=== PATIENT | female | born 1965 | race Caucasian/White ===

== ENCOUNTER 2020-01-04 23:45 | Emergency (ER) | payer MEDICARE, MEDICAID, SELFPAY ==
--- NOTE | ~2020-01-04 | CT_ITS ---
EXAMINATION: CT facial & cervical spine wo DATE: 01/05/2020 01:10 INDICATION: Face and neck pain. Fall. TECHNIQUE: Computed tomography (CT) of the maxillofacial region and cervical spine was performed with out intravenous contrast. Automated exposure control and iterative reconstruction technique were empl oyed. The dose-length product was 605.09 mGy-cm. COMPARISON: None FINDINGS: MAXILLOFACIAL CT: There are likely changes of left ocular lens replacement surgery. There is mucosal thickening in the paranasal sinuses. There is thickening and sclerosis of the chung of the maxillary and sphenoid sinus es, consistent with chronic sinusitis. The patient is edentulous. No fracture. There is soft tissue s welling of the chin. CERVICAL SPINE CT: There is 8 degrees dextrocurvature of cervical spine. There is kyphosis of cervical spine. Vertebral body heights are normal. There is mildly decreased disc height at C4-C5 and C6-C7 and moderately decr eased disc height at C5-C6. The following disc levels are specifically discussed: C2-C3: There is no uncovertebral joint osteoarthritis. There is mild bilateral facet joint osteoarthr itis. There is no neural foraminal stenosis. There is no central canal stenosis. C3-C4: There is mild left uncovertebral joint osteoarthritis. There is mild bilateral facet joint ost eoarthritis. There is no neural foraminal stenosis. There is no central canal stenosis. C4-C5: There is moderate right and mild left uncovertebral joint osteoarthritis. There is mild bilate ral facet joint osteoarthritis. There is mild left neural foraminal stenosis. There is mild central c anal stenosis. C5-C6: There is moderate bilateral uncovertebral joint osteoarthritis. There is moderate bilateral fa cet joint osteoarthritis. There is mild left neural foraminal stenosis. There is mild central canal s tenosis. C6-C7: There is mild right and moderate left uncovertebral joint osteoarthritis. There is moderate ri ght and mild left facet joint osteoarthritis. There is mild left neural foraminal stenosis. There is mild central canal stenosis. C7-T1: There is no uncovertebral joint osteoarthritis. There is moderate right and severe left facet joint osteoarthritis. There is mild left neural foraminal stenosis. There is no central canal stenosi s. IMPRESSION: 1. No fracture. 2. Moderate cervical spondylosis. 3. Chronic sinusitis. Reviewed, dictated and finalized at location A. EL POST DELIVERY
--- NOTE | ~2020-01-04 | CT_ITS ---
EXAMINATION: CT brain wo con DATE: 01/05/2020 01:11 INDICATION: Head injury. Loss of consciousness. TECHNIQUE: Computed tomography (CT) of the head was performed without intravenous contrast. The mA wa s adjusted according to patient size. Iterative reconstruction technique was employed. The dose-lengt h product was 605.33 mGy-cm. COMPARISON: None FINDINGS: There is no intracranial hemorrhage, acute infarction, or abnormal intracranial mass lesion . The ventricles are normal in size. There are likely changes of left ocular lens replacement surgery . There is a left mastoid effusion. There is mucosal thickening in the paranasal sinuses with thicken ing and sclerosis of the chung of the sinuses, consistent with chronic sinusitis. IMPRESSION: 1. Normal brain. 2. Chronic sinusitis. Reviewed, dictated and finalized at location A. AL TAXONOMIST
--- NOTE | ~2020-01-04 | XR_ITS ---
EXAMINATION: XR ankle RT min 3V DATE: 01/05/2020 01:11 INDICATION: Right ankle pain. Injury. TECHNIQUE: 4 views of right ankle were obtained. COMPARISON: Right ankle radiographs 12/03/2019 FINDINGS: Bone alignment is normal. No fracture. Joint spaces are well maintained. There are enthesop hytes at the posterior and plantar aspects of calcaneal tuberosity. IMPRESSION: 1. No fracture. Reviewed, dictated and finalized at location A. FFEUR IMPRESSION: 1. No fracture.
--- NOTE | ~2020-01-04 | XR_ITS ---
EXAMINATION: XR hand LT min 3V DATE: 01/05/2020 01:10 INDICATION: Left hand pain. Injury. TECHNIQUE: 3 views of left hand were obtained. COMPARISON: None. FINDINGS: Bone alignment is normal. No fracture. There is mild osteoarthritis of first carpometacarpa l joint and second distal interphalangeal joint. IMPRESSION: 1. Mild polyarticular osteoarthritis. Reviewed, dictated and finalized at location A. NING ROOM WORKER
--- NOTE | ~2020-01-04 | XR_ITS ---
EXAMINATION: XR knee LT 3V DATE: 01/05/2020 01:11 INDICATION: Left knee pain. Fall. TECHNIQUE: 4 views of left knee were obtained. COMPARISON: Left knee radiographs 03/23/2017 FINDINGS: Bone alignment is normal. No fracture. There is mild tricompartmental osteoarthritis. There are loose bodies in the joint posteriorly. No knee joint effusion. IMPRESSION: 1. Mild left knee osteoarthritis with loose bodies. Reviewed, dictated and finalized at location A. NESS AGENT
--- NOTE | ~2020-01-04 | XR_ITS ---
EXAMINATION: XR knee RT 3V DATE: 01/05/2020 01:10 INDICATION: Right knee pain. Fall. TECHNIQUE: 4 views of right knee were obtained. COMPARISON: None. FINDINGS: Bone alignment is normal. No fracture. There is mild tricompartmental osteoarthritis. No kn ee joint effusion. IMPRESSION: 1. Mild right knee osteoarthritis. Reviewed, dictated and finalized at location A. H MACHINE SETTER
[2020-01-04 23:45] VITALS: BP 105/69; BP 140/80; PULSE 74; PULSE 75; RESP 18; TEMP 36.6; O2SAT 96
--- NOTE | 2020-01-05 00:09 | ECG_ITS ---
Measurements Intervals [place] Rate: 67 P: 34 FL: 165 QRS: -42 QRSD: 93 T: 28 QT: 392 QTc: 417 Interpretive Statements SINUS RHYTHM LEFT AXIS DEVIATION LOW QRS VOLTAGE IN PRECORDIAL LEADS POOR R WAVE PROGRESSION, ANTERIOR LEADS BASELINE ARTIFACT- I, II, III, AVR, AVL BORDERLINE ECG Electronically Signed On 01-05-2020 16:20:30 MAINTENANCE PLANNING CLERK by Adriel Kiser D.O.
--- NOTE | 2020-01-05 00:20 | ED.SYNCOPE ---
HPI - Syncope General Chief Complaint: Syncope Stated Complaint: fall History of Present Illness HPI narrative: Britney Is a 54-year-old woman with a complex past medical history including COPD, CHF, fibromyalgia, anxiety, depression and tobacco abuse that presented to the emergency department with pain after a fall that occurred after passing out. She was feeling stressed so she walked out to the end of her drive for a smoke break. She started to become very upset and had intense vertigo. She put her cigarette out and started to walk up to the house. The vertigo became worse and she completely passed out and fell face forward. She was unconscious for a short while but it took her some time around 15 minutes to get up and go back inside. She had intense pain all day and her head, neck and her left hand bilateral knees and right ankle. She has a history of vertigo and passing out when she has intense anxiety. She took her home OxyContin and tried to lay down but the pain continued to get worse. She denies chest pain, shortness of breath, palpitations, diaphoresis, nausea vomiting and diarrhea. She does report poor p.o. intake. she reports pain in her head, neck, [place], bilateral knees, left hand, and right ankle. MD complaint: collapsed Related Data Home Medications Medication Instructions Recorded Confirmed Lactobacillus acidophilus 1 cell PO DAILY 12/03/19 01/05/20 albuterol sulfate [Ventolin HFA] 1 puff INHALATION PRN 12/03/19 01/04/20 alprazolam 1 mg PO DAILY 12/03/19 01/04/20 dapagliflozin [Farxiga] 5 mg PO DAILY 12/03/19 01/05/20 diclofenac sodium 1 % TOPICAL PRN 12/03/19 01/05/20 escitalopram oxalate 20 mg PO DAILY 12/03/19 01/04/20 eszopiclone 3 mg PO DAILY 12/03/19 01/05/20 rdlhqibrezz-trsxopwfw-ynjmsflv 1 inh INHALATION DAILY 12/03/19 01/05/20 [Trelegy Ellipta] lidocaine 1 patch TOPICAL PRN 12/03/19 01/05/20 linaclotide [Linzess] 145 mcg PO DAILY 12/03/19 01/05/20 metformin 1,000 mg PO DAILY 12/03/19 01/05/20 montelukast 10 mg PO DAILY 12/03/19 01/05/20 oxycodone 10 mg PO DAILY 12/03/19 01/04/20 pregabalin [Lyrica] 100 mg PO BID 12/03/19 01/04/20 pregabalin [Lyrica] 200 mg PO HS 12/03/19 01/04/20 ranitidine HCl 300 mg PO DAILY 12/03/19 01/04/20 verapamil 40 mg PO DAILY 12/03/19 01/04/20 vitamin E 400 unit PO DAILY 12/03/19 01/04/20 Allergies Allergy/AdvReac Type Severity Reaction Status Date / Time atorvastatin Allergy Unknown Verified 12/21/19 09:31 budesonide Allergy Unknown Verified 12/21/19 09:31 egg Allergy Unknown Verified 12/21/19 09:31 formoterol Allergy Unknown Verified 12/21/19 09:31 gemfibrozil Allergy Unknown Verified 12/21/19 09:31 latex Allergy Unknown Verified 12/21/19 09:31 mometasone furoate Allergy Unknown Verified 12/21/19 09:31 morphine Allergy Unknown Itching Verified 12/21/19 09:31 promethazine Allergy Unknown Verified 12/21/19 09:31 zolpidem Allergy Unknown adverse Verified 12/21/19 09:31 reaction milk Allergy INCREASED Verified 12/21/19 09:31 MUCUS, COUGH PAPER TAPE Allergy Unknown BLISTERS Uncoded 12/21/19 09:31 Review of Systems Constitutional: Constitutional: Denies chills and Denies fever(s) ENT: Denies epistaxis Cardiovascular: Cardiovascular: Denies chest pain with activity, Denies edema and Denies dyspnea on exertion Respiratory: Respiratory: Denies cough and Denies dyspnea on exertion Gastrointestinal: Gastrointestinal: Denies abdominal pain, Denies diarrhea, Denies nausea and Denies vomiting Genitourinary: Genitourinary: Denies dysuria Musculoskeletal: Musculoskeletal: Denies deformity Neurologic: Denies Normal hearing present and Denies behavioral changes Psychiatric: Psychiatric: Denies behavioral changes and Denies confusion Endocrine: Endocrine: Reports no additional endocrine complaints Hematologic/Lymphatic: Hematologic/Lymphatic: Reports no additional hematologic/lymphatic complaints Allergic/Immunologic: Allergic/Immunologic: Report
[2020-01-05 00:33] VITALS: BP 108/56; PULSE 76
[2020-01-05 00:35] LABS: Hematocrit 42.7 % (35.0-49.0); Hemoglobin 14.6 g/dL (12.0-15.0); Immature Platelet Fraction Pct 2.2 % (1.0-7.0); Mean Corpuscular HGB Conc 34.2 g/dL (32.0-36.0); Mean Corpuscular Hemoglobin 31.8 pg (27.0-31.0); Mean Platelet Volume 10.4 fl (9.2-11.8); Platelet Count Result 102 K/mm3 (150-420); Red Blood Count 4.59 M/mm3 (4.20-5.40); Red Cell Distribution Width 13.7 % (11.6-14.4); White Blood Count 8.1 K/mm3 (4.8-10.8)
--- NOTE | 2020-01-05 00:36 | PC.NURSE ---
01/04/2020 2345 pt denies nausea, vomiting, chest pain.
[2020-01-05 00:52] LABS: Blood Urea Nitrogen 14 mg/dL (7-18); Calcium 8.7 mg/dL (8.5-10.1); Carbon Dioxide 24 mmol/L (21-32); Chloride 100 mmol/L (98-108); Estimated CRCL calculation 61 ml/min; Estimated Glomerular Filt Rate > 60; Glucose 371 mg/dL (70-99); Osmolality Calculated 295 mOsm/kg (285-295); Sodium 135 mmol/L (136-145)
[2020-01-05 00:53] LABS: Troponin I < 0.02 ng/mL (0.00-0.056)
[2020-01-05 01:06] LABS: BNP 13.2 pg/mL (0-100)
[2020-01-05] MEDS: KETOROLAC 30 MG/ML VIAL (*BKC) (01:40)
[2020-01-05 01:44] VITALS: BP 118/76; PULSE 77; RESP 18; O2SAT 97
== END 2020-01-05 01:46 | disposition home or self-care (01) ==
PROVIDERS: Emergency Provider Family Medicine; PCP Internal Medicine
DX: R55 Syncope and collapse (principal); W19.XXXA Unspecified fall, initial encounter
CPT/HCPCS: 36415; 70450; 70486; 72125; 73130; 73562; 73610; 80048; 83880; 84484; 85027; 85055; 93005; 96374; 99283; 99284; J1885

== ENCOUNTER 2020-10-03 13:51 | Emergency (ER) | payer MEDICARE, SELFPAY ==
--- NOTE | 2020-10-03 14:10 | ED.WOUNDLAC ---
HPI - Wound/Laceration General Chief Complaint: Wound/Laceration Stated Complaint: open wound on left hand Time Seen by Provider: 10/03/20 14:10 Source: patient Mode of arrival: ambulatory Limitations: no limitations History of Present Illness HPI narrative: 55-year-old woman with a history of diabetes or coronary artery disease, CHF, and hypertension comes in today complaining of a wound on her left hand that occurred approximately 1/2 hour prior to arrival. She states that she was trying to open a container with the scissors and slipped, stabbing her self in the dorsal webspace between her left index finger and thumb. She states she could not get the bleeding to stop. She states she takes aspirin daily, but no other blood thinners. Onset (ago): minute(s) (30) Place: home Patient tetanus UTD: Yes Context: accidental Associated symptoms: pain Related Data Home Medications Medication Instructions Recorded Confirmed Lactobacillus acidophilus 1 cell PO DAILY 12/03/19 01/05/20 albuterol sulfate [Ventolin HFA] 1 puff INHALATION PRN 12/03/19 01/04/20 alprazolam 1 mg PO DAILY 12/03/19 01/04/20 dapagliflozin [Farxiga] 5 mg PO DAILY 12/03/19 01/05/20 diclofenac sodium 1 % TOPICAL PRN 12/03/19 01/05/20 escitalopram oxalate 20 mg PO DAILY 12/03/19 01/04/20 eszopiclone 3 mg PO DAILY 12/03/19 01/05/20 mrwrodatjwb-uidndlsrj-razbwaht 1 inh INHALATION DAILY 12/03/19 01/05/20 [Trelegy Ellipta] lidocaine 1 patch TOPICAL PRN 12/03/19 01/05/20 linaclotide [Linzess] 145 mcg PO DAILY 12/03/19 01/05/20 metformin 1,000 mg PO DAILY 12/03/19 01/05/20 montelukast 10 mg PO DAILY 12/03/19 01/05/20 oxycodone 10 mg PO DAILY 12/03/19 01/04/20 pregabalin [Lyrica] 100 mg PO BID 12/03/19 01/04/20 pregabalin [Lyrica] 200 mg PO HS 12/03/19 01/04/20 ranitidine HCl 300 mg PO DAILY 12/03/19 01/04/20 verapamil 40 mg PO DAILY 12/03/19 01/04/20 vitamin E 400 unit PO DAILY 12/03/19 01/04/20 Allergies Allergy/AdvReac Type Severity Reaction Status Date / Time atorvastatin Allergy Unknown Verified 12/21/19 09:31 budesonide Allergy Unknown Verified 12/21/19 09:31 egg Allergy Unknown Verified 12/21/19 09:31 formoterol Allergy Unknown Verified 12/21/19 09:31 gemfibrozil Allergy Unknown Verified 12/21/19 09:31 latex Allergy Unknown Verified 12/21/19 09:31 mometasone furoate Allergy Unknown Verified 12/21/19 09:31 morphine Allergy Unknown Itching Verified 12/21/19 09:31 promethazine Allergy Unknown Verified 12/21/19 09:31 zolpidem Allergy Unknown adverse Verified 12/21/19 09:31 reaction milk Allergy INCREASED Verified 12/21/19 09:31 MUCUS, COUGH PAPER TAPE Allergy Unknown BLISTERS Uncoded 12/21/19 09:31 Review of Systems Cardiovascular: Cardiovascular: Denies chest pain and Denies radiating jaw, neck or arm pain Respiratory: Respiratory: Denies cough and Denies dyspnea Gastrointestinal: Gastrointestinal: Denies nausea and Denies vomiting Musculoskeletal: Musculoskeletal: Denies arthralgias and Denies joint swelling Integumentary/Breasts: Skin/Breast: Denies pruritus, Denies erythema and Denies rash Neurologic: Denies focal weakness and Denies numbness Hematologic/Lymphatic: Hematologic/Lymphatic: Reports easy bleeding and Reports easy bruising Allergic/Immunologic: Allergic/Immunologic: Denies lip swelling and Denies tongue swelling [facility] Past Medical History Medical History (Updated 10/03/20 @ 15:15 by Tristen Yap MD) Anxiety CHF (congestive heart failure) Depression Exogenous obesity Fibromyalgia Hypertension Type 2 diabetes mellitus Surgical History Surgical History H/O laparoscopy History of back surgery History of cholecystectomy History of hysterectomy Family History Family History Mother Family history of gout Hypertension Family history of elevated blood lipids Family history of diabetes
[2020-10-03 14:28] VITALS: BP 137/87; RESP 20; TEMP 36.9; O2SAT 96
[2020-10-03] MEDS: ACETAMINOPHEN/CODEINE (*CRX) 300/30 MG TABLET 1 TAB PO (15:20)
[2020-10-03 15:44] VITALS: BP 120/77; PULSE 106; RESP 20; O2SAT 97
== END 2020-10-03 15:55 | disposition home or self-care (01) ==
PROVIDERS: Emergency Provider Emergency Medicine; PCP Internal Medicine
DX: S61.412A Laceration without foreign body of left hand, initial encounter (principal); I11.0 Hypertensive heart disease with heart failure; I50.9 Heart failure, unspecified; I25.10 Atherosclerotic heart disease of native coronary artery without angina pectoris; E11.9 Type 2 diabetes mellitus without complications; E66.09 Other obesity due to excess calories; M79.7 Fibromyalgia; F41.9 Anxiety disorder, unspecified; F32.9 Major depressive disorder, single episode, unspecified; Z79.82 Long term (current) use of aspirin
CPT/HCPCS: 12001; 99283; A9270

== ENCOUNTER 2020-11-02 19:18 | Emergency (ER) | payer MEDICARE, SELFPAY ==
--- NOTE | ~2020-11-02 | CT_ITS ---
EXAMINATION: CT brain wo con DATE: 11/02/2020 20:19 INDICATION: Head injury TECHNIQUE: Computed tomography (CT) of the head was performed without intravenous contrast. Sagittal and coronal reconstructions were performed. The mA was adjusted according to patient size. Iterative reconstruction technique was employed. The dose-length product was 605.33 mGy-cm. COMPARISON: head CT dated 01/05/2020 FINDINGS: No actual. No acute intracranial hemorrhage, acute infarction or abnormal extra axial fluid collectio n. Ventricles are normal and symmetric. No mass/mass effect. Changes of left intraocular lens replace ment. Extensive sinus disease with opacification of the right sphenoid and near complete opacificatio n of the the remaining paranasal sinuses. There is thickening and sclerosis of the sinus chung consis tent with chronic sinusitis. Left mastoid is hyperpneumatized with persistent small effusion. IMPRESSION: 1. Normal brain. No fracture or acute intracranial process. 2. Chronic sinusitis. Reviewed, dictated and finalized at location A. NSED REACTOR OPERATOR
--- NOTE | ~2020-11-02 | CT_ITS ---
EXAMINATION: CT cervical spine wo con DATE: 11/02/2020 20:19 INDICATION: Neck pain post fall with head injury TECHNIQUE: Computed tomography (CT) of the cervical spine was performed without intravenous contrast. Automated exposure control and iterative reconstruction technique were employed. The dose-length pro duct was 386.10 mGy-cm. COMPARISON: 01/05/2020 FINDINGS: Straightening of the normal cervical lordosis. Vertebral body heights are normal. No fracture. Modera te disc height loss at C5-C6 and mild disc height loss at C4-C5 and C6-C7. Posterior disc osteophyte complexes at C5-C6 and C6-C7 result in mild central canal stenosis at both levels. Multilevel mild to moderate cervical uncovertebral and facet osteoarthritis resulting in mild neural foraminal stenosis at a few levels. See prior report for level by level analysis. Cervical soft tissues are unremarkabl e. Visualized airway and apices of the lungs are clear. IMPRESSION: 1. Moderate cervical spondylosis. No acute osseous abnormality. Reviewed, dictated and finalized at location A. CTOR OF KNOWLEDGE MANAGEMENT
[2020-11-02 19:22] VITALS: BP 145/90; PULSE 102; RESP 18; TEMP 36.4; O2SAT 98
[2020-11-02 19:38] LABS: Basophils Absolute Auto 0.1 K/mm3 (0.0-0.1); Basophils Percent Auto 0.8 % (0.2-1.2); Eosinophils Absolute Auto 0.2 K/mm3 (0-0.3); Eosinophils Percent Auto 2.4 % (0-4.4); Hematocrit 41.6 % (37.0-47.0); Hemoglobin 18.7 g/dL (12.0-15.0); Immature Granulocyte Absolute 0.03 K/mm3 (0.00-0.031); Immature Granulocyte Percent A 0.5 % (0-0.5); Lymphocytes Absolute Auto 1.74 K/mm3 (0.9-3.2); Lymphocytes Percent Auto 26.4 % (18.3-44.2); Mean Corpuscular Hemoglobin 42.1 pg (26-34); Mean Corpuscular Volume 93.7 fl (80-100); Mean Platelet Volume 10.4 fl (7.4-10.4); Monocytes Absolute Auto 0.5 K/mm3 (0.1-0.6); Neutrophils Absolute Auto 4.2 K/mm3 (1.3-6.7); Neutrophils Percent Auto 62.9 % (45.5-73.1); Platelet Count Result 188 k/mm3 (150-375); Red Blood Count 4.44 M/mm3 (4.2-5.4); Red Cell Distribution Width 14.3 % (11.5-14.5); White Blood Count 6.6 K/mm3 (4.5-10.0)
[2020-11-02 19:48] LABS: INR 0.9; Prothrombin Time 12.2 Seconds (11.1-14.7)
[2020-11-02 19:49] LABS: Partial Thromboplastin Time 26.1 SECONDS (22.3-36.8)
--- NOTE | 2020-11-02 20:02 | PC.NURSE ---
Patient found to be awake, alert, and oriented, sitting in bed. She tells me that she does believe she has a painful and bleeding hemorrhoid, stating that she is bleeding like I'm on my period . Patient does report that she has had a hysterectomy. Additionally she reports that she does have a headache. She reports that this has been present for the last three days and that it started after she fell and hit her head. She reports that she tripped and fell down over 3 steps and hit her head. Denies any loss of consciousness but states headaches have been ongoing since that time and do not respond to over the counter pain relief. At this time she reports that she does feel unsteady when she walks but reports similar periods occurring before she had the fall. She also reports blurred vision but then states she has cataracts and has been unable to get them repaired due to COVID. She does not report other concerns at this time. EDP aware of this assessment and orders for CT were placed by the EDPA.
--- NOTE | 2020-11-02 20:10 | ED.GIBLEED ---
HPI - GI Bleed General Chief complaint: GI Bleed Stated complaint: rectal bleeding, headache Time Seen by Provider: 11/02/20 19:59 History of Present Illness HPI Narrative: 55 yo female w/ h/o DM, HTN, IBS presents to the ED for headache and rectal bleeding. SHe reports that she fell down a few stairs 3 dyas ago and struck her head. She reports that she has had a worsening headache and blurry vision since that time. She says that sheis on blood thinners, although she does not know which one and they do not appear on her med list. Additionally she has had blood in the toilet with bowel movements for the past few days. She believes that she is bleeding from a hemorrhoid. . Related Data Home Medications Medication Instructions Recorded Confirmed Lactobacillus acidophilus 1 cell PO DAILY 12/03/19 01/05/20 albuterol sulfate [Ventolin HFA] 1 puff INHALATION PRN 12/03/19 01/04/20 alprazolam 1 mg PO DAILY 12/03/19 01/04/20 dapagliflozin [Farxiga] 5 mg PO DAILY 12/03/19 01/05/20 diclofenac sodium 1 % TOPICAL PRN 12/03/19 01/05/20 escitalopram oxalate 20 mg PO DAILY 12/03/19 01/04/20 eszopiclone 3 mg PO DAILY 12/03/19 01/05/20 wfoyuzakpma-qasniqwix-ctomawqe 1 inh INHALATION DAILY 12/03/19 01/05/20 [Trelegy Ellipta] lidocaine 1 patch TOPICAL PRN 12/03/19 01/05/20 linaclotide [Linzess] 145 mcg PO DAILY 12/03/19 01/05/20 metformin 1,000 mg PO DAILY 12/03/19 01/05/20 montelukast 10 mg PO DAILY 12/03/19 01/05/20 oxycodone 10 mg PO DAILY 12/03/19 01/04/20 pregabalin [Lyrica] 100 mg PO BID 12/03/19 01/04/20 pregabalin [Lyrica] 200 mg PO HS 12/03/19 01/04/20 ranitidine HCl 300 mg PO DAILY 12/03/19 01/04/20 verapamil 40 mg PO DAILY 12/03/19 01/04/20 vitamin E 400 unit PO DAILY 12/03/19 01/04/20 Allergies Allergy/AdvReac Type Severity Reaction Status Date / Time budesonide Allergy Unknown Anaphylactic Verified 11/02/20 21:04 Shock formoterol Allergy Unknown Anaphylactic Verified 11/02/20 21:04 Shock gemfibrozil Allergy Unknown Gastrointestinal Verified 11/02/20 21:04 Upset mometasone furoate Allergy Unknown Anaphylactic Verified 11/02/20 21:04 Shock milk Allergy INCREASED Verified 12/21/19 09:31 MUCUS, COUGH diphenhydramine AdvReac Severe Other Verified 11/02/20 21:04 [From Benadryl] atorvastatin AdvReac Unknown Itching Verified 11/02/20 21:04 morphine AdvReac Unknown Itching Verified 11/02/20 21:04 PAPER TAPE Allergy Unknown BLISTERS Uncoded 12/21/19 09:31 Review of Systems Review of Systems: All systems reviewed & are unremarkable except as noted in HPI and below Constitutional: Constitutional: Denies chills, Denies fatigue, Denies fever(s) and Denies weakness Eyes: Eyes: Reports photophobia Cardiovascular: Cardiovascular: Denies chest pain Respiratory: Respiratory: Denies dyspnea Gastrointestinal: Gastrointestinal: Denies abdominal pain, Reports bloating, Denies constipation, Denies diarrhea, Denies nausea and Denies vomiting Genitourinary: Genitourinary: Denies hematuria and Denies dysuria Neurologic: Denies dizziness, Reports headache(s) and Denies weakness PMFSH Past Medical History Medical History Anxiety CHF (congestive heart failure) Depression Exogenous obesity Fibromyalgia Hypertension Type 2 diabetes mellitus Surgical History Surgical History H/O laparoscopy History of back surgery History of cholecystectomy History of hysterectomy Family History Family History Mother Family history of gout Hypertension Family history of elevated blood lipids Family history of diabetes mellitus in first degree relative Family history of chronic obstructive pulmonary disease Sibling Family history of gout Family history of allergic disorder Father Family history of emphysema Other Family history of cardiovascu
[2020-11-02] MEDS: SODIUM CHLORIDE 0.9% IV 1,000 ML 999 ML IV CONT (21:12)
[2020-11-02] MEDS: METOCLOPRAMIDE HCL INJ 10 MG/2 ML VIAL IV PUSH (21:14)
[2020-11-02 21:15] VITALS: BP 119/85; BP 126/92; PULSE 103; PULSE 98
[2020-11-02 21:16] VITALS: BP 125/90; BP 126/92; PULSE 102; PULSE 119; RESP 18; TEMP 35.9; O2SAT 97
--- NOTE | 2020-11-02 22:12 | PC.NURSE ---
Chemistry called at this time in regards to not having results reported for CMP. Lab states that they need to get an iStat to run this test and are currently working towards this goal.
[2020-11-02 22:14] LABS: Sodium 126 mmol/L (138-146)
[2020-11-02 22:15] VITALS: BP 111/66; PULSE 86; RESP 22; TEMP 36.7; O2SAT 96
[2020-11-02 22:15] LABS: Anion Gap 5 mmol/L (8-16); Blood Urea Nitrogen 7 mg/dL (8-26); Carbon Dioxide 28 mmol/L (22-30); Chloride 93 mmol/L (98-109); Estimated CRCL calculation 102 ml/min; Estimated Glomerular Filt Rate > 60; Potassium 4.2 mmol/L (3.5-4.9)
[2020-11-02 22:16] LABS: Glucose 449 mg/dL (70-105)
[2020-11-02] MEDS: FLUCONAZOLE 150 MG TABLET PO (22:19)
--- NOTE | 2020-11-02 22:30 | PC.NURSE ---
Patient requesting to be discharged and does not want second liter of fluids. EDP made aware of the patient's request.
== END 2020-11-02 22:45 | disposition home or self-care (01) ==
PROVIDERS: Emergency Medicine; Emergency Provider Emergency Medicine; PCP Internal Medicine
DX: B37.9 Candidiasis, unspecified (principal); G44.309 Post-traumatic headache, unspecified, not intractable; I50.9 Heart failure, unspecified; I11.0 Hypertensive heart disease with heart failure; F41.9 Anxiety disorder, unspecified; F32.9 Major depressive disorder, single episode, unspecified; M79.7 Fibromyalgia; E11.9 Type 2 diabetes mellitus without complications; Z79.84 Long term (current) use of oral hypoglycemic drugs; E66.09 Other obesity due to excess calories; Z68.29 Body mass index [BMI] 29.0-29.9, adult; F17.200 Nicotine dependence, unspecified, uncomplicated; M47.812 Spondylosis without myelopathy or radiculopathy, cervical region; J32.9 Chronic sinusitis, unspecified; W10.9XXA Fall (on) (from) unspecified stairs and steps, initial encounter
CPT/HCPCS: 36415; 70450; 72125; 80053; 85025; 85610; 85730; 86850; 86900; 86901; 96361; 96374; 96375; 99284; A9270; J0131; J2765; J7030

== ENCOUNTER 2020-11-09 09:37 | Emergency (ER) | payer MEDICARE, SELFPAY ==
--- NOTE | ~2020-11-09 | XR_ITS ---
EXAMINATION: [id number]_CR DATE: 11/09/2020 11:21 INDICATION: Right rib pain. Cough. TECHNIQUE: A frontal view of the chest and 3 views of the right ribs were obtained. COMPARISON: Chest 2 views 02/18/2019, chest CT 01/18/2019 FINDINGS: There is mild scarring in left midlung zone. No pleural effusion or pneumothorax. The heart size is normal. Surgical clips in the right upper quadrant are likely from cholecystectomy. There ar e fractures of right sixth and seventh ribs. IMPRESSION: 1. Fractures of right sixth and seventh ribs. Reviewed, dictated and finalized at location B. S PIPE INSPECTOR
--- NOTE | 2020-11-09 10:08 | ED.HA ---
HPI - Headache General Chief Complaint: Headache Stated Complaint: Cluster headache Time Seen by Provider: 11/09/20 10:38 Source: patient Mode of arrival: ambulatory Limitations: no limitations History of Present Illness HPI Narrative: 55-year-old woman with a history of cirrhosis and migraine headaches (usually on the left) comes in today complaining of right-sided head pain that has been present for the last 9 days. Patient states that she has had cluster migraines in the distant past and her symptoms are similar to that. patient also states that she fell several days ago and since then she has had some right-sided rib pain that is worse with movement. She states that because she is on blood thinners (Brilinta and aspirin) she went to the emergency department. She had a CT of her neck and C-spine which were negative. She denies fever, chills, body aches, stiff neck, photophobia, and vomiting, sore throat, cold symptoms, cough, hemoptysis, shortness of breath. MD elicited complaint: headache Pertinent past history: migraines Onset (ago): day(s) (9) Onset description: gradually Location: right Severity: moderate Quality & Timing: throbbing Exacerbating factors: none Relieving factors: nothing Context: occurred at rest Associated symptoms: nausea and cough ( Chronic) Related Data Home Medications Medication Instructions Recorded Confirmed Lactobacillus acidophilus 1 cell PO DAILY 12/03/19 11/09/20 albuterol sulfate [Ventolin HFA] 1 puff INHALATION PRN PRN 12/03/19 11/09/20 alprazolam 1 mg PO PRN PRN 12/03/19 11/09/20 diclofenac sodium 1 % TOPICAL PRN PRN 12/03/19 11/09/20 [id number]-msciziwcu-icqdhlkj 1 inh INHALATION DAILY 12/03/19 11/09/20 [Trelegy Ellipta] lidocaine 1 patch TOPICAL PRN PRN 12/03/19 11/09/20 montelukast 10 mg PO DAILY 12/03/19 11/09/20 pregabalin [Lyrica] 200 mg PO DAILY 12/03/19 11/09/20 vitamin E 400 unit PO DAILY 12/03/19 11/09/20 aspirin 81 mg PO DAILY 11/09/20 11/09/20 duloxetine 60 mg PO DAILY 11/09/20 11/09/20 famotidine 20 mg PO HS 11/09/20 11/09/20 insulin lispro [Humalog U-100 140 unit CONTINUOUS SUBCUTANEOUS 11/09/20 11/09/20 Insulin] INFUSION DAILY ticagrelor [Brilinta] 90 mg PO BID 11/09/20 11/09/20 zolpidem 10 mg PO HS 11/09/20 11/09/20 Allergies Allergy/AdvReac Type Severity Reaction Status Date / Time budesonide Allergy Unknown Anaphylactic Verified 11/02/20 21:04 Shock formoterol Allergy Unknown Anaphylactic Verified 11/02/20 21:04 Shock gemfibrozil Allergy Unknown Gastrointestinal Verified 11/02/20 21:04 Upset mometasone furoate Allergy Unknown Anaphylactic Verified 11/02/20 21:04 Shock milk Allergy INCREASED Verified 12/21/19 09:31 MUCUS, COUGH diphenhydramine AdvReac Severe Other Verified 11/02/20 21:04 [From Benadryl] atorvastatin AdvReac Unknown Itching Verified 11/02/20 21:04 morphine AdvReac Unknown Itching Verified 11/02/20 21:04 PAPER TAPE Allergy Unknown BLISTERS Uncoded 12/21/19 09:31 Review of Systems Constitutional: Constitutional: Denies chills, Denies fatigue, Denies fever(s) and Denies weakness Eyes: Eyes: Denies change in vision and Denies photophobia ENT: Denies dysphagia, Denies nasal congestion and Denies sore throat Cardiovascular: Cardiovascular: Reports chest pain ( right-sided, worse with movement) and Denies radiating jaw, neck or arm pain Respiratory: Respiratory: Reports cough ( chronic), Denies dyspnea and Denies wheezing Gastrointestinal: Gastrointestinal: Denies abdominal pain, Denies diarrhea, Reports nausea and Denies vomiting Genitourinary: Genitourinary: Denies nocturia and Denies dysuria Musculoskeletal: Musculoskeletal: Denies back pain, Denies arthralgias and Denies joint swelling Integumentary/Breasts: Skin/Breast: Denies pruritus, Denies erythema and Denies rash Neurologic: Denies vertigo, Denies dizziness and Denies syncope Hematologic/Lymphatic: Hematologic/Lymphatic: Denies easy bleed
[2020-11-09 10:30] VITALS: BP 146/87; PULSE 101; RESP 20; TEMP 36.6; O2SAT 95
[2020-11-09 11:13] LABS: Hematocrit 40.1 % (35.0-49.0); Mean Corpuscular HGB Conc 47.6 g/dL (32.0-36.0); Mean Corpuscular Hemoglobin 45.3 pg (27.0-31.0); Platelet Count Result 239 K/mm3 (150-420); Red Blood Count 4.22 M/mm3 (4.20-5.40); Red Cell Distribution Width 14.2 % (11.6-14.4); White Blood Count 6.5 K/mm3 (4.8-10.8)
[2020-11-09 11:30] LABS: Hemoglobin 19.1 g/dL (12.0-15.0)
[2020-11-09] MEDS: traMADol HCL (*CRX) 50 MG TABLET PO (11:57)
[2020-11-09 12:08] VITALS: BP 134/87; PULSE 96; RESP 18; O2SAT 99
[2020-11-09 12:08] LABS: Band Neutrophils Percent 0 % (0-6); Basophils Percent Manual 0 % (0-1); Eosinophils Absolute Manual 0.13 K/mm3 (0.02-0.5); Eosinophils Percent Manual 2 % (1-6); Lymphocytes Absolute Manual 1.43 K/mm3 (1.1-4.5); Lymphocytes Percent Manual 22 % (18-44); Monocytes Absolute Manual 0.58 K/mm3 (0.1-0.90); Monocytes Percent Manual 9 % (3-9); Neutrophils Absolute Manual 4.35 K/mm3 (1.7-7.2); Neutrophils Percent Manual 67 % (46-73); Platelet Estimate Adequate (Adequate); Total Cells Counted 100
[2020-11-10 06:35] LABS: Anion Gap 22 mmol/L (8-16); Blood Urea Nitrogen 8 mg/dL (7-18); Carbon Dioxide 16 mmol/L (21-32); Chloride 87 mmol/L (98-108); Potassium 4.1 mmol/L (3.5-5.1); Sodium 125 mmol/L (136-145)
[2020-11-10 06:37] LABS: Alanine Aminotransferase 40 U/L (14-59); Aspartate Amino Transferase 30 U/L (15-37); Bilirubin,Total 0.7 mg/dL (0.00-1.00); Calcium 9.2 mg/dL (8.5-10.1); Osmolality Calculated 282 mOsm/kg (285-295)
[2020-11-10 06:38] LABS: Albumin Level 3.8 g/dL (3.4-5.0); Alkaline Phosphatase 593 U/L (46-116); Total Protein 7.5 g/dL (6.4-8.2)
[2020-11-10 06:51] LABS: Glucose 531 mg/dL (70-99)
[2020-11-11 22:49] LABS: Estimated CRCL calculation 73 ml/min; Estimated Glomerular Filt Rate > 60
[2020-11-13 17:21] LABS: Estimated CRCL calculation 73 ml/min; Estimated Glomerular Filt Rate > 60
== END 2020-11-09 12:06 | disposition home or self-care (01) ==
PROVIDERS: Emergency Provider Emergency Medicine; PCP Internal Medicine
DX: R51.9 Headache, unspecified (principal); E78.5 Hyperlipidemia, unspecified; S22.41XA Multiple fractures of ribs, right side, initial encounter for closed fracture; F17.200 Nicotine dependence, unspecified, uncomplicated; I50.9 Heart failure, unspecified; I10 Essential (primary) hypertension; E11.9 Type 2 diabetes mellitus without complications
CPT/HCPCS: 36415; 71101; 80053; 82565; 85025; 99283; 99284; A9270

== ENCOUNTER 2020-11-12 13:10 | Emergency (ER) | payer MEDICARE, SELFPAY ==
[2020-11-12] VITALS (47 sets, daily range): BP systolic 112–157; BP diastolic 60–100; PULSE 122–139; RESP 19–27; TEMP 36.4; O2SAT 98–100
--- NOTE | ~2020-11-12 | XR_ITS ---
EXAMINATION: XR chest 2V DATE: 11/12/2020 14:24 INDICATION: Dyspnea. TECHNIQUE: Frontal and lateral views of the chest were obtained. COMPARISON: Chest 2 views 02/18/2019, chest CT 01/18/2019 FINDINGS: There is mild atelectasis in left midlung zone. No pleural effusion or pneumothorax. The he art size is normal. IMPRESSION: 1. Mild atelectasis in left midlung zone. Reviewed, dictated and finalized at location A. PHONE INTERCEPTOR OPERATOR
--- NOTE | ~2020-11-12 | CT_ITS ---
EXAMINATION: CTA chest PE protocol EXAM DATE: 11/12/2020 17:04 INDICATION: Dyspnea SOB, elevated d-dimer, recent rib FXs . TECHNIQUE: Spiral CTA of the chest (pulmonary arteries) was performed with 100 cc Omnipaque 350 intr avenous contrast injection. Images were acquired during the pulmonary arterial phase. Coronal maxi mum intensity projection 3D-reconstructions were created by the technologist on dedicated workstation . Axial, coronal and sagittal reformatted images were reviewed. The dose-length product (DLP) for t his examination was 810.02 mGy-cm. The exposure was tailored according to patient size (auto mA exp osure control), and iterative reconstruction (ASIR) was used as additional dose reduction technique. Comparison is made to prior examination from 01/18/2019. FINDINGS: Pulmonary arteries are well opacified and without intraluminal filling defects. No thora cic aortic dissection. Bilateral small faint patchy peripheral predominant groundglass opacities Appearance is typical of e vaishali stage COVID 19 pneumonia. Less likely acute possibilities include influenza, pulmonary edema or hemorrhage. Some chronic processes that can have this appearance include cryptogenic organizing pneu monia, desquamative interstitial pneumonia, nonspecific interstitial pneumonia, drug toxicity, connec tive tissue disease. Please clinically correlate and test as appropriate. There are no pleural or pericardial effusions. Tracheobronchial tree is patent. There is no media stinal, hilar or axillary lymphadenopathy. There is no pneumothorax. Heart normal in size. No e vidence of coronary arterial calcification. Nodular cirrhotic liver without evidence of underlying m ass. Cholecystectomy clips. No osteoblastic or osteolytic lesions identified. Nondisplaced right 6th and 7th rib fractures identified. IMPRESSION: 1. Faint bilateral groundglass opacities suspicious for COVID-19. 2. Nondisplaced right 6th, 7th rib fractures probably acute. 3. Cirrhosis. 4. No pulmonary emboli. Reviewed, dictated and finalized at location A. PONG TABLE ASSEMBLER
--- NOTE | 2020-11-12 13:20 | ED.SOB ---
HPI - SOB/Dyspnea General Chief Complaint: Shortness of Breath/Dyspnea Stated Complaint: shortness of breath Time Seen by Provider: 11/12/20 13:20 Source: patient and RN notes reviewed Mode of arrival: ambulatory Limitations: no limitations History of Present Illness HPI Narrative: patient has known cirrhosis of liver. She was here 3 days ago at that time found to have rib fractures. Her blood was very lipemic and therefore results of her blood test did not return until 1 day later. She comes in because she is having increasing shortness of breath. She has a history of diabetes on a insulin pump. She says that it hurts to take a deep breath due to her right rib fractures. MD elicited complaint: shortness of breath and pain with inspiration Pertinent past history: other (Recent rib fracture) Onset (ago): day(s) (3) Timing: constant and progressively worsening Severity: severe Exacerbating factors: lying flat and exertion Relieving factors: nothing Known history of: COPD, congestive heart failure and diabetes Associated symptoms: cough, polyuria and polydipsia Treatment prior to arrival: none Related Data Home oxygen amount: none Home Medications Medication Instructions Recorded Confirmed Lactobacillus acidophilus 1 cell PO DAILY 12/03/19 11/12/20 albuterol sulfate [Ventolin HFA] 1 puff INHALATION PRN PRN 12/03/19 11/12/20 alprazolam 1 mg PO PRN PRN 12/03/19 11/12/20 diclofenac sodium 1 % TOPICAL PRN PRN 12/03/19 11/12/20 uyjelzaxeex-dkmgwrokj-srcyyjyl 1 inh INHALATION DAILY 12/03/19 11/12/20 [Trelegy Ellipta] lidocaine 1 patch TOPICAL PRN PRN 12/03/19 11/12/20 montelukast 10 mg PO DAILY 12/03/19 11/12/20 vitamin E 400 unit PO DAILY 12/03/19 11/12/20 aspirin 81 mg PO DAILY 11/09/20 11/12/20 duloxetine 60 mg PO DAILY 11/09/20 11/12/20 famotidine 20 mg PO HS 11/09/20 11/12/20 insulin lispro [Humalog U-100 5 unit CONTINUOUS SUBCUTANEOUS 11/09/20 11/12/20 Insulin] INFUSION TIDWM ticagrelor [Brilinta] 90 mg PO BID 11/09/20 11/12/20 zolpidem 10 mg PO HS 11/09/20 11/12/20 metoprolol succinate 25 mg PO DAILY 11/12/20 11/12/20 nitroglycerin 0.4 mg SUBLINGUAL Q15M PRN 11/12/20 11/12/20 Allergies Allergy/AdvReac Type Severity Reaction Status Date / Time budesonide Allergy Unknown Anaphylactic Verified 11/02/20 21:04 Shock formoterol Allergy Unknown Anaphylactic Verified 11/02/20 21:04 Shock gemfibrozil Allergy Unknown Gastrointestinal Verified 11/02/20 21:04 Upset mometasone furoate Allergy Unknown Anaphylactic Verified 11/02/20 21:04 Shock milk Allergy INCREASED Verified 12/21/19 09:31 MUCUS, COUGH diphenhydramine AdvReac Severe Other Verified 11/02/20 21:04 [From Benadryl] atorvastatin AdvReac Unknown Itching Verified 11/02/20 21:04 morphine AdvReac Unknown Itching Verified 11/02/20 21:04 PAPER TAPE Allergy Unknown BLISTERS Uncoded 12/21/19 09:31 Review of Systems Constitutional: Constitutional: Reports fatigue and Reports weakness Cardiovascular: Cardiovascular: Reports chest pain (Right chest wall) Respiratory: Respiratory: Reports as per HPI Genitourinary: Genitourinary: Reports no additional female genitourinary complaints Musculoskeletal: Musculoskeletal: Reports no additional musculoskeletal complaints Integumentary/Breasts: Skin/Breast: Reports system reviewed and no additional complaints, except as docu Neurologic: Reports system reviewed and no additional complaints, except as documented Psychiatric: Psychiatric: Reports no additional psychiatric complaints Endocrine: Endocrine: Reports polydipsia and Reports polyuria Allergic/Immunologic: Allergic/Immunologic: Reports no additional allergic/immunologic complaints [facility] Past Medical History Medical History (Updated 11/12/20 @ 21:35 by Smiley Gracia DO) Anxiety CHF (congestive heart failure) Cirrhosis Depression Exogenous obesity Fibromyalgia Hyperlipidemia Hypertension Type 2 diabetes mellitus
[2020-11-12] MEDS: ONDANSETRON HCL ODT 4 MG TABLET PO (13:57)
[2020-11-12 14:14] LABS: Basophils Absolute Auto 0.09 K/mm3 (0.00-0.10); Basophils Percent Auto 0.5 % (0.0-1.0); Eosinophils Absolute Auto 0.01 K/mm3 (0.02-0.50); Eosinophils Percent Auto 0.1 % (1.0-6.0); Hematocrit 43.8 % (35.0-49.0); Hemoglobin 15.9 g/dL (12.0-15.0); Immature Granulocyte Absolute 0.25 K/mm3 (0.00-0.00); Immature Granulocyte Percent A 1.3 % (0.0-0.0); Lymphocytes Absolute Auto 1.93 K/mm3 (1.10-4.50); Mean Corpuscular HGB Conc 36.3 g/dL (32.0-36.0); Mean Corpuscular Hemoglobin 34.8 pg (27.0-31.0); Mean Corpuscular Volume 95.8 fL (78.0-102.0); Mean Platelet Volume 10.1 fl (9.2-11.8); Monocytes Absolute Auto 2.56 K/mm3 (0.10-0.90); Monocytes Percent Auto 13.2 % (2.0-11.0); Neutrophils Absolute Auto 14.5 K/mm3 (1.7-7.2); Neutrophils Percent Auto 74.9 % (50.0-70.0); Platelet Count Result 445 K/mm3 (150-420); Red Blood Count 4.57 M/mm3 (4.20-5.40); Red Cell Distribution Width 14.6 % (11.6-14.4); White Blood Count 19.4 K/mm3 (4.8-10.8)
[2020-11-12 14:26] LABS: Prothrombin Time 11.4 Seconds (9.50-12.10)
[2020-11-12 14:46] LABS: BNP 74.7 pg/mL (0-100)
[2020-11-12 15:04] LABS: Glucose Point of Care 396 (65-105)
[2020-11-12] MEDS: SODIUM CHLORIDE 0.9% IV 500 ML 999 ML IV CONT (15:23)
[2020-11-12 15:29] LABS: D Dimer 2.23 mg/L (0.19-0.50)
[2020-11-12] MEDS: INSULIN HUMAN REGULAR (*BKC) 100 UNITS/ML 15 UNITS SUB-Q (15:52)
[2020-11-12 16:57] LABS: Anion Gap 15.00001 mmol/L (8-16); Estimated CRCL calculation 67 ml/min; Estimated Glomerular Filt Rate > 60
[2020-11-12 16:57] LABS: Add Urine Microscopic? YES; Bilirubin Urine 1+ (Negative); Blood Urine 2+ (Negative); Color Urine Yellow (Yellow); Glucose Urine UA 3+ (Negative); Ketones Urine 3+ (Negative); Leukocyte Esterase Ur Negative LEU/UL (Negative); Nitrate Urine Negative (Negative); Protein Urine 1+ (Negative); Specific Grav Ur >= 1.030 (1.010-1.020); Urobilinogen Urine 0.2 mg/dL (0.2-1.0); pH Urine 5.5 (5.0-8.0)
[2020-11-12 17:03] LABS: Osmolality Calculated 285 mOsm/kg (285-295)
[2020-11-12 17:04] LABS: Blood Urea Nitrogen 39 mg/dL (8-26); Carbon Dioxide < 10 mmol/L (22-30); Chloride 94 mmol/L (98-109); Potassium 5.2 mmol/L (3.5-4.9)
[2020-11-12 17:04] LABS: Appearance Urine Sl Cloudy (Clear); Bacteria Urine 1+ /hpf; RBC Urine None seen /hpf (0-2); Squamous Epithelial Cell Urine Few /hpf (Few); WBC Urine 0-3 /hpf (0-3)
[2020-11-12 17:05] LABS: Sodium 119 mmol/L (138-146)
[2020-11-12 17:07] LABS: Glucose Point of Care 390 (65-105)
[2020-11-12 17:10] LABS: Glucose > 600 mg/dL (70-105)
[2020-11-12 17:42] LABS: Base Excess ABG -25.3 mmol/L (0-2); Oxygen Content ABG 20.5 %vol (16.0-22.0); Oxygen Saturation ABG 97.4 % (95-97); Oxyhemoglobin 96.5 % (94-100); PO2 ABG 128.6 mmHg (80-90); pH ABG 7.05 (7.35-7.45)
[2020-11-12 17:44] LABS: Device NASAL CANNULA; Modified Allen's Test Pass; PCO2 ABG 11.3 mmHg (35-45); Site Drawn RIGHT RADIAL
[2020-11-12 17:49] LABS: Acetone Large (Negative)
[2020-11-12] MEDS: LACTATED RINGERS 1,000 ML 250 ML IV CONT (17:56)
[2020-11-12 18:07] LABS: SARS-CoV-2 Ag Negative (Negative)
[2020-11-12] MEDS: INSULIN HUMAN REGULAR (*BKC) 100 UNITS in SODIUM CHLORIDE 0.9% IV 99 ML IV CONT (18:53)
[2020-11-12 19:07] LABS: Lactic Acid Reflex 2.3 mmol/L (0.4-2.0)
[2020-11-12 19:10] LABS: Magnesium 1.9 mg/dL (1.8-2.4); Thyroid Stimulating Hormone 0.55 uIU/mL (0.36-3.74)
--- NOTE | 2020-11-12 19:16 | PC.NURSE ---
[facility] CONTACTED FOR TRANSFER.
[2020-11-12 19:28] LABS: Glucose Point of Care 351 (65-105)
--- NOTE | 2020-11-12 19:36 | PC.NURSE ---
REPORT TO JACE RINCON AT [facility], [facility] CONTACTED FOR TRANSFER.
[2020-11-12 20:22] LABS: Reflex Lactic Acid Yes or No Add Lactic
[2020-11-12 22:42] LABS: Glucose Point of Care 450 (65-105)
[2020-11-13 16:51] LABS: Calcium 9.1 mg/dL (8.5-10.1)
[2020-11-13 16:52] LABS: Alanine Aminotransferase 28 U/L (14-59); Aspartate Amino Transferase 30 U/L (15-37); Bilirubin,Total 1.1 mg/dL (0.00-1.00); Total Protein 8.4 g/dL (6.4-8.2)
[2020-11-13 16:55] LABS: Alkaline Phosphatase 254 U/L (46-116)
== END 2020-11-12 20:10 | disposition short-term general hospital (02) ==
PROVIDERS: Emergency Provider Emergency Medicine; PCP Internal Medicine
DX: E11.00 Type 2 diabetes mellitus with hyperosmolarity without nonketotic hyperglycemic-hyperosmolar coma (NKHHC) (principal); E87.2 Acidosis; Z79.4 Long term (current) use of insulin; I50.9 Heart failure, unspecified; E78.5 Hyperlipidemia, unspecified; I10 Essential (primary) hypertension; F17.200 Nicotine dependence, unspecified, uncomplicated
CPT/HCPCS: 36415; 36600; 71046; 71275; 80053; 81001; 82010; 82805; 82948; 83605; 83735; 83880; 84443; 85025; 85380; 85610; 87426; 96361; 96374; 99285; 99291; A9270; J1815; J7040; J7120; Q9965; Q9967

== ENCOUNTER 2020-11-12 21:41 | Inpatient (IN) | payer MEDICARE, SELFPAY ==
[2020-11-12 21:06] VITALS: BP 152/92; PULSE 122; PULSE 123; RESP 36; O2SAT 100
--- NOTE | 2020-11-12 21:08 | PM.IMHP ---
H&P: HPI History of Present Illness Date/Time: 11/12/20 21:08 Chief complaint: DKA Narrative: Britney Crawford is a 55 year old female with past medical history of insulin-dependent type 2 diabetes, hyperlipidemia, anxiety, cirrhosis? who presents to the ED with complaints of dyspnea. Patient states her insulin pump started malfunctioning 1 week ago and she has not been able to get any insulin. She does not know her insulin regimen, pump settings, which pump she uses. Denies fever, chills. She endorses nausea, vomiting, polyuria. She has been in DKA in the past and understands the protocol. It appears her PCP is Dr. Berkowitz, we will need to get records to figure out her home regimen. Of note patient was seen on 11/09/2020 for right-sided headache for 9 days and right rib fractures seen in the ED after a fall which she was concerned because she is on blood thinners, CT head was negative and she was sent home with some pain medication. She was seen 11/02/2020 in the ED for rectal bleeding, she was found to have yeast infection and discharged home with Diflucan. In the ED at [place]: Patient is on be DKA pH 7.05, acetones, Na 119, K 5.2, D-dimer was elevated at 2.23 subsequent CTA chest was negative for PE but was concerning for COVID-19. Her COVID-19 rapid test was negative which was done for her dyspnea. Patient was started on an insulin drip and sent to [facility] ICU for further management of DKA and PUI for COVID-19. Review of Systems Review of Systems: Narrative: Constitutional: No Fever, No Chills, No Night Sweats, No Fatigue, No Malaise ENT/Mouth: No Hearing Changes, No Ear Pain, No Nasal Congestion, No Sinus Pain, No Hoarseness, No sore throat, No Rhinorrhea, No Swallowing Difficulty Eyes: No Eye Pain, No Redness, No Vision Changes Cardiovascular: No Chest Pain, No Palpitations, No Dyspnea on Exertion, No Orthopnea, No Claudication, No Edema Respiratory: Endorses cough and dyspnea. Gastrointestinal: Endorses nausea. No Vomiting, No Diarrhea, No Constipation, No Abdominal Pain, No Heartburn, No Hematochezia, No Melena Genitourinary: No Dysuria, No Hematuria, No Urinary Incontinence, No Urgency. Endorses polyuria. Musculoskeletal: No Arthralgias, No Myalgias, No Joint Swelling, No Joint Stiffness, No Back Pain Skin: No Skin Lesions, No Pruritis, No Hair Changes Neuro: No Weakness, No Numbness, No Paresthesias, No Loss of Consciousness, No Syncope, No Dizziness, No Headache Heme: No Bruising, No Bleeding Lymph: No Adenopathy Endocrine: No Polyuria, No Polydipsia, No Temperature Intolerance [facility] Past Medical History Medical History Anxiety CHF (congestive heart failure) Cirrhosis Depression Exogenous obesity Fibromyalgia Hyperlipidemia Hypertension Type 2 diabetes mellitus Surgical History Surgical History H/O laparoscopy History of back surgery History of cholecystectomy History of hysterectomy Family History Family History Mother Family history of gout Hypertension Family history of elevated blood lipids Family history of diabetes mellitus in first degree relative Family history of chronic obstructive pulmonary disease Sibling Family history of gout Family history of allergic disorder Father Family history of emphysema Other Family history of cardiovascular disease Social History Social History Smoking packs per day: 1 Smoking cigarettes per day: 20.0 Years smoked: 30 Smoking pack-years: 30.00 Smoking status: Current every day smoker Tobacco type: cigarettes Alcohol intake: former Substance use: current Substance use type: marijuana Gender identity (if verbalized by the patient): Female Sexual Orientation (if Verbalized by the Patient)
[2020-11-12 21:09] VITALS: BMI 29.8
[2020-11-12 22:00] VITALS: BP 149/76; PULSE 126; RESP 24; TEMP 36.1; O2SAT 100
[2020-11-12] MEDS: SODIUM CHLORIDE 0.9% IV 1,000 ML 150 ML IV CONT (22:10)
[2020-11-12] MEDS: INSULIN HUMAN REGULAR (*BKC) 100 UNITS in SODIUM CHLORIDE 0.9% IV 99 ML 8 UNITS IV CONT (22:10)
[2020-11-12 22:22] LABS: Anion Gap 7.00001 mmol/L (8-16); Estimated CRCL calculation 102 ml/min; Estimated Glomerular Filt Rate > 60; Potassium 3.5 mmol/L (3.5-4.9); Sodium 121 mmol/L (138-146)
[2020-11-12 22:23] LABS: Blood Urea Nitrogen 33 mg/dL (8-26); Carbon Dioxide < 10 mmol/L (22-30); Chloride 104 mmol/L (98-109); Glucose 434 mg/dL (70-105)
[2020-11-12 22:54] LABS: Glucose Point of Care 359 (65-105)
[2020-11-12 23:58] LABS: Glucose Point of Care 311 (65-105)
[2020-11-13] VITALS (11 sets, daily range): BP systolic 126–149; BP diastolic 49–86; PULSE 83–130; RESP 19–28; TEMP 36.1–37.2; O2SAT 95–100
[2020-11-13 01:20] LABS: Glucose Point of Care 257 (65-105)
[2020-11-13] MEDS: KCL 20 MEQ/D5/0.45% SOD CHL 1,000 ML 150 ML IV CONT ×4 (02:30→22:34)
[2020-11-13 04:10] LABS: Hemoglobin A1C 12.3 % (<5.7)
[2020-11-13 04:50] LABS: Glucose Point of Care 198 (65-105)
[2020-11-13 04:50] LABS: Glucose Point of Care 233 (65-105)
[2020-11-13 06:38] LABS: Glucose Point of Care 218 (65-105)
[2020-11-13 06:39] LABS: Glucose Point of Care 221 (65-105)
[2020-11-13] MEDS: INSULIN HUMAN REGULAR (*BKC) 100 UNITS in SODIUM CHLORIDE 0.9% IV 99 ML 16.2 UNITS IV CONT (07:33)
[2020-11-13] MEDS: DULoxetine HCL 60 MG CAPSULE.DR PO (08:21)
[2020-11-13] MEDS: METOPROLOL SUCCINATE EXT REL 25 MG TABCR PO (08:21)
[2020-11-13] MEDS: ASPIRIN 81 MG CHEWABLE TABLET PO (08:21)
[2020-11-13] MEDS: ENOXAPARIN 40 MG/0.4 ML SYRINGE SUB-Q (08:22)
[2020-11-13] MEDS: MONTELUKAST SODIUM 10 MG TABLET PO (08:22)
[2020-11-13] MEDS: TICAGRELOR 90 MG TABLET PO ×2 (08:23→16:29)
[2020-11-13] MEDS: ACIDOPHILUS/BULGARICUS CHEWABLE TABLET 1 TABLET BY MOUTH (08:24)
[2020-11-13] MEDS: SODIUM CHLORIDE 0.9% IV 500 ML (08:58)
[2020-11-13 09:17] LABS: Glucose Point of Care 222 (65-105)
[2020-11-13 09:17] LABS: Glucose Point of Care 212 (65-105)
[2020-11-13 09:17] LABS: Glucose Point of Care 185 (65-105)
[2020-11-13] MEDS: TOLNAFTATE 1% POWDER 45 GM BTL 1 APPLIC TOPICAL ×2 (10:00→19:43)
[2020-11-13] MEDS: LIDOCAINE HCL 1% PF INJ 5 ML VIAL INFILTRATE (10:00)
[2020-11-13 11:06] LABS: Basophils Percent Auto 0.2 % (0.2-1.2); Eosinophils Percent Auto 0.1 % (0-4.4); Hematocrit 33.3 % (37.0-47.0); Hemoglobin 12.8 g/dL (12.0-15.0); Immature Granulocyte Absolute 0.06 K/mm3 (0.00-0.031); Immature Granulocyte Percent A 0.7 % (0-0.5); Lymphocytes Absolute Auto 0.54 K/mm3 (0.9-3.2); Lymphocytes Percent Auto 6.2 % (18.3-44.2); Mean Corpuscular Volume 88.3 fl (80-100); Mean Platelet Volume 9.2 fl (7.4-10.4); Monocytes Percent Auto 11.3 % (2.6-8.5); Neutrophils Percent Auto 81.5 % (45.5-73.1); Platelet Count Result 141 k/mm3 (150-375); Red Blood Count 3.77 M/mm3 (4.2-5.4); Red Cell Distribution Width 13.2 % (11.5-14.5); White Blood Count 8.7 K/mm3 (4.5-10.0)
[2020-11-13 11:07] LABS: Mean Corpuscular HGB Conc 38.4 g/dl (32-36)
[2020-11-13 11:16] LABS: Ammonia 20 umol/L (9-30)
[2020-11-13 11:17] LABS: Anion Gap 8 mmol/L (8-16); Blood Urea Nitrogen 19 mg/dL (7-17); Calcium 8.4 mg/dL (8.4-10.2); Carbon Dioxide 14 mmol/L (22-30); Chloride 108 mmol/L (98-107); Estimated CRCL calculation 124 ml/min; Estimated Glomerular Filt Rate > 60; Glucose 147 mg/dL (65-105); Potassium 2.9 mmol/L (3.4-5.0); Sodium 130 mmol/L (137-145)
[2020-11-13 11:25] LABS: Glucose Point of Care 144 (65-105)
--- NOTE | 2020-11-13 11:26 | WPDCNINT ---
Assessment and Plan Assessment and plan (1) Diabetic ketoacidosis: Code(s): E11.10 - Type 2 diabetes mellitus with ketoacidosis without coma Status: Acute Assessment and Plan: Patient presented to the outside hospital with dyspnea, nausea, vomiting, polydipsia polyuria -according to the medical records , her insulin pump has been malfunctioning and has not been taking any insulin for the last 1 week prior to admission -patient was found DKA, given IV fluids started on insulin infusion per DKA protocol -hemoglobin A1c is 12.3 -will give additional IV fluids -continue to monitor BMPs per DKA protocol -will transition patient to long-acting insulin and sliding scale once anion gap closes and the acidosis improves (2) Person under investigation for COVID-19: Code(s): Z20.828 - Contact with and (suspected) exposure to other viral communicable diseases Status: Acute Assessment and Plan: Patient presented with elevated D-dimers, CTA showed faint bilateral ground-glass opacity suspicious for COVID-19 -SARS-CoV-2 PCR has been obtained and pending -patient had a rapid COVID-19 test at the outside hospital which was negative on 11/12/2020 -continue droplet, airborne, contact isolation/precautions (3) Encephalopathy: Code(s): G93.40 - Encephalopathy, unspecified Status: Acute Assessment and Plan: Patient encephalopathic likely related to metabolic abnormality. Patient also had a recent fall, CT scan on 11/02/2020 was negative -will continue to monitor and treat underlying metabolic causes -will obtain CT scan of the brain (4) Essential hypertension: Code(s): I10 - Essential (primary) hypertension Status: Acute Assessment and Plan: Continue metoprolol (5) DVT prophylaxis: Code(s): Z29.9 - Encounter for prophylactic measures, unspecified Status: Acute Assessment and Plan: DVT prophylaxis: Lovenox Stress ulcer prophylaxis: Famotidine (6) Coronary artery disease: Code(s): I25.10 - Atherosclerotic heart disease of [place] coronary artery without angina pectoris Status: Acute Assessment and Plan: Continue Brilinta, aspirin, metoprolol Additional Plan Code Status: Full code Critical care time spent: 46 minutes Due to a high probability of clinically significant, life threatening deterioration, the patient required my highest level of preparedness to intervene emergently and I personally spent this critical care time directly and personally managing the patient. This critical care time included obtaining a history; examining the patient; pulse oximetry; ordering and review of studies; arranging urgent treatment with development of a management plan; evaluation of patient's response to treatment; frequent reassessment; and discussions with other providers. It was exclusive of separately billable procedures and treating other patients and teaching time. Please see Assessment and Plan section and the rest of the note for further information on patient assessment and treatment Brazing Machine Tender Consult Note Consult date: 11/13/20 Time Seen: 07:14 Reason for consult: Diabetic ketoacidosis, nausea, vomiting, shortness of breath HPI: Britney Crawford is a 55 year old female past medical history of insulin dependent diabetes, hyperlipidemia, anxiety, cirrhosis, fibromyalgia, essential hypertension, fibromyalgia, depression, CHF presented the outside hospital at [facility] with complaints of anemia, nausea, vomiting. Patient had a insulin pump has been malfunction for almost a week ago not been getting her insulin. She denies any fevers or chills on admission. She did also complain nausea, vomiting, polyuria. At the outside hospital she was found to be in DKA. Pt received IV fluids and started on insulin infusion per DKA protocol. Of note patient was seen in the ED at [facility] on 11/09/2024 right-sided headache and right rib fractur
[2020-11-13] MEDS: SODIUM CHLORIDE 0.9% IV 500 ML IV CONT (11:49)
[2020-11-13] MEDS: POTASSIUM CHLORIDE 20 MEQ TABLET 40 MEQ PO (11:58)
[2020-11-13 12:14] LABS: Glucose Point of Care 137 (65-105)
[2020-11-13] MEDS: CENTRAL LINE FLUSH 10 ML IV PUSH ×2 (13:02→19:44)
[2020-11-13 13:08] LABS: Glucose Point of Care 140 (65-105)
[2020-11-13 13:26] LABS: Amphetamine Screen Urine Negative (Negative); Barbiturate Screen Urine Negative (Negative); Benzodiazepines Screen Urine Positive (Negative); Cannabinoid Screen Urine Negative (Negative); Cocaine Screen Urine Negative (Negative); Methadone Screen Urine Negative (Negative); Opiate Screen Urine Negative (Negative); Phencyclidine Screen Urine Negative (Negative)
[2020-11-13] MEDS: ALPRAZolam (*CRX) 0.5 MG TABLET 1 MG PO (13:37)
[2020-11-13 14:11] LABS: Glucose Point of Care 132 (65-105)
[2020-11-13 15:15] LABS: Anion Gap 6 mmol/L (8-16); Blood Urea Nitrogen 17 mg/dL (7-17); Calcium 8.6 mg/dL (8.4-10.2); Carbon Dioxide 14 mmol/L (22-30); Chloride 110 mmol/L (98-107); Estimated CRCL calculation 159 ml/min; Estimated Glomerular Filt Rate > 60; Glucose 116 mg/dL (65-105); Potassium 3.9 mmol/L (3.4-5.0); Sodium 130 mmol/L (137-145)
[2020-11-13] MEDS: INSULIN HUMAN REGULAR (*BKC) 100 UNITS in SODIUM CHLORIDE 0.9% IV 99 ML 6.16 UNITS IV CONT (15:32)
[2020-11-13 17:20] LABS: Glucose Point of Care 122 (65-105)
--- NOTE | 2020-11-13 17:35 | PM.IMPN ---
Progress Note: A&P Assessment and Plan (1) Diabetic ketoacidosis: Code(s): E11.10 - Type 2 diabetes mellitus with ketoacidosis without coma Status: Acute Assessment and Plan: on insulin drip still in icu (2) Person under investigation for COVID-19: Code(s): Z20.828 - Contact with and (suspected) exposure to other viral communicable diseases Status: Acute Assessment and Plan: awaiting covid test Additional Plan Other problems as listed on admission notes -anxiety/depression, fibromyalgia dx 1996, bipolar manic-depressive: Cymbalta, Xanax -asthma: Albuterol, trelogy, Singulair -hyperlipidemia, CAD, nonischemic cardiomyopathy: Aspirin, Brilinta, nitroglycerin sublingual, metoprolol -hypertension: Metoprolol -chronic pain, osteoarthritis, back surgery fusion: Voltaren gel, oxycodone -GERD: Famotidine -insomnia: Zolpidem -lactobacillus, vitamin-E -obstructive sleep apnea: -cirrhosis? -migraine history Subjective Date/time seen: 11/13/20 17:35 Interval history: 55 year old female with past medical history of insulin-dependent type 2 diabetes, hyperlipidemia, anxiety, cirrhosis? who presents to the ED with complaints of dyspnea. Covid is pending. Admitted for DKA. comfortable in icu Review of Systems Review of Systems: All systems reviewed & are unremarkable except as noted in HPI and below Exam Narrative: Exam Narrative: - GENERAL: [place] chronically ill appearing - NEUROLOGIC: No focal neurological deficits. CN II-XII grossly intact. - PSYCHIATRIC: Awake, Alert. Slightly anxious mood and flat affect. - SKIN: No rashes or lesions. Warm. Objective Data Vital Signs Vital Signs: Vital Signs - 24 hr 11/12/20 21:06 11/12/20 22:00 11/13/20 00:00 Temperature 36.1 C L 36.1 C L Pulse Rate 122 H 126 H 123 H Respiratory Rate 36 H 24 H 28 H Blood Pressure 152/92 H 149/76 H 149/49 H Pulse Oximetry 100 100 99 11/13/20 04:00 11/13/20 07:52 11/13/20 08:21 Temperature 36.3 C L 36.8 C Pulse Rate 113 H 130 H 120 H Respiratory Rate 20 20 Blood Pressure 138/76 149/81 H Pulse Oximetry 97 95 11/13/20 09:27 11/13/20 12:00 11/13/20 13:10 Temperature 36.7 C 36.9 C 36.8 C Pulse Rate 101 H 102 H 100 Respiratory Rate 19 24 H 20 Blood Pressure 129/73 132/75 131/86 Pulse Oximetry 95 98 97 11/13/20 15:12 Temperature 36.9 C Pulse Rate 93 Respiratory Rate 24 H Blood Pressure 126/77 Pulse Oximetry 97 Intake/Output Intake/Output: Intake & Output 11/10/20 11/11/20 11/12/20 11/13/20 23:59 23:59 23:59 23:59 Intake Total 4250 Output Total 2100 Balance 2150 Meds/Results Medications: Active Medications Generic Name Dose Route Start Last Admin Trade Name Freq PRN Reason Stop Dose Admin Albuterol 1 puff 11/13/20 03:36 Albuterol Sulfate (*Sp) Aerosol 1 Puff INHALATION PRN PRN Shortness Of Breath Alprazolam 1 mg 11/13/20 03:36 11/13/20 13:37 Alprazolam (*Crx) 0.5 Mg Tablet PO 1 mg DAILY PRN Administration Anxiety Aspirin 81 mg 11/13/20 09:00 11/13/20 08:21 Aspirin 81 Mg Chewable Tablet PO 81 mg DAILY WALTER Administration Dextrose 12.5 gm 11/12/20 21:12 Dextrose 50% 25 Gm/50 Ml Syringe IV PUSH PRN PRN Hypoglycemia Protocol Duloxetine HCl 60 mg 11/13/20 09:00 11/13/20 08:21 Duloxetine Hcl 60 Mg Capsule.Dr PO 60 mg DAILY WALTER Administration Enoxaparin Sodium 40 mg 11/13/20 09:00 11/13/20 08:22 Enoxaparin 40 Mg/0.4 Ml Syringe SUB-Q 40 mg DAILY WALTER Administration Famotidine 20 mg 11/13/20 21:00 Famotidine 20 Mg Tablet PO HS WALTER Glucagon 1 mg 11/12/20 21:12 Glucagon For Inj 1 Mg Vial IM PRN PRN Hypoglycemia Protocol Glucose 15 gm 11/12/20 21:12 Glucose Oral Gel 15 Gm Of Glucse In 37.5 Gm Tube PO PRN PRN Hypoglycemia Protocol Sodium Chloride 1,000 mls @ 150 mls/hr 11/12/20 21:10 11/13/20 05:02 Normal Sali
[2020-11-13 17:37] LABS: Glucose Point of Care 100 (65-105)
[2020-11-13 18:26] LABS: Glucose Point of Care 109 (65-105)
[2020-11-13 18:44] LABS: Anion Gap 5 mmol/L (8-16); Blood Urea Nitrogen 17 mg/dL (7-17); Calcium 8.5 mg/dL (8.4-10.2); Carbon Dioxide 17 mmol/L (22-30); Chloride 108 mmol/L (98-107); Estimated CRCL calculation 159 ml/min; Estimated Glomerular Filt Rate > 60; Glucose 112 mg/dL (65-105); Potassium 3.7 mmol/L (3.4-5.0); Sodium 130 mmol/L (137-145)
[2020-11-13] MEDS: FAMOTIDINE 20 MG TABLET PO (19:45)
[2020-11-13 20:06] LABS: Glucose Point of Care 111 (65-105)
[2020-11-13 20:49] LABS: Glucose Point of Care 146 (65-105)
[2020-11-13 21:43] LABS: Glucose Point of Care 132 (65-105)
[2020-11-13 22:41] LABS: Glucose Point of Care 113 (65-105)
[2020-11-13 22:42] LABS: SARS-CoV-2 RNA PCR Negative
[2020-11-13 23:35] LABS: Glucose Point of Care 123 (65-105)
[2020-11-14] VITALS (16 sets, daily range): BP systolic 124–150; BP diastolic 69–94; PULSE 74–100; RESP 16–21; TEMP 35.3–36.9; O2SAT 98–100
[2020-11-14 01:06] LABS: Glucose Point of Care 138 (65-105)
[2020-11-14 01:44] LABS: Anion Gap 8 mmol/L (8-16); Blood Urea Nitrogen 13 mg/dL (7-17); Calcium 8.6 mg/dL (8.4-10.2); Carbon Dioxide 15 mmol/L (22-30); Chloride 111 mmol/L (98-107); Estimated CRCL calculation 159 ml/min; Estimated Glomerular Filt Rate > 60; Glucose 133 mg/dL (65-105); Potassium 3.1 mmol/L (3.4-5.0); Sodium 134 mmol/L (137-145)
[2020-11-14 01:48] LABS: Glucose Point of Care 136 (65-105)
[2020-11-14 02:43] LABS: Glucose Point of Care 127 (65-105)
--- NOTE | 2020-11-14 02:55 | PC.NURSE ---
Patient BMP collected as timed on 11/13/2020 at 2230 as scheduled. Lab reports BMP is hemolyzed so specimen is recollected at 2345 and is again hemolyzed. Phlebotomy collected BMP at 0104 and it was resulted but populated in yesterday's labs for 11/13/2020 at 0204 as opposed to the correct date 11/14/2020 at 0104.
[2020-11-14 03:42] LABS: Glucose Point of Care 125 (65-105)
[2020-11-14] MEDS: CENTRAL LINE FLUSH 10 ML IV PUSH ×2 (04:34→16:00)
[2020-11-14 04:43] LABS: Glucose Point of Care 116 (65-105)
[2020-11-14] MEDS: KCL 20 MEQ/D5/0.45% SOD CHL 1,000 ML 150 ML IV CONT (05:20)
[2020-11-14 05:50] LABS: Glucose Point of Care 91 (65-105)
[2020-11-14 06:49] LABS: Glucose Point of Care 136 (65-105)
[2020-11-14 07:19] LABS: Hemoglobin 12.3 g/dL (12.0-15.0); Mean Corpuscular Hemoglobin 33.1 pg (26-34); Mean Platelet Volume 9.4 fl (7.4-10.4); Platelet Count Result 122 k/mm3 (150-375); Red Blood Count 3.72 M/mm3 (4.2-5.4); Red Cell Distribution Width 12.8 % (11.5-14.5); White Blood Count 7.8 K/mm3 (4.5-10.0)
[2020-11-14 07:25] LABS: Mean Corpuscular HGB Conc 38.4 g/dl (32-36)
[2020-11-14] MEDS: INSULIN HUMAN REGULAR (*BKC) 100 UNITS in SODIUM CHLORIDE 0.9% IV 99 ML 7.8 UNITS IV CONT (08:03)
[2020-11-14 08:23] LABS: Glucose Point of Care 147 (65-105)
[2020-11-14 08:35] LABS: Anion Gap 4 mmol/L (8-16); Blood Urea Nitrogen 10 mg/dL (7-17); Calcium 8.6 mg/dL (8.4-10.2); Carbon Dioxide 19 mmol/L (22-30); Chloride 111 mmol/L (98-107); Estimated CRCL calculation 156 ml/min; Estimated Glomerular Filt Rate > 60; Glucose 148 mg/dL (65-105); Potassium 2.9 mmol/L (3.4-5.0); Sodium 134 mmol/L (137-145)
[2020-11-14] MEDS: DULoxetine HCL 60 MG CAPSULE.DR PO (09:11)
[2020-11-14] MEDS: METOPROLOL SUCCINATE EXT REL 25 MG TABCR PO (09:11)
[2020-11-14] MEDS: ASPIRIN 81 MG CHEWABLE TABLET PO (09:11)
[2020-11-14] MEDS: ACIDOPHILUS/BULGARICUS CHEWABLE TABLET 1 TABLET BY MOUTH (09:12)
[2020-11-14] MEDS: TOLNAFTATE 1% POWDER 45 GM BTL 1 APPLIC TOPICAL ×2 (09:12→20:02)
[2020-11-14] MEDS: MONTELUKAST SODIUM 10 MG TABLET PO (09:12)
[2020-11-14] MEDS: TICAGRELOR 90 MG TABLET PO ×2 (09:12→17:43)
[2020-11-14] MEDS: ENOXAPARIN 40 MG/0.4 ML SYRINGE SUB-Q (09:12)
[2020-11-14] MEDS: LIDOCAINE 5% PATCH 1 PATCH TOPICAL (09:13)
[2020-11-14 09:16] LABS: Glucose Point of Care 137 (65-105)
[2020-11-14 10:05] LABS: Glucose Point of Care 123 (65-105)
[2020-11-14 11:35] LABS: Cholesterol 496 mg/dL (0-200); Triglycerides 897 mg/dL (<150)
[2020-11-14] MEDS: INSULIN DETEMIR 100 UNITS/ML 30 UNITS SUB-Q ×2 (11:35→20:03)
[2020-11-14] MEDS: POTASSIUM CHLORIDE 20 MEQ PACKET (FOR LIQUID) 40 MEQ PO ×2 (11:36→19:59)
[2020-11-14 11:43] LABS: Glucose Point of Care 126 (65-105)
[2020-11-14 12:31] LABS: LDL Cholesterol Direct 124 mg/dL
--- NOTE | 2020-11-14 13:42 | WPDINTPN ---
Progress Note: A&P Assessment and Plan (1) Diabetic ketoacidosis: Code(s): E11.10 - Type 2 diabetes mellitus with ketoacidosis without coma Status: Acute Assessment and Plan: Patient presented to the outside hospital with dyspnea, nausea, vomiting, polydipsia polyuria -according to the medical records , her insulin pump has been malfunctioning and has not been taking any insulin for the last 1 week prior to admission -patient was in DKA, received adequate IV fluids and remains on insulin infusion -hemoglobin A1c is 12.3 -anion gap is closed, will transition patient to long-acting insulin sliding scale insulin. (2) Person under investigation for COVID-19: Code(s): Z20.828 - Contact with and (suspected) exposure to other viral communicable diseases Status: Acute Assessment and Plan: Patient presented with elevated D-dimers, CTA showed faint bilateral ground-glass opacity suspicious for COVID-19 -SARS-CoV-2 PCR negative -patient had a rapid COVID-19 test at the outside hospital which was negative on 11/12/2020 -discontinue isolation (3) Encephalopathy: Code(s): G93.40 - Encephalopathy, unspecified Status: Acute Assessment and Plan: Resolved likely related to DKA and metabolic abnormalities. -patient is awake, alert, oriented x3 (4) Essential hypertension: Code(s): I10 - Essential (primary) hypertension Status: Acute Assessment and Plan: Continue metoprolol (5) DVT prophylaxis: Code(s): Z29.9 - Encounter for prophylactic measures, unspecified Status: Acute Assessment and Plan: DVT prophylaxis: Lovenox Stress ulcer prophylaxis: Famotidine (6) Coronary artery disease: Code(s): I25.10 - Atherosclerotic heart disease of [place] coronary artery without angina pectoris Status: Acute Assessment and Plan: Continue Brilinta, aspirin, metoprolol Additional Plan Code Status: Full code Critical care time spent: 32 minutes Due to a high probability of clinically significant, life threatening deterioration, the patient required my highest level of preparedness to intervene emergently and I personally spent this critical care time directly and personally managing the patient. This critical care time included obtaining a history; examining the patient; pulse oximetry; ordering and review of studies; arranging urgent treatment with development of a management plan; evaluation of patient's response to treatment; frequent reassessment; and discussions with other providers. It was exclusive of separately billable procedures and treating other patients and teaching time. Please see Assessment and Plan section and the rest of the note for further information on patient assessment and treatment Subjective Date/time seen: 11/14/20 13:42 Interval history: Reason for consult: Diabetic ketoacidosis, nausea, vomiting, shortness of breath, encephalopathy 11/14: Patient seen and examined the ICU this morning. Patient is awake, alert, oriented x3. States she feels much much better than she when she came to the hospital. Patient states that her insulin pump is on recall and this which she has not been getting enough insulin for the last week prior to admission. Patient is on room air, denies any shortness of breath, abdominal pain, nausea, vomiting. Patient feels that she is at baseline. Urine output has been adequate. Patient is afebrile and hemodynamically stable Review of Systems Review of Systems: All systems reviewed & are unremarkable except as noted in HPI and below Exam Const: General: comfortable and no acute distress HENMT: Mouth: Yes moist mucous membranes Eyes: Sclera: sclerae normal Pupils: Equal, round and reactive pupils present Neck: Neck: supple Resp: Effort & Inspection: normal respiratory effort Auscultation: clear to auscultation bilaterally Cardio: Rate: regular rate Rhythm: regular rhythm GI: I
[2020-11-14 17:07] LABS: Glucose Point of Care 219 (65-105)
[2020-11-14] MEDS: INSULIN ASPART (*BKC) 100 UNITS/ML SUB-Q (17:41)
--- NOTE | 2020-11-14 18:10 | PM.IMPN ---
Progress Note: A&P Assessment and Plan (1) Diabetic ketoacidosis: Code(s): E11.10 - Type 2 diabetes mellitus with ketoacidosis without coma Status: Acute Assessment and Plan: Pt is off insulin, transfer out of icu. (2) Person under investigation for COVID-19: Code(s): Z20.828 - Contact with and (suspected) exposure to other viral communicable diseases Status: Acute Assessment and Plan: negative COVID Additional Plan Other problems as listed on admission notes -anxiety/depression, fibromyalgia dx 1996, bipolar manic-depressive: Cymbalta, Xanax -asthma: Albuterol, trelogy, Singulair -hyperlipidemia, CAD, nonischemic cardiomyopathy: Aspirin, Brilinta, nitroglycerin sublingual, metoprolol -hypertension: Metoprolol -chronic pain, osteoarthritis, back surgery fusion: Voltaren gel, oxycodone -GERD: Famotidine -insomnia: Zolpidem -lactobacillus, vitamin-E -obstructive sleep apnea: -cirrhosis? -migraine history Subjective Date/time seen: 11/14/20 18:10 Interval history: 55 year old female with past medical history of insulin-dependent type 2 diabetes, hyperlipidemia, anxiety, cirrhosis? who presents to the ED with complaints of dyspnea. covid is negative. DKA resolved, pt can be transfered to the medical floor Review of Systems Review of Systems: All systems reviewed & are unremarkable except as noted in HPI and below Exam Narrative: Exam Narrative: - GENERAL: Overwight chronically ill appearing RRR Chest clear Abdo soft non tender - NEUROLOGIC: No focal neurological deficits. CN II-XII grossly intact. - PSYCHIATRIC: Awake, Alert. Slightly anxious mood and flat affect. - SKIN: No rashes or lesions. Warm. Objective Data Vital Signs Vital Signs: Vital Signs - 24 hr 11/13/20 20:00 11/13/20 22:00 11/14/20 00:00 Temperature 37.2 C 36.9 C Pulse Rate 92 83 91 Respiratory Rate 19 19 20 Blood Pressure 143/75 H 132/77 137/79 Pulse Oximetry 99 98 98 11/14/20 02:00 11/14/20 04:00 11/14/20 06:00 Temperature 36.7 C Pulse Rate 83 86 81 Respiratory Rate 21 H 19 16 Blood Pressure 124/85 140/78 137/79 Pulse Oximetry 98 99 99 11/14/20 08:00 11/14/20 08:27 11/14/20 09:11 Temperature 35.5 C L Pulse Rate 90 81 88 Respiratory Rate 20 Blood Pressure 130/82 Pulse Oximetry 98 11/14/20 10:00 11/14/20 12:00 11/14/20 14:00 Temperature Pulse Rate 78 95 81 Respiratory Rate 18 16 Blood Pressure 138/82 146/82 H Pulse Oximetry 99 98 11/14/20 14:30 11/14/20 16:00 11/14/20 16:40 Temperature 35.3 C L 36.0 C L Pulse Rate 76 79 100 Respiratory Rate 16 20 Blood Pressure 130/73 145/94 H Pulse Oximetry 100 99 Intake/Output Intake/Output: Intake & Output 11/11/20 11/12/20 11/13/20 11/14/20 23:59 23:59 23:59 23:59 Intake Total 5290 2350 Output Total 2100 3700 Balance 3190 -3550 Meds/Results Medications: Active Medications Generic Name Dose Route Start Last Admin Trade Name Freq PRN Reason Stop Dose Admin Albuterol 1 puff 11/13/20 03:36 Albuterol Sulfate (*Sp) Aerosol 1 Puff INHALATION PRN PRN Shortness Of Breath Alprazolam 1 mg 11/13/20 03:36 11/13/20 13:37 Alprazolam (*Crx) 0.5 Mg Tablet PO 1 mg DAILY PRN Administration Anxiety Aspirin 81 mg 11/13/20 09:00 11/14/20 09:11 Aspirin 81 Mg Chewable Tablet PO 81 mg DAILY WALTER Administration Dextrose 12.5 gm 11/12/20 21:12 Dextrose 50% 25 Gm/50 Ml Syringe IV PUSH PRN PRN Hypoglycemia Protocol Duloxetine HCl 60 mg 11/13/20 09:00 11/14/20 09:11 Duloxetine Hcl 60 Mg Capsule.Dr PO 60 mg DAILY WALTER Administration Enoxaparin Sodium 40 mg 11/13/20 09:00 11/14/20 09:12 Enoxaparin 40 Mg/0.4 Ml Syringe SUB-Q 40 mg DAILY WALTER Administration Famotidine 20 mg 11/13/20 21:00 11/13/20 19:45 Famotidine 20 Mg Tablet PO 20 mg HS WALTER Administration Glucagon 1 mg 11/12/20 21:12 Glucagon For
[2020-11-14] MEDS: FAMOTIDINE 20 MG TABLET PO (20:02)
[2020-11-14 20:12] LABS: Glucose Point of Care 220 (65-105)
--- NOTE | 2020-11-14 20:30 | PC.NURSE ---
This patient, Britney Crawford[facility] at 2110. Personal belongings sent with patient. Report given to accepting RN. Appropriate documentation sent with patient.
[2020-11-14] MEDS: ZOLPIDEM TARTRATE (*CRX) 5 MG TABLET 10 MG PO (21:24)
[2020-11-15 00:16] LABS: Potassium 3.8 mmol/L (3.4-5.0)
[2020-11-15 00:31] LABS: Glucose Point of Care 237 (65-105)
[2020-11-15 02:42] VITALS: BP 124/66; PULSE 95; RESP 16; TEMP 36.9; O2SAT 98
[2020-11-15 06:00] VITALS: BP 125/66; PULSE 94; RESP 16; TEMP 36.1; O2SAT 97
[2020-11-15] MEDS: VITAMIN E 400 UNIT CAPSULE PO (08:31)
[2020-11-15] MEDS: ENOXAPARIN 40 MG/0.4 ML SYRINGE SUB-Q (08:31)
[2020-11-15] MEDS: POTASSIUM CHLORIDE 20 MEQ PACKET (FOR LIQUID) 40 MEQ PO (08:32)
[2020-11-15] MEDS: ASPIRIN 81 MG CHEWABLE TABLET PO (08:32)
[2020-11-15 08:33] VITALS: PULSE 76
[2020-11-15] MEDS: ACIDOPHILUS/BULGARICUS CHEWABLE TABLET 1 TABLET BY MOUTH (08:33)
[2020-11-15] MEDS: MONTELUKAST SODIUM 10 MG TABLET PO (08:33)
[2020-11-15] MEDS: METOPROLOL SUCCINATE EXT REL 25 MG TABCR PO (08:33)
[2020-11-15] MEDS: TOLNAFTATE 1% POWDER 45 GM BTL 1 APPLIC TOPICAL (08:34)
[2020-11-15] MEDS: DULoxetine HCL 60 MG CAPSULE.DR PO (08:34)
[2020-11-15] MEDS: TICAGRELOR 90 MG TABLET PO (08:34)
[2020-11-15 08:41] LABS: Glucose Point of Care 205 (65-105)
[2020-11-15] MEDS: INSULIN ASPART (*BKC) 100 UNITS/ML SUB-Q ×2 (08:42→11:42)
[2020-11-15 08:43] VITALS: PULSE 73; RESP 16; O2SAT 99
[2020-11-15] MEDS: INSULIN DETEMIR 100 UNITS/ML 30 UNITS SUB-Q (08:43)
[2020-11-15 10:00] VITALS: BP 112/65; PULSE 73; RESP 16; TEMP 36.1; O2SAT 99
[2020-11-15 11:17] LABS: Glucose Point of Care 226 (65-105)
--- NOTE | 2020-11-15 11:41 | PM.DS ---
DS: Admitting Diagnosis Admitting Diagnosis Admitting Diagnosis: DKA DS: Discharge Diagnosis Discharge Diagnosis (1) Diabetic ketoacidosis: Code(s): E11.10 - Type 2 diabetes mellitus with ketoacidosis without coma Status: Acute Assessment and Plan: Pt is off insulin, transfer out of icu. Doing well on the medical floor, small amount of soft stool reported not watery. Pt was having trouble with her insulin pump. Pt Hbaic was 12 adviced to do better with her DM control. Pt to follow with her Pt lactic was high received fluid hydration while in hospital. Ddimer high CTA was negative in the hospital. Pt follows DR Martel Nicol[facility] endocrinology. (2) Person under investigation for COVID-19: Code(s): Z20.828 - Contact with and (suspected) exposure to other viral communicable diseases Status: Acute Assessment and Plan: Negative COVID. No complaints of cough, fever, Sob or wheeze today Other problems as listed on admission notes -anxiety/depression, fibromyalgia dx 1996, bipolar manic-depressive: Cymbalta, Xanax -asthma: Albuterol, trelogy, Singulair -hyperlipidemia, CAD, nonischemic cardiomyopathy: Aspirin, Brilinta, nitroglycerin sublingual, metoprolol -hypertension: Metoprolol -chronic pain, osteoarthritis, back surgery fusion: Voltaren gel, oxycodone -GERD: Famotidine -insomnia: Zolpidem -lactobacillus, vitamin-E -obstructive sleep apnea: -cirrhosis chronic pt advised not to drink alcohol -migraine history DS: Summary Hospital Course Hospital Course: 55 year old female with past medical history of insulin-dependent type 2 diabetes, hyperlipidemia, anxiety, cirrhosis? who presents to the ED with complaints of dyspnea. covid is negative. DKA resolved, Doing well on the medical floor, small amount of soft stool reported not watery. Pt was having trouble with her insulin pump. Pt Hbaic was 12 adviced to do better with her DM control. Pt to follow with her cashier assistant. Pt lactic was high received fluid hydration while in hospital. Ddimer high CTA was negative in the hospital. Pt follows DR Martel Nicol[facility] endocrinology. Time Spent with Patient Time attestation: Total time spent providing and/or coordinating discharge services:40 minutes Exam Narrative: Exam Narrative: - GENERAL: Overwight chronically ill appearing RRR Chest clear Abdo soft non tender - NEUROLOGIC: No focal neurological deficits. CN II-XII grossly intact. - PSYCHIATRIC: Awake, Alert. Slightly anxious mood and flat affect. - SKIN: No rashes or lesions. Warm. DS: Data Data Completed and Pending Labs on day of discharge: Labs from last 24 hours 11/15/20 11/15/20 11/15/20 11:13 08:28 00:28 Potassium POC Capillary Glucose 226 H 205 H 237 H LDL Cholesterol Direct 11/14/20 11/14/20 11/14/20 23:54 19:58 17:00 Potassium 3.8 POC Capillary Glucose 220 H 219 H LDL Cholesterol Direct 11/14/20 11/14/20 11:28 08:01 Potassium POC Capillary Glucose 126 H LDL Cholesterol Direct 124 Preliminary micro results at discharge 11/13/20 10:43 Blood Culture - Preliminary Blood 11/13/20 10:43 Blood Culture - Preliminary Blood Discharge Plan Discharge Attending physician on discharge: Natasha Harrison Discharging Clinician: Natasha Harrison Anticipated Discharge Date/Time: 11/15/20 11:38 Patient Disposition: Home, Self-Care Activity: as tolerated Diet: diabetic Discharge Instructions: Better control of diabetes at home, pt to restart back on her insulin pump Patient Instructions: Antibiotic Form, How to Stop Smoking (DC) Stand Alone Forms: General Discharge Information Follow-up/Referrals: Mo Berkowitz MD [Primary Care Provider] - Discharge Medications: New loperamide 2 mg Capsule 2 mg PO PRN PRN (Reason: Diarrhea) Qty: 10 RF: 0 Saccharomyces boulardii [Florastor] 250 mg Capsule 250 mg PO BID Qt
[2020-11-15] MEDS: FLUTICASONE/UMECLIDIN/VILANTER 100-62.5-25 MCG ELLIPTA 1 PUFF INHALATION (11:47)
[2020-11-15] MEDS: NEOMYCIN/POLYMYXIN/BACITRACIN OINTMENT PACKET 1 PACKET (12:58)
[2020-11-15 13:11] LABS: Lactic Acid Reflex 0.8 mmol/L (0.7-2.1)
--- NOTE | 2020-11-16 13:33 | PCCDE ---
Consult received 11/12 r/t admit 11/12 with DKA. Pt was discharged yesterday before consult was completed. called pt's cell number and left message today.
== END 2020-11-15 15:10 | disposition home or self-care (01) | DRG 638 ==
LOC: ANHICU 11-13 20:11 → ANH2MED 11-15 11:40 → ANHICU 11-19 09:47
PROVIDERS: Internal Medicine; Admitting Provider Student in an Organized Health Care Education/Training Program; PCP Internal Medicine; Visit Provider Family Medicine
DX: E11.10 Type 2 diabetes mellitus with ketoacidosis without coma (principal); I42.8 Other cardiomyopathies; G93.40 Encephalopathy, unspecified; Z20.828 Contact with and (suspected) exposure to other viral communicable diseases; I25.10 Atherosclerotic heart disease of native coronary artery without angina pectoris; I11.0 Hypertensive heart disease with heart failure; I50.9 Heart failure, unspecified; E78.5 Hyperlipidemia, unspecified; F17.210 Nicotine dependence, cigarettes, uncomplicated; F31.9 Bipolar disorder, unspecified; F41.9 Anxiety disorder, unspecified; J45.909 Unspecified asthma, uncomplicated; M19.90 Unspecified osteoarthritis, unspecified site; M79.7 Fibromyalgia; G89.29 Other chronic pain; K21.9 Gastro-esophageal reflux disease without esophagitis; G47.00 Insomnia, unspecified; G47.33 Obstructive sleep apnea (adult) (pediatric); K74.60 Unspecified cirrhosis of liver; Z79.4 Long term (current) use of insulin; Z79.82 Long term (current) use of aspirin; Z79.899 Other long term (current) drug therapy; Z98.1 Arthrodesis status
CPT/HCPCS: 36415; 36569; 80048; 80061; 80307; 82140; 83036; 83605; 84132; 85025; 85027; 87040; 87086; 87635; A9270; C1751; C9803; J1650; J1815; J3480; J7030; J7040; U0003

== ENCOUNTER 2020-11-20 18:59 | Emergency (ER) | payer MEDICARE, SELFPAY ==
[2020-11-20 19:00] VITALS: BP 94/54; PULSE 130; RESP 30; TEMP 36.9; O2SAT 95
--- NOTE | 2020-11-20 19:05 | ED.GENADULT ---
HPI - General Adult General Chief complaint: Fall Stated complaint: AMB Time Seen by Provider: 11/20/20 19:05 Source: patient and RN notes reviewed Mode of arrival: EMS Limitations: no limitations History of Present Illness HPI narrative: Patient was at home and apparently had checked her blood sugar and family stated it was greater than 800. EMS checked her blood sugar and only read high which is greater than 500. She is a known diabetic and recently was transferred to [facility] for hyperglycemic hyperosmolar ketosis. She was discharged after 3 days. Family is supposed to be helping her with her insulin pump. MD complaint: elevated blood sugar Onset (ago): day(s) (1) Associated symptoms: weakness Related Data Home Medications Medication Instructions Recorded Confirmed Lactobacillus acidophilus 1 cell PO DAILY 12/03/19 11/20/20 Trelegy Ellipta 1 inh INHALATION DAILY 12/03/19 11/20/20 albuterol sulfate [Ventolin HFA] 1 puff INHALATION PRN PRN 12/03/19 11/20/20 alprazolam 0.5 mg PO Q6H PRN 12/03/19 11/20/20 lidocaine 1 patch TOPICAL PRN PRN 12/03/19 11/20/20 montelukast 10 mg PO DAILY 12/03/19 11/20/20 vitamin E 400 unit PO DAILY 12/03/19 11/20/20 Brilinta 90 mg PO BID 11/09/20 11/20/20 aspirin 81 mg PO DAILY 11/09/20 11/20/20 duloxetine 60 mg PO DAILY 11/09/20 11/20/20 famotidine 20 mg PO HS 11/09/20 11/20/20 insulin lispro [Humalog U-100 5 unit CONTINUOUS SUBCUTANEOUS 11/09/20 11/20/20 Insulin] INFUSION TIDWM zolpidem 10 mg PO HS 11/09/20 11/20/20 metoprolol succinate 25 mg PO DAILY 11/12/20 11/20/20 nitroglycerin 0.4 mg SUBLINGUAL Q15M PRN 11/12/20 11/20/20 Allergies Allergy/AdvReac Type Severity Reaction Status Date / Time budesonide Allergy Unknown Anaphylactic Verified 11/02/20 21:04 Shock formoterol Allergy Unknown Anaphylactic Verified 11/02/20 21:04 Shock gemfibrozil Allergy Unknown Gastrointestinal Verified 12/04/20 21:04 Upset mometasone furoate Allergy Unknown Anaphylactic Verified 11/02/20 21:04 Shock milk Allergy INCREASED Verified 12/21/19 09:31 MUCUS, COUGH diphenhydramine AdvReac Severe Other Verified 11/02/20 21:04 [From Benadryl] atorvastatin AdvReac Unknown Itching Verified 11/02/20 21:04 morphine AdvReac Unknown Itching Verified 11/02/20 21:04 PAPER TAPE Allergy Unknown BLISTERS Uncoded 12/21/19 09:31 Review of Systems Constitutional: Constitutional: Denies chills and Denies fever(s) Eyes: Eyes: Reports no additional eye complaints ENT: Reports system reviewed and no additional complaints, except as documented Cardiovascular: Cardiovascular: Reports no additional cardiovascular complaints Respiratory: Respiratory: Reports dyspnea Gastrointestinal: Gastrointestinal: Reports no additional gastrointestinal complaints Genitourinary: Genitourinary: Reports nocturia Musculoskeletal: Musculoskeletal: Reports no additional musculoskeletal complaints Integumentary/Breasts: Skin/Breast: Reports system reviewed and no additional complaints, except as docu Neurologic: Reports system reviewed and no additional complaints, except as documented Psychiatric: Psychiatric: Reports no additional psychiatric complaints PMFSH Past Medical History Medical History Anxiety CHF (congestive heart failure) Cirrhosis Depression Exogenous obesity Fibromyalgia Hyperlipidemia Hypertension Type 2 diabetes mellitus Surgical History Surgical History H/O laparoscopy History of back surgery History of cholecystectomy History of hysterectomy Family History Family History Mother Family history of gout Hypertension Family history of elevated blood lipids Family history of diabetes mellitus in first degree relative Family history of chronic obstructive pulmonary disease Sibling Family history of gou
[2020-11-20] MEDS: INSULIN HUMAN REGULAR (*BKC) 100 UNITS/ML IV PUSH (19:44)
[2020-11-20 19:47] LABS: Base Excess ABG -7.5 mmol/L (0-2); Oxygen Content ABG 14.7 %vol (16.0-22.0); PO2 ABG 202.4 mmHg (80-90); Total Hemoglobin 10.4 g/dL; pH ABG 7.49 (7.35-7.45)
[2020-11-20 19:51] LABS: Device ROOM AIR; Modified Allen's Test Pass; PCO2 ABG 18.6 mmHg (35-45); Site Drawn RIGHT BRACHIAL
[2020-11-20 19:58] LABS: Acetone Small (Negative)
[2020-11-20 20:08] LABS: Lactic Acid Reflex 3.8 mmol/L (0.4-2.0)
[2020-11-20 20:16] LABS: Anion Gap 21 mmol/L (8-16); Blood Urea Nitrogen 26 mg/dL (7-18); Calcium 7.9 mg/dL (8.5-10.1); Carbon Dioxide 17 mmol/L (21-32); Chloride 82 mmol/L (98-108); Estimated Glomerular Filt Rate 31; Potassium 3.2 mmol/L (3.5-5.1)
[2020-11-20 20:17] LABS: Sodium 120 mmol/L (136-145)
[2020-11-20 20:18] LABS: Glucose 587 mg/dL (70-99); Osmolality Calculated 281 mOsm/kg (285-295)
[2020-11-20 20:27] LABS: Ethanol < 3 mg/dL (0-6)
[2020-11-20 20:30] VITALS: BP 101/52; PULSE 131; RESP 28; O2SAT 93
[2020-11-20 20:36] LABS: Glucose Point of Care > 450 (65-105)
[2020-11-20 20:36] LABS: Glucose Point of Care > 450 (65-105)
[2020-11-20 20:44] LABS: Add Urine Microscopic? YES; Appearance Urine Clear (Clear); Bilirubin Urine Negative (Negative); Blood Urine 3+ (Negative); Color Urine Yellow (Yellow); Glucose Urine UA 3+ (Negative); Ketones Urine 2+ (Negative); Leukocyte Esterase Ur 1+ LEU/UL (Negative); Nitrate Urine Negative (Negative); Protein Urine Trace (Negative); Urobilinogen Urine 0.2 mg/dL (0.2-1.0); pH Urine 5.5 (5.0-8.0)
[2020-11-20 20:44] LABS: Hematocrit 31.1 % (35.0-49.0); Hemoglobin 10.2 g/dL (12.0-15.0); Mean Corpuscular HGB Conc 32.8 g/dL (32.0-36.0); Mean Corpuscular Hemoglobin 31.9 pg (27.0-31.0); Mean Corpuscular Volume 97.2 fL (78.0-102.0); Mean Platelet Volume 12.4 fl (9.2-11.8); Platelet Count Result 71 K/mm3 (150-420); White Blood Count 6.5 K/mm3 (4.8-10.8)
[2020-11-20 20:53] LABS: Bacteria Urine 1+ /hpf; Squamous Epithelial Cell Urine Rare /hpf (Few); WBC Urine >75 /hpf (0-3)
--- NOTE | 2020-11-20 20:57 | PC.NURSE ---
INSULIN GGTS MADE USING 100 UNITS VERIFIED WITH MCKENZIE MEAD MIXED IN 100 ML NS - UNABLE TO CHART IN JAN - STARTED AT 5 UNITS/HR
[2020-11-20 21:38] VITALS: BP 123/83; PULSE 128; RESP 28; O2SAT 94
[2020-11-20 21:43] LABS: Glucose Point of Care 446 (65-105)
--- NOTE | 2020-11-20 22:23 | PC.NURSE ---
1ST L NORMAL SALINE COMPLETE
--- NOTE | 2020-11-20 22:25 | PC.NURSE ---
LR ORDER DC'D AND NORMAL SALINE GIVEN 1 L INFUSING DIRECTED BY ICU - VORB DR BEGUM
[2020-11-20] MEDS: SODIUM CHLORIDE 0.9% IV 1,000 ML 999 ML (22:32)
[2020-11-20 22:33] VITALS: BP 106/62; PULSE 128; RESP 28; O2SAT 94
[2020-11-20 22:46] LABS: Reflex Lactic Acid Yes or No Add Lactic
--- NOTE | 2020-11-20 22:53 | PC.NURSE ---
INSULIN DC'D PER EMS PROTOCOL - NS INFUSING INFUSING ON TRANSFER
== END 2020-11-20 22:54 | disposition short-term general hospital (02) ==
PROVIDERS: Emergency Provider Emergency Medicine; PCP Internal Medicine
DX: E11.65 Type 2 diabetes mellitus with hyperglycemia (principal); Z79.4 Long term (current) use of insulin; N39.0 Urinary tract infection, site not specified; Z79.899 Other long term (current) drug therapy; I50.9 Heart failure, unspecified; E78.5 Hyperlipidemia, unspecified; I10 Essential (primary) hypertension; F17.200 Nicotine dependence, unspecified, uncomplicated
CPT/HCPCS: 36415; 36600; 51701; 80048; 80307; 81001; 82010; 82805; 82948; 83605; 85027; 87077; 87086; 87088; 87186; 96365; 96375; 99285; J0696; J1815; J7030

== ENCOUNTER 2020-11-20 23:57 | Inpatient (IN) | payer MEDICARE, SELFPAY ==
--- NOTE | ~2020-11-20 | XR_ITS ---
EXAMINATION: XR ribs RT 2V w CXR 2V INDICATION: Right-sided chest pain TECHNIQUE: Frontal and lateral views of the chest and 3 views of the right ribs were obtained. COMPARISON: 11/26/2020 FINDINGS: A right upper extremity PICC ends with its tip in the distal superior vena cava. There are increasing right-sided airspace opacities. A moderate size right pleural effusion is present. There i s no pneumothorax. Mild cortical irregularity is present at the anterolateral aspects of the right si xth through eighth ribs. Surgical clips in the right upper quadrant are likely from prior cholecystec janette. There is moderate osteoarthritis of the shoulders. Surgical changes are noted in the lumbar spi ne. IMPRESSION: 1. Nondisplaced fractures of the right sixth through eighth ribs. 2. Moderate-sized pleural effusion. 3. Right-sided airspace opacities, consistent with atelectasis and/or pneumonia. Reviewed, dictated and finalized at location A. E RANCHER IMPRESSION: 1. Nondisplaced fractures of the right sixth through eighth ribs. 2. Moderate-sized pleural effusion. 3. Right-sided airspace opacities, consistent with atelectasis and/or pneumonia .
--- NOTE | ~2020-11-20 | US_ITS ---
EXAMINATION: US thoracentesis DATE: 12/01/2020 12:47 INDICATION: Right pleural effusion TECHNIQUE: The procedure and its risks and benefits were discussed with the patient. Potential risks discussed included bleeding, infection, and pneumothorax. The patient understood the risks and agreed to proceed. The skin was prepped and draped in sterile fashion. 1% lidocaine was used for local anes thesia. Under ultrasound guidance, a 5 Fr catheter with trochar was advanced into the very small righ t pleural effusion. Fluid was aspirated. The catheter was removed, and a dressing was applied. There were no immediate complications. FINDINGS: Ultrasound images demonstrate a small right pleural effusion and the catheter within the fluid. There is consolidation throughout the right lower lung concerning for pneumonia. Instantly noted is cirrho sis with small amount of perihepatic ascites. IMPRESSION: 1. Successful ultrasound-guided thoracentesis yielding 6 mL of reddish-yellow fluid. Reviewed, dictated and finalized at location A. RVISOR GLUING
--- NOTE | ~2020-11-20 | XR_ITS ---
EXAMINATION: [id number] DATE: 12/01/2020 12:32 INDICATION: Right pleural effusion postthoracentesis TECHNIQUE: frontal and lateral views of the chest were obtained. COMPARISON: Chest radiograph dated 11/29/2020 FINDINGS: Minimal residual right pleural effusion postthoracentesis. No pneumothorax. There is consolidation wi th complete opacification of the right middle and lower lobes at sites for multiple small foci of int ernal gas and without volume loss consistent with pneumonia. Mild linear discoid atelectasis at the l eft lung base. No pneumothorax or left-sided pleural effusion. The cardiomediastinal silhouette is no rmal. Right upper extremity peripherally inserted central venous catheter (PICC) tip at the mid supe rior vena cava. IMPRESSION: 1. Tiny residual right pleural effusion and no pneumothorax post thoracentesis. 2. Consolidation in the right middle and lower lobes concerning for pneumonia. Reviewed, dictated and finalized at location A. OR MARKET RESEARCH ANALYST
--- NOTE | ~2020-11-20 | XR_ITS ---
EXAMINATION: XR chest 2V EXAM DATE: 11/26/2020 09:44 INDICATION: Cough and hypoxia. TECHNIQUE: Portable AP frontal chest x-ray was obtained. Comparison is made to prior examination from 11/21/2020, 11/12. FINDINGS: There is a right-sided PICC line with tip projecting over the cavoatrial junction. Probabl e moderate right-sided subpulmonic pleural effusion, adjacent multisegmental atelectasis. Small left basilar and scattered right-sided opacities likely pneumonia with interval improvement. Cardiomediast inal silhouette is normal. There is no pneumothorax suspected. There are no osseous abnormalities ry ntified. IMPRESSION: 1. Improving bilateral pneumonia. 2. Moderate right subpulmonic pleural effusion unchanged compared to 11/21 but developed compared to 11/12. Adjacent multisegmental atelectasis. Reviewed, dictated and finalized at location B. NDER OPERATOR
--- NOTE | ~2020-11-20 | XR_ITS ---
EXAMINATION: XR chest 1V portable INDICATION: Shortness of breath TECHNIQUE: Portable AP chest at 0011 hours COMPARISON: 11/12/2020 FINDINGS: There are airspace opacities of the lung bases and right midlung zone. No pleural effusion or pneumothorax is identified. The cardiomediastinal silhouette is stable. Cholecystectomy clips are noted. IMPRESSION: 1. Patchy opacities of the lung bases and right midlung zone, consistent with atelectasis versus pneu monia. Reviewed, dictated and finalized at location A. BREAKER IMPRESSION: 1. Patchy opacities of the lung bases and right midlung zone, consistent with a telectasis versus pneumonia.
--- NOTE | ~2020-11-20 | CT_ITS ---
EXAMINATION: CT abdomen pelvis wo con EXAM DATE: 11/24/2020 10:50 INDICATION: Elevated bilirubin. Sepsis. TECHNIQUE: Spiral CT of the abdomen and pelvis was performed without contrast. Axial, coronal and s agittal images were reviewed. The dose-length product (DLP) for this examination was 1228.48 mGy-cm. The exposure was tailored according to patient size (auto mA exposure control), and iterative recon struction (ASIR) was used as additional dose reduction technique. Comparison is made to prior examina tion from 01/18/2019. FINDINGS: Small amount of perihepatic and pelvic ascites. Severe liver nodularity, cirrhosis without focal density abnormality. There is moderate splenomegaly, spleen measuring 19 cm. Several splenules . Pancreas and adrenal glands are unremarkable. There are cholecystectomy clips. There is moderate amount of nonspecific retroperitoneal fat stranding, and fat stranding extending do wn the right colic gutter. There is colonic fluid, correlate for diarrhea. Can't exclude colitis. Tanja or abdominal wall hernia repair. Small fat-containing hernia just along the superior margin of the he rnia in the midline. Evidence of thickened left renal urothelium of the pelvis, could indicate upper urinary tract infecti on, correlate with urinalysis. The uterus is not identified and has likely been surgically resected. The bladder is unremarkable. There is no retroperitoneal or pelvic lymphadenopathy. There is mil d scattered arteriosclerotic disease. The stomach and small bowel are unremarkable. No free intraperitoneal gas. The heart is normal in size. There are no pericardial or pleural effusions. Multi segmental right basilar airspace diseas e, could be atelectasis and pneumonia. There are no osteoblastic or osteolytic lesions identified. L 5-S1 fusion. Compared to prior study, the ascites, retroperitoneal and right colic fat stranding have developed. P reviously seen bibasilar pneumonia has resolved, but there is new right basilar acute airspace diseas e. IMPRESSION: 1. Cirrhosis, splenomegaly and small ascites. Mild biliary dilation probably from cholecystectomy. 2. Right lower lobe infiltrate, probably atelectasis and pneumonia. 3. Nonspecific retroperitoneal, right colic fat stranding. Can't exclude pancreatitis or colitis. 4. Possible left-sided upper urinary tract infection, correlate with urinalysis. Reviewed, dictated and finalized at location A. S ARCHITECT IMPRESSION: 1. Cirrhosis, splenomegaly and small ascites. Mild biliary dilation probably f rom cholecystectomy. 2. Right lower lobe infiltrate, probably atelectasis and pneumonia. 3. Nonspecific retroperitoneal, right colic fat stranding. Can't exclude pancr eatitis or colitis. 4. Possible left-sided upper urinary tract infection, correlate with urinalysi s.
--- NOTE | ~2020-11-20 | XR_ITS ---
XR chest PICC line 11/21/2020 18:20 Indication: PICC line placement Procedure: AP portable chest Comparison: Comparison to multiple prior studies sequentially, with oldest reviewed study dated 01/18. Findings: There is right pleural effusion. Right subclavian PICC line tip in the SVC. There is patchy left-sided airspace disease. No pneumothorax identified. No acute osseous abnormality. Impression: 1: Bilateral airspace disease which may represent pneumonia and/or atelectasis. 2: Right pleural effusion. Reviewed, dictated and finalized at location A. FILLING MIXER Impression: 1: Bilateral airspace disease which may represent pneumonia and/or atelectasis. 2: Right pleural effusion.
[2020-11-20 23:51] VITALS: BMI 27.2
[2020-11-20 23:55] LABS: Glucose Point of Care 405 (65-105)
[2020-11-21] VITALS (14 sets, daily range): BP systolic 101–137; BP diastolic 54–92; PULSE 111–149; RESP 23–34; TEMP 36.2–38.5; O2SAT 92–97; BMI 28.2
[2020-11-21] MEDS: SODIUM CHLORIDE 0.9% IV 1,000 ML 999 ML IV CONT
--- NOTE | 2020-11-21 00:04 | PM.IMHP ---
H&P: HPI History of Present Illness Date/Time: 11/21/20 00:04 Chief Complaint: Direct admission for acute DKA Narrative: This is a 55 year old female with past medical history of insulin-dependent type 2 diabetes, hyperlipidemia, and anxiety who was just admitted to our hospitalist service this past week for acute DKA and returned to [facility] after she checked her blood sugar today and found it to be greater than 800. The patient has been trying to use her insulin pump and doesn't understand why her blood sugars are so high. She also reports that she lost her balance yesterday and fell and landed on her chin. She reports polyuria and a sporadic nonproductive cough but denies any fevers, chills, chest pain, abdominal pain, nausea, vomiting, dysuria, or diarrhea. Associated symptoms include generalized weakness. The patient denies passing out. She was evaluated at [facility] and found to be again in acute DKA with hyperglycemia of 587 mg/dl and an elevated anion gap of 21. She was also found to have an elevated lactic acid of 3.8 and acute renal failure. Urinalysis was grossly abnormal and the patient was treated with IV ceftriaxone. Hand [employer], Dr. Barry has been consulted. Review of Systems Review of Systems: All systems reviewed & are unremarkable except as noted in HPI and below PMFSH Past Medical History Medical History Anxiety CHF (congestive heart failure) Cirrhosis Depression Exogenous obesity Fibromyalgia Hyperlipidemia Hypertension Type 2 diabetes mellitus Surgical History Surgical History H/O laparoscopy History of back surgery History of cholecystectomy History of hysterectomy Family History Family History Mother Family history of gout Hypertension Family history of elevated blood lipids Family history of diabetes mellitus in first degree relative Family history of chronic obstructive pulmonary disease Sibling Family history of gout Family history of allergic disorder Father Family history of emphysema Other Family history of cardiovascular disease Social History Social History Smoking packs per day: 0.5 Smoking cigarettes per day: 10.0 Years smoked: 30 Smoking pack-years: 15.00 Smoking status: Current some day smoker Tobacco type: cigarettes Second hand tobacco smoke exposure: No Alcohol intake: former Substance use: never Substance use type: marijuana Gender identity (if verbalized by the patient): Female Sexual Orientation (if Verbalized by the Patient): Straight or Heterosexual Spiritual care concerns: No Meds Home Medications and Allergies Home Medications Medication Instructions Recorded Confirmed Type Lactobacillus acidophilus 1 cell PO DAILY 12/03/19 11/20/20 History Trelegy Ellipta 1 inh INHALATION DAILY 12/03/19 11/20/20 History albuterol sulfate [Ventolin HFA] 1 puff INHALATION PRN PRN 12/03/19 11/20/20 History alprazolam 0.5 mg PO Q6H PRN 12/03/19 11/20/20 History lidocaine 1 patch TOPICAL PRN PRN 12/03/19 11/20/20 History montelukast 10 mg PO DAILY 12/03/19 11/20/20 History vitamin E 400 unit PO DAILY 12/03/19 11/20/20 History Brilinta 90 mg PO BID 11/09/20 11/20/20 History aspirin 81 mg PO DAILY 11/09/20 11/20/20 History duloxetine 60 mg PO DAILY 11/09/20 11/20/20 History famotidine 20 mg PO HS 11/09/20 11/20/20 History insulin lispro [Humalog U-100 5 unit CONTINUOUS SUBCUTANEOUS 11/09/20 11/20/20 History Insulin] INFUSION TIDWM oxycodone 5 mg PO Q6H PRN #12 tablet 11/09/20 11/20/20 Rx zolpidem 10 mg PO HS 11/09/20 11/20/20 History metoprolol succinate 25 mg PO DAILY 11/12/20 11/20/20 History nitroglycerin 0.4 mg SUBLINGUAL Q15M PRN 11/12/20 11/20/20 History Saccharomyces boulardii [Florastor] 250 mg PO BID #30 cap 11/15/20 12
[2020-11-21 01:08] LABS: Lactic Acid Reflex 3.9 mmol/L (0.7-2.1)
[2020-11-21 01:09] LABS: Anion Gap 13 mmol/L (8-16); Blood Urea Nitrogen 23 mg/dL (7-17); Calcium 7.2 mg/dL (8.4-10.2); Carbon Dioxide 19 mmol/L (22-30); Chloride 91 mmol/L (98-107); Estimated CRCL calculation 54 ml/min; Estimated Glomerular Filt Rate 58; Glucose 392 mg/dL (65-105); Magnesium 1.4 mg/dL (1.6-2.3); Phosphorus 2.2 mg/dL (2.5-4.5); Potassium 2.9 mmol/L (3.4-5.0); Sodium 123 mmol/L (137-145)
[2020-11-21] MEDS: INSULIN HUMAN REGULAR (*BKC) 100 UNITS in SODIUM CHLORIDE 0.9% IV 99 ML 6.9 UNITS IV CONT (01:09)
[2020-11-21 01:12] LABS: Glucose Point of Care 407 (65-105)
[2020-11-21 01:40] LABS: Beta-Hydroxybutyrate/Acetoacetate 3.13 mmol/L (0.02-0.27)
[2020-11-21] MEDS: SODIUM CHLORIDE 0.9% IV 1,000 ML 150 ML IV CONT (02:17)
[2020-11-21 02:19] LABS: Glucose Point of Care 348 (65-105)
[2020-11-21 04:52] LABS: Hematocrit 28.9 % (37.0-47.0); Immature Platelet Fraction Pct 7.5 % (0.9-11.2); Mean Corpuscular HGB Conc 34.6 g/dl (32-36); Mean Corpuscular Hemoglobin 32.4 pg (26-34); Mean Corpuscular Volume 93.5 fl (80-100); Mean Platelet Volume 12.5 fl (7.4-10.4); Platelet Count Result 62 k/mm3 (150-375); Red Blood Count 3.09 M/mm3 (4.2-5.4); Red Cell Distribution Width 13.9 % (11.5-14.5); White Blood Count 3.9 K/mm3 (4.5-10.0)
[2020-11-21 05:17] LABS: Anion Gap 14 mmol/L (8-16); Blood Urea Nitrogen 22 mg/dL (7-17); Calcium 7.5 mg/dL (8.4-10.2); Carbon Dioxide 17 mmol/L (22-30); Chloride 97 mmol/L (98-107); Estimated CRCL calculation 59 ml/min; Estimated Glomerular Filt Rate > 60; Glucose 261 mg/dL (65-105); Potassium 2.4 mmol/L (3.4-5.0); Sodium 128 mmol/L (137-145)
[2020-11-21 05:47] LABS: Glucose Point of Care 257 (65-105)
[2020-11-21 05:56] LABS: Atypical Lymphocytes Present; Band Neutrophils Percent 12 % (0-6); Hypochromasia 1+ (NORMAL); Lymphocytes Absolute Manual 0.58 K/mm3 (1.1-4.5); Monocytes Absolute Manual 0.07 K/mm3 (0.1-0.90); Monocytes Percent Manual 2 % (3-9); Neutrophils Absolute Manual 3.23 K/mm3 (1.7-7.2); Neutrophils Percent Manual 71 % (46-73); Platelet Estimate Decreased (Adequate); Total Cells Counted 100
[2020-11-21 06:35] LABS: Alveolar/Arterial O2 Gradient 118.5 mmHg; Base Excess ABG -7.2 mEq/l (+/-2.0); Device NASAL CANNULA; Fractional Inspired Oxygen 32 %; HCO3 ABG 16.8 mEq/l (22.0-26.0); Modified Allen's Test Pass; Oxygen Content ABG 13.3 %vol (16.0-22.0); Oxygen Saturation ABG 95.3 % (95.0-100.0); Oxyhemoglobin 92.4 % THb (90.0-100.0); PCO2 ABG 28.8 mmHg (35.0-45.0); PO2 FiO2 Ratio Arterial Blood 2.38 %; Site Drawn RIGHT RADIAL; Total Hemoglobin 10.2 g/dL (12.0-18.0); pH ABG 7.383 (7.350-7.450)
[2020-11-21 06:39] LABS: Glucose Point of Care 235 (65-105)
[2020-11-21] MEDS: KCL 20 MEQ/D5/0.45% SOD CHL 1,000 ML 150 ML IV CONT (06:42)
[2020-11-21 06:52] LABS: Reticulocyte Hemoglobin Conten 22.4 pg (28.2-35.7); Reticulocyte Percent 2.48 % (0.7-4.3); Reticulocytes Absolute 0.08 B/L (32.2-175.7)
[2020-11-21 07:56] LABS: Lactate Dehydrogenase 666 U/L (313-618)
[2020-11-21 07:57] LABS: Bilirubin,Total 3.1 mg/dL (0.2-1.3)
[2020-11-21] MEDS: MAGNESIUM SULF 2 GM/WATER 50ML 2 GM/50 ML BAG IVPB (08:01)
[2020-11-21 08:05] LABS: Anion Gap 11 mmol/L (8-16); Blood Urea Nitrogen 22 mg/dL (7-17); Calcium 7.5 mg/dL (8.4-10.2); Carbon Dioxide 20 mmol/L (22-30); Chloride 98 mmol/L (98-107); Estimated CRCL calculation 55 ml/min; Estimated Glomerular Filt Rate 58; Glucose 171 mg/dL (65-105); Magnesium 1.5 mg/dL (1.6-2.3); Phosphorus 1.6 mg/dL (2.5-4.5); Potassium 2.5 mmol/L (3.4-5.0); Sodium 129 mmol/L (137-145)
[2020-11-21 08:08] LABS: Glucose Point of Care 175 (65-105)
[2020-11-21] MEDS: ALBUTEROL SULFATE (*SP) AEROSOL 1 PUFF INHALATION (09:05)
[2020-11-21 10:34] LABS: NT Pro B Type Natriuretic Pept 5330 PG/ML (5-100)
[2020-11-21] MEDS: INSULIN ASPART (*BKC) 100 UNITS/ML SUB-Q ×2 (10:34→21:34)
[2020-11-21] MEDS: INSULIN GLARGINE (*BKC) 100 UNITS/ML 10 UNITS SUB-Q (10:35)
[2020-11-21] MEDS: KCL 20MEQ/0.9% SOD CHL 1,000 ML 100 ML IV CONT (10:40)
[2020-11-21 10:46] LABS: Glucose Point of Care 290 (65-105)
--- NOTE | 2020-11-21 11:10 | WPDCNINT ---
Assessment and Plan Assessment and plan (1) Diabetic ketoacidosis: Qualifiers: Diabetes mellitus type: type 2 Diabetes mellitus complication detail: without coma Qualified Code(s): E11.10 - Type 2 diabetes mellitus with ketoacidosis without coma Code(s): E11.10 - Type 2 diabetes mellitus with ketoacidosis without coma Status: Acute Assessment and Plan: Patient was admitted with DKA started on IV insulin infusion. This morning when I saw the patient her potassium was very low hence I discontinued insulin drip. MP repeat was sent and showed that anion gap was closed. I will start her on Lantus and subcutaneous insulin and discontinue IV insulin infusion at this time (2) Severe sepsis: Code(s): A41.9 - Sepsis, unspecified organism; R65.20 - Severe sepsis without septic shock Status: Acute Assessment and Plan: Secondary to pneumonia and/or UTI Continue IV Zosyn Blood and urine culture have been sent and are pending Hold further IV fluids due to concerns of volume overload (3) Aspiration pneumonia: Qualifiers: Aspiration pneumonia type: unspecified Laterality: right Lung location: middle lobe of lung Qualified Code(s): J69.0 - Pneumonitis due to inhalation of food and vomit Code(s): J69.0 - Pneumonitis due to inhalation of food and vomit Status: Acute Assessment and Plan: Patient has infiltrates on a chest x-ray and aspiration was suspected the time of admission IV Zosyn Culture (4) Acute renal failure: Qualifiers: Acute renal failure type: unspecified Qualified Code(s): N17.9 - Acute kidney failure, unspecified Code(s): N17.9 - Acute kidney failure, unspecified Status: Acute Assessment and Plan: Creatinine improved with IV fluids. Now in normal range Monitor urine output electrolytes Hold further IV fluids (5) Suspected COVID-19 virus infection: Code(s): Z20.828 - Contact with and (suspected) exposure to other viral communicable diseases Status: Acute Assessment and Plan: In light of bilateral infiltrates and normal white count, I will isolate patient and check for COVID-19 PCR (6) CHF (congestive heart failure): Code(s): I50.9 - Heart failure, unspecified Status: Acute Assessment and Plan: Patient received IV fluid bolus when She arrived for DKA and sepsis Her BNPs 5000+ Hold further fluids due to concerns of volume overload Check echocardiogram (7) Dysphagia: Code(s): R13.10 - Dysphagia, unspecified Status: Acute Assessment and Plan: Speech consult for bedside evaluation to start May need NG tube fails (8) UTI (urinary tract infection): Qualifiers: Hematuria presence: without hematuria Urinary tract infection type: site unspecified Qualified Code(s): N39.0 - Urinary tract infection, site not specified Code(s): N39.0 - Urinary tract infection, site not specified Status: Acute Assessment and Plan: Urine culture pending Empiric antibiotic (9) Electrolyte abnormality: Code(s): E87.8 - Other disorders of electrolyte and fluid balance, not elsewhere classified Status: Acute Assessment and Plan: Low K and phosphorus are being replaced Additional Plan DVT prophylaxis -SCDs due to thrombocytopenia Stress ulcer prophylaxis - Nutrition - Tube Feeds Code Status - Full Code Family updated at bedside Shed Hand Consult Note Consult date: 11/21/20 Time Seen: 08:25 HPI: Britney Crawford is a 55 year old female female with past medical history of type 2 diabetes who was recently admitted to the hospital with DKA return to ER with high blood sugars. Patient was supposed to be on insulin pump but she was not using. She her blood sugar pump reported sugar of more than 800 hence she came to ER and was found to be in DKA. She also reported that few days ago she lost her balance and fell and hit her chin.
[2020-11-21] MEDS: POTASSIUM CHLORIDE 20 MEQ TABLET 40 MEQ PO (12:50)
[2020-11-21] MEDS: POTASSIUM PHOS,M-BASIC-D-BASIC 20 MMOL in SODIUM CHLORIDE 0.9% IV 250 ML 64 MMOL IVPB (13:45)
[2020-11-21 17:28] LABS: Glucose Point of Care 432 (65-105)
--- NOTE | 2020-11-21 18:39 | PM.IMPN ---
Progress Note: A&P Assessment and Plan (1) Diabetic ketoacidosis: Qualifiers: Diabetes mellitus complication detail: without coma Diabetes mellitus type: type 2 Qualified Code(s): E11.10 - Type 2 diabetes mellitus with ketoacidosis without coma Code(s): E11.10 - Type 2 diabetes mellitus with ketoacidosis without coma Status: Acute Assessment and Plan: Patient seen in [place] and transferred to ICU here for DKA. AG 21 and Glucose was 587. She was started on DKA protocol and AG cleared. IV fluids stopped. She passed her swallow evaluation but has not eaten much today. Monitor closely. (2) Severe sepsis: Code(s): A41.9 - Sepsis, unspecified organism; R65.20 - Severe sepsis without septic shock Status: Acute Assessment and Plan: Patient with fevers, bandemia, bandemia, lactic acidosis, tachycardia and leukopenia. Source or sepsis appears to be pulmonary vs. urinary. COVID swab sent. Cx collected. CXR showing bilateral airspace disease and right pleural effusion. Continue IV abx. (3) Aspiration pneumonia: Qualifiers: Aspiration pneumonia type: unspecified Laterality: right Lung location: middle lobe of lung Qualified Code(s): J69.0 - Pneumonitis due to inhalation of food and vomit Code(s): J69.0 - Pneumonitis due to inhalation of food and vomit Status: Acute Assessment and Plan: CXR as mentioned above. Stable on 3L O2. Wean O2 as tolerated. (4) Type 2 diabetes mellitus: Code(s): E11.9 - Type 2 diabetes mellitus without complications Status: Acute Assessment and Plan: A1c 12.3. Glucose more elevated tonight. Received Lantus earlier today. Was on Levemir 30U Q12 last admission. Will start meal time at 5U TID and add levemir tonight at 20U Q12h. Repeat glucose later tonight and continue to aggressively treat hyperglycemia. (5) Hyponatremia: Code(s): E87.1 - Hypo-osmolality and hyponatremia Status: Acute Assessment and Plan: Pseudohyponatremia from hyperglycemia. Monitor serum sodium. Na 127 today (6) Acute renal failure: Qualifiers: Acute renal failure type: unspecified Qualified Code(s): N17.9 - Acute kidney failure, unspecified Code(s): N17.9 - Acute kidney failure, unspecified Status: Acute Assessment and Plan: Cr 1.7 on admission. Cr better with IV fluids. Continue to monitor. (7) Thrombocytopenia: Code(s): D69.6 - Thrombocytopenia, unspecified Status: Acute Assessment and Plan: Patient has had times when her platelet count has been low. Platelet count however was 71,000 on admission dropped to 62,000. Hemoglobin is usually elevated but this admission hemoglobin is at 10 but stable. Leukopenia also noted on recent blood work so would consider viral etiology such as COVID. Consider hemolysis or TTP as well. Bilirubin level is elevated. LDH only mildly elevated however. Retic count okay. Check B12 level, Fabian. (8) Essential hypertension: Code(s): I10 - Essential (primary) hypertension Status: Chronic Assessment and Plan: Blood pressure soft but stable. Home antihypertensive medications on hold. (9) DVT prophylaxis: Code(s): Z29.9 - Encounter for prophylactic measures, unspecified Status: Acute Assessment and Plan: SCDs Subjective Date/time seen: 11/21/20 18:39 Interval history: Date of service 11/21 55yo female with CHF, Cirrhosis and DM here for DKA. She has mild cough productive of hodges sputum. No hemoptysis. No chest pain. No abdominal pain. No nausea or vomiting. Had pudding earlier today and tolerated it well. Came off the insulin drip earlier today. Being tested for COVID. Exam Narrative: Exam Narrative: 101.3 98.9 102/68 116 23 97% 3L Gen - NARD lying almost flat in bed HEENT - small bruising noted lateral to left eye; large deep pur
[2020-11-21 18:53] LABS: Anion Gap 11 mmol/L (8-16); Blood Urea Nitrogen 22 mg/dL (7-17); Calcium 7.4 mg/dL (8.4-10.2); Carbon Dioxide 17 mmol/L (22-30); Chloride 99 mmol/L (98-107); Estimated CRCL calculation 55 ml/min; Estimated Glomerular Filt Rate 58; Glucose 428 mg/dL (65-105); Phosphorus 3.2 mg/dL (2.5-4.5); Potassium 4.2 mmol/L (3.4-5.0); Sodium 127 mmol/L (137-145)
[2020-11-21 19:55] LABS: SARS-CoV-2 RNA PCR Negative
[2020-11-21] MEDS: INSULIN ASPART (*BKC) 100 UNITS/ML 9 UNITS SUB-Q (20:13)
[2020-11-21] MEDS: INSULIN DETEMIR 100 UNITS/ML 20 UNITS SUB-Q (20:57)
[2020-11-21] MEDS: FAMOTIDINE 20 MG TABLET PO (20:57)
[2020-11-21] MEDS: TOLNAFTATE 1% POWDER 45 GM BTL 1 APPLIC TOPICAL (20:58)
[2020-11-21] MEDS: ALPRAZolam (*CRX) 0.5 MG TABLET (20:59)
[2020-11-21 21:12] LABS: Iron < 10 ug/dL (37-170)
[2020-11-21 21:39] LABS: Percent Iron Saturation < 6 % (20-50)
[2020-11-21 21:55] LABS: Glucose Point of Care 394 (65-105)
[2020-11-21 22:00] LABS: Folic Acid 10.8 ng/mL (2.76->20); Vitamin B12 > 1000.0 pg/mL (239-931)
--- NOTE | 2020-11-21 23:25 | ECG_ITS ---
Measurements Intervals [place] Rate: 139 P: 68 AR: 131 QRS: -30 QRSD: 103 T: 93 QT: 296 QTc: 451 Interpretive Statements SINUS TACHYCARDIA LEFT AXIS DEVIATION BORDERLINE R WAVE PROGRESSION, ANTERIOR LEADS BORDERLINE ST-T WAVE ABNORMALITY- HIGH LATERAL LEADS BASELINE ARTIFACT- I, III, AVR, AVL, AVF ABNORMAL ECG Electronically Signed On 11-22-2020 13:20:01 CLINIC PHYSICIAN by Adriel Kiser D.O.
[2020-11-22] VITALS (18 sets, daily range): BP systolic 80–99; BP diastolic 50–65; PULSE 85–140; RESP 13–22; TEMP 35.7–38.5; O2SAT 90–98
--- NOTE | 2020-11-22 | ECHO_ITS ---
Patient Info Name: Britney Crawford Age: 55 years : 1965 Gender: Female Ht: 63 in Wt: 156 lbs BSA: 1.79 m2 HR: 104 bpm BP: 93 / 65 mmHg Heart Rhythm: Sinus Rhythm Technical Quality: Good Exam Date: 11/22/2020 1:42 PM Exam Location: [facility] Pulmonary Exam Room: 240 Patient Status: Inpatient Admit Date: 11/20/2020 Staff Ordering Physician: Derrick Harper MD Granite Cutter: Shauna Cooper RDCS Attending Provider: Olaf Rodriguez MD Exam Type: CA echo doppler color flow Study Info Indications - chf Complete two-dimensional, color flow and Doppler transthoracic echocardiogram is performed. Summary 1. Left ventricular systolic function is mildly reduced, estimated at 45-50%. 2. Hypokinesis of the apex, apical septum, mid anteroseptum, and mid inferoseptum. 3. The left ventricular diastolic function is grade I diastolic dysfunction. 4. There is mild mitral valve regurgitation. 5. There is no aortic valve stenosis. 6. Left pleural effusion. Left Ventricle Left ventricular chamber dimension is normal. Left ventricular systolic function is mildly reduced, estimated at 45-50%. There is no increased left ventricular wall thickness. The left ventricular diastolic function is grade I diastolic dysfunction. Global longitudinal strain is moderately elevated at -13 %. Hypokinesis of the apex, apical septum, mid anteroseptum, and mid inferoseptum. Right Ventricle Right ventricular chamber dimension is normal. Right ventricular systolic function is normal. Left Atria Left atrial chamber dimension is mildly enlarged. Right Atria Right atrial chamber dimension is mildly enlarged. Aortic Valve The aortic valve is trileaflet. There is mild aortic valve sclerosis. There is no aortic valve stenosis. There is no aortic valve regurgitation. Pulmonic Valve The pulmonic valve is not well visualized. There is trace pulmonic regurgitation. Mitral Valve The mitral valve has normal leaflets. There is mild mitral valve regurgitation. Tricuspid Valve The tricuspid valve leaflets are normal. There is mild tricuspid valve regurgitation. No pulmonary hypertension, estimated pulmonary arterial systolic pressure is 23 mmHg. Pericardium/Pleural The pericardium appears normal. There is no pericardial effusion. Left pleural effusion. Inferior Vena Cava Normal inferior vena cava with >50% collapse upon inspiration consistent with normal right atrial pressure, 5 mmHg. Aorta The aortic root size at the sinus of Valsalva is normal. Left Ventricular Outflow Tract Name Value Normal LVOT 2D LVOT Diameter 2.0 cm LVOT Doppler LVOT Peak Gradient 5 mmHg LVOT Mean Gradient 3 mmHg LVOT VTI 20 cm LVOT VTI/AV VTI Ratio 0.8 LVOT Stroke Volume 61 ml LVOT CO 15.3 l/min LVOT CI 8.6 l/min/m2 Pulmonic Valve
[2020-11-22] MEDS: INSULIN ASPART (*BKC) 100 UNITS/ML SUB-Q ×8 (00:06→16:36)
[2020-11-22 00:14] LABS: Glucose Point of Care 346 (65-105)
[2020-11-22] MEDS: IBUPROFEN IV 400 MG in SODIUM CHLORIDE 0.9% IV 100 ML 200 MG IVPB (01:30)
[2020-11-22] MEDS: INSULIN DETEMIR 100 UNITS/ML 25 UNITS SUB-Q (01:59)
[2020-11-22 04:53] LABS: Glucose Point of Care 315 (65-105)
[2020-11-22 05:32] LABS: Hematocrit 24.8 % (37.0-47.0); Hemoglobin 8.6 g/dL (12.0-15.0); Immature Platelet Fraction Pct 7.7 % (0.9-11.2); Mean Corpuscular HGB Conc 34.7 g/dl (32-36); Mean Corpuscular Hemoglobin 32.1 pg (26-34); Mean Corpuscular Volume 92.5 fl (80-100); Mean Platelet Volume 11.8 fl (7.4-10.4); Platelet Count Result 39 k/mm3 (150-375); Red Blood Count 2.68 M/mm3 (4.2-5.4); Red Cell Distribution Width 13.9 % (11.5-14.5); White Blood Count 4.1 K/mm3 (4.5-10.0)
[2020-11-22 06:01] LABS: Alanine Aminotransferase 36 U/L (4-35); Albumin Level 2.3 g/dL (3.5-5.1); Alkaline Phosphatase 142 U/L (38-126); Anion Gap 7 mmol/L (8-16); Aspartate Amino Transferase 84 U/L (14-36); Bilirubin,Total 3.7 mg/dL (0.2-1.3); Blood Urea Nitrogen 29 mg/dL (7-17); Calcium 7.9 mg/dL (8.4-10.2); Carbon Dioxide 22 mmol/L (22-30); Chloride 102 mmol/L (98-107); Estimated CRCL calculation 55 ml/min; Estimated Glomerular Filt Rate 58; Glucose 304 mg/dL (65-105); Magnesium 2.1 mg/dL (1.6-2.3); Potassium 3.2 mmol/L (3.4-5.0); Sodium 131 mmol/L (137-145)
[2020-11-22 07:20] LABS: INR 1.4; Prothrombin Time 17.6 Seconds (11.1-14.7)
[2020-11-22 07:21] LABS: Partial Thromboplastin Time 28.9 SECONDS (22.3-36.8)
[2020-11-22 07:46] LABS: CRP 32.8 mg/dL (<1.0)
[2020-11-22] MEDS: POTASSIUM CHLORIDE 20 MEQ TABLET 40 MEQ PO ×2 (09:15→14:49)
[2020-11-22] MEDS: DULoxetine HCL 60 MG CAPSULE.DR PO (09:18)
[2020-11-22] MEDS: INSULIN DETEMIR 100 UNITS/ML 50 UNITS SUB-Q (09:18)
[2020-11-22] MEDS: predniSONE 20 MG TABLET 40 MG PO (09:20)
[2020-11-22] MEDS: TOLNAFTATE 1% POWDER 45 GM BTL 1 APPLIC TOPICAL ×2 (09:22→19:50)
[2020-11-22] MEDS: ALBUTEROL SULFATE NEB 2.5 MG/0.5 ML INH INHALATION ×3 (09:24→20:30)
[2020-11-22] MEDS: IPRATROPIUM BR 0.02% INH SOLN 0.5 MG/2.5 ML VIAL INHALATION ×3 (09:25→20:30)
[2020-11-22 09:47] LABS: Glucose Point of Care 279 (65-105)
--- NOTE | 2020-11-22 10:44 | WPDINTPN ---
Progress Note: A&P Assessment and Plan (1) Diabetic ketoacidosis: Qualifiers: Diabetes mellitus type: type 2 Diabetes mellitus complication detail: without coma Qualified Code(s): E11.10 - Type 2 diabetes mellitus with ketoacidosis without coma Code(s): E11.10 - Type 2 diabetes mellitus with ketoacidosis without coma Status: Acute Assessment and Plan: Patient was admitted with DKA started on IV insulin infusion. Anion gap closed and patient has been transitioned to subcutaneous insulin Advance diet Long-acting insulin increased to 50 units subcu q.day (2) Severe sepsis: Code(s): A41.9 - Sepsis, unspecified organism; R65.20 - Severe sepsis without septic shock Status: Acute Assessment and Plan: Secondary to pneumonia and/or UTI Continue IV Zosyn Blood and urine culture have been sent and urine culture is growing E coli. Susceptibilities are pending Hold further IV fluids due to concerns of volume overload (3) Aspiration pneumonia: Qualifiers: Aspiration pneumonia type: unspecified Laterality: right Lung location: middle lobe of lung Qualified Code(s): J69.0 - Pneumonitis due to inhalation of food and vomit Code(s): J69.0 - Pneumonitis due to inhalation of food and vomit Status: Acute Assessment and Plan: Patient has infiltrates on a chest x-ray and aspiration was suspected the time of admission IV Zosyn Culture Maintaining adequate oxygenation on 2 L nasal cannula (4) Acute renal failure: Qualifiers: Acute renal failure type: unspecified Qualified Code(s): N17.9 - Acute kidney failure, unspecified Code(s): N17.9 - Acute kidney failure, unspecified Status: Acute Assessment and Plan: Creatinine improved with IV fluids. Now in normal range Monitor urine output electrolytes Hold further IV fluids (5) Suspected COVID-19 virus infection: Code(s): Z20.828 - Contact with and (suspected) exposure to other viral communicable diseases Status: Acute Assessment and Plan: COVID-19 PCR was negative. Isolation discontinued (6) CHF (congestive heart failure): Code(s): I50.9 - Heart failure, unspecified Status: Acute Assessment and Plan: Patient received IV fluid bolus when She arrived for DKA and sepsis Her BNPs 5000+ Hold further fluids due to concerns of volume overload Check echocardiogram which is pending Diuretics held at this time due to soft blood pressure and patient maintaining adequate oxygenation on nasal cannula without any distress (7) Dysphagia: Code(s): R13.10 - Dysphagia, unspecified Status: Acute Assessment and Plan: Speech consulted for bedside evaluation to start Modify diet ordered (8) UTI (urinary tract infection): Qualifiers: Hematuria presence: without hematuria Urinary tract infection type: site unspecified Qualified Code(s): N39.0 - Urinary tract infection, site not specified Code(s): N39.0 - Urinary tract infection, site not specified Status: Acute Assessment and Plan: Urine culture growing E coli Empiric antibiotic (9) Electrolyte abnormality: Code(s): E87.8 - Other disorders of electrolyte and fluid balance, not elsewhere classified Status: Acute Assessment and Plan: Low K and phosphorus are being replaced (10) COPD (chronic obstructive pulmonary disease): Code(s): J44.9 - Chronic obstructive pulmonary disease, unspecified Status: Acute Assessment and Plan: Patient wheezing bilaterally on exam low not in any respiratory distress Does have history of smoking and continues to smoke Encourage patient to quit Will start a 5 day course of prednisone and scheduled DuoNebs for next 24 hours Additional Plan DVT prophylaxis -SCDs due to thrombocytopenia Stress ulcer prophylaxis - Nutrition - Tube Feeds Code Status - Full Code Physical therapy and occupational health coordinator
--- NOTE | 2020-11-22 12:11 | PC.NURSE ---
report given to MCKENZIE Mederos, patient transported to 2nd Medical unit by this RN with telemetry. meds, chart, and personal belongings transported as well
[2020-11-22] MEDS: CENTRAL LINE FLUSH 10 ML IV PUSH ×3 (12:28→19:49)
[2020-11-22 12:29] LABS: Glucose Point of Care 314 (65-105)
[2020-11-22] MEDS: FLUTICASONE/UMECLIDIN/VILANTER 100-62.5-25 MCG ELLIPTA 1 PUFF INHALATION (12:29)
--- NOTE | 2020-11-22 12:45 | PC.NURSE ---
This patient, Britney Crawford, was received from ICU on 11/22/20 at 1215. Patient/family oriented to unit policies and routines. Received report from MCKENZIE Haley.
--- NOTE | 2020-11-22 13:31 | PCCDE ---
follow up: insulin orders: 11/22 50 units Levemir daily, 5 units Novolog TIDWM, moderate dose correction scale Pt is off isolation and transferred to medical floor. Visited pt and she was able to tell me that she has had DM since age 25 and that she sees rack cleaner, Dr Martínez in [place] but that's about it. She thought she had a pump but couldn't say the brand and sts she got it from here?? She was unable to state anything about insulin types or dosing. She sts that her daughter takes care of that but her daughter doesn't live with her. I attempted to call Dr Martínez's office but they are closed and pt asked me not to call her daughter b/c she is 7 mos . Will follow and provide education as appropriate.
--- NOTE | 2020-11-22 16:20 | PM.IMPN ---
Progress Note: A&P Assessment and Plan (1) Diabetic ketoacidosis: Qualifiers: Diabetes mellitus complication detail: without coma Diabetes mellitus type: type 2 Qualified Code(s): E11.10 - Type 2 diabetes mellitus with ketoacidosis without coma Code(s): E11.10 - Type 2 diabetes mellitus with ketoacidosis without coma Status: Acute Assessment and Plan: Patient seen in [place] and transferred to ICU here for DKA. AG 21 and Glucose was 587. She was started on DKA protocol and AG cleared. IV fluids stopped. She passed her swallow evaluation. Continue to monitor closely. (2) Severe sepsis: Code(s): A41.9 - Sepsis, unspecified organism; R65.20 - Severe sepsis without septic shock Status: Acute Assessment and Plan: Patient with fevers, bandemia, lactic acidosis, tachycardia and leukopenia. Source of sepsis appears to be pulmonary and bacteremia. UCx growing EColi. COVID negative. CXR showing bilateral airspace disease and right pleural effusion. BCx (1of2) growing GNB. Continue IV abx. Narrow abx when final ID available. (3) Aspiration pneumonia: Qualifiers: Aspiration pneumonia type: unspecified Laterality: right Lung location: middle lobe of lung Qualified Code(s): J69.0 - Pneumonitis due to inhalation of food and vomit Code(s): J69.0 - Pneumonitis due to inhalation of food and vomit Status: Acute Assessment and Plan: CXR as mentioned above. Stable on 3L O2. Wean O2 as tolerated. (4) Type 2 diabetes mellitus: Code(s): E11.9 - Type 2 diabetes mellitus without complications Status: Acute Assessment and Plan: A1c 12.3. Glucose reviewed on 11/22. Was on Levemir 30U Q12 last admission. Advacne meal time Novolog to 8U TID and advance levemir tonight to 30U Q12h. Continue AccuCheks covering with sliding scale. Hypoglycemia protocol available as needed. She is on steroids now causing the elevated glucose. (5) Hyponatremia: Code(s): E87.1 - Hypo-osmolality and hyponatremia Status: Acute Assessment and Plan: Pseudohyponatremia from hyperglycemia. Monitor serum sodium. Na 131 today (6) Acute renal failure: Qualifiers: Acute renal failure type: unspecified Qualified Code(s): N17.9 - Acute kidney failure, unspecified Code(s): N17.9 - Acute kidney failure, unspecified Status: Acute Assessment and Plan: Cr 1.7 on admission. Cr better with IV fluids and now normal. Continue to monitor. (7) Thrombocytopenia: Code(s): D69.6 - Thrombocytopenia, unspecified Status: Acute Assessment and Plan: Patient has had times when her platelet count has been low. Platelet count however was 71,000 on admission and dropped to 39,000 toay. Hemoglobin is usually elevated but this admission hemoglobin is at 10 and has dropped to 8.6. Leukopenia also noted on recent blood work so would consider viral etiology. COVID negative. Could be from sepsis picture. Consider hemolysis but Fabian negative. Smear negative for schistocytes. Bilirubin level is still elevated. LDH mildly elevated however Retic count okay. Repeat CBC and follow. May need BM (8) Essential hypertension: Code(s): I10 - Essential (primary) hypertension Status: Chronic Assessment and Plan: BP reviewed on 11/22. Blood pressure soft. Home antihypertensive medications remain on hold. Repeat BP. (9) DVT prophylaxis: Code(s): Z29.9 - Encounter for prophylactic measures, unspecified Status: Acute Assessment and Plan: SCDs due to low plt Subjective Date/time seen: 11/22/20 16:20 Interval history: Date of service 11/22 55yo female with CHF, Cirrhosis and DM here for DKA. Feels 'a lot better'. Eating okay. No CP or SOB. No abd pain. No n/v. Exam Narrative: Exam Narrative: Tm 101.3 97.2 88/55 96 19 98% 3L Gen - CAYETANO
[2020-11-22 16:29] LABS: Glucose Point of Care 291 (65-105)
[2020-11-22 16:55] LABS: Influenza Control Positive
[2020-11-22 19:45] LABS: Hematocrit 25.6 % (37.0-47.0); Hemoglobin 8.9 g/dL (12.0-15.0); Immature Platelet Fraction Pct 8.2 % (0.9-11.2); Mean Corpuscular HGB Conc 34.8 g/dl (32-36); Mean Corpuscular Hemoglobin 32.4 pg (26-34); Mean Corpuscular Volume 93.1 fl (80-100); Mean Platelet Volume 12.8 fl (7.4-10.4); Platelet Count Result 43 k/mm3 (150-375); Red Blood Count 2.75 M/mm3 (4.2-5.4); Red Cell Distribution Width 14.4 % (11.5-14.5); White Blood Count 4.6 K/mm3 (4.5-10.0)
[2020-11-22] MEDS: FAMOTIDINE 20 MG TABLET PO (19:49)
[2020-11-22] MEDS: INSULIN DETEMIR 100 UNITS/ML 30 UNITS SUB-Q (19:53)
[2020-11-22 19:59] LABS: Atypical Lymphocytes Present; Band Neutrophils Percent 7 % (0-6); Hypochromasia 1+ (NORMAL); Monocytes Absolute Manual 0.23 K/mm3 (0.1-0.90); Monocytes Percent Manual 5 % (3-9); Neutrophils Absolute Manual 3.86 K/mm3 (1.7-7.2); Neutrophils Percent Manual 77 % (46-73); Platelet Estimate Decreased (Adequate); Total Cells Counted 100
[2020-11-22 21:41] LABS: Glucose Point of Care 385 (65-105)
[2020-11-23] VITALS (18 sets, daily range): BP systolic 92–114; BP diastolic 50–65; PULSE 87–106; RESP 16–20; TEMP 36.2–36.9; O2SAT 91–99
[2020-11-23] MEDS: IPRATROPIUM BR 0.02% INH SOLN 0.5 MG/2.5 ML VIAL INHALATION ×4 (01:40→21:08)
[2020-11-23] MEDS: ALBUTEROL SULFATE NEB 2.5 MG/0.5 ML INH INHALATION ×4 (01:40→21:08)
[2020-11-23 05:17] LABS: Hematocrit 24.7 % (37.0-47.0); Hemoglobin 8.6 g/dL (12.0-15.0); Immature Platelet Fraction Pct 9.9 % (0.9-11.2); Mean Corpuscular HGB Conc 34.8 g/dl (32-36); Mean Corpuscular Volume 91.8 fl (80-100); Mean Platelet Volume 13.4 fl (7.4-10.4); Platelet Count Result 40 k/mm3 (150-375); Red Blood Count 2.69 M/mm3 (4.2-5.4); White Blood Count 5.4 K/mm3 (4.5-10.0)
[2020-11-23 05:40] LABS: Alanine Aminotransferase 77 U/L (4-35); Albumin Level 2.3 g/dL (3.5-5.1); Alkaline Phosphatase 275 U/L (38-126); Aspartate Amino Transferase 175 U/L (14-36); Bilirubin,Total 3.7 mg/dL (0.2-1.3); Blood Urea Nitrogen 37 mg/dL (7-17); Calcium 8.2 mg/dL (8.4-10.2); Carbon Dioxide 23 mmol/L (22-30); Estimated CRCL calculation 54 ml/min; Estimated Glomerular Filt Rate 58; Glucose 361 mg/dL (65-105); Lactate Dehydrogenase 665 U/L (313-618)
[2020-11-23 08:11] LABS: Anion Gap 7 mmol/L (8-16); Chloride 96 mmol/L (98-107); Potassium 4.1 mmol/L (3.4-5.0); Sodium 126 mmol/L (137-145)
[2020-11-23 08:40] LABS: Glucose Point of Care 354 (65-105)
[2020-11-23] MEDS: INSULIN ASPART (*BKC) 100 UNITS/ML SUB-Q ×3 (08:49→17:20)
[2020-11-23] MEDS: INSULIN ASPART (*BKC) 100 UNITS/ML 8 UNITS SUB-Q ×3 (08:49→17:20)
[2020-11-23] MEDS: DULoxetine HCL 60 MG CAPSULE.DR PO (08:54)
[2020-11-23] MEDS: TOLNAFTATE 1% POWDER 45 GM BTL 1 APPLIC TOPICAL ×2 (08:54→20:18)
[2020-11-23] MEDS: predniSONE 20 MG TABLET 40 MG PO (08:54)
[2020-11-23] MEDS: FLUTICASONE/UMECLIDIN/VILANTER 100-62.5-25 MCG ELLIPTA 1 PUFF INHALATION (08:54)
[2020-11-23] MEDS: INSULIN DETEMIR 100 UNITS/ML 30 UNITS SUB-Q ×2 (08:55→20:17)
[2020-11-23 12:04] LABS: Glucose Point of Care 300 (65-105)
[2020-11-23] MEDS: CENTRAL LINE FLUSH 10 ML IV PUSH ×2 (12:49→20:18)
[2020-11-23 13:56] LABS: Vancomycin Trough 11.8 ug/mL (10.0-20.0)
[2020-11-23 17:03] LABS: Glucose Point of Care 328 (65-105)
[2020-11-23] MEDS: ALPRAZolam (*CRX) 0.5 MG TABLET PO (17:26)
--- NOTE | 2020-11-23 18:13 | PM.IMPN ---
Progress Note: A&P Assessment and Plan (1) Diabetic ketoacidosis: Qualifiers: Diabetes mellitus complication detail: without coma Diabetes mellitus type: type 2 Qualified Code(s): E11.10 - Type 2 diabetes mellitus with ketoacidosis without coma Code(s): E11.10 - Type 2 diabetes mellitus with ketoacidosis without coma Status: Acute Assessment and Plan: Patient seen in [place] and transferred to ICU here for DKA. AG 21 and Glucose was 587. She was started on DKA protocol and AG cleared. IV fluids stopped. She passed her swallow evaluation. Continue to monitor closely. (2) Severe sepsis: Code(s): A41.9 - Sepsis, unspecified organism; R65.20 - Severe sepsis without septic shock Status: Acute Assessment and Plan: Patient with fevers, bandemia, lactic acidosis, tachycardia and leukopenia. Source of sepsis appears to be pulmonary and urinary. UCx growing EColi. COVID negative. CXR showing bilateral airspace disease and right pleural effusion. BCx (1of2) also growing EColi as well. Sputum now growing Staph aureus. Continue IV abx. Narrow abx when final ID available. (3) Aspiration pneumonia: Qualifiers: Aspiration pneumonia type: unspecified Laterality: right Lung location: middle lobe of lung Qualified Code(s): J69.0 - Pneumonitis due to inhalation of food and vomit Code(s): J69.0 - Pneumonitis due to inhalation of food and vomit Status: Acute Assessment and Plan: CXR as mentioned above. Stable on 2L O2. Wean O2 as tolerated. (4) Type 2 diabetes mellitus: Code(s): E11.9 - Type 2 diabetes mellitus without complications Status: Acute Assessment and Plan: A1c 12.3. Glucose reviewed on 11/23. Was on Levemir 30U Q12 last admission. Glucose stil poorly controlled due to the steroids. Currently on Novolog to 8U TID and Levemir 30U Q12h. Continue AccuCheks covering with sliding scale. Hypoglycemia protocol available as needed. Stop steroids. (5) Hyponatremia: Code(s): E87.1 - Hypo-osmolality and hyponatremia Status: Acute Assessment and Plan: Pseudohyponatremia from hyperglycemia. Na down to 126. Monitor serum sodium. (6) Acute renal failure: Qualifiers: Acute renal failure type: unspecified Qualified Code(s): N17.9 - Acute kidney failure, unspecified Code(s): N17.9 - Acute kidney failure, unspecified Status: Acute Assessment and Plan: Cr 1.7 on admission. Cr better with IV fluids and now normal. Continue to monitor. (7) Thrombocytopenia: Code(s): D69.6 - Thrombocytopenia, unspecified Status: Acute Assessment and Plan: Patient has had times when her platelet count has been low felt related to the cirrhosis. Platelet count however was 71,000 on admission. Plt count down to 40K but stable. Leukopenia also noted on recent blood work so would consider viral etiology or from sepsis. COVID negative. Monitor plt count closely. (8) Normocytic anemia: Code(s): D64.9 - Anemia, unspecified Status: Acute Assessment and Plan: Hemoglobin is usually elevated but this admission hemoglobin is at 10 and has dropped to 8 range No evidence of acute blood loss. Consider hemolysis but Fabian negative and smear negative for schistocytes. Bilirubin level is still elevated mostly indirect. LDH mildly elevated but unchanged. She is s/p CCY. Iron studies more anemia of chronic disease with low iron and low TIBC probably from the cirrhosis. Ferritin elevated from the sepsis. B12/folate okay. Follow (9) Cirrhosis: Code(s): K74.60 - Unspecified cirrhosis of liver Status: Inactive Assessment and Plan: As above. AST and ALT worse today at 175 and 77. TB 3.7. Possibly related to the sepsis and cirrhosis. Will check CT of the A/P. Follow LFTs. (10) Essential hypertension: Code(s): I10
[2020-11-23] MEDS: FAMOTIDINE 20 MG TABLET PO (20:16)
[2020-11-23 20:37] LABS: Glucose Point of Care 269 (65-105)
[2020-11-24] VITALS (17 sets, daily range): BP systolic 90–114; BP diastolic 58–72; PULSE 84–114; RESP 16–22; TEMP 36–37.2; O2SAT 87–99
[2020-11-24] MEDS: ALBUTEROL SULFATE NEB 2.5 MG/0.5 ML INH INHALATION ×4 (03:06→21:14)
[2020-11-24] MEDS: IPRATROPIUM BR 0.02% INH SOLN 0.5 MG/2.5 ML VIAL INHALATION ×4 (03:06→21:13)
[2020-11-24] MEDS: CENTRAL LINE FLUSH 10 ML IV PUSH ×3 (05:36→20:02)
[2020-11-24 06:15] LABS: Hemoglobin 8.8 g/dL (12.0-15.0); Immature Platelet Fraction Pct 11.6 % (0.9-11.2); Mean Corpuscular HGB Conc 35.2 g/dl (32-36); Mean Corpuscular Hemoglobin 32.2 pg (26-34); Mean Corpuscular Volume 91.6 fl (80-100); Mean Platelet Volume 13.3 fl (7.4-10.4); Platelet Count Result 53 k/mm3 (150-375); Red Blood Count 2.73 M/mm3 (4.2-5.4); Red Cell Distribution Width 14.3 % (11.5-14.5); White Blood Count 7.2 K/mm3 (4.5-10.0)
[2020-11-24 06:44] LABS: Alanine Aminotransferase 102 U/L (4-35); Albumin Level 2.3 g/dL (3.5-5.1); Alkaline Phosphatase 424 U/L (38-126); Anion Gap 6 mmol/L (8-16); Aspartate Amino Transferase 159 U/L (14-36); Bilirubin Indirect 0.7 mg/dL (0-1.1); Bilirubin,Total 2.6 mg/dL (0.2-1.3); Blood Urea Nitrogen 32 mg/dL (7-17); Calcium 8.4 mg/dL (8.4-10.2); Carbon Dioxide 24 mmol/L (22-30); Chloride 99 mmol/L (98-107); Estimated CRCL calculation 54 ml/min; Estimated Glomerular Filt Rate 58; Glucose 224 mg/dL (65-105); Magnesium 1.8 mg/dL (1.6-2.3); Sodium 129 mmol/L (137-145)
[2020-11-24 07:45] LABS: Glucose Point of Care 239 (65-105)
[2020-11-24] MEDS: INSULIN ASPART (*BKC) 100 UNITS/ML 8 UNITS SUB-Q (07:56)
[2020-11-24] MEDS: INSULIN ASPART (*BKC) 100 UNITS/ML SUB-Q (07:56)
[2020-11-24] MEDS: INSULIN DETEMIR 100 UNITS/ML 30 UNITS SUB-Q (08:00)
[2020-11-24] MEDS: DULoxetine HCL 60 MG CAPSULE.DR PO (08:05)
--- NOTE | 2020-11-24 10:28 | PCPTNOTE ---
Attempted PT treatment. Pt going for CT scan. Will try again later today.
[2020-11-24] MEDS: TOLNAFTATE 1% POWDER 45 GM BTL 1 APPLIC TOPICAL ×2 (11:30→20:02)
[2020-11-24 11:50] LABS: Glucose Point of Care 141 (65-105)
[2020-11-24] MEDS: FLUTICASONE/UMECLIDIN/VILANTER 100-62.5-25 MCG ELLIPTA 1 PUFF INHALATION (12:47)
--- NOTE | 2020-11-24 14:52 | PM.IMPN ---
Progress Note: A&P Assessment and Plan (1) Diabetic ketoacidosis: Qualifiers: Diabetes mellitus complication detail: without coma Diabetes mellitus type: type 2 Qualified Code(s): E11.10 - Type 2 diabetes mellitus with ketoacidosis without coma Code(s): E11.10 - Type 2 diabetes mellitus with ketoacidosis without coma Status: Acute Assessment and Plan: Patient seen in [place] and transferred to ICU here for DKA. AG 21 and Glucose was 587. She was started on DKA protocol and AG cleared. IV fluids stopped. She passed her swallow evaluation. Continue to monitor closely. (2) Severe sepsis: Code(s): A41.9 - Sepsis, unspecified organism; R65.20 - Severe sepsis without septic shock Status: Acute Assessment and Plan: Patient with fevers, bandemia, lactic acidosis, tachycardia and leukopenia. Source of sepsis appears to be pulmonary and urinary. UCx 11/20 growing EColi sensitive to Zosyn. COVID negative. CXR showing bilateral airspace disease and right pleural effusion. BCx 11/21: 1 growing EColi as well with similar resistance pattern; 1 growing gram negative bacilli (suspect EColi as well). CT A/P showing nonspecific retroperitoneal, right colic fat stranding, consider pancreatitis or colitis. Doubt that EColi is from GI source. Sputum 11/21 now growing oxacillin sensitive Staph aureus. Continue IV abx. Narrow abx when final BCx results available. Check lipase. Stop Vanco and add Dicloxacillin (3) Aspiration pneumonia: Qualifiers: Aspiration pneumonia type: unspecified Laterality: right Lung location: middle lobe of lung Qualified Code(s): J69.0 - Pneumonitis due to inhalation of food and vomit Code(s): J69.0 - Pneumonitis due to inhalation of food and vomit Status: Acute Assessment and Plan: CXR as mentioned above. CT A/P showing right lower lobe infiltrate, probably atelectasis and pneumonia. Sputum 11/21 now growing oxacillin sensitive Staph aureus. Stable on 2L O2. Wean O2 as tolerated. Continue IV abx. (4) UTI (urinary tract infection): Code(s): N39.0 - Urinary tract infection, site not specified Status: Acute Assessment and Plan: UTI with sepsis and bacteremia with EColi. As above. CT A/P 11/24 showing possible left-sided upper urinary tract infection. Continue IV abx. (5) Type 2 diabetes mellitus: Code(s): E11.9 - Type 2 diabetes mellitus without complications Status: Acute Assessment and Plan: A1c 12.3. Glucose reviewed on 11/24. Was on Levemir 30U Q12 last admission. Glucose better controlled off the steroids. Now with lows due to not eating much so will stop Novolog TID and decrease Levemir to 22U Q12h. Continue AccuCheks covering with sliding scale. Hypoglycemia protocol available as needed. (6) Hyponatremia: Code(s): E87.1 - Hypo-osmolality and hyponatremia Status: Acute Assessment and Plan: Pseudohyponatremia from hyperglycemia. Na better at 129 Monitor serum sodium. (7) Acute renal failure: Qualifiers: Acute renal failure type: unspecified Qualified Code(s): N17.9 - Acute kidney failure, unspecified Code(s): N17.9 - Acute kidney failure, unspecified Status: Acute Assessment and Plan: Cr 1.7 on admission. Cr improved with IV fluids. Cr now normal. Continue to monitor. (8) Thrombocytopenia: Code(s): D69.6 - Thrombocytopenia, unspecified Status: Acute Assessment and Plan: Patient has had at times low platelet count felt related to the cirrhosis. Platelet count was 71,000 on admission. Plt count dropped to 39K but improved to 53K today. Leukopenia also noted on recent blood work so would consider viral etiology or from sepsis; WBC normal now. COVID negative. Monitor plt count closely. ASA and Brilinta remain on hold; resume when plt count closer to 100K (9) Normocytic anemia:
[2020-11-24 16:37] LABS: Glucose Point of Care 54 (65-105)
[2020-11-24] MEDS: GLUCOSE ORAL GEL 15 GM OF GLUCSE IN 37.5 GM TUBE PO ×3 (16:38→23:48)
[2020-11-24 16:58] LABS: Glucose Point of Care 60 (65-105)
[2020-11-24 17:27] LABS: Glucose Point of Care 178 (65-105)
[2020-11-24] MEDS: CENTRAL LINE FLUSH 20 ML IV PUSH (19:04)
[2020-11-24 19:21] LABS: Ammonia 12 umol/L (9-30); Lipase 236 U/L (23-300)
[2020-11-24] MEDS: FAMOTIDINE 20 MG TABLET PO (20:01)
[2020-11-24] MEDS: guaiFENesin 12 HR 600 MG TABCR PO (20:01)
[2020-11-24] MEDS: guaiFENesin/DEXTROMETHORPHAN 10 ML UDC 5 ML PO (20:03)
[2020-11-24 21:15] LABS: Glucose Point of Care 85 (65-105)
[2020-11-24] MEDS: DICLOXACILLIN SODIUM 250 MG CAPSULE PO (23:44)
[2020-11-25] VITALS (18 sets, daily range): BP systolic 96–133; BP diastolic 57–68; PULSE 90–124; RESP 18–22; TEMP 36.2–37.2; O2SAT 92–95
[2020-11-25 00:38] LABS: Glucose Point of Care 81 (65-105)
[2020-11-25 00:38] LABS: Glucose Point of Care 61 (65-105)
[2020-11-25] MEDS: ALBUTEROL SULFATE NEB 2.5 MG/0.5 ML INH INHALATION ×4 (03:28→19:56)
[2020-11-25] MEDS: IPRATROPIUM BR 0.02% INH SOLN 0.5 MG/2.5 ML VIAL INHALATION ×4 (03:28→19:56)
[2020-11-25] MEDS: CENTRAL LINE FLUSH 10 ML IV PUSH ×3 (05:33→21:07)
[2020-11-25] MEDS: DICLOXACILLIN SODIUM 250 MG CAPSULE PO ×3 (05:33→18:18)
[2020-11-25 06:46] LABS: Hematocrit 26.3 % (37.0-47.0); Mean Corpuscular HGB Conc 34.2 g/dl (32-36); Mean Corpuscular Hemoglobin 31.8 pg (26-34); Mean Corpuscular Volume 92.9 fl (80-100); Mean Platelet Volume 11.4 fl (7.4-10.4); Platelet Count Result 50 k/mm3 (150-375); Red Blood Count 2.83 M/mm3 (4.2-5.4); Red Cell Distribution Width 14.3 % (11.5-14.5); White Blood Count 8.1 K/mm3 (4.5-10.0)
[2020-11-25 06:52] LABS: Alanine Aminotransferase 90 U/L (4-35); Albumin Level 2.3 g/dL (3.5-5.1); Alkaline Phosphatase 433 U/L (38-126); Anion Gap 8 mmol/L (8-16); Aspartate Amino Transferase 148 U/L (14-36); Bilirubin,Total 2.6 mg/dL (0.2-1.3); Blood Urea Nitrogen 24 mg/dL (7-17); Carbon Dioxide 24 mmol/L (22-30); Chloride 96 mmol/L (98-107); Estimated CRCL calculation 54 ml/min; Estimated Glomerular Filt Rate 58; Glucose 96 mg/dL (65-105); Magnesium 1.4 mg/dL (1.6-2.3); Potassium 3.4 mmol/L (3.4-5.0); Sodium 128 mmol/L (137-145)
[2020-11-25 08:23] LABS: Glucose Point of Care 116 (65-105)
[2020-11-25] MEDS: VITAMIN E 400 UNIT CAPSULE PO (08:56)
[2020-11-25] MEDS: POTASSIUM CHLORIDE 20 MEQ TABLET PO (08:56)
[2020-11-25] MEDS: MAGNESIUM SULF 2 GM/WATER 50ML 2 GM/50 ML BAG IVPB (08:56)
[2020-11-25] MEDS: guaiFENesin 12 HR 600 MG TABCR PO ×2 (08:57→21:03)
[2020-11-25] MEDS: TOLNAFTATE 1% POWDER 45 GM BTL 1 APPLIC TOPICAL ×2 (08:57→21:06)
[2020-11-25] MEDS: DULoxetine HCL 60 MG CAPSULE.DR PO (08:57)
[2020-11-25] MEDS: MONTELUKAST SODIUM 10 MG TABLET PO (08:57)
[2020-11-25] MEDS: SACCHAROMYCES BOULARDII 250 MG CAPSULE PO ×2 (08:57→16:21)
[2020-11-25] MEDS: FLUTICASONE/UMECLIDIN/VILANTER 100-62.5-25 MCG ELLIPTA 1 PUFF INHALATION (08:57)
[2020-11-25] MEDS: ACIDOPHILUS/BULGARICUS CHEWABLE TABLET 1 TABLET PO (08:58)
[2020-11-25] MEDS: INSULIN DETEMIR 100 UNITS/ML 10 UNITS SUB-Q (09:05)
[2020-11-25 10:28] LABS: Glucose Point of Care 168 (65-105)
[2020-11-25] MEDS: KCL 20 MEQ/D5/0.9% SOD CHL 1,000 ML 70 ML IV CONT (11:09)
[2020-11-25] MEDS: LOPERAMIDE HCL 2 MG CAPSULE PO (11:09)
[2020-11-25 11:45] LABS: Glucose Point of Care 261 (65-105)
[2020-11-25] MEDS: INSULIN ASPART (*BKC) 100 UNITS/ML SUB-Q ×2 (11:48→16:21)
--- NOTE | 2020-11-25 14:13 | PM.IMPN ---
Progress Note: A&P Assessment and Plan (1) Diabetic ketoacidosis: Qualifiers: Diabetes mellitus complication detail: without coma Diabetes mellitus type: type 2 Qualified Code(s): E11.10 - Type 2 diabetes mellitus with ketoacidosis without coma Code(s): E11.10 - Type 2 diabetes mellitus with ketoacidosis without coma Status: Acute Assessment and Plan: Patient seen in [place] and transferred to ICU here for DKA. AG 21 and Glucose was 587. She was started on DKA protocol and AG cleared. IV fluids stopped. She passed her swallow evaluation. Continue to monitor closely. Discussed with family. (2) Severe sepsis: Code(s): A41.9 - Sepsis, unspecified organism; R65.20 - Severe sepsis without septic shock Status: Acute Assessment and Plan: Patient with fevers, bandemia, lactic acidosis, tachycardia and leukopenia. Source of sepsis appears to be pulmonary and urinary. UCx 11/20 growing EColi sensitive to Zosyn. COVID negative. CXR showing bilateral airspace disease and right pleural effusion. BCx 11/21 growing EColi (2of2) with similar resistance pattern as UCx. CT A/P showing nonspecific retroperitoneal, right colic fat stranding, consider pancreatitis or colitis. Doubt pancreatitis given normal Lipase and doubt that EColi is from GI source. Sputum 11/21 growing oxacillin sensitive Staph aureus. Continue IV abx but change Zosyn to Rocephin Continue Dicloxacillin Start IV fluids since not eating much Called by RN later about patietn eating better and glucose now inthe 300's. Also now having diarrhea and has hx of CDiff. Will check CDiff and stool cx given the CT scan findings. HR better and felt mildly elevated related to being off her metoprolol. Change IV fluids to NS. (3) Aspiration pneumonia: Qualifiers: Aspiration pneumonia type: unspecified Laterality: right Lung location: middle lobe of lung Qualified Code(s): J69.0 - Pneumonitis due to inhalation of food and vomit Code(s): J69.0 - Pneumonitis due to inhalation of food and vomit Status: Acute Assessment and Plan: CXR as mentioned above. CT A/P showing right lower lobe infiltrate, probably atelectasis and pneumonia. Sputum 11/21 now growing oxacillin sensitive Staph aureus. Stable on 2L O2. Wean O2 as tolerated. Continue abx. (4) UTI (urinary tract infection): Code(s): N39.0 - Urinary tract infection, site not specified Status: Acute Assessment and Plan: UTI with sepsis and bacteremia with EColi. As above. CT A/P 11/24 showing possible left-sided upper urinary tract infection. Continue IV abx. (5) Type 2 diabetes mellitus: Code(s): E11.9 - Type 2 diabetes mellitus without complications Status: Acute Assessment and Plan: A1c 12.3. Glucose reviewed on 11/25. Was on Levemir 30U Q12 last admission. Glucose better controlled off the steroids. Levemir decreased and mealtime Novolog stopped yesterdy. Still with low sugars due to not eating much so will decrease Levemir to 10U Q12h. Continue AccuCheks covering with sliding scale. Hypoglycemia protocol available as needed. Change to Protonix to see if this helps her GERD symtpoms. (6) Hyponatremia: Code(s): E87.1 - Hypo-osmolality and hyponatremia Status: Acute Assessment and Plan: Pseudohyponatremia from hyperglycemia. Na about the same at 128. Monitor serum sodium. Check urine Na. (7) Acute renal failure: Qualifiers: Acute renal failure type: unspecified Qualified Code(s): N17.9 - Acute kidney failure, unspecified Code(s): N17.9 - Acute kidney failure, unspecified Status: Acute Assessment and Plan: Cr 1.7 on admission. Cr improved with IV fluids. Cr now normal. Continue to monitor. (8) Thrombocytopenia: Code(s): D69.6 - Thrombocytopenia, unspecified Status: Acute Assessment and Plan:
[2020-11-25 14:28] LABS: Glucose Point of Care 356 (65-105)
[2020-11-25] MEDS: SODIUM CHLORIDE 0.9% IV 1,000 ML 100 ML IV CONT (15:12)
[2020-11-25 16:21] LABS: Glucose Point of Care 391 (65-105)
[2020-11-25] MEDS: guaiFENesin/DEXTROMETHORPHAN 10 ML UDC 5 ML PO (18:23)
[2020-11-25] MEDS: INSULIN DETEMIR 100 UNITS/ML 15 UNITS SUB-Q (21:04)
[2020-11-25] MEDS: PANTOPRAZOLE SODIUM IV 40 MG VIAL IV PUSH (21:05)
[2020-11-25 22:31] LABS: Glucose Point of Care 355 (65-105)
[2020-11-26] VITALS (16 sets, daily range): BP systolic 100–108; BP diastolic 55–90; PULSE 83–99; RESP 18–20; TEMP 36.2–36.7; O2SAT 92–98
[2020-11-26] MEDS: DICLOXACILLIN SODIUM 250 MG CAPSULE PO ×4 (00:08→17:27)
[2020-11-26] MEDS: SODIUM CHLORIDE 0.9% IV 1,000 ML 100 ML IV CONT ×2 (01:54→12:19)
[2020-11-26] MEDS: IPRATROPIUM BR 0.02% INH SOLN 0.5 MG/2.5 ML VIAL INHALATION ×4 (02:15→19:55)
[2020-11-26] MEDS: ALBUTEROL SULFATE NEB 2.5 MG/0.5 ML INH INHALATION ×4 (02:15→19:55)
[2020-11-26] MEDS: CENTRAL LINE FLUSH 10 ML IV PUSH ×3 (05:12→20:50)
[2020-11-26 05:24] LABS: Hemoglobin 8.2 g/dL (12.0-15.0); Immature Platelet Fraction Pct 9.2 % (0.9-11.2); Mean Corpuscular HGB Conc 34.2 g/dl (32-36); Mean Corpuscular Hemoglobin 31.9 pg (26-34); Mean Corpuscular Volume 93.4 fl (80-100); Mean Platelet Volume 11.3 fl (7.4-10.4); Platelet Count Result 64 k/mm3 (150-375); Red Blood Count 2.57 M/mm3 (4.2-5.4); Red Cell Distribution Width 14.5 % (11.5-14.5)
[2020-11-26 05:39] LABS: Alanine Aminotransferase 73 U/L (4-35); Albumin Level 2.2 g/dL (3.5-5.1); Alkaline Phosphatase 419 U/L (38-126); Anion Gap 6 mmol/L (8-16); Aspartate Amino Transferase 82 U/L (14-36); Bilirubin,Total 1.9 mg/dL (0.2-1.3); Blood Urea Nitrogen 21 mg/dL (7-17); Calcium 7.6 mg/dL (8.4-10.2); Carbon Dioxide 23 mmol/L (22-30); Chloride 100 mmol/L (98-107); Estimated CRCL calculation 60 ml/min; Estimated Glomerular Filt Rate > 60; Glucose 174 mg/dL (65-105); Magnesium 1.6 mg/dL (1.6-2.3); Potassium 3.5 mmol/L (3.4-5.0); Sodium 129 mmol/L (137-145)
[2020-11-26] MEDS: ACIDOPHILUS/BULGARICUS CHEWABLE TABLET 1 TABLET PO (08:16)
[2020-11-26] MEDS: TOLNAFTATE 1% POWDER 45 GM BTL 1 APPLIC TOPICAL ×2 (08:16→20:46)
[2020-11-26] MEDS: PANTOPRAZOLE SODIUM IV 40 MG VIAL IV PUSH ×2 (08:16→20:50)
[2020-11-26] MEDS: DULoxetine HCL 60 MG CAPSULE.DR PO (08:16)
[2020-11-26] MEDS: MONTELUKAST SODIUM 10 MG TABLET PO (08:16)
[2020-11-26] MEDS: VITAMIN E 400 UNIT CAPSULE PO (08:16)
[2020-11-26] MEDS: guaiFENesin 12 HR 600 MG TABCR PO ×2 (08:16→20:50)
[2020-11-26] MEDS: SACCHAROMYCES BOULARDII 250 MG CAPSULE PO ×2 (08:16→17:27)
[2020-11-26] MEDS: INSULIN DETEMIR 100 UNITS/ML 15 UNITS SUB-Q (08:18)
[2020-11-26 08:25] LABS: Glucose Point of Care 151 (65-105)
[2020-11-26 09:01] LABS: Creatinine Urine 58.4 mg/dL
[2020-11-26 09:04] LABS: Sodium Urine Random 10 meq/L
--- NOTE | 2020-11-26 09:14 | PC.NURSE ---
Patient up to chair. Called to room by patient. Patient states she is seeing spots and feeling dizzy . Requesting to get back to bed immediately. Assisted patient to bed along with [employer]NA[employer]. When in bed, checked vital signs. B/P 100/58, HR 95, pulse ox 95% on 2 liters per nasal cannula, RR 20. Patient stated she felt better after lying back down. Patient also c/o sores in mouth . She states she showed Dr. Rodriguez this morning. Called Dr. Rodriguez and left voice message notifying him of above incident. Also notified him of patient's c/o sore mouth and her request for [place].
[2020-11-26] MEDS: FLUTICASONE/UMECLIDIN/VILANTER 100-62.5-25 MCG ELLIPTA 1 PUFF INHALATION (09:20)
[2020-11-26 10:49] LABS: Lactate Dehydrogenase 531 U/L (313-618)
--- NOTE | 2020-11-26 12:45 | PM.IMPN ---
Progress Note: A&P Assessment and Plan (1) Diabetic ketoacidosis: Qualifiers: Diabetes mellitus complication detail: without coma Diabetes mellitus type: type 2 Qualified Code(s): E11.10 - Type 2 diabetes mellitus with ketoacidosis without coma Code(s): E11.10 - Type 2 diabetes mellitus with ketoacidosis without coma Status: Acute Assessment and Plan: Patient seen in [place] and transferred to ICU here for DKA. AG 21 and Glucose was 587. She was started on DKA protocol and AG cleared. IV fluids stopped. She passed her swallow evaluation. DKA RESOLVED. Continue to monitor. Discussed with family yesterday. (2) Severe sepsis: Code(s): A41.9 - Sepsis, unspecified organism; R65.20 - Severe sepsis without septic shock Status: Acute Assessment and Plan: Patient with fevers, bandemia, lactic acidosis, tachycardia and leukopenia. Source of sepsis appears to be pulmonary and urinary. UCx 11/20 growing EColi sensitive to Zosyn. COVID negative. CXR 11/21 showing bilateral airspace disease and right pleural effusion. BCx 11/21 growing EColi (2of2) with similar resistance pattern as UCx. CT A/P showing nonspecific retroperitoneal, right colic fat stranding, consider pancreatitis or colitis. Doubt pancreatitis given normal Lipase and doubt that EColi is from GI source. Sputum 11/21 growing oxacillin sensitive Staph aureus treated with Vanco but changed to Dicloxacillin (Day 6) (specific coverage used due to slow improvement). Patient was having diarrhea so Zosyn changed to Rocephin for the EColi septicemia. (3) Aspiration pneumonia: Qualifiers: Aspiration pneumonia type: unspecified Laterality: right Lung location: middle lobe of lung Qualified Code(s): J69.0 - Pneumonitis due to inhalation of food and vomit Code(s): J69.0 - Pneumonitis due to inhalation of food and vomit Status: Acute Assessment and Plan: CXR as mentioned above. Speech therapy evaluation 11/21 recommended soft, bite sized. CT A/P 11/24 showing right lower lobe infiltrate, probably atelectasis and pneumonia. Sputum 11/21 now growing oxacillin sensitive Staph aureus. Stable on 1L O2 and WBC normal. Dullness on exam. Repeat CXR today. Wean O2 as tolerated. Continue abx. CXR showing improving bilateral PNA but with moderate pleural effusion that is unchanged since admission. No fevers and WBC normal so suspect this is a reactive effusion and not empyema. Add incentive spirometry. Will need repeat imaging to ensure resolution. Could also be related to her cirrhosis but not significant amount of ascites noted by CT on 11/24. Consider thoracentesis. (4) UTI (urinary tract infection): Code(s): N39.0 - Urinary tract infection, site not specified Status: Acute Assessment and Plan: UTI with sepsis and bacteremia with EColi. As above. CT A/P 11/24 showing possible left-sided upper urinary tract infection. Continue IV abx. (5) Type 2 diabetes mellitus: Code(s): E11.9 - Type 2 diabetes mellitus without complications Status: Acute Assessment and Plan: A1c 12.3. Glucose reviewed on 11/25. Was on Levemir 30U Q12 last admission. Glucose better controlled off the steroids. Levemir decreased and mealtime Novolog stopped on 11/24 due to her poor oral intake. Glucose higher yesterday but did not receive the 11/24 PM Levemir dose. Levemir at 15U Q12 and glucose reasonable. Start Valacyclovir to treat possible oral herpes. Continue AccuCheks covering with sliding scale. Hypoglycemia protocol available as needed. (6) Hyponatremia: Code(s): E87.1 - Hypo-osmolality and hyponatremia Status: Acute Assessment and Plan: Pseudohyponatremia was from hyperglycemia but Na 10 so component of dehydration. Na better at 129. Will stop IV fluids once bag complete given her hx of CHF. (7) Acute renal failure: Qualifiers:
[2020-11-26 12:48] LABS: Glucose Point of Care 101 (65-105)
--- NOTE | 2020-11-26 13:54 | PCOTNOTE ---
Second attempt to see patient, patient still seeing spots and not feeling well. Patient stated I just don't have any energy. Patient declined all treatment interventions and exercises. Will continue plan of care tomorrow, 11/27/2020.
[2020-11-26] MEDS: valACYclovir HCL 500 MG TABLET 1000 MG PO ×2 (14:48→20:49)
[2020-11-26] MEDS: BENZOCAINE 20% DENTAL GEL 9 GM TUBE 1 APPLIC BY MOUTH ×2 (14:48→21:29)
[2020-11-26 17:33] LABS: Glucose Point of Care 106 (65-105)
[2020-11-26] MEDS: oxyCODONE HCL (*CRX) 5 MG TAB IR PO (20:49)
[2020-11-26 21:39] LABS: Glucose Point of Care 119 (65-105)
[2020-11-27] VITALS (16 sets, daily range): BP systolic 92–113; BP diastolic 51–61; PULSE 92–104; RESP 15–21; TEMP 36.2–37.3; O2SAT 91–99; BMI 27.8
[2020-11-27] MEDS: DICLOXACILLIN SODIUM 250 MG CAPSULE PO ×4 (00:50→17:19)
[2020-11-27] MEDS: IPRATROPIUM BR 0.02% INH SOLN 0.5 MG/2.5 ML VIAL INHALATION ×4 (02:44→21:29)
[2020-11-27] MEDS: ALBUTEROL SULFATE NEB 2.5 MG/0.5 ML INH INHALATION ×4 (02:45→21:29)
[2020-11-27 04:01] LABS: Basophils Absolute Auto 0.1 K/mm3 (0.0-0.1); Basophils Percent Auto 0.3 % (0.2-1.2); Eosinophils Percent Auto 0.2 % (0-4.4); Hematocrit 24.2 % (37.0-47.0); Hemoglobin 8.2 g/dL (12.0-15.0); Immature Granulocyte Absolute 0.96 K/mm3 (0.00-0.031); Immature Granulocyte Percent A 6.1 % (0-0.5); Lymphocytes Absolute Auto 0.69 K/mm3 (0.9-3.2); Lymphocytes Percent Auto 4.4 % (18.3-44.2); Mean Corpuscular HGB Conc 33.9 g/dl (32-36); Mean Corpuscular Hemoglobin 31.8 pg (26-34); Mean Corpuscular Volume 93.8 fl (80-100); Mean Platelet Volume 11.8 fl (7.4-10.4); Monocytes Absolute Auto 0.6 K/mm3 (0.1-0.6); Monocytes Percent Auto 3.8 % (2.6-8.5); Neutrophils Absolute Auto 13.3 K/mm3 (1.3-6.7); Neutrophils Percent Auto 85.2 % (45.5-73.1); Nucleated Red Blood Cells Perc 0.1 % (0.0-0.2); Platelet Count Result 80 k/mm3 (150-375); Red Blood Count 2.58 M/mm3 (4.2-5.4); Red Cell Distribution Width 15.2 % (11.5-14.5); White Blood Count 15.6 K/mm3 (4.5-10.0)
[2020-11-27 04:05] LABS: Alanine Aminotransferase 68 U/L (4-35); Albumin Level 2.3 g/dL (3.5-5.1); Alkaline Phosphatase 399 U/L (38-126); Anion Gap 5 mmol/L (8-16); Aspartate Amino Transferase 83 U/L (14-36); Bilirubin,Total 1.8 mg/dL (0.2-1.3); Blood Urea Nitrogen 17 mg/dL (7-17); Calcium 7.7 mg/dL (8.4-10.2); Carbon Dioxide 24 mmol/L (22-30); Chloride 100 mmol/L (98-107); Estimated CRCL calculation 67 ml/min; Estimated Glomerular Filt Rate > 60; Glucose 72 mg/dL (65-105); Potassium 3.2 mmol/L (3.4-5.0); Sodium 129 mmol/L (137-145)
[2020-11-27 04:45] LABS: HIV 1/2 Ab P24 Ag Result Negative (Negative)
[2020-11-27 04:58] LABS: Hepatitis B Surface Antigen Negative (Negative)
[2020-11-27 05:04] LABS: HAV RESULT Negative (Negative); Hepatitis B Core IgM Result Negative (Negative)
[2020-11-27 05:16] LABS: Hepatitis C Virus Antibody Negative (Negative)
[2020-11-27] MEDS: CENTRAL LINE FLUSH 10 ML IV PUSH ×3 (06:57→22:54)
[2020-11-27 07:59] LABS: Glucose Point of Care 113 (65-105)
[2020-11-27] MEDS: TOLNAFTATE 1% POWDER 45 GM BTL 1 APPLIC TOPICAL ×2 (08:19→20:40)
[2020-11-27] MEDS: valACYclovir HCL 500 MG TABLET 1000 MG PO ×2 (08:19→20:28)
[2020-11-27] MEDS: VITAMIN E 400 UNIT CAPSULE PO (08:19)
[2020-11-27] MEDS: PANTOPRAZOLE SODIUM IV 40 MG VIAL IV PUSH ×2 (08:19→20:28)
[2020-11-27] MEDS: guaiFENesin 12 HR 600 MG TABCR PO ×2 (08:19→20:28)
[2020-11-27] MEDS: DULoxetine HCL 60 MG CAPSULE.DR PO (08:19)
[2020-11-27] MEDS: MONTELUKAST SODIUM 10 MG TABLET PO (08:19)
[2020-11-27] MEDS: SACCHAROMYCES BOULARDII 250 MG CAPSULE PO ×2 (08:19→17:19)
[2020-11-27] MEDS: ACIDOPHILUS/BULGARICUS CHEWABLE TABLET 1 TABLET PO (08:19)
[2020-11-27] MEDS: INSULIN DETEMIR 100 UNITS/ML 10 UNITS SUB-Q (08:20)
[2020-11-27] MEDS: ACETAMINOPHEN 325 MG TABLET 650 MG PO (08:37)
[2020-11-27] MEDS: FLUTICASONE/UMECLIDIN/VILANTER 100-62.5-25 MCG ELLIPTA 1 PUFF INHALATION (09:01)
[2020-11-27] MEDS: SPIRONOLACTONE 50 MG TABLET PO (10:39)
[2020-11-27] MEDS: POTASSIUM CHLORIDE 20 MEQ TABLET 40 MEQ PO ×2 (10:39→17:19)
[2020-11-27 12:16] LABS: Glucose Point of Care 133 (65-105)
--- NOTE | 2020-11-27 13:56 | PCPTNOTE ---
The PT treatment was unable to be completed today. Patient reports she has had a headache since the middle of last night and cannot participate in PT today. RN informed. Will continue per Plan of Care frequency and duration.
--- NOTE | 2020-11-27 14:18 | PM.IMPN ---
Progress Note: A&P Assessment and Plan (1) Diabetic ketoacidosis: Qualifiers: Diabetes mellitus type: type 2 Diabetes mellitus complication detail: without coma Qualified Code(s): E11.10 - Type 2 diabetes mellitus with ketoacidosis without coma Code(s): E11.10 - Type 2 diabetes mellitus with ketoacidosis without coma Status: Acute Assessment and Plan: Patient seen in [place] and transferred to ICU here for DKA. AG 21 and Glucose was 587. She was started on DKA protocol and AG closed. IV fluids stopped. She passed her swallow evaluation. DKA RESOLVED. Continue to monitor. FBS 72 and running low 11/26 so decreased levemir to 10 Unit qd (2) Severe sepsis: Code(s): A41.9 - Sepsis, unspecified organism; R65.20 - Severe sepsis without septic shock Status: Acute Assessment and Plan: Patient with fevers, bandemia, lactic acidosis, tachycardia and leukopenia. Source of sepsis appears to be pulmonary and urinary. UCx 11/20 growing EColi sensitive to Zosyn. COVID negative. CXR 11/21 showing bilateral airspace disease and right pleural effusion. BCx 11/21 growing EColi (2of2) with similar resistance pattern as UCx. CT A/P showing nonspecific retroperitoneal, right colic fat stranding, consider pancreatitis or colitis. Doubt pancreatitis given normal Lipase and doubt that EColi is from GI source. Sputum 11/21 growing oxacillin sensitive Staph aureus treated with Vanco but changed to Dicloxacillin (Day 7) (specific coverage used due to slow improvement). Patient was having diarrhea so Zosyn changed to Rocephin for the EColi septicemia.(also D#7rx) (3) Aspiration pneumonia: Qualifiers: Aspiration pneumonia type: unspecified Laterality: right Lung location: middle lobe of lung Qualified Code(s): J69.0 - Pneumonitis due to inhalation of food and vomit Code(s): J69.0 - Pneumonitis due to inhalation of food and vomit Status: Acute Assessment and Plan: CXR as mentioned above. Speech therapy evaluation 11/21 recommended soft, bite sized. CT A/P 11/24 showing right lower lobe infiltrate, probably atelectasis and pneumonia. Sputum 11/21 now growing oxacillin sensitive Staph aureus. Stable on 1-2L O2 and WBC normal. Dullness on exam. Repeat Cxr 11/26 some improvement. Wean O2 as tolerated. Continue abx. CXR showing improving bilateral PNA but with moderate pleural effusion that is unchanged since admission. No fevers and WBC normal so suspect this is a reactive effusion and not empyema. Wbc up today but does not seem to be enough fluid to tap. Recheck lab am, if still up repeat cxr again (4) UTI (urinary tract infection): Code(s): N39.0 - Urinary tract infection, site not specified Status: Acute Assessment and Plan: UTI with sepsis and bacteremia with EColi. As above. CT A/P 11/24 showing possible left-sided upper urinary tract infection. Continue IV abx. D# 7 (5) Type 2 diabetes mellitus: Code(s): E11.9 - Type 2 diabetes mellitus without complications Status: Acute Assessment and Plan: A1c 12.3. Glucose reviewed on 11/27. Was on Levemir 30U Q12 last admission. Glucose better controlled off the steroids. Levemir decreased and mealtime Novolog stopped on 11/24 due to her poor oral intake. Glucose higher yesterday but did not receive the 11/24 PM Levemir dose. Levemir at 15U Q12 and still low BS so decreased to 10 qd Started Valacyclovir to treat possible oral herpes. Continue AccuCheks covering with sliding scale. Hypoglycemia protocol available as needed. (6) Hyponatremia: Code(s): E87.1 - Hypo-osmolality and hyponatremia Status: Acute Assessment and Plan: Pseudohyponatremia was from hyperglycemia but Na 10 so component of dehydration. Na better at 129. stopped IV fluids given her hx of CHF and added aldactone with the cirrhosis and ascites. (7) Acute renal failure:
[2020-11-27 16:47] LABS: Glucose Point of Care 129 (65-105)
[2020-11-27] MEDS: ASPIRIN 81 MG ENTERIC TABLET PO (17:19)
[2020-11-27] MEDS: TICAGRELOR 90 MG TABLET PO (20:28)
[2020-11-27 23:44] LABS: Glucose Point of Care 125 (65-105)
[2020-11-28] VITALS (16 sets, daily range): BP systolic 96–118; BP diastolic 57–72; PULSE 93–121; RESP 16–20; TEMP 36.2–36.9; O2SAT 91–100
[2020-11-28] MEDS: DICLOXACILLIN SODIUM 250 MG CAPSULE PO ×4 (01:08→17:11)
[2020-11-28] MEDS: ALBUTEROL SULFATE NEB 2.5 MG/0.5 ML INH INHALATION ×4 (02:22→20:11)
[2020-11-28] MEDS: IPRATROPIUM BR 0.02% INH SOLN 0.5 MG/2.5 ML VIAL INHALATION ×4 (02:22→20:11)
[2020-11-28] MEDS: CENTRAL LINE FLUSH 10 ML IV PUSH ×3 (05:15→22:14)
[2020-11-28 05:40] LABS: Basophils Absolute Auto 0.1 K/mm3 (0.0-0.1); Basophils Percent Auto 0.4 % (0.2-1.2); Eosinophils Percent Auto 0.1 % (0-4.4); Hematocrit 22.5 % (37.0-47.0); Hemoglobin 7.4 g/dL (12.0-15.0); Immature Granulocyte Absolute 0.39 K/mm3 (0.00-0.031); Immature Granulocyte Percent A 2.9 % (0-0.5); Lymphocytes Absolute Auto 0.57 K/mm3 (0.9-3.2); Lymphocytes Percent Auto 4.2 % (18.3-44.2); Mean Corpuscular HGB Conc 32.9 g/dl (32-36); Mean Corpuscular Volume 97.4 fl (80-100); Mean Platelet Volume 11.3 fl (7.4-10.4); Monocytes Absolute Auto 0.4 K/mm3 (0.1-0.6); Neutrophils Percent Auto 89.4 % (45.5-73.1); Platelet Count Result 81 k/mm3 (150-375); Red Blood Count 2.31 M/mm3 (4.2-5.4); Red Cell Distribution Width 15.7 % (11.5-14.5); White Blood Count 13.5 K/mm3 (4.5-10.0)
[2020-11-28 05:42] LABS: INR 1.2; Prothrombin Time 15.5 Seconds (11.1-14.7)
[2020-11-28 05:52] LABS: Alanine Aminotransferase 51 U/L (4-35); Albumin Level 2.2 g/dL (3.5-5.1); Alkaline Phosphatase 391 U/L (38-126); Anion Gap 8 mmol/L (8-16); Aspartate Amino Transferase 63 U/L (14-36); Bilirubin,Total 1.8 mg/dL (0.2-1.3); Blood Urea Nitrogen 15 mg/dL (7-17); Calcium 7.8 mg/dL (8.4-10.2); Carbon Dioxide 22 mmol/L (22-30); Chloride 102 mmol/L (98-107); Estimated CRCL calculation 67 ml/min; Estimated Glomerular Filt Rate > 60; Glucose 135 mg/dL (65-105); Magnesium 1.5 mg/dL (1.6-2.3); Potassium 4.3 mmol/L (3.4-5.0); Sodium 132 mmol/L (137-145)
[2020-11-28 06:17] LABS: Anisocytosis 1+ (NORMAL); Hypochromasia 1+ (NORMAL); Platelet Estimate Decreased (Adequate); Target Cells 1+ (NORMAL)
[2020-11-28 07:27] LABS: Glucose Point of Care 138 (65-105)
[2020-11-28] MEDS: FLUTICASONE/UMECLIDIN/VILANTER 100-62.5-25 MCG ELLIPTA 1 PUFF INHALATION (08:05)
[2020-11-28] MEDS: valACYclovir HCL 500 MG TABLET 1000 MG PO ×2 (08:33→20:09)
[2020-11-28] MEDS: ASPIRIN 81 MG ENTERIC TABLET PO (08:33)
[2020-11-28] MEDS: MONTELUKAST SODIUM 10 MG TABLET PO (08:33)
[2020-11-28] MEDS: SACCHAROMYCES BOULARDII 250 MG CAPSULE PO ×2 (08:33→17:11)
[2020-11-28] MEDS: VITAMIN E 400 UNIT CAPSULE PO (08:33)
[2020-11-28] MEDS: SPIRONOLACTONE 50 MG TABLET PO (08:33)
[2020-11-28] MEDS: TICAGRELOR 90 MG TABLET PO ×2 (08:33→20:09)
[2020-11-28] MEDS: ACIDOPHILUS/BULGARICUS CHEWABLE TABLET 1 TABLET PO (08:33)
[2020-11-28] MEDS: DULoxetine HCL 60 MG CAPSULE.DR PO (08:33)
[2020-11-28] MEDS: PANTOPRAZOLE SODIUM IV 40 MG VIAL IV PUSH ×2 (08:33→20:09)
[2020-11-28] MEDS: guaiFENesin 12 HR 600 MG TABCR PO ×2 (08:33→20:09)
[2020-11-28] MEDS: MAGNESIUM SULF 2 GM/WATER 50ML 2 GM/50 ML BAG IVPB (08:33)
[2020-11-28] MEDS: TOLNAFTATE 1% POWDER 45 GM BTL 1 APPLIC TOPICAL ×2 (08:34→20:09)
[2020-11-28] MEDS: INSULIN DETEMIR 100 UNITS/ML 10 UNITS SUB-Q (08:44)
[2020-11-28 11:39] LABS: Glucose Point of Care 243 (65-105)
[2020-11-28] MEDS: INSULIN ASPART (*BKC) 100 UNITS/ML SUB-Q ×2 (12:24→17:09)
[2020-11-28 16:30] LABS: Glucose Point of Care 229 (65-105)
--- NOTE | 2020-11-28 17:11 | PM.IMPN ---
Progress Note: A&P Assessment and Plan (1) Diabetic ketoacidosis: Qualifiers: Diabetes mellitus type: type 2 Diabetes mellitus complication detail: without coma Qualified Code(s): E11.10 - Type 2 diabetes mellitus with ketoacidosis without coma Code(s): E11.10 - Type 2 diabetes mellitus with ketoacidosis without coma Status: Acute Assessment and Plan: Patient seen in [place] and transferred to ICU here for DKA. AG 21 and Glucose was 587. She was started on DKA protocol and AG closed. IV fluids stopped. She passed her swallow evaluation. DKA RESOLVED. Continue to monitor. FBS 72 and running low 11/26 so decreased levemir to 10 Unit qd FBS 135 today (2) Severe sepsis: Code(s): A41.9 - Sepsis, unspecified organism; R65.20 - Severe sepsis without septic shock Status: Acute Assessment and Plan: Patient with fevers, bandemia, lactic acidosis, tachycardia and leukopenia. Source of sepsis appears to be pulmonary and urinary. UCx 11/20 growing EColi sensitive to Zosyn. COVID negative. CXR 11/21 showing bilateral airspace disease and right pleural effusion. BCx 11/21 growing EColi (2of2) with similar resistance pattern as UCx. CT A/P showing nonspecific retroperitoneal, right colic fat stranding, consider pancreatitis or colitis. Doubt pancreatitis given normal Lipase and doubt that EColi is from GI source. Sputum 11/21 growing oxacillin sensitive Staph aureus treated with Vanco but changed to Dicloxacillin (Day 8) (specific coverage used due to slow improvement). Patient was having diarrhea so Zosyn changed to Rocephin for the EColi septicemia.(also D#8) (3) Aspiration pneumonia: Qualifiers: Aspiration pneumonia type: unspecified Laterality: right Lung location: middle lobe of lung Qualified Code(s): J69.0 - Pneumonitis due to inhalation of food and vomit Code(s): J69.0 - Pneumonitis due to inhalation of food and vomit Status: Acute Assessment and Plan: CXR as mentioned above. Speech therapy evaluation 11/21 recommended soft, bite sized. CT A/P 11/24 showing right lower lobe infiltrate, probably atelectasis and pneumonia. Sputum 11/21 now growing oxacillin sensitive Staph aureus. Stable on 1-2L O2 and WBC normal. Dullness on exam. Repeat Cxr 11/26 some improvement. Wean O2 as tolerated. Continue abx. CXR showing improving bilateral PNA but with moderate pleural effusion that is unchanged since admission. No fevers and WBC normal so suspect this is a reactive effusion and not empyema. Wbc up slightly 11/27 but down this am , continue to moniter (4) UTI (urinary tract infection): Code(s): N39.0 - Urinary tract infection, site not specified Status: Acute Assessment and Plan: UTI with sepsis and bacteremia with EColi. As above. CT A/P 11/24 showing possible left-sided upper urinary tract infection. Continue IV abx. D# 8 (5) Type 2 diabetes mellitus: Code(s): E11.9 - Type 2 diabetes mellitus without complications Status: Acute Assessment and Plan: A1c 12.3. Glucose reviewed on 11/28. Was on Levemir 30U Q12 last admission. Glucose better controlled off the steroids. Levemir decreased and mealtime Novolog stopped on 11/24 due to her poor oral intake. Glucose higher yesterday but did not receive the 11/24 PM Levemir dose. Levemir at 15U Q12 and still low BS so decreased to 10 qd 11/26 Started Valacyclovir to treat possible oral herpes. Continue AccuCheks covering with sliding scale. Hypoglycemia protocol available as needed. (6) Hyponatremia: Code(s): E87.1 - Hypo-osmolality and hyponatremia Status: Acute Assessment and Plan: Pseudohyponatremia was from hyperglycemia but Na 10 so component of dehydration. Na better at 132. stopped IV fluids given her hx of CHF and added aldactone with the cirrhosis and ascites. (7) Acute renal failure: Qualifiers:
[2020-11-28 21:40] LABS: Glucose Point of Care 160 (65-105)
[2020-11-28] MEDS: ALPRAZolam (*CRX) 0.5 MG TABLET PO (22:06)
[2020-11-29] VITALS (16 sets, daily range): BP systolic 105–117; BP diastolic 53–76; PULSE 88–110; RESP 16–20; TEMP 36.1–36.8; O2SAT 90–100
[2020-11-29] MEDS: DICLOXACILLIN SODIUM 250 MG CAPSULE PO ×5 (00:06→23:58)
[2020-11-29] MEDS: guaiFENesin/DEXTROMETHORPHAN 10 ML UDC 5 ML PO (00:46)
[2020-11-29] MEDS: ACETAMINOPHEN 500 MG TABLET PO (00:47)
[2020-11-29] MEDS: IPRATROPIUM BR 0.02% INH SOLN 0.5 MG/2.5 ML VIAL INHALATION ×4 (03:01→19:35)
[2020-11-29] MEDS: ALBUTEROL SULFATE NEB 2.5 MG/0.5 ML INH INHALATION ×4 (03:01→19:35)
[2020-11-29] MEDS: LOPERAMIDE HCL 2 MG CAPSULE PO (05:05)
[2020-11-29] MEDS: CENTRAL LINE FLUSH 10 ML IV PUSH ×3 (05:07→21:39)
[2020-11-29 05:39] LABS: Basophils Percent Auto 0.3 % (0.2-1.2); Eosinophils Percent Auto 0.1 % (0-4.4); Hematocrit 21.8 % (37.0-47.0); Hemoglobin 7.2 g/dL (12.0-15.0); Immature Granulocyte Absolute 0.31 K/mm3 (0.00-0.031); Immature Granulocyte Percent A 2.3 % (0-0.5); Lymphocytes Absolute Auto 0.72 K/mm3 (0.9-3.2); Lymphocytes Percent Auto 5.4 % (18.3-44.2); Mean Corpuscular Hemoglobin 32.1 pg (26-34); Mean Corpuscular Volume 97.3 fl (80-100); Mean Platelet Volume 11.2 fl (7.4-10.4); Monocytes Absolute Auto 0.4 K/mm3 (0.1-0.6); Monocytes Percent Auto 3.1 % (2.6-8.5); Neutrophils Absolute Auto 11.9 K/mm3 (1.3-6.7); Neutrophils Percent Auto 88.8 % (45.5-73.1); Platelet Count Result 115 k/mm3 (150-375); Red Blood Count 2.24 M/mm3 (4.2-5.4); Red Cell Distribution Width 15.7 % (11.5-14.5); White Blood Count 13.4 K/mm3 (4.5-10.0)
[2020-11-29 05:53] LABS: Alanine Aminotransferase 44 U/L (4-35); Albumin Level 2.2 g/dL (3.5-5.1); Alkaline Phosphatase 421 U/L (38-126); Anion Gap 5 mmol/L (8-16); Aspartate Amino Transferase 52 U/L (14-36); Bilirubin,Total 1.6 mg/dL (0.2-1.3); Blood Urea Nitrogen 14 mg/dL (7-17); Calcium 7.9 mg/dL (8.4-10.2); Carbon Dioxide 26 mmol/L (22-30); Chloride 99 mmol/L (98-107); Estimated CRCL calculation 76 ml/min; Estimated Glomerular Filt Rate > 60; Glucose 141 mg/dL (65-105); Magnesium 1.6 mg/dL (1.6-2.3); Potassium 3.7 mmol/L (3.4-5.0); Sodium 130 mmol/L (137-145)
--- NOTE | 2020-11-29 07:22 | PCOTNOTE ---
Attempted to see Patient at this time for OT treatment session. Patient refused, stating she had a horrible night, hasn't slept, and is in to much pain. Will try back at a later time.
[2020-11-29 07:50] LABS: Glucose Point of Care 141 (65-105)
[2020-11-29] MEDS: ASPIRIN 81 MG ENTERIC TABLET PO (08:20)
[2020-11-29] MEDS: PANTOPRAZOLE SODIUM IV 40 MG VIAL IV PUSH ×2 (08:20→20:00)
[2020-11-29] MEDS: MONTELUKAST SODIUM 10 MG TABLET PO (08:20)
[2020-11-29] MEDS: DULoxetine HCL 60 MG CAPSULE.DR PO (08:20)
[2020-11-29] MEDS: guaiFENesin 12 HR 600 MG TABCR PO ×2 (08:20→20:00)
[2020-11-29] MEDS: ACIDOPHILUS/BULGARICUS CHEWABLE TABLET 1 TABLET PO (08:20)
[2020-11-29] MEDS: INSULIN DETEMIR 100 UNITS/ML 10 UNITS SUB-Q (08:21)
[2020-11-29] MEDS: TOLNAFTATE 1% POWDER 45 GM BTL 1 APPLIC TOPICAL ×2 (08:21→20:00)
[2020-11-29] MEDS: valACYclovir HCL 500 MG TABLET 1000 MG PO ×2 (08:21→20:00)
[2020-11-29] MEDS: SPIRONOLACTONE 50 MG TABLET PO ×2 (08:21→17:55)
[2020-11-29] MEDS: VITAMIN E 400 UNIT CAPSULE PO (08:21)
[2020-11-29] MEDS: TICAGRELOR 90 MG TABLET PO ×2 (08:21→20:00)
[2020-11-29] MEDS: SACCHAROMYCES BOULARDII 250 MG CAPSULE PO ×2 (08:21→17:55)
--- NOTE | 2020-11-29 08:57 | PCPTNOTE ---
The PT treatment was unable to be completed this AM due to patient refusal. Patient reports she has pain in her (R) ribcage and thinks her ribs are broken. Will continue per Plan of Care frequency and duration.
[2020-11-29] MEDS: FLUTICASONE/UMECLIDIN/VILANTER 100-62.5-25 MCG ELLIPTA 1 PUFF INHALATION (09:02)
[2020-11-29 13:38] LABS: Glucose Point of Care 187 (65-105)
--- NOTE | 2020-11-29 13:49 | PM.IMPN ---
Progress Note: A&P Assessment and Plan (1) Diabetic ketoacidosis: Qualifiers: Diabetes mellitus complication detail: without coma Diabetes mellitus type: type 2 Qualified Code(s): E11.10 - Type 2 diabetes mellitus with ketoacidosis without coma Code(s): E11.10 - Type 2 diabetes mellitus with ketoacidosis without coma Status: Acute Assessment and Plan: Patient seen in [place] and transferred to ICU here for DKA. AG 21 and Glucose was 587. She was started on DKA protocol and AG closed. IV fluids stopped. She passed her swallow evaluation. DKA RESOLVED. Continue to monitor. FBS 72 and running low 11/26 so decreased levemir to 10 Unit qd FBS 141 today (2) Severe sepsis: Code(s): A41.9 - Sepsis, unspecified organism; R65.20 - Severe sepsis without septic shock Status: Acute Assessment and Plan: Patient with fevers, bandemia, lactic acidosis, tachycardia and leukopenia. Source of sepsis appears to be pulmonary and urinary. UCx 11/20 growing EColi sensitive to Zosyn. COVID negative. CXR 11/21 showing bilateral airspace disease and right pleural effusion. BCx 11/21 growing EColi (2of2) with similar resistance pattern as UCx. CT A/P showing nonspecific retroperitoneal, right colic fat stranding, consider pancreatitis or colitis. Doubt pancreatitis given normal Lipase and doubt that EColi is from GI source. Sputum 11/21 growing oxacillin sensitive Staph aureus treated with Vanco but changed to Dicloxacillin (Day 8) (specific coverage used due to slow improvement). Patient was having diarrhea so Zosyn changed to Rocephin for the EColi septicemia.(also D#9) CXR today better aeration and inspiratory effort with slight clearing (3) Aspiration pneumonia: Qualifiers: Aspiration pneumonia type: unspecified Laterality: right Lung location: middle lobe of lung Qualified Code(s): J69.0 - Pneumonitis due to inhalation of food and vomit Code(s): J69.0 - Pneumonitis due to inhalation of food and vomit Status: Acute Assessment and Plan: CXR as mentioned above. Speech therapy evaluation 11/21 recommended soft, bite sized. CT A/P 11/24 showing right lower lobe infiltrate, probably atelectasis and pneumonia. Sputum 11/21 now growing oxacillin sensitive Staph aureus. Stable on 1-2L O2 and Repeat Cxr 11/29 some improvement. Wean O2 as tolerated. Continue abx. WBC still mild elevation (4) UTI (urinary tract infection): Code(s): N39.0 - Urinary tract infection, site not specified Status: Acute Assessment and Plan: UTI with sepsis and bacteremia with EColi. As above. CT A/P 11/24 showing possible left-sided upper urinary tract infection. Continue IV abx. D# 9 (5) Type 2 diabetes mellitus: Code(s): E11.9 - Type 2 diabetes mellitus without complications Status: Acute Assessment and Plan: A1c 12.3. Glucose reviewed on 11/29. Was on Levemir 30U Q12 last admission. Glucose better controlled off the steroids. Levemir decreased and mealtime Novolog stopped on 11/24 due to her poor oral intake. Glucose higher yesterday but did not receive the 11/24 PM Levemir dose. Levemir at 15U Q12 and still low BS so decreased to 10 qd 11/26 Started Valacyclovir to treat possible oral herpes. Continue AccuCheks covering with sliding scale. Hypoglycemia protocol available as needed. as above FBS 141 (6) Hyponatremia: Code(s): E87.1 - Hypo-osmolality and hyponatremia Status: Acute Assessment and Plan: Pseudohyponatremia was from hyperglycemia but Na 10 so component of dehydration. Na better at 130. stopped IV fluids given her hx of CHF and added aldactone with the cirrhosis and ascites. (7) Acute renal failure: Qualifiers: Acute renal failure type: unspecified Qualified Code(s): N17.9 - Acute kidney failure, unspecified Code(s): N17.9 - Acute kidney failure, unspecified
[2020-11-29] MEDS: METOPROLOL SUCCINATE EXT REL 12.5 MG TABCR PO (15:13)
[2020-11-29] MEDS: BENZOCAINE 20% DENTAL GEL 9 GM TUBE 1 APPLIC BY MOUTH (15:13)
[2020-11-29] MEDS: oxyCODONE HCL (*CRX) 5 MG TAB IR PO ×2 (15:19→20:53)
[2020-11-29 18:15] LABS: Glucose Point of Care 150 (65-105)
[2020-11-29 21:33] LABS: Glucose Point of Care 147 (65-105)
[2020-11-30] VITALS (23 sets, daily range): BP systolic 104–119; BP diastolic 59–75; PULSE 81–103; RESP 17–21; TEMP 36.3–36.8; O2SAT 87–100
[2020-11-30] MEDS: IPRATROPIUM BR 0.02% INH SOLN 0.5 MG/2.5 ML VIAL INHALATION ×4 (02:21→20:13)
[2020-11-30] MEDS: ALBUTEROL SULFATE NEB 2.5 MG/0.5 ML INH INHALATION ×4 (02:21→20:13)
[2020-11-30] MEDS: DICLOXACILLIN SODIUM 250 MG CAPSULE PO ×4 (05:57→23:56)
[2020-11-30] MEDS: CENTRAL LINE FLUSH 10 ML IV PUSH ×3 (05:58→21:12)
[2020-11-30 06:05] LABS: Basophils Percent Auto 0.2 % (0.2-1.2); Eosinophils Percent Auto 0.2 % (0-4.4); Hematocrit 21.2 % (37.0-47.0); Immature Granulocyte Absolute 0.14 K/mm3 (0.00-0.031); Immature Granulocyte Percent A 1.4 % (0-0.5); Lymphocytes Absolute Auto 0.59 K/mm3 (0.9-3.2); Lymphocytes Percent Auto 5.8 % (18.3-44.2); Mean Corpuscular HGB Conc 32.1 g/dl (32-36); Mean Corpuscular Hemoglobin 32.1 pg (26-34); Mean Platelet Volume 10.4 fl (7.4-10.4); Monocytes Absolute Auto 0.4 K/mm3 (0.1-0.6); Neutrophils Percent Auto 88.4 % (45.5-73.1); Platelet Count Result 128 k/mm3 (150-375); Red Blood Count 2.12 M/mm3 (4.2-5.4); Red Cell Distribution Width 15.7 % (11.5-14.5); White Blood Count 10.2 K/mm3 (4.5-10.0)
[2020-11-30 06:08] LABS: Hemoglobin 6.8 g/dL (12.0-15.0)
[2020-11-30 06:22] LABS: Anion Gap 4 mmol/L (8-16); Blood Urea Nitrogen 12 mg/dL (7-17); Calcium 7.9 mg/dL (8.4-10.2); Carbon Dioxide 28 mmol/L (22-30); Chloride 99 mmol/L (98-107); Estimated CRCL calculation 87 ml/min; Estimated Glomerular Filt Rate > 60; Glucose 105 mg/dL (65-105); Potassium 3.8 mmol/L (3.4-5.0); Sodium 131 mmol/L (137-145)
[2020-11-30 08:22] LABS: Glucose Point of Care 105 (65-105)
[2020-11-30] MEDS: FUROSEMIDE INJ 40 MG/4 ML VIAL IV PUSH (09:27)
[2020-11-30] MEDS: PANTOPRAZOLE SODIUM IV 40 MG VIAL IV PUSH ×2 (09:27→21:11)
[2020-11-30] MEDS: VITAMIN E 400 UNIT CAPSULE PO (09:29)
[2020-11-30] MEDS: SACCHAROMYCES BOULARDII 250 MG CAPSULE PO ×2 (09:29→17:49)
[2020-11-30] MEDS: DULoxetine HCL 60 MG CAPSULE.DR PO (09:29)
[2020-11-30] MEDS: ACIDOPHILUS/BULGARICUS CHEWABLE TABLET 1 TABLET PO (09:29)
[2020-11-30] MEDS: valACYclovir HCL 500 MG TABLET 1000 MG PO ×2 (09:29→21:11)
[2020-11-30] MEDS: MONTELUKAST SODIUM 10 MG TABLET PO (09:29)
[2020-11-30] MEDS: SPIRONOLACTONE 50 MG TABLET PO ×2 (09:30→17:49)
[2020-11-30] MEDS: guaiFENesin 12 HR 600 MG TABCR PO ×2 (09:30→21:11)
[2020-11-30] MEDS: ASPIRIN 81 MG ENTERIC TABLET PO (09:30)
[2020-11-30] MEDS: POTASSIUM CHLORIDE 20 MEQ TABLET 40 MEQ PO (09:30)
[2020-11-30] MEDS: SODIUM CHLORIDE 0.9% IV 250 ML 30 ML IV CONT (09:30)
[2020-11-30] MEDS: METOPROLOL SUCCINATE EXT REL 12.5 MG TABCR PO (09:31)
[2020-11-30] MEDS: TOLNAFTATE 1% POWDER 45 GM BTL 1 APPLIC TOPICAL ×2 (09:31→21:12)
[2020-11-30] MEDS: FLUTICASONE/UMECLIDIN/VILANTER 100-62.5-25 MCG ELLIPTA 1 PUFF INHALATION (09:32)
[2020-11-30] MEDS: INSULIN DETEMIR 100 UNITS/ML 10 UNITS SUB-Q (09:50)
[2020-11-30 10:55] LABS: IFOB Positive Control Positive; Immunochemical Fecal Occult Bl Negative (N)
--- NOTE | 2020-11-30 10:55 | PM.IMPN ---
Progress Note: A&P Assessment and Plan (1) Diabetic ketoacidosis: Qualifiers: Diabetes mellitus type: type 2 Diabetes mellitus complication detail: without coma Qualified Code(s): E11.10 - Type 2 diabetes mellitus with ketoacidosis without coma Code(s): E11.10 - Type 2 diabetes mellitus with ketoacidosis without coma Status: Acute Assessment and Plan: Patient seen in [place] and transferred to ICU here for DKA. AG 21 and Glucose was 587. She was started on DKA protocol and AG closed. IV fluids stopped. She passed her swallow evaluation. DKA RESOLVED. Continue to monitor. FBS 72 and running low 11/26 so decreased levemir to 10 Unit qd FBS 105 today (2) Severe sepsis: Code(s): A41.9 - Sepsis, unspecified organism; R65.20 - Severe sepsis without septic shock Status: Acute Assessment and Plan: Patient with fevers, bandemia, lactic acidosis, tachycardia and leukopenia. Source of sepsis appears to be pulmonary and urinary. UCx 11/20 growing EColi sensitive to Zosyn. COVID negative. CXR 11/21 showing bilateral airspace disease and right pleural effusion. BCx 11/21 growing EColi (2of2) with similar resistance pattern as UCx. CT A/P showing nonspecific retroperitoneal, right colic fat stranding, consider pancreatitis or colitis. Doubt pancreatitis given normal Lipase and doubt that EColi is from GI source. Sputum 11/21 growing oxacillin sensitive Staph aureus treated with Vanco but changed to Dicloxacillin (Day 9) (specific coverage used due to slow improvement). Patient was having diarrhea so Zosyn changed to Rocephin for the EColi septicemia.(also D#10) CXR 11/29 better aeration and inspiratory effort with slight clearing but still R pleural effusion (3) Aspiration pneumonia: Qualifiers: Aspiration pneumonia type: unspecified Laterality: right Lung location: middle lobe of lung Qualified Code(s): J69.0 - Pneumonitis due to inhalation of food and vomit Code(s): J69.0 - Pneumonitis due to inhalation of food and vomit Status: Acute Assessment and Plan: CXR as mentioned above. Speech therapy evaluation 11/21 recommended soft, bite sized. CT A/P 11/24 showing right lower lobe infiltrate, probably atelectasis and pneumonia. Sputum 11/21 now growing oxacillin sensitive Staph aureus. Stable on 1-2L O2 and Repeat Cxr 11/29 some improvement. Wean O2 as tolerated. Continue abx. WBC decreased to at normal today, possible thoracentesis (4) UTI (urinary tract infection): Code(s): N39.0 - Urinary tract infection, site not specified Status: Acute Assessment and Plan: UTI with sepsis and bacteremia with EColi. As above. CT A/P 11/24 showing possible left-sided upper urinary tract infection. Continue IV abx. D# 10 and will d/c (5) Type 2 diabetes mellitus: Code(s): E11.9 - Type 2 diabetes mellitus without complications Status: Acute Assessment and Plan: A1c 12.3. Glucose reviewed on 11/29. Was on Levemir 30U Q12 last admission. Glucose better controlled off the steroids. Levemir decreased and mealtime Novolog stopped on 11/24 due to her poor oral intake. Glucose higher yesterday but did not receive the 11/24 PM Levemir dose. Levemir at 15U Q12 and still low BS so decreased to 10 qd 11/26 Started Valacyclovir to treat possible oral herpes. Continue AccuCheks covering with sliding scale. Hypoglycemia protocol available as needed. as above FBS 105 today (6) Hyponatremia: Code(s): E87.1 - Hypo-osmolality and hyponatremia Status: Acute Assessment and Plan: Pseudohyponatremia was from hyperglycemia but Na 10 so component of dehydration. Na better at 131. stopped IV fluids given her hx of CHF and added aldactone with the cirrhosis and ascites. (7) Acute renal failure: Qualifiers: Acute renal failure type: unspecified Qualified Code(s): N17.9 - Acute kidne
[2020-11-30 11:52] LABS: Glucose Point of Care 140 (65-105)
[2020-11-30] MEDS: oxyCODONE HCL (*CRX) 5 MG TAB IR PO ×2 (12:43→21:10)
[2020-11-30 14:55] LABS: Hematocrit 28.3 % (37.0-47.0); Hemoglobin 9.4 g/dL (12.0-15.0)
--- NOTE | 2020-11-30 16:12 | PCDIET ---
Nutrition Follow-Up Complete: Inadequate oral intake related to poor appetite and pain in mouth as evidence by PO intake average of 19% PO intake of 50% of meals to help meet needs Goal: Goal not met. Continue goal. Pt current nutrition is Soft and Bite Sized, Diabetic+ Glucerna BID Nutrition recommendation: agree Last recorded weight is 71.2 kg, recommend new wt Bowel Motility: BM today Labs Reviewed:Glucose 140, Na 131, Hgb 6.8 Meds Noted: Additional Notes: Pt states appetite is better, but average intake over four meals is down to 11% now vs 19% on Thursday. Pt denies N/V or diarrhea. She states she is liking Glucerna offered BID. Pt would like to go home. Adequate intake encouraged to help her body heal faster. We will continue to monitor PO intake, wt, labs every five days.
[2020-11-30 16:24] LABS: Glucose Point of Care 169 (65-105)
[2020-11-30 21:33] LABS: Glucose Point of Care 164 (65-105)
[2020-12-01] VITALS (15 sets, daily range): BP systolic 100–123; BP diastolic 57–73; PULSE 79–110; RESP 15–22; TEMP 36.1–36.9; O2SAT 90–100
[2020-12-01] MEDS: ALBUTEROL SULFATE NEB 2.5 MG/0.5 ML INH INHALATION ×4 (02:06→22:10)
[2020-12-01] MEDS: IPRATROPIUM BR 0.02% INH SOLN 0.5 MG/2.5 ML VIAL INHALATION ×4 (02:06→22:11)
[2020-12-01] MEDS: DICLOXACILLIN SODIUM 250 MG CAPSULE PO (05:26)
[2020-12-01] MEDS: CENTRAL LINE FLUSH 10 ML IV PUSH ×2 (05:26→21:34)
[2020-12-01 05:52] LABS: Basophils Percent Auto 0.3 % (0.2-1.2); Eosinophils Percent Auto 0.2 % (0-4.4); Hematocrit 26.1 % (37.0-47.0); Hemoglobin 8.5 g/dL (12.0-15.0); Immature Granulocyte Absolute 0.11 K/mm3 (0.00-0.031); Immature Granulocyte Percent A 1.2 % (0-0.5); Lymphocytes Absolute Auto 0.55 K/mm3 (0.9-3.2); Lymphocytes Percent Auto 5.8 % (18.3-44.2); Mean Corpuscular HGB Conc 32.6 g/dl (32-36); Mean Corpuscular Hemoglobin 32.1 pg (26-34); Mean Corpuscular Volume 98.5 fl (80-100); Mean Platelet Volume 10.3 fl (7.4-10.4); Monocytes Absolute Auto 0.4 K/mm3 (0.1-0.6); Monocytes Percent Auto 3.9 % (2.6-8.5); Neutrophils Absolute Auto 8.4 K/mm3 (1.3-6.7); Neutrophils Percent Auto 88.6 % (45.5-73.1); Platelet Count Result 135 k/mm3 (150-375); Red Blood Count 2.65 M/mm3 (4.2-5.4); Red Cell Distribution Width 15.8 % (11.5-14.5); White Blood Count 9.5 K/mm3 (4.5-10.0)
[2020-12-01 06:06] LABS: Anion Gap 4 mmol/L (8-16); Blood Urea Nitrogen 12 mg/dL (7-17); Calcium 7.8 mg/dL (8.4-10.2); Carbon Dioxide 30 mmol/L (22-30); Chloride 96 mmol/L (98-107); Estimated CRCL calculation 76 ml/min; Estimated Glomerular Filt Rate > 60; Glucose 169 mg/dL (65-105); Potassium 3.9 mmol/L (3.4-5.0); Sodium 130 mmol/L (137-145)
[2020-12-01 06:07] LABS: INR 1.2; Prothrombin Time 15.5 Seconds (11.1-14.7)
[2020-12-01 07:45] LABS: Glucose Point of Care 179 (65-105)
--- NOTE | 2020-12-01 08:30 | PC.NURSE ---
Patient anxious and crying this morning. States she wants to go home and can't take another day in the hospital . Talked with patient and reassured her. Also encouraged her to get out of bed frequently (with help) throughout the day and spend time in the chair as much as possible. Encouraged patient to try to use the bedside commode to avoid incontinence. After discussion, patient agreed to get up to the chair. Assisted to chair (standby assist). Patient given a Xanax for anxiety. Patient is aware that she is scheduled for an ultrasound guided thoracentesis today. Verbalized understanding of plan.
[2020-12-01] MEDS: DULoxetine HCL 60 MG CAPSULE.DR PO (08:41)
[2020-12-01] MEDS: PANTOPRAZOLE SODIUM IV 40 MG VIAL IV PUSH ×2 (08:42→20:25)
[2020-12-01] MEDS: METOPROLOL SUCCINATE EXT REL 12.5 MG TABCR PO (08:42)
[2020-12-01] MEDS: ALPRAZolam (*CRX) 0.5 MG TABLET PO (08:44)
--- NOTE | 2020-12-01 09:10 | PCOTNOTE ---
Practitioner attempted to have patient participate in therapy session this date, but patient was about to receive a procedure. Will attempt therapy at a later date.
[2020-12-01 10:07] LABS: Glucose Point of Care 197 (65-105)
[2020-12-01] MEDS: INSULIN DETEMIR 100 UNITS/ML 10 UNITS SUB-Q (10:39)
[2020-12-01] MEDS: TOLNAFTATE 1% POWDER 45 GM BTL 1 APPLIC TOPICAL ×2 (10:40→20:24)
[2020-12-01] MEDS: oxyCODONE HCL (*CRX) 5 MG TAB IR PO ×2 (10:43→20:30)
--- NOTE | 2020-12-01 11:35 | PC.NURSE ---
To ultrasound for ultrasound guided thoracentesis. Consent on front of chart.
--- NOTE | 2020-12-01 12:45 | PC.NURSE ---
Patient returned to room with director of speech pathology. Assisted back to bed. No distress noted. Temp 97.3, HR 94, B/P 103/57, RR 16, pulse ox 96% on 1.5 liters per nasal cannula.
[2020-12-01 13:20] LABS: pH Pleural Fluid 7.467 (7.210-7.500)
[2020-12-01 13:29] LABS: Appearance Pleural Fluid Hazy (Clear); Color Pleural Fluid Other (Colorless); Pleural fluid source Pleural fluid
[2020-12-01 13:30] LABS: Nucleated Cell Pleural Fluid 716 /uL (0-1000); RBC Pleural Fluid 19848 /uL (0-0)
[2020-12-01 13:33] LABS: Lymphocytes Pleural Fluid 44 %; Macrophages Pleural Fluid 9 %; Mesothelial Cells Pleural Flui 1 %; Monocytes Pleural Fluid 25 %; Neutrophils Pleural Fluid 21 % (0-25)
[2020-12-01] MEDS: FLUTICASONE/UMECLIDIN/VILANTER 100-62.5-25 MCG ELLIPTA 1 PUFF INHALATION (14:29)
[2020-12-01 14:50] LABS: Glucose Point of Care 170 (65-105)
--- NOTE | 2020-12-01 14:50 | PM.IMPN ---
Progress Note: A&P Assessment and Plan (1) Diabetic ketoacidosis: Qualifiers: Diabetes mellitus type: type 2 Diabetes mellitus complication detail: without coma Qualified Code(s): E11.10 - Type 2 diabetes mellitus with ketoacidosis without coma Code(s): E11.10 - Type 2 diabetes mellitus with ketoacidosis without coma Status: Acute Assessment and Plan: Patient seen in [place] and transferred to ICU here for DKA. AG 21 and Glucose was 587. She was started on DKA protocol and AG closed. IV fluids stopped. She passed her swallow evaluation. DKA RESOLVED. Continue to monitor. FBS 72 and running low 11/26 so decreased levemir to 10 Unit qd FBS 169 today (2) Severe sepsis: Code(s): A41.9 - Sepsis, unspecified organism; R65.20 - Severe sepsis without septic shock Status: Acute Assessment and Plan: Patient with fevers, bandemia, lactic acidosis, tachycardia and leukopenia. Source of sepsis appears to be pulmonary and urinary. UCx 11/20 growing EColi sensitive to Zosyn. COVID negative. CXR 11/21 showing bilateral airspace disease and right pleural effusion. BCx 11/21 growing EColi (2of2) with similar resistance pattern as UCx. CT A/P showing nonspecific retroperitoneal, right colic fat stranding, consider pancreatitis or colitis. Doubt pancreatitis given normal Lipase and doubt that EColi is from GI source. Sputum 11/21 growing oxacillin sensitive Staph aureus treated with Vanco but changed to Dicloxacillin (Day 9) (specific coverage used due to slow improvement). Patient was having diarrhea so Zosyn changed to Rocephin for the EColi septicemia.(also D#10, d/c) CXR 11/29 better aeration and inspiratory effort with slight clearing but still R pleural effusion (3) Aspiration pneumonia: Qualifiers: Aspiration pneumonia type: unspecified Laterality: right Lung location: middle lobe of lung Qualified Code(s): J69.0 - Pneumonitis due to inhalation of food and vomit Code(s): J69.0 - Pneumonitis due to inhalation of food and vomit Status: Acute Assessment and Plan: CXR as mentioned above. Speech therapy evaluation 11/21 recommended soft, bite sized. CT A/P 11/24 showing right lower lobe infiltrate, probably atelectasis and pneumonia. Sputum 11/21 now growing oxacillin sensitive Staph aureus. Stable on 1-2L O2 and Repeat Cxr 11/29 some improvement. Wean O2 as tolerated. stop antibiotics thoracentesis today only 5 ml of small effusion with normal ph. WBC decreased last 2 days (4) UTI (urinary tract infection): Code(s): N39.0 - Urinary tract infection, site not specified Status: Acute Assessment and Plan: UTI with sepsis and bacteremia with EColi. As above. CT A/P 11/24 showing possible left-sided upper urinary tract infection. Finished IV abx. D# 10 and d/c (5) Type 2 diabetes mellitus: Code(s): E11.9 - Type 2 diabetes mellitus without complications Status: Acute Assessment and Plan: A1c 12.3. Glucose reviewed on 11/29. Was on Levemir 30U Q12 last admission. Glucose better controlled off the steroids. Levemir decreased and mealtime Novolog stopped on 11/24 due to her poor oral intake. Glucose higher yesterday but did not receive the 11/24 PM Levemir dose. Levemir at 15U Q12 and still low BS so decreased to 10 qd 11/26 Started Valacyclovir to treat possible oral herpes. Continue AccuCheks covering with sliding scale. Hypoglycemia protocol available as needed. as above FBS 169 today (6) Hyponatremia: Code(s): E87.1 - Hypo-osmolality and hyponatremia Status: Acute Assessment and Plan: Pseudohyponatremia was from hyperglycemia but also component of dehydration. Na better at 130. stopped IV fluids given her hx of CHF and added aldactone with the cirrhosis and ascites. (7) Acute renal failure: Qualifiers: Acute renal failure type: unspecified Qualified
[2020-12-01] MEDS: ASPIRIN 81 MG ENTERIC TABLET PO (15:23)
[2020-12-01] MEDS: MONTELUKAST SODIUM 10 MG TABLET PO (15:23)
[2020-12-01] MEDS: guaiFENesin 12 HR 600 MG TABCR PO ×2 (15:23→21:33)
[2020-12-01] MEDS: ACIDOPHILUS/BULGARICUS CHEWABLE TABLET 1 TABLET PO (15:23)
[2020-12-01] MEDS: valACYclovir HCL 500 MG TABLET 1000 MG PO ×2 (15:24→20:24)
[2020-12-01] MEDS: SPIRONOLACTONE 50 MG TABLET PO ×2 (15:24→20:23)
[2020-12-01] MEDS: SACCHAROMYCES BOULARDII 250 MG CAPSULE PO ×2 (15:24→20:23)
[2020-12-01] MEDS: VITAMIN E 400 UNIT CAPSULE PO (15:24)
[2020-12-01] MEDS: traMADol HCL (*CRX) 25 MG TABLET PO (15:29)
[2020-12-01 18:06] LABS: Glucose Point of Care 224 (65-105)
[2020-12-01] MEDS: INSULIN ASPART (*BKC) 100 UNITS/ML SUB-Q (18:18)
[2020-12-01 21:38] LABS: Glucose Point of Care 150 (65-105)
[2020-12-02] VITALS (21 sets, daily range): BP systolic 103–119; BP diastolic 53–69; PULSE 80–97; RESP 14–20; TEMP 36.2–36.8; O2SAT 90–98
[2020-12-02] MEDS: IPRATROPIUM BR 0.02% INH SOLN 0.5 MG/2.5 ML VIAL INHALATION ×4 (00:21→19:41)
[2020-12-02] MEDS: ALBUTEROL SULFATE NEB 2.5 MG/0.5 ML INH INHALATION ×4 (00:22→19:41)
[2020-12-02] MEDS: CENTRAL LINE FLUSH 10 ML IV PUSH ×2 (05:02→22:18)
[2020-12-02] MEDS: oxyCODONE HCL (*CRX) 5 MG TAB IR PO ×3 (05:09→20:05)
[2020-12-02 05:25] LABS: Anion Gap 3 mmol/L (8-16); Blood Urea Nitrogen 11 mg/dL (7-17); Calcium 7.8 mg/dL (8.4-10.2); Carbon Dioxide 29 mmol/L (22-30); Chloride 97 mmol/L (98-107); Estimated CRCL calculation 76 ml/min; Estimated Glomerular Filt Rate > 60; Glucose 129 mg/dL (65-105); Potassium 3.6 mmol/L (3.4-5.0); Sodium 129 mmol/L (137-145)
[2020-12-02] MEDS: FLUTICASONE/UMECLIDIN/VILANTER 100-62.5-25 MCG ELLIPTA 1 PUFF INHALATION (07:30)
[2020-12-02 07:35] LABS: Glucose Point of Care 134 (65-105)
[2020-12-02] MEDS: ASPIRIN 81 MG ENTERIC TABLET PO (09:20)
[2020-12-02] MEDS: ACIDOPHILUS/BULGARICUS CHEWABLE TABLET 1 TABLET PO (09:20)
[2020-12-02] MEDS: DULoxetine HCL 60 MG CAPSULE.DR PO (09:21)
[2020-12-02] MEDS: guaiFENesin 12 HR 600 MG TABCR PO ×2 (09:21→20:07)
[2020-12-02] MEDS: METOPROLOL SUCCINATE EXT REL 12.5 MG TABCR PO (09:21)
[2020-12-02] MEDS: SPIRONOLACTONE 50 MG TABLET PO ×2 (09:22→17:57)
[2020-12-02] MEDS: PANTOPRAZOLE SODIUM IV 40 MG VIAL IV PUSH ×2 (09:22→20:07)
[2020-12-02] MEDS: ALPRAZolam (*CRX) 0.5 MG TABLET PO (09:22)
[2020-12-02] MEDS: valACYclovir HCL 500 MG TABLET 1000 MG PO ×2 (09:22→20:07)
[2020-12-02] MEDS: MONTELUKAST SODIUM 10 MG TABLET PO (09:22)
[2020-12-02] MEDS: VITAMIN E 400 UNIT CAPSULE PO (09:22)
[2020-12-02] MEDS: SACCHAROMYCES BOULARDII 250 MG CAPSULE PO ×2 (09:22→17:57)
[2020-12-02] MEDS: TOLNAFTATE 1% POWDER 45 GM BTL 1 APPLIC TOPICAL ×2 (09:22→20:07)
[2020-12-02] MEDS: INSULIN DETEMIR 100 UNITS/ML 10 UNITS SUB-Q (09:33)
[2020-12-02] MEDS: INSULIN ASPART (*BKC) 100 UNITS/ML SUB-Q ×2 (13:58→17:57)
[2020-12-02 14:05] LABS: Glucose Point of Care 270 (65-105)
--- NOTE | 2020-12-02 14:15 | PM.IMPN ---
Progress Note: A&P Assessment and Plan (1) Diabetic ketoacidosis: Qualifiers: Diabetes mellitus type: type 2 Diabetes mellitus complication detail: without coma Qualified Code(s): E11.10 - Type 2 diabetes mellitus with ketoacidosis without coma Code(s): E11.10 - Type 2 diabetes mellitus with ketoacidosis without coma Status: Acute Assessment and Plan: Patient seen in [place] and transferred to ICU here for DKA. AG 21 and Glucose was 587. She was started on DKA protocol and AG closed. IV fluids stopped. She passed her swallow evaluation. DKA RESOLVED. Continue to monitor. FBS 72 and running low 11/26 so decreased levemir to 10 Unit qd FBS 129 today (2) Severe sepsis: Code(s): A41.9 - Sepsis, unspecified organism; R65.20 - Severe sepsis without septic shock Status: Acute Assessment and Plan: Patient with fevers, bandemia, lactic acidosis, tachycardia and leukopenia. Source of sepsis appears to be pulmonary and urinary. UCx 11/20 growing EColi sensitive to Zosyn. COVID negative. CXR 11/21 showing bilateral airspace disease and right pleural effusion. BCx 11/21 growing EColi (2of2) with similar resistance pattern as UCx. CT A/P showing nonspecific retroperitoneal, right colic fat stranding, consider pancreatitis or colitis. Doubt pancreatitis given normal Lipase and doubt that EColi is from GI source. Sputum 11/21 growing oxacillin sensitive Staph aureus treated with Vanco but changed to Dicloxacillin (Day 9) (specific coverage used due to slow improvement). Patient was having diarrhea so Zosyn changed to Rocephin for the EColi septicemia.(also D#10, d/c) CXR 11/29 better aeration and inspiratory effort with slight clearing but still R pleural effusion thoracentesis 1/2 very small and only 5 ml fluid removed, ph normal (3) Aspiration pneumonia: Qualifiers: Aspiration pneumonia type: unspecified Laterality: right Lung location: middle lobe of lung Qualified Code(s): J69.0 - Pneumonitis due to inhalation of food and vomit Code(s): J69.0 - Pneumonitis due to inhalation of food and vomit Status: Acute Assessment and Plan: CXR as mentioned above. Speech therapy evaluation 11/21 recommended soft, bite sized. CT A/P 11/24 showing right lower lobe infiltrate, probably atelectasis and pneumonia. Sputum 11/21 now growing oxacillin sensitive Staph aureus. Stable on 1-2L O2 and Repeat Cxr 11/29 some improvement. Wean O2 as tolerated. stopped antibiotics 12/01/20 thoracentesis 12/01 only 5 ml of small effusion with normal ph. WBC normal (4) UTI (urinary tract infection): Code(s): N39.0 - Urinary tract infection, site not specified Status: Acute Assessment and Plan: UTI with sepsis and bacteremia with EColi. As above. CT A/P 11/24 showing possible left-sided upper urinary tract infection. Finished IV abx. D# 10 and d/c (5) Type 2 diabetes mellitus: Code(s): E11.9 - Type 2 diabetes mellitus without complications Status: Acute Assessment and Plan: A1c 12.3. Glucose reviewed on 11/29. Was on Levemir 30U Q12 last admission. Glucose better controlled off the steroids. Levemir decreased and mealtime Novolog stopped on 11/24 due to her poor oral intake. Glucose higher yesterday but did not receive the 11/24 PM Levemir dose. Levemir at 15U Q12 and still low BS so decreased to 10 qd 11/26 Started Valacyclovir to treat possible oral herpes. Continue AccuCheks covering with sliding scale. Hypoglycemia protocol available as needed. as above FBS 129 today (6) Hyponatremia: Code(s): E87.1 - Hypo-osmolality and hyponatremia Status: Acute Assessment and Plan: Pseudohyponatremia was from hyperglycemia but also component of dehydration. Na stable at 129. stopped IV fluids given her hx of CHF and added aldactone with the cirrhosis and ascites. (7) Acute renal failure: Qualif
[2020-12-02] MEDS: POTASSIUM CHLORIDE 20 MEQ TABLET 40 MEQ PO (14:54)
[2020-12-02] MEDS: FUROSEMIDE 20 MG TABLET PO (15:19)
[2020-12-02 18:03] LABS: Glucose Point of Care 226 (65-105)
[2020-12-02 23:18] LABS: Glucose Point of Care 183 (65-105)
[2020-12-03] VITALS (8 sets, daily range): BP systolic 106–113; BP diastolic 59–64; PULSE 83–114; RESP 16–20; TEMP 36.5–36.8; O2SAT 89–93
[2020-12-03] MEDS: IPRATROPIUM BR 0.02% INH SOLN 0.5 MG/2.5 ML VIAL INHALATION ×2 (02:17→08:04)
[2020-12-03] MEDS: ALBUTEROL SULFATE NEB 2.5 MG/0.5 ML INH INHALATION ×2 (02:17→08:04)
[2020-12-03 06:53] LABS: Anion Gap 2 mmol/L (8-16); Blood Urea Nitrogen 10 mg/dL (7-17); Calcium 7.8 mg/dL (8.4-10.2); Carbon Dioxide 32 mmol/L (22-30); Chloride 97 mmol/L (98-107); Estimated CRCL calculation 87 ml/min; Estimated Glomerular Filt Rate > 60; Glucose 174 mg/dL (65-105); Potassium 3.7 mmol/L (3.4-5.0); Sodium 131 mmol/L (137-145)
[2020-12-03] MEDS: CENTRAL LINE FLUSH 10 ML IV PUSH (06:56)
[2020-12-03 08:02] LABS: Glucose Point of Care 167 (65-105)
[2020-12-03] MEDS: INSULIN DETEMIR 100 UNITS/ML 10 UNITS SUB-Q (08:17)
[2020-12-03] MEDS: guaiFENesin 12 HR 600 MG TABCR PO (08:20)
[2020-12-03] MEDS: METOPROLOL SUCCINATE EXT REL 12.5 MG TABCR PO (08:20)
[2020-12-03] MEDS: ASPIRIN 81 MG ENTERIC TABLET PO (08:20)
[2020-12-03] MEDS: SPIRONOLACTONE 50 MG TABLET PO (08:20)
[2020-12-03] MEDS: DULoxetine HCL 60 MG CAPSULE.DR PO (08:20)
[2020-12-03] MEDS: valACYclovir HCL 500 MG TABLET 1000 MG PO (08:20)
[2020-12-03] MEDS: SACCHAROMYCES BOULARDII 250 MG CAPSULE PO (08:20)
[2020-12-03] MEDS: VITAMIN E 400 UNIT CAPSULE PO (08:20)
[2020-12-03] MEDS: MONTELUKAST SODIUM 10 MG TABLET PO (08:20)
[2020-12-03] MEDS: ACIDOPHILUS/BULGARICUS CHEWABLE TABLET 1 TABLET PO (08:20)
[2020-12-03] MEDS: FUROSEMIDE 20 MG TABLET PO (08:20)
[2020-12-03] MEDS: TOLNAFTATE 1% POWDER 45 GM BTL 1 APPLIC TOPICAL (08:21)
[2020-12-03] MEDS: PANTOPRAZOLE SODIUM IV 40 MG VIAL IV PUSH (08:21)
[2020-12-03] MEDS: oxyCODONE HCL (*CRX) 5 MG TAB IR PO (08:25)
[2020-12-03 11:21] LABS: Glucose Point of Care 308 (65-105)
[2020-12-03] MEDS: INSULIN ASPART (*BKC) 100 UNITS/ML SUB-Q (11:22)
--- NOTE | 2020-12-03 18:34 | PM.DS ---
DS: Admitting Diagnosis Admitting Diagnosis Admitting Diagnosis: Diabetic ketoacidosis DS: Discharge Diagnosis Discharge Diagnosis (1) Diabetic ketoacidosis: Qualifiers: Diabetes mellitus complication detail: without coma Diabetes mellitus type: type 2 Qualified Code(s): E11.10 - Type 2 diabetes mellitus with ketoacidosis without coma Code(s): E11.10 - Type 2 diabetes mellitus with ketoacidosis without coma Status: Acute Assessment and Plan: Patient seen in [place] and transferred to ICU here for DKA. AG 21 and Glucose was 587. She was started on DKA protocol and AG closed. IV fluids stopped. She passed her swallow evaluation. DKA RESOLVED. Continue to monitor. FBS 72 and running low 11/26 so decreased levemir to 10 Unit qd FBS 131 today and will resume her usual insulin regime at home which is the short-acting insulin t.i.d. with meals (2) Severe sepsis: Code(s): A41.9 - Sepsis, unspecified organism; R65.20 - Severe sepsis without septic shock Status: Acute Assessment and Plan: Patient with fevers, bandemia, lactic acidosis, tachycardia and leukopenia. Source of sepsis appears to be pulmonary and urinary. UCx 11/20 growing EColi sensitive to Zosyn. COVID negative. CXR 11/21 showing bilateral airspace disease and right pleural effusion. BCx 11/21 growing EColi (2of2) with similar resistance pattern as UCx. CT A/P showing nonspecific retroperitoneal, right colic fat stranding, consider pancreatitis or colitis. Doubt pancreatitis given normal Lipase and doubt that EColi is from GI source. Sputum 11/21 growing oxacillin sensitive Staph aureus treated with Vanco but changed to Dicloxacillin (Day 9) (specific coverage used due to slow improvement). Patient was having diarrhea so Zosyn changed to Rocephin for the EColi septicemia.(also D#10, d/c) CXR 11/29 better aeration and inspiratory effort with slight clearing but still R pleural effusion thoracentesis 12/01/20 very small and only 5 ml fluid removed, ph normal and culture growing some Gram-positive cocci in clusters. Suspect parapneumonic effusion and she had received full course of treatment with good response, normalization of WBC (3) Aspiration pneumonia: Qualifiers: Aspiration pneumonia type: unspecified Laterality: right Lung location: middle lobe of lung Qualified Code(s): J69.0 - Pneumonitis due to inhalation of food and vomit Code(s): J69.0 - Pneumonitis due to inhalation of food and vomit Status: Acute Assessment and Plan: CXR as mentioned above. Speech therapy evaluation 11/21 recommended soft, bite sized. CT A/P 11/24 showing right lower lobe infiltrate, probably atelectasis and pneumonia. Sputum 11/21 now growing oxacillin sensitive Staph aureus. Stable on 1-2L O2 and Repeat Cxr 11/29 some improvement. Wean O2 as tolerated. stopped antibiotics 12/01/20 after 10 days if treat thoracentesis 12/01 only 5 ml of small effusion with normal ph. WBC normal (4) UTI (urinary tract infection): Code(s): N39.0 - Urinary tract infection, site not specified Status: Acute Assessment and Plan: UTI with sepsis and bacteremia with EColi. As above. CT A/P 11/24 showing possible left-sided upper urinary tract infection. Finished IV abx. D# 10 and d/c (5) Type 2 diabetes mellitus: Code(s): E11.9 - Type 2 diabetes mellitus without complications Status: Acute Assessment and Plan: A1c 12.3. Glucose reviewed on 11/29. Was on Levemir 30U Q12 last admission. Glucose better controlled off the steroids. Levemir decreased and mealtime Novolog stopped on 11/24 due to her poor oral intake. Glucose higher yesterday but did not receive the 11/24 PM Levemir dose. Levemir at 15U Q12 and still low BS so decreased to 10 qd 11/26 Started Valacyclovir to treat possible oral herpes. Continue AccuCheks covering with sliding scale. Hypoglycemia protocol available as
[2020-12-05 13:06] LABS: Glucose Pleural Fluid 202 mg/dL; Total Protein Pleural Fluid 3.1 g/dL
== END 2020-12-03 15:08 | disposition home health service (06) | DRG 871 ==
LOC: ANHICU 11-21 12:07 → ANH2MED 11-23 00:38 → ANHICU 12-04 13:16
PROVIDERS: Internal Medicine; Admitting Provider Family Medicine; PCP Internal Medicine; Visit Provider Internal Medicine
DX: A41.51 Sepsis due to Escherichia coli [E. coli] (principal); E11.10 Type 2 diabetes mellitus with ketoacidosis without coma; J69.0 Pneumonitis due to inhalation of food and vomit; N17.9 Acute kidney failure, unspecified; N39.0 Urinary tract infection, site not specified; J91.8 Pleural effusion in other conditions classified elsewhere; R65.20 Severe sepsis without septic shock; Z20.828 Contact with and (suspected) exposure to other viral communicable diseases; F17.210 Nicotine dependence, cigarettes, uncomplicated; R13.10 Dysphagia, unspecified; K74.60 Unspecified cirrhosis of liver; E86.0 Dehydration; E87.8 Other disorders of electrolyte and fluid balance, not elsewhere classified; D69.6 Thrombocytopenia, unspecified; D64.9 Anemia, unspecified; I10 Essential (primary) hypertension; E78.5 Hyperlipidemia, unspecified; F41.9 Anxiety disorder, unspecified; R19.7 Diarrhea, unspecified; Z79.4 Long term (current) use of insulin; Z79.82 Long term (current) use of aspirin; Z79.899 Other long term (current) drug therapy; Z91.81 History of falling
CPT/HCPCS: 32555; 36415; 36430; 36569; 36600; 71045; 71046; 71100; 74176; 80048; 80053; 80074; 80076; 80202; 82010; 82140; 82247; 82248; 82274; 82570; 82607; 82728; 82746; 82805; 82945; 83010; 83540; 83550; 83605; 83615; 83690; 83735; 83880; 83986; 84100; 84132; 84157; 84300; 85014; 85018; 85025; 85027; 85046; 85055; 85610; 85730; 86140; 86703; 86850; 86880; 86900; 86901; 86923; 87040; 87045; 87046; 87070; 87075; 87077; 87086; 87088; 87147; 87186; 87205; 87324; 87427; 87635; 87804; 88104; 88108; 88184; 88305; 89051; 92610; 93005; 93306; 94640; 97110; 97116; 97161; 97165; 97530; 97535; A9270; C1729; C1751; C9113; C9803; G0432; J0131; J0696; J1741; J1815; J1940; J2543; J3370; J3475; J3480; J7030; J7050; J7512; P9016; U0003

== ENCOUNTER 2020-12-10 11:38 | Outpatient (NON) | payer MEDICARE, SELFPAY ==
[2020-12-10 12:23] LABS: Basophils Absolute Auto 0.02 K/mm3 (0.00-0.10); Basophils Percent Auto 0.4 % (0.0-1.0); Eosinophils Absolute Auto 0.08 K/mm3 (0.02-0.50); Eosinophils Percent Auto 1.5 % (1.0-6.0); Hematocrit 31.2 % (35.0-49.0); Hemoglobin 10.3 g/dL (12.0-15.0); Immature Granulocyte Absolute 0.03 K/mm3 (0.00-0.00); Immature Granulocyte Percent A 0.6 % (0.0-0.0); Lymphocytes Absolute Auto 0.95 K/mm3 (1.10-4.50); Lymphocytes Percent Auto 18.3 % (18.0-42.0); Mean Corpuscular Hemoglobin 32.9 pg (27.0-31.0); Mean Corpuscular Volume 99.7 fL (78.0-102.0); Mean Platelet Volume 10.4 fl (9.2-11.8); Monocytes Absolute Auto 0.59 K/mm3 (0.10-0.90); Monocytes Percent Auto 11.4 % (2.0-11.0); Neutrophils Absolute Auto 3.5 K/mm3 (1.7-7.2); Neutrophils Percent Auto 67.8 % (50.0-70.0); Platelet Count Result 184 K/mm3 (150-420); Red Blood Count 3.13 M/mm3 (4.20-5.40); Red Cell Distribution Width 17.1 % (11.6-14.4); White Blood Count 5.2 K/mm3 (4.8-10.8)
[2020-12-10 13:10] LABS: Alanine Aminotransferase 20 U/L (14-59); Albumin Level 1.9 g/dL (3.4-5.0); Alkaline Phosphatase 357 U/L (46-116); Anion Gap 7 mmol/L (8-16); Aspartate Amino Transferase 25 U/L (15-37); Bilirubin,Total 0.6 mg/dL (0.00-1.00); Blood Urea Nitrogen 6 mg/dL (7-18); Calcium 8.4 mg/dL (8.5-10.1); Carbon Dioxide 30 mmol/L (21-32); Chloride 93 mmol/L (98-108); Estimated Glomerular Filt Rate > 60; Glucose 207 mg/dL (70-99); Osmolality Calculated 273 mOsm/kg (285-295); Potassium 3.9 mmol/L (3.5-5.1); Sodium 130 mmol/L (136-145); Total Protein 8.8 g/dL (6.4-8.2)
== END 2020-12-10 11:39 ==
LOC: CHSHH 11:40
PROVIDERS: Internal Medicine; Visit Provider Internal Medicine
DX: N39.0 Urinary tract infection, site not specified (principal); J44.9 Chronic obstructive pulmonary disease, unspecified; J69.0 Pneumonitis due to inhalation of food and vomit; A41.9 Sepsis, unspecified organism
CPT/HCPCS: 36415; 80053; 85025

== ENCOUNTER 2021-07-14 09:17 | Emergency (ER) | payer MEDICARE, MEDICAID, SELFPAY ==
--- NOTE | ~2021-07-14 | XR_ITS ---
EXAMINATION: XR chest 1V portable INDICATION: Pain after fall TECHNIQUE: Portable AP chest at 1035 hours COMPARISON: 11/29/2020 FINDINGS: There are minimal airspace opacities of the right lung base. A small right pleural effusion is present. There is no pneumothorax. The left lung is clear. Surgical clips in the right upper quad rant are likely from prior cholecystectomy. A coronary artery stent is noted. IMPRESSION: 1. Right basilar airspace opacity, consistent with atelectasis versus pneumonia. 2. Small right pleural effusion. Reviewed, dictated and finalized at location A. IMPRESSION: 1. Right basilar airspace opacity, consistent with atelectasis versus pneumonia . 2. Small right pleural effusion.
--- NOTE | ~2021-07-14 | XR_ITS ---
EXAMINATION: XR shoulder LT min 2V INDICATION: Left shoulder pain TECHNIQUE: Four views of the left shoulder are submitted. COMPARISON: 10/30/2013 FINDINGS: Normal alignment. No fracture. There is mild osteoarthritis of the glenohumeral and acromio clavicular joints. Soft tissues are unremarkable. IMPRESSION: 1. No acute osseous abnormality. Reviewed, dictated and finalized at location A.
--- NOTE | ~2021-07-14 | CT_ITS ---
EXAMINATION: CT brain wo con INDICATION: Head injury COMPARISON: 11/02/2020 TECHNIQUE: Standard unenhanced head CT. The dose-length product (DLP) was 605.33 mGy-cm. The mA was a djusted according to patient size. Iterative reconstruction technique was employed. FINDINGS: There is no acute intraparenchymal hemorrhage. No evidence of mass lesion. No evidence of a cute infarction. There is mild periventricular and subcortical hypodensity probably related to small vessel ischemic disease. There is mild prominence of the sulci and ventricles related to cerebral atr ophy. Intracranial calcified cerebral atherosclerosis is noted. There are no extra-axial collections. There is no mass effect or midline shift. The orbits are unremarkable. 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 There is mild mucosal thickening of the paranasal sinuses. IMPRESSION: 1. No acute intracranial abnormality. 2. Age related findings. Reviewed, dictated and finalized at location A.
--- NOTE | ~2021-07-14 | XR_ITS ---
EXAMINATION: XR toe 1st LT min 2V INDICATION: Left first toe pain, initial encounter TECHNIQUE: Three views of the left first toe are obtained. COMPARISON: 01/18/2017 FINDINGS: Sensitivity for fracture is limited by osteopenia. There is a questionable nondisplaced tra nsverse fracture of the first distal phalanx. Mild osteoarthritis is noted. IMPRESSION: 1. Possible nondisplaced fracture of the first distal phalanx, sensitivity limited by osteopenia. Reviewed, dictated and finalized at location A. IMPRESSION: 1. Possible nondisplaced fracture of the first distal phalanx, sensitivity limi matthew by osteopenia.
[2021-07-14 09:25] VITALS: BP 97/54; PULSE 81; RESP 20; TEMP 36.8; O2SAT 97
[2021-07-14] MEDS: ACETAMINOPHEN 325 MG TABLET 650 MG PO (10:16)
[2021-07-14 11:22] VITALS: BP 111/76; PULSE 84; O2SAT 97
--- NOTE | 2021-07-14 11:25 | ED.WOUNDLAC ---
HPI - Wound/Laceration General Chief Complaint: Wound/Laceration Stated Complaint: hit head Time Seen by Provider: 07/14/21 09:19 Source: patient and RN notes reviewed Mode of arrival: wheelchair Limitations: no limitations History of Present Illness HPI narrative: Pt tripped on her left great toe and fell. Hitting left forehead, and left shoulder. She had no chest pain, SOB, dizziness or weakness. Onset (ago): hour(s) (1) Location: face and other (left shoulder and left great toe pain) Extremity Location: Left: shoulder and foot Place: home Patient tetanus UTD: Yes Context: accidental Associated symptoms: none Treatments prior to arrival: bandage Related Data Home Medications Medication Instructions Recorded Confirmed Trelegy Ellipta 1 inh INHALATION DAILY 12/03/19 07/14/21 albuterol sulfate [Ventolin HFA] 1 puff INHALATION PRN PRN 12/03/19 07/14/21 alprazolam 0.5 mg PO Q6H PRN 12/03/19 07/14/21 lidocaine 1 patch TOPICAL PRN PRN 12/03/19 07/14/21 montelukast 10 mg PO DAILY 12/03/19 07/14/21 vitamin E 400 unit PO DAILY 12/03/19 07/14/21 Brilinta 90 mg PO BID 11/09/20 07/14/21 aspirin 81 mg PO DAILY 11/09/20 07/14/21 duloxetine 60 mg PO DAILY 11/09/20 07/14/21 famotidine 20 mg PO HS 11/09/20 07/14/21 insulin lispro [Humalog U-100 5 unit CONTINUOUS SUBCUTANEOUS 11/09/20 07/14/21 Insulin] INFUSION TIDWM metoprolol succinate 25 mg PO DAILY 11/12/20 07/14/21 nitroglycerin 0.4 mg SUBLINGUAL Q15M PRN 11/12/20 07/14/21 sulfamethoxazole-trimethoprim 1 tablet PO BID 07/14/21 07/14/21 Allergies Allergy/AdvReac Type Severity Reaction Status Date / Time adhesive tape Allergy Unknown Blister Verified 11/27/20 08:34 budesonide Allergy Unknown Anaphylactic Verified 11/02/20 21:04 Shock formoterol Allergy Unknown Anaphylactic Verified 11/02/20 21:04 Shock mometasone furoate Allergy Unknown Anaphylactic Verified 11/02/20 21:04 Shock diphenhydramine AdvReac Severe Other Verified 11/02/20 21:04 [From Benadryl] atorvastatin AdvReac Unknown Itching Verified 11/02/20 21:04 gemfibrozil AdvReac Unknown Gastrointestinal Verified 11/27/20 08:34 Upset morphine AdvReac Unknown Itching Verified 11/02/20 21:04 Review of Systems Review of Systems: All systems reviewed & are unremarkable except as noted in HPI and below Constitutional: Constitutional: Reports as per HPI and Reports no additional constitutional complaints Eyes: Eyes: Reports as per HPI and Reports no additional eye complaints ENT: Reports system reviewed and no additional complaints, except as documented and Reports as per HPI Cardiovascular: Cardiovascular: Reports as per HPI and Reports no additional cardiovascular complaints Respiratory: Respiratory: Reports as per HPI and Reports no additional respiratory complaints Gastrointestinal: Gastrointestinal: Reports as per HPI and Reports no additional gastrointestinal complaints Genitourinary: Genitourinary: Reports no additional female genitourinary complaints, Reports as per HPI and Reports nocturia (pt on Tx for UTI.) Musculoskeletal: Musculoskeletal: Reports no additional musculoskeletal complaints, Reports as per HPI and Reports arthralgias Integumentary/Breasts: Skin/Breast: Reports system reviewed and no additional complaints, except as docu and Reports as per HPI Neurologic: Reports system reviewed and no additional complaints, except as documented and Reports as per HPI Psychiatric: Psychiatric: Reports no additional psychiatric complaints and Reports as per HPI Endocrine: Endocrine: Reports no additional endocrine complaints and Reports as per HPI Hematologic/Lymphatic: Hematologic/Lymphatic: Reports no additional hematologic/lymphatic complaints and Reports as per HPI Allergic/Immunologic: Allergic/Immunologic: Reports no additional allergic/immunologic complaints and Reports as per HPI PMFSH Past Medical History Medical History Anx
--- NOTE | 2021-07-14 11:34 | PC.NURSE ---
POST-OP SHOE ON PATIENT PER VERBAL ORDER DR YEAGER AFTER KRISTY TAPE TO LEFT GREAT TOE. PT IS GIVEN SLING TO LEFT ARM TO USE WHILE AT HOME. PT INSTRUCTED NOT TO USE SLING WITH POST-OP SHOE AND CANE THIS WILL CAUSE ANOTHER FALL. FAMILY GIVEN INSTRUCTIONS JESUS
== END 2021-07-14 11:45 | disposition home or self-care (01) ==
PROVIDERS: Emergency Provider Emergency Medicine; PCP Internal Medicine
DX: S09.90XA Unspecified injury of head, initial encounter (principal); S01.81XA Laceration without foreign body of other part of head, initial encounter; S92.502A Displaced unspecified fracture of left lesser toe(s), initial encounter for closed fracture; W19.XXXA Unspecified fall, initial encounter
CPT/HCPCS: 12011; 12055; 70450; 71045; 73030; 73660; 99283; 99284; A4565; A9270

== ENCOUNTER 2021-08-06 15:47 | Outpatient (CLI) | payer MEDICARE, MEDICAID, SELFPAY ==
--- NOTE | ~2021-08-06 | XR_ITS ---
XR shoulder LT min 2V 08/06/2021 17:16 Indication: Left shoulder pain Procedure: 5 views left shoulder Comparison: No prior studies for comparison. Findings: There is a probable old healed Sachs fracture. No acute fracture or traumatic malalignment is identified. There is degenerative change of the acromioclavicular joint. Visualized lung parenchym a is unremarkable. No foreign bodies. Impression: 1: No acute bone or joint abnormality. Reviewed, dictated and finalized at location A. Impression: 1: No acute bone or joint abnormality.
--- NOTE | ~2021-08-06 | XR_ITS ---
XR chest 2V 08/06/2021 17:16 Indication: Cirrhosis. Weight loss. Procedure: 2 view chest Comparison: Comparison to multiple prior studies sequentially, with oldest reviewed study dated 10/31. Findings: Unchanged right basilar airspace disease and heart size normal. Small pleural effusions. No edema or pneumothorax. No acute osseous abnormality. Impression: 1: Unchanged right basilar airspace disease which may represent atelectasis, pneumonia and/or scarrin g. 2: Small pleural effusions. Reviewed, dictated and finalized at location A. Impression: 1: Unchanged right basilar airspace disease which may represent atelectasis, pn eumonia and/or scarring. 2: Small pleural effusions.
--- NOTE | ~2021-08-06 | XR_ITS ---
XR clavicle LT 08/06/2021 17:16 INDICATION: Left clavicle and shoulder pain PROCEDURE: 2 views left clavicle COMPARISON: 08/06/2021 FINDINGS: Fracture, dislocation or subluxation is not identified. There is mild polyarticular osteoar thritis. The soft tissues appear within normal limits. No foreign bodies are identified. IMPRESSION: 1: NO ACUTE BONE OR JOINT ABNORMALITY IDENTIFIED. Reviewed, dictated and finalized at location A.
[2021-08-06 16:49] LABS: Basophils Absolute Auto 0.04 K/mm3 (0.00-0.10); Basophils Percent Auto 0.6 % (0.0-1.0); Eosinophils Absolute Auto 0.12 K/mm3 (0.02-0.50); Eosinophils Percent Auto 1.8 % (1.0-6.0); Hematocrit 34.2 % (35.0-49.0); Hemoglobin 11.8 g/dL (12.0-15.0); Immature Granulocyte Absolute 0.03 K/mm3 (0.00-0.00); Immature Granulocyte Percent A 0.5 % (0.0-0.0); Lymphocytes Absolute Auto 1.38 K/mm3 (1.10-4.50); Lymphocytes Percent Auto 20.8 % (18.0-42.0); Mean Corpuscular HGB Conc 34.5 g/dL (32.0-36.0); Mean Corpuscular Hemoglobin 31.6 pg (27.0-31.0); Mean Corpuscular Volume 91.7 fL (78.0-102.0); Mean Platelet Volume 9.5 fl (9.2-11.8); Monocytes Absolute Auto 0.72 K/mm3 (0.10-0.90); Monocytes Percent Auto 10.8 % (2.0-11.0); Neutrophils Absolute Auto 4.4 K/mm3 (1.7-7.2); Neutrophils Percent Auto 65.5 % (50.0-70.0); Platelet Count Result 230 K/mm3 (150-420); Red Blood Count 3.73 M/mm3 (4.20-5.40); White Blood Count 6.7 K/mm3 (4.8-10.8)
[2021-08-06 16:59] LABS: Add Urine Microscopic? YES; Appearance Urine Clear (Clear); Bilirubin Urine Negative (Negative); Blood Urine Negative (Negative); Color Urine Light Yellow (Yellow); Glucose Urine UA 1+ (Negative); Ketones Urine Negative (Negative); Leukocyte Esterase Ur Trace (Negative); Nitrate Urine Negative (Negative); Protein Urine Negative (Negative); pH Urine 5.5 (5.0-8.0)
[2021-08-06 17:25] LABS: Alanine Aminotransferase 57 U/L (14-59); Albumin Level 2.8 g/dL (3.4-5.0); Alkaline Phosphatase 380 U/L (46-116); Anion Gap 8 mmol/L (8-16); Aspartate Amino Transferase 42 U/L (15-37); Bacteria Urine Trace /hpf; Bilirubin,Total 0.4 mg/dL (0.00-1.00); Blood Urea Nitrogen 16 mg/dL (7-18); Calcium 8.5 mg/dL (8.5-10.1); Carbon Dioxide 29 mmol/L (21-32); Chloride 99 mmol/L (98-108); Cholesterol 207 mg/dL (0-200); Estimated Glomerular Filt Rate > 60; Free T3 1.35 pg/mL (2.18-3.98); Glucose 242 mg/dL (70-99); HDL Direct 31 mg/dL (40-60); Hemoglobin A1C 12.7 % (<5.7); LDL Cholesterol Calculated 121 mg/dL (<130); Osmolality Calculated 291 mOsm/kg (285-295); Potassium 3.5 mmol/L (3.5-5.1); RBC Urine 0-2 /hpf (0-2); Sodium 136 mmol/L (136-145); Squamous Epithelial Cell Urine Few /hpf (Few); Thyroid Stimulating Hormone 0.58 uIU/mL (0.36-3.74); Total Protein 7.3 g/dL (6.4-8.2); Triglycerides 276 mg/dL (0-150); WBC Urine 0-3 /hpf (0-3)
[2021-08-08 13:34] LABS: Total Triiodothyronine (T3) 77.2 ng/dL (76-181)
[2021-08-10 17:46] LABS: Alpha Fetoprotein Tumor Marker 3.6 ng/mL (<6.1)
== END 2021-08-06 15:48 | disposition home or self-care (01) ==
LOC: CHSLAB 15:50
PROVIDERS: PCP Internal Medicine; Visit Provider Internal Medicine
DX: E11.9 Type 2 diabetes mellitus without complications (principal); K74.60 Unspecified cirrhosis of liver; R63.4 Abnormal weight loss
CPT/HCPCS: 36415; 71046; 73000; 73030; 80053; 80061; 81001; 82105; 83036; 84443; 84480; 84481; 85025

== ENCOUNTER 2021-08-12 16:09 | Emergency (ER) | payer MEDICARE, MEDICAID, SELFPAY ==
[2021-08-12 16:25] VITALS: BP 140/89; PULSE 78; RESP 18; TEMP 37; O2SAT 98
--- NOTE | 2021-08-12 16:28 | ED.WOUNDLAC ---
HPI - Wound/Laceration General Chief Complaint: Skin/Abscess/Foreign Body Stated Complaint: swollen legs/bruising Source: patient Mode of arrival: ambulatory Limitations: no limitations History of Present Illness HPI narrative: this is 56-year-old female with some presents with some lower extremity wounds with surrounding erythema currently no drain minute drainage, there is some warmth and tenderness with some 1+ pitting edema, patient has a history of a CHF and is followed by Cardiology currently no shortness of breath no audible wheezing no crackles auscultated no fever chills no chest pain or abdominal pain. Onset (ago): week(s) Extremity Location: Left: lower leg ( Wounds with surrounding erythema) Place: home Related Data Home Medications Medication Instructions Recorded Confirmed Trelegy Ellipta 1 inh INHALATION DAILY 12/03/19 07/14/21 albuterol sulfate [Ventolin HFA] 1 puff INHALATION PRN PRN 12/03/19 07/14/21 alprazolam 0.5 mg PO Q6H PRN 12/03/19 07/14/21 lidocaine 1 patch TOPICAL PRN PRN 12/03/19 07/14/21 montelukast 10 mg PO DAILY 12/03/19 07/14/21 vitamin E 400 unit PO DAILY 12/03/19 07/14/21 Brilinta 90 mg PO BID 11/09/20 07/14/21 aspirin 81 mg PO DAILY 11/09/20 07/14/21 duloxetine 60 mg PO DAILY 11/09/20 07/14/21 famotidine 20 mg PO HS 11/09/20 07/14/21 insulin lispro [Humalog U-100 5 unit CONTINUOUS SUBCUTANEOUS 11/09/20 07/14/21 Insulin] INFUSION TIDWM metoprolol succinate 25 mg PO DAILY 11/12/20 07/14/21 nitroglycerin 0.4 mg SUBLINGUAL Q15M PRN 11/12/20 07/14/21 sulfamethoxazole-trimethoprim 1 tablet PO BID 07/14/21 07/14/21 Allergies Allergy/AdvReac Type Severity Reaction Status Date / Time adhesive tape Allergy Unknown Blister Verified 11/27/20 08:34 budesonide Allergy Unknown Anaphylactic Verified 11/02/20 21:04 Shock formoterol Allergy Unknown Anaphylactic Verified 11/02/20 21:04 Shock mometasone furoate Allergy Unknown Anaphylactic Verified 11/02/20 21:04 Shock diphenhydramine AdvReac Severe Other Verified 11/02/20 21:04 [From Benadryl] atorvastatin AdvReac Unknown Itching Verified 11/02/20 21:04 gemfibrozil AdvReac Unknown Gastrointestinal Verified 11/27/20 08:34 Upset morphine AdvReac Unknown Itching Verified 11/02/20 21:04 Review of Systems Review of Systems: All systems reviewed & are unremarkable except as noted in HPI and below PMFSH Past Medical History Medical History Anxiety CHF (congestive heart failure) Cirrhosis Depression Exogenous obesity Fibromyalgia Hyperlipidemia Hypertension Type 2 diabetes mellitus UTI (urinary tract infection) Surgical History Surgical History H/O laparoscopy History of back surgery History of cholecystectomy History of hysterectomy Family History Family History Mother Family history of gout Hypertension Family history of elevated blood lipids Family history of diabetes mellitus in first degree relative Family history of chronic obstructive pulmonary disease Sibling Family history of gout Family history of allergic disorder Father Family history of emphysema Other Family history of cardiovascular disease Social History Social History Smoking packs per day: 0.5 Smoking cigarettes per day: 10.0 Years smoked: 30 Smoking pack-years: 15.00 Smoking status: Current some day smoker Tobacco type: cigarettes Second hand tobacco smoke exposure: No Alcohol intake: former Substance use: never Substance use type: marijuana Gender identity (if verbalized by the patient): Female Sexual Orientation (if Verbalized by the Patient): Straight or Heterosexual Spiritual care concerns: No Exam Const: General: no acute distress Orientation/consciousness: patient oriented x3 H
[2021-08-12 16:34] VITALS: BP 138/88; PULSE 88; RESP 18; TEMP 37; O2SAT 96
== END 2021-08-12 16:40 | disposition home or self-care (01) ==
PROVIDERS: Emergency Provider Emergency Medicine; PCP Internal Medicine
DX: L03.116 Cellulitis of left lower limb (principal); R60.0 Localized edema; I50.9 Heart failure, unspecified; E78.5 Hyperlipidemia, unspecified; I10 Essential (primary) hypertension; E11.9 Type 2 diabetes mellitus without complications; F17.200 Nicotine dependence, unspecified, uncomplicated
CPT/HCPCS: 99283

== ENCOUNTER 2021-08-15 10:43 | Outpatient (CLI) | payer MEDICARE, SELFPAY ==
[2021-08-15 13:48] LABS: SARS-CoV-2 RNA PCR Negative (Negative)
== END 2021-08-15 10:44 | disposition home or self-care (01) ==
LOC: CHSLAB 10:44
PROVIDERS: PCP Internal Medicine; Visit Provider Internal Medicine
DX: Z20.822 Contact with and (suspected) exposure to COVID-19 (principal)
CPT/HCPCS: C9803; U0003; U0005

== ENCOUNTER 2021-08-21 15:17 | Outpatient (CLI) | payer MEDICARE, SELFPAY ==
[2021-08-21 18:54] LABS: SARS-CoV-2 RNA PCR Negative (Negative)
== END 2021-08-21 15:18 | disposition home or self-care (01) ==
LOC: CHSLAB 15:19
PROVIDERS: PCP Internal Medicine; Visit Provider Internal Medicine
DX: Z20.822 Contact with and (suspected) exposure to COVID-19 (principal)
CPT/HCPCS: C9803; U0003; U0005

== ENCOUNTER 2021-09-10 13:30 | Outpatient (CLI) | payer MEDICARE, SELFPAY ==
[2021-09-10 15:28] LABS: SARS-CoV-2 RNA PCR Negative (Negative)
== END 2021-09-10 13:31 | disposition home or self-care (01) ==
LOC: CHSLAB 13:33
PROVIDERS: PCP Internal Medicine; Visit Provider Internal Medicine
DX: Z20.822 Contact with and (suspected) exposure to COVID-19 (principal)
CPT/HCPCS: C9803; U0003; U0005

== ENCOUNTER 2022-05-07 12:15 | Outpatient (CLI) | payer MEDICARE, MEDICAID, SELFPAY ==
[2022-05-07 12:35] LABS: Basophils Absolute Auto 0.07 K/mm3 (0.00-0.10); Basophils Percent Auto 0.7 % (0.0-1.0); Eosinophils Absolute Auto 0.09 K/mm3 (0.02-0.50); Eosinophils Percent Auto 0.9 % (1.0-6.0); Hematocrit 40.4 % (35.0-49.0); Hemoglobin 13.6 g/dL (12.0-15.0); Immature Granulocyte Absolute 0.05 K/mm3 (0.00-0.00); Immature Granulocyte Percent A 0.5 % (0.0-0.0); Lymphocytes Absolute Auto 1.01 K/mm3 (1.10-4.50); Lymphocytes Percent Auto 9.5 % (18.0-42.0); Mean Corpuscular HGB Conc 33.7 g/dL (32.0-36.0); Mean Corpuscular Hemoglobin 31.7 pg (27.0-31.0); Mean Corpuscular Volume 94.2 fL (78.0-102.0); Mean Platelet Volume 9.7 fl (9.2-11.8); Monocytes Absolute Auto 0.71 K/mm3 (0.10-0.90); Monocytes Percent Auto 6.7 % (2.0-11.0); Neutrophils Absolute Auto 8.7 K/mm3 (1.7-7.2); Neutrophils Percent Auto 81.7 % (50.0-70.0); Platelet Count Result 255 K/mm3 (150-420); Red Blood Count 4.29 M/mm3 (4.20-5.40); Red Cell Distribution Width 14.5 % (11.6-14.4); White Blood Count 10.6 K/mm3 (4.8-10.8)
[2022-05-07 12:41] LABS: Appearance Urine Clear (Clear); Bilirubin Urine Negative (Negative); Color Urine Yellow (Yellow); Glucose Urine UA 3+ (Negative); Ketones Urine 2+ (Negative); Leukocyte Esterase Ur Negative LEU/UL (Negative); Nitrate Urine Negative (Negative); Protein Urine 1+ (Negative); Specific Grav Ur 1.025 (1.010-1.020); Urobilinogen Urine 0.2 mg/dL (0.2-1.0)
[2022-05-07 12:46] LABS: Add Urine Microscopic? YES; Bacteria Urine Trace /hpf; Blood Urine Trace-Intact (Negative); RBC Urine 0-2 /hpf (0-2); Squamous Epithelial Cell Urine Occasional /hpf (Few); WBC Urine None seen /hpf (0-3)
[2022-05-07 12:53] LABS: Alanine Aminotransferase 25 U/L (14-59); Albumin Level 2.7 g/dL (3.4-5.0); Alkaline Phosphatase 466 U/L (46-116); Anion Gap 11 mmol/L (8-16); Aspartate Amino Transferase 21 U/L (15-37); Bilirubin,Total 0.7 mg/dL (0.00-1.00); Blood Urea Nitrogen 20 mg/dL (7-18); CRP 3.5 mg/dL (0.0-0.9); Calcium 8.9 mg/dL (8.5-10.1); Carbon Dioxide 25 mmol/L (21-32); Chloride 98 mmol/L (98-108); Cholesterol 183 mg/dL (0-200); Estimated Glomerular Filt Rate 54; HDL Direct 44 mg/dL (40-60); LDL Cholesterol Calculated 93 mg/dL (<130); Osmolality Calculated 297 mOsm/kg (285-295); Sodium 134 mmol/L (136-145); Total Protein 8.5 g/dL (6.4-8.2); Triglycerides 229 mg/dL (0-150)
[2022-05-07 12:58] LABS: Glucose 413 mg/dL (70-99)
[2022-05-07 13:18] LABS: Hemoglobin A1C 10.5 % (<5.7)
[2022-05-07 13:26] LABS: Rheumatoid Factor Screen Negative (Negative)
[2022-05-07 18:02] LABS: NT Pro B Type Natriuretic Pept 117 pg/mL (0-125)
[2022-05-12 07:58] LABS: Vitamin D 25 Hydroxy 20 ng/mL (30-100)
== END 2022-05-07 12:16 | disposition home or self-care (01) ==
LOC: CHSLAB 12:18
PROVIDERS: PCP Family Medicine; Visit Provider Nurse Practitioner Family
DX: I50.9 Heart failure, unspecified (principal); M79.672 Pain in left foot; I10 Essential (primary) hypertension; E78.2 Mixed hyperlipidemia; Z00.00 Encounter for general adult medical examination without abnormal findings; E11.9 Type 2 diabetes mellitus without complications; R32 Unspecified urinary incontinence; Z79.899 Other long term (current) drug therapy; M25.50 Pain in unspecified joint
CPT/HCPCS: 36415; 80053; 80061; 81001; 82306; 83036; 83880; 85025; 86140; 86430

== ENCOUNTER 2022-05-12 17:57 | Emergency (ER) | payer MEDICARE, MEDICAID, SELFPAY ==
[2022-05-12 18:10] VITALS: BP 130/85; PULSE 95; RESP 16; TEMP 37; O2SAT 97
--- NOTE | 2022-05-12 18:23 | ED.LOWEXIN ---
HPI - Extremity Injury (Lower) General Chief Complaint: Extremity Injury, Lower Stated Complaint: foot swelling/red Time Seen by Provider: 05/12/22 18:23 History of Present Illness HPI Narrative: 57-year-old female patient with multitude of medical problems including diabetes mellitus, congestive heart failure and history of smoking is here with complaints of swelling and pain to the right ankle and foot area for the last 2 weeks. She denies any known injury. She does have an ingrown toenail removed in that area years ago and she periodically has a remnant of the nail growing through which she removes on her own usually and did so 2 days ago. That has not affected the pain or swelling any differently. There is no radiation of pain into the calf or into the thigh. There is no unusual shortness of breath other than related to her underlying conditions of congestive heart failure and smoking history. She reports no fever or chills. She does have history of atrial fibrillation and she is on Brilinta at this time. Related Data Home Medications Medication Instructions Recorded Confirmed albuterol sulfate 90 mcg/actuation 1 puff inhalation PRN PRN 12/03/19 05/12/22 aerosol inhaler (Ventolin HFA) Shortness Of Breath lidocaine 5 % topical patch 1 patch topical PRN PRN 12/03/19 05/12/22 Breakthrough Pain vitamin E 400 unit capsule 400 unit PO DAILY 12/03/19 05/12/22 duloxetine 60 mg capsule,delayed 60 mg PO DAILY 11/09/20 05/12/22 release insulin lispro 100 unit/mL 5 unit continuous subcutaneous 11/09/20 05/12/22 subcutaneous solution (Humalog infusion TIDWM U-100 Insulin) ticagrelor 90 mg tablet (Brilinta) 90 mg PO BID 11/09/20 05/12/22 metoprolol succinate 25 mg 25 mg PO DAILY 11/12/20 05/12/22 tablet,extended release 24 hr nitroglycerin 0.4 mg sublingual 0.4 mg sublingual Q15M PRN Chest 11/12/20 05/12/22 tablet Pain alprazolam 1 mg tablet 1 mg PO TID PRN Anxiety 04/10/22 05/12/22 Allergies Allergy/AdvReac Type Severity Reaction Status Date / Time adhesive tape Allergy Unknown Blister Verified 05/12/22 18:23 budesonide Allergy Unknown Anaphylactic Verified 05/12/22 18:23 Shock formoterol Allergy Unknown Anaphylactic Verified 05/12/22 18:23 Shock mometasone furoate Allergy Unknown Anaphylactic Verified 05/12/22 18:23 Shock diphenhydramine AdvReac Severe Other Verified 05/12/22 18:23 [From Benadryl] atorvastatin AdvReac Unknown Itching Verified 05/12/22 18:23 gemfibrozil AdvReac Unknown Gastrointestinal Verified 05/12/22 18:23 Upset morphine AdvReac Unknown Itching Verified 05/12/22 18:23 Review of Systems Review of Systems: All systems reviewed & are unremarkable except as noted in HPI and below PMFSH Past Medical History Medical History (Updated 05/12/22 @ 18:52 by Carola Johnson MD) Anxiety Anxiety state, unspecified Asthma CHF (congestive heart failure) Chronic fatigue Chronic pain syndrome Chronic sinusitis Cirrhosis COPD (chronic obstructive pulmonary disease) DDD (degenerative disc disease) Depression Diabetic neuropathy Exogenous obesity Fibromyalgia Fibromyalgia Hyperlipidemia Hypertension Insomnia Manic depression Migraine CELESTINA (obstructive sleep apnea) PTSD (post-traumatic stress disorder) Pure hypercholesterolemia Seasonal allergies Spinal arthritis Type 2 diabetes mellitus Type 2 diabetes mellitus with hyperglycemia UTI (urinary tract infection) Surgical History Surgical History (Updated 05/12/22 @ 18:41 by Carola Johnson MD) H/O hernia repair H/O laparoscopy H/O laparoscopy History of back surgery History of cholecystectomy History of hysterectomy History of hysterectomy Hx of cholecystectomy Stented coronary artery Family History Family History Mother Family history of gout Hypertension Family history of elevated blood lipids Family history of diabetes mellitus in first degree relative Fam
== END 2022-05-12 19:02 | disposition home or self-care (01) ==
PROVIDERS: Emergency Provider Emergency Medicine; PCP Nurse Practitioner Family
DX: L03.115 Cellulitis of right lower limb (principal)
CPT/HCPCS: 99283

== ENCOUNTER 2022-05-13 11:05 | Outpatient (CLI) | payer MEDICARE, MEDICAID, SELFPAY ==
--- NOTE | ~2022-05-13 | US_ITS ---
EXAMINATION: US venous doppler LE RT DATE: 05/13/2022 11:39 INDICATION: Right lower limb pain. TECHNIQUE: Grayscale ultrasound images without and with compression and Doppler ultrasound images of the right lower extremity veins were obtained. COMPARISON: None. FINDINGS: The visualized portions of right common femoral vein, profunda (deep) femoral vein, femoral vein, pop liteal vein, peroneal veins, posterior tibial veins, and greater saphenous vein outflow are patent. IMPRESSION: 1. No deep venous thrombosis. Reviewed, dictated and finalized at location B.
== END 2022-05-13 11:06 | disposition home or self-care (01) ==
LOC: CHSIMG 11:07
PROVIDERS: PCP Nurse Practitioner Family; Visit Provider Nurse Practitioner Family
DX: R60.0 Localized edema (principal)
CPT/HCPCS: 93971

== ENCOUNTER 2022-05-21 19:56 | Emergency (ER) | payer MEDICARE, MEDICAID, SELFPAY ==
[2022-05-21 20:03] VITALS: BP 126/86; PULSE 107; RESP 14; TEMP 36.6; O2SAT 96
--- NOTE | 2022-05-21 20:04 | ED.EXTPRO ---
HPI - Extremity Problem General Chief complaint: Extremity Problem,Nontraumatic Stated complaint: infectious cellulitis Time Seen by Provider: 05/21/22 20:05 Source: patient Mode of arrival: ambulatory Limitations: no limitations History of Present Illness HPI Narrative: patient states that she was seen here 9 days ago and started on cephalexin. She was followed up in the office and no change was made in her antibiotic. When she was seen here she had a Doppler scan of her right leg which showed no evidence of DVT. She went to see her college archivist today who felt she might need IV antibiotics. She is currently on cephalexin and has not finished it. It appears that she has failed on the cephalexin and just needs a change in her antibiotic. She feels that she needs to be admitted to the hospital even though she continues to walk on her right leg. MD Complaint: extremity pain and extremity swelling Onset (ago): week(s) (3) Pain Consistency: constant Location: right and lower extremity Quality: aching and dull Radiation: none Relieving factors: nothing Exacerbating factors: walking and palpation Associated symptoms: denies other symptoms Related Data Home Medications Medication Instructions Recorded Confirmed albuterol sulfate 90 mcg/actuation 1 puff inhalation PRN PRN 12/03/19 05/21/22 aerosol inhaler (Ventolin HFA) Shortness Of Breath lidocaine 5 % topical patch 1 patch topical PRN PRN 12/03/19 05/12/22 Breakthrough Pain vitamin E 400 unit capsule 400 unit PO DAILY 12/03/19 05/21/22 duloxetine 60 mg capsule,delayed 30 mg PO DAILY 11/09/20 05/21/22 release insulin lispro 100 unit/mL 5 unit continuous subcutaneous 11/09/20 05/12/22 subcutaneous solution (Humalog infusion TIDWM U-100 Insulin) ticagrelor 90 mg tablet (Brilinta) 90 mg PO BID 11/09/20 05/12/22 metoprolol succinate 25 mg 25 mg PO DAILY 11/12/20 05/21/22 tablet,extended release 24 hr nitroglycerin 0.4 mg sublingual 0.4 mg sublingual Q15M PRN Chest 11/12/20 05/21/22 tablet Pain alprazolam 1 mg tablet 1 mg PO TID PRN Anxiety 04/10/22 05/21/22 Allergies Allergy/AdvReac Type Severity Reaction Status Date / Time adhesive tape Allergy Unknown Blister Verified 05/21/22 20:44 budesonide Allergy Unknown Anaphylactic Unverified 05/21/22 20:44 Shock formoterol Allergy Unknown Anaphylactic Unverified 05/21/22 20:44 Shock mometasone furoate Allergy Unknown Anaphylactic Verified 05/21/22 20:44 Shock diphenhydramine AdvReac Severe Other Verified 05/21/22 20:44 [From Benadryl] atorvastatin AdvReac Unknown Itching Verified 05/21/22 20:44 gemfibrozil AdvReac Unknown Gastrointestinal Verified 05/21/22 20:44 Upset morphine AdvReac Unknown Itching Verified 05/21/22 20:44 Review of Systems Review of Systems: All systems reviewed & are unremarkable except as noted in HPI and below Constitutional: Constitutional: Denies chills and Denies fever(s) PMFSH Past Medical History Medical History Anxiety Anxiety state, unspecified Asthma CHF (congestive heart failure) Chronic fatigue Chronic pain syndrome Chronic sinusitis Cirrhosis COPD (chronic obstructive pulmonary disease) DDD (degenerative disc disease) Depression Diabetic neuropathy Exogenous obesity Fibromyalgia Fibromyalgia Hyperlipidemia Hypertension Insomnia Manic depression Migraine CELESTINA (obstructive sleep apnea) PTSD (post-traumatic stress disorder) Pure hypercholesterolemia Seasonal allergies Spinal arthritis Type 2 diabetes mellitus Type 2 diabetes mellitus with hyperglycemia UTI (urinary tract infection) Surgical History Surgical History H/O hernia repair H/O laparoscopy H/O laparoscopy History of back surgery History of cholecystectomy History of hysterectomy History of hysterectomy Hx of cholecystectomy Stented coronary artery Family History Family Hi
[2022-05-21 20:37] LABS: Basophils Absolute Auto 0.04 K/mm3 (0.00-0.10); Basophils Percent Auto 0.6 % (0.0-1.0); Eosinophils Absolute Auto 0.14 K/mm3 (0.02-0.50); Eosinophils Percent Auto 2.1 % (1.0-6.0); Hematocrit 39.3 % (35.0-49.0); Hemoglobin 12.8 g/dL (12.0-15.0); Immature Granulocyte Absolute 0.03 K/mm3 (0.00-0.00); Immature Granulocyte Percent A 0.5 % (0.0-0.0); Lymphocytes Absolute Auto 1.25 K/mm3 (1.10-4.50); Lymphocytes Percent Auto 18.9 % (18.0-42.0); Mean Corpuscular HGB Conc 32.6 g/dL (32.0-36.0); Mean Corpuscular Hemoglobin 31.2 pg (27.0-31.0); Mean Corpuscular Volume 95.9 fL (78.0-102.0); Mean Platelet Volume 10.8 fl (9.2-11.8); Monocytes Absolute Auto 0.59 K/mm3 (0.10-0.90); Monocytes Percent Auto 8.9 % (2.0-11.0); Neutrophils Absolute Auto 4.6 K/mm3 (1.7-7.2); Platelet Count Result 214 K/mm3 (150-420); Red Cell Distribution Width 13.9 % (11.6-14.4); White Blood Count 6.6 K/mm3 (4.8-10.8)
[2022-05-21] MEDS: traMADol HCL (*CRX) 50 MG TABLET 100 MG PO (20:39)
[2022-05-21 20:57] LABS: Lactic Acid Reflex 1.6 mmol/L (0.4-2.0)
[2022-05-21 21:01] LABS: Alanine Aminotransferase 43 U/L (14-59); Albumin Level 2.6 g/dL (3.4-5.0); Alkaline Phosphatase 485 U/L (46-116); Anion Gap 6 mmol/L (8-16); Aspartate Amino Transferase 51 U/L (15-37); Bilirubin,Total 0.6 mg/dL (0.00-1.00); Blood Urea Nitrogen 20 mg/dL (7-18); Carbon Dioxide 33 mmol/L (21-32); Chloride 98 mmol/L (98-108); Estimated Glomerular Filt Rate > 60; Glucose 99 mg/dL (70-99); Osmolality Calculated 286 mOsm/kg (285-295); Potassium 3.1 mmol/L (3.5-5.1); Sodium 137 mmol/L (136-145); Total Protein 8.8 g/dL (6.4-8.2)
[2022-05-21 21:02] LABS: CRP 2.4 mg/dL (0.0-0.9)
[2022-05-21] MEDS: CLINDAMYCIN HCL 150 MG CAP 300 MG PO (21:23)
[2022-05-21 21:55] VITALS: BP 110/71; PULSE 96; RESP 14; O2SAT 96
== END 2022-05-21 22:00 | disposition home or self-care (01) ==
PROVIDERS: Emergency Provider Emergency Medicine; PCP Nurse Practitioner Family
DX: L03.115 Cellulitis of right lower limb (principal); E87.6 Hypokalemia; I50.9 Heart failure, unspecified; J44.9 Chronic obstructive pulmonary disease, unspecified; E11.9 Type 2 diabetes mellitus without complications; F17.200 Nicotine dependence, unspecified, uncomplicated
CPT/HCPCS: 36415; 80053; 83605; 85025; 86140; 87040; 99283; A9270

== ENCOUNTER 2022-05-22 12:05 | Inpatient (IN) | payer MEDICARE, MEDICAID, SELFPAY ==
[2022-05-22] VITALS (20 sets, daily range): BP systolic 89–111; BP diastolic 54–84; PULSE 71–98; RESP 8–21; TEMP 35.8–36.6; O2SAT 93–100; BMI 27.3
--- NOTE | ~2022-05-22 | XR_ITS ---
XR chest 2V DATE: 05/22/2022 14:03 INDICATION: Unilateral weakness TECHNIQUE: AP and lateral views COMPARISON: 08/06/2021 PA and lateral chest 11/26/2022 view chest 11/12/2020 CT pulmonary scan FINDINGS: There is chronic right mild diaphragmatic elevation and mild right basilar infiltrate, atel ectasis or scarring, present on 08/06/2021 as well. Normal heart size. Aortic arch calcification. No hilar or mediastinal enlargement. Minimal blunting of the costophrenic angles, likely chronic. No definite pleural effusion. No pulmona ry vascular congestion or pneumothorax. Status post cholecystectomy. IMPRESSION: Chronic mild right diaphragmatic elevation and mild right basilar infiltrate, atelectasis or scarring Reviewed, dictated and finalized at location A. IMPRESSION: Chronic mild right diaphragmatic elevation and mild right basilar i nfiltrate, atelectasis or scarring
--- NOTE | ~2022-05-22 | MR_ITS ---
EXAMINATION: MR cervical spine wo con DATE: 05/24/2022 15:19 INDICATION: Left-sided weakness TECHNIQUE: Magnetic resonance imaging (MRI) of the cervical spine was performed without intravenous c ontrast. Sequences included sagittal T2-weighted FSE, sagittal T2-weighted FS FSE, sagittal T1-weight ed FSE, axial MERGE and axial T2-weighted FSE. COMPARISON: None FINDINGS: 2 mm retrolisthesis C5 on C6. Vertebral body heights are normal. Bone marrow signal intensity is no rmal. Moderate disc height loss at C5-C6 and mild disc height loss at C4-C5 and C6-C7. Annular fissur es at each of these levels. Cord signal intensity is normal. There is increased T2-weighted signal in tensity in the crissy. The following disc levels are specifically discussed: C2-C3: The disc does not extend beyond the endplate margin. There is no uncovertebral joint osteoarth ritis. There is old right and moderate left facet joint osteoarthritis. There is no neural foraminal stenosis. There is no central canal stenosis. C3-C4: The disc does not extend beyond the endplate margin. There is no uncovertebral joint osteoarth ritis. There is mild bilateral facet joint osteoarthritis. There is no neural foraminal stenosis. The re is no central canal stenosis. C4-C5: Disc is bulging. There is mild bilateral uncovertebral joint osteoarthritis. There is mild to moderate bilateral facet joint osteoarthritis. There is mild bilateral neural foraminal stenosis. The re is mild central canal stenosis. C5-C6: Disc is bulging with central disc extrusion which extends a few millimeters cephalad and cauda l to the level of the endplates and which indents the central ventral surface of the cord. There is m oderate right and severe left uncovertebral joint osteoarthritis. There is moderate bilateral facet j oint osteoarthritis. There is mild right and moderate left neural foraminal stenosis. There is mild t o moderate central canal stenosis with central canal measuring 8-9 mm AP in the mid sagittal plane. C6-C7: Disc is bulging. There is severe bilateral uncovertebral joint osteoarthritis. There is mild l eft and mild to moderate right facet joint osteoarthritis. There is mild to moderate bilateral neural foraminal stenosis. There is mild central canal stenosis. C7-T1: Annular fissure and small central disc extrusion with disc material extending a few millimeter caudal to the level of the superior endplate of C7. There is mild bilateral uncovertebral joint oste oarthritis. There is mild right and severe left facet joint osteoarthritis. There is mild left neural foraminal stenosis. There is no central canal stenosis. IMPRESSION: 1. Moderate cervical spondylosis. 2. Central T2 hyperintensity at the crissy which could be related to chronic small vessel ischemic dise ase and/or osmotic demyelination. Reviewed, dictated and finalized at location A. IMPRESSION: 1. Moderate cervical spondylosis. 2. Central T2 hyperintensity at the crissy which could be related to chronic smal l vessel ischemic disease and/or osmotic demyelination.
--- NOTE | ~2022-05-22 | CT_ITS ---
EXAMINATION: CT diagnostic chest wo con DATE: 05/23/2022 09:32 INDICATION: RUL nodule TECHNIQUE: Computed tomography (CT) of the chest was performed without intravenous contrast. Addition al 3D reconstructions utilizing coronal maximum intensity projection (MIP) were performed. Automated exposure control and iterative reconstruction technique were employed. The dose-length product was 23 5.14 mGy-cm. COMPARISON: 11/12/2020 FINDINGS: New 14 x 7 mm nodule with spiculated margins in the right upper lobe. Stable appearance of chronic at electasis/scarring with bronchiectatic changes in the lingula. No atelectasis/scarring with additiona l bronchiectatic changes at the basilar right middle and right lower lobes. Also new are tree-in-bud opacities in the more posterior basilar right lower lobe consistent with pneumonia. No pulmonary abdelrahman a or pleural effusion. Heart size is normal. Atherosclerotic coronary artery calcific location. No pe ricardial effusion. Thoracic aorta is normal in caliber. No pathologically enlarged thoracic lymphade nopathy. Nodular cirrhotic liver with small amount of perihepatic ascites. Cholecystectomy clips the gallbladder fossa. Mild thoracic and moderate lower cervical spondylosis. IMPRESSION: 1. Indeterminate 14 x 7 mm right upper lobe nodule suspicious for primary bronchogenic carcinoma. Con facilities maintenance assistant percutaneous CT-guided biopsy. 2. New tree-in-bud opacities in the posterior basilar segment of the right lower lobe consistent with pneumonia. 3. Unchanged chronic pleural parenchymal scarring the lingula and new regions of atelectasis/scarring with bronchiectatic change likely sequela of chronic infection at the basilar right middle and lower lobes. 4. Cirrhosis with small amount of perihepatic ascites. Reviewed, dictated and finalized at location B. IMPRESSION: 1. Indeterminate 14 x 7 mm right upper lobe nodule suspicious for primary bronc hogenic carcinoma. Consider percutaneous CT-guided biopsy. 2. New tree-in-bud opacities in the posterior basilar segment of the right lowe r lobe consistent with pneumonia. 3. Unchanged chronic pleural parenchymal scarring the lingula and new regions o f atelectasis/scarring with bronchiectatic change likely sequela of chronic inf ection at the basilar right middle and lower lobes. 4. Cirrhosis with small amount of perihepatic ascites.
--- NOTE | ~2022-05-22 | CT_ITS ---
EXAMINATION: CT brain wo con DATE: 05/22/2022 13:37 INDICATION: Left hemiparesis. TECHNIQUE: Computed tomography (CT) of the head was performed without intravenous contrast. The mA wa s adjusted according to patient size. Iterative reconstruction technique was employed. The dose-lengt h product was 605.33 mGy-cm. COMPARISON: Head CT 07/14/2021 FINDINGS: There is no intracranial hemorrhage, acute infarction, or abnormal intracranial mass lesion . The ventricles are normal in size. There is mucosal thickening in the paranasal sinuses. There is t hickening and sclerosis of the chung of the sinuses, consistent with chronic sinusitis. The mastoid a ir cells are normal. There are likely changes of left ocular lens replacement surgery. IMPRESSION: 1. Normal brain. I called this result to Jose Granger. 2. Chronic sinusitis. Reviewed, dictated and finalized at location A.
--- NOTE | ~2022-05-22 | CT_ITS ---
EXAMINATION: CTA brain carotid DATE: 05/22/2022 14:02 INDICATION: Left hemiparesis. TECHNIQUE: Computed tomographic angiography (CTA) of the head was performed with 100 mL Omnipaque 300 intravenous contrast. CTA of the neck was performed with intravenous contrast. Automated exposure co ntrol and iterative reconstruction technique were employed. The dose-length product was 904.04 mGy-cm . Maximum intensity projection and volume rendered 3D-reconstructions were created by the [facility] t on a separate workstation. COMPARISON: Head CT 05/22/2022, chest CT 11/12/20 FINDINGS: HEAD CTA: There is no intracranial hemorrhage, acute infarction, or abnormal intracranial mass lesion . The ventricles are normal in size. There is mucosal thickening in the paranasal sinuses with thicke darwin and sclerosis of the sinus chung, consistent with chronic sinusitis. The mastoid air cells are n ormal. There are likely changes of left ocular lens replacement surgery. Left vertebral artery is dom inant. There is no significant stenosis of basilar artery or the posterior cerebral arteries. Left P1 posterior cerebral artery segment is small, a normal variant. The posterior communicating arteries a re normal. There is no significant stenosis of the intracranial internal carotid arteries or anterior or middle cerebral arteries. Anterior communicating artery is normal. There is no aneurysm. NECK CTA: Partially visualized is a 14 mm nodule in right upper lobe. There are no pathologically enl arged lymph nodes. There is no significant stenosis of the vertebral arteries. There is no visible pl aque in the proximal internal carotid arteries. There is 0% stenosis of the proximal right internal c arotid artery relative to normal distal artery lumen diameter (NASCET criteria). There is 0% stenosis of the proximal left internal carotid artery relative to normal distal artery lumen diameter. There is moderate cervical spondylosis. IMPRESSION: 1. Partially visualized 14 mm nodule in right lung upper lobe suspicious for primary bronchogenic car cinoma. Noncontrast chest CT is recommended. 2. Normal brain. No aneurysm or significant intracranial arterial stenosis. 3. 0% stenosis of the proximal internal carotid arteries relative to normal distal artery lumen diame ters (NASCET criteria). 4. Chronic sinusitis. Reviewed, dictated and finalized at location A. IMPRESSION: 1. Partially visualized 14 mm nodule in right lung upper lobe suspicious for pr imary bronchogenic carcinoma. Noncontrast chest CT is recommended. 2. Normal brain. No aneurysm or significant intracranial arterial stenosis. 3. 0% stenosis of the proximal internal carotid arteries relative to normal dis jazmine artery lumen diameters (NASCET criteria). 4. Chronic sinusitis.
--- NOTE | ~2022-05-22 | MR_ITS ---
EXAMINATION: MR chest wo con DATE: 05/24/2022 15:29 INDICATION: Left arm weakness and numbness TECHNIQUE: MRI of the left chest/brachial plexus was performed without intravenous contrast. Sequence s included large [id number] axial T1-weighted FSE and coronal fluid sensitive FSE STIR of the uppe r chest including the bilateral brachial plexus. Additional smaller field of view coronal T2-weighted FS FSE, coronal T1-weighted FSE, sagittal fluid sensitive FSE STIR and sagittal T1-weighted FSE of t he left brachial plexus were obtained. COMPARISON: None. FINDINGS: There is respiratory motion artifact limiting evaluation on the coronal and sagittal T2-weighted sequ ences. Minimal motion which does not significantly limit evaluation on the axial and sagittal T1-weig hted images. The left and right brachial plexus appear relatively symmetric on the larger field of vi ew axial T1-weighted images. No abnormal masses or other impinging lesions seen along the course of t he left brachial plexus. No pathologically enlarged cervical, supraclavicular, superior mediastinal o r axillary lymphadenopathy. Mild cervicothoracic levoscoliosis with mild to moderate spondylosis bone marrow signal is normal throughout. Mild osteoarthritis at the bilateral acromioclavicular and left glenohumeral joints. Left rotator cuff tear is suggested. IMPRESSION: 1. Unremarkable but somewhat motion limited assessment of the left brachial plexus appears symmetric with the right brachial plexus and which is without evident masses or other impinging lesions along i ts course. 2. Suggestion of a left rotator cuff tear. 3. Mild cervical thoracic levoscoliosis with mild to moderate spondylosis. Reviewed, dictated and finalized at location A. IMPRESSION: 1. Unremarkable but somewhat motion limited assessment of the left brachial ple xus appears symmetric with the right brachial plexus and which is without evide nt masses or other impinging lesions along its course. 2. Suggestion of a left rotator cuff tear. 3. Mild cervical thoracic levoscoliosis with mild to moderate spondylosis.
--- NOTE | ~2022-05-22 | MR_ITS ---
EXAMINATION: MR brain/brain stem wo/w con DATE: 05/23/2022 09:24 INDICATION: Left hemiparesis. Seizure. TECHNIQUE: Magnetic resonance imaging (MRI) of the brain and brainstem was performed without and with 13 mL MultiHance intravenous contrast. COMPARISON: Brain MRI 09/17/2013, and CT 05/22/2022 FINDINGS: There are areas of increased T2-weighted signal intensity in the crissy with sparing of the c orticospinal tracts. There is no intracranial hemorrhage, acute infarction, or abnormal intracranial mass lesion. The ventricles are normal in size. There are likely changes of left ocular lens replacem ent surgery. There is mucosal thickening in the paranasal sinuses. The mastoid air cells are normal. IMPRESSION: 1. Mild pontine disease, which may be chronic small vessel ischemic disease and/or osmotic demyelinat ion. 2. Chronic sinusitis. Reviewed, dictated and finalized at location A. IMPRESSION: 1. Mild pontine disease, which may be chronic small vessel ischemic disease and /or osmotic demyelination. 2. Chronic sinusitis.
--- NOTE | 2022-05-22 13:27 | ECG_ITS ---
Measurements Intervals [place] Rate: 83 P: 48 SD: 179 QRS: -37 QRSD: 113 T: 59 QT: 409 QTc: 481 Interpretive Statements SINUS RHYTHM MARKED LEFT AXIS DEVIATION [QRS AXIS < -30] MODERATE INTRAVENTRICULAR CONDUCTION DELAY [110+ ms QRS DURATION] COMPARED TO ECG 11/21/2020 23:39:02 HEART RATE IS REDUCED, NO OTHER SIGNIFICANT CHANGE Electronically Signed On 05-23-2022 16:30:49 CDT by Jose M Lacey M.D.
--- NOTE | 2022-05-22 13:32 | PC.NURSE ---
Patient taken to CT
[2022-05-22 13:34] LABS: Glucose Point of Care 229 mg/dl (65-105)
--- NOTE | 2022-05-22 13:34 | ED.GENADULT ---
HPI - General Adult General Chief complaint: Wound/Laceration Stated complaint: cellulitis Time Seen by Provider: 05/22/22 13:15 History of Present Illness HPI narrative: 57-year-old female presents the emergency room with multiple complaints. Patient states that she has developed redness, swelling pain, and open wound to her right lower extremity. Patient states that she was seen at an outside facility yesterday, and was diagnosed with cellulitis. Patient was sent home with clindamycin, and has yet to begin taking it. Patient states the pain, swelling, and erythema have worsened since being evaluated yesterday. Patient also states that she woke up this morning at an unknown time, to check her blood sugar. Patient states at that time she had a syncopal episode fell and struck her head. Patient states that about 830 this morning. Father found her lying on the floor, and she was unable to move her left arm or left leg. Patient is currently alert and oriented x4 Related Data Home Medications Medication Instructions Recorded Confirmed albuterol sulfate 90 mcg/actuation 1 puff inhalation PRN PRN 12/03/19 05/21/22 aerosol inhaler (Ventolin HFA) Shortness Of Breath lidocaine 5 % topical patch 1 patch topical PRN PRN 12/03/19 05/12/22 Breakthrough Pain vitamin E 400 unit capsule 400 unit PO DAILY 12/03/19 05/21/22 duloxetine 60 mg capsule,delayed 30 mg PO DAILY 11/09/20 05/21/22 release insulin lispro 100 unit/mL 5 unit continuous subcutaneous 11/09/20 05/12/22 subcutaneous solution (Humalog infusion TIDWM U-100 Insulin) ticagrelor 90 mg tablet (Brilinta) 90 mg PO BID 11/09/20 05/12/22 metoprolol succinate 25 mg 25 mg PO DAILY 11/12/20 05/21/22 tablet,extended release 24 hr nitroglycerin 0.4 mg sublingual 0.4 mg sublingual Q15M PRN Chest 11/12/20 05/21/22 tablet Pain alprazolam 1 mg tablet 1 mg PO TID PRN Anxiety 04/10/22 05/21/22 Allergies Allergy/AdvReac Type Severity Reaction Status Date / Time adhesive tape Allergy Unknown Blister Verified 05/22/22 15:51 atorvastatin Allergy Unknown Itching Verified 05/22/22 15:51 budesonide Allergy Unknown Anaphylactic Verified 05/22/22 15:51 Shock formoterol Allergy Unknown Anaphylactic Verified 05/22/22 15:51 Shock mometasone furoate Allergy Unknown Anaphylactic Verified 05/22/22 15:51 Shock morphine Allergy Unknown Itching Verified 05/22/22 15:51 diphenhydramine AdvReac Severe Other Verified 05/22/22 15:51 [From Benadryl] gemfibrozil AdvReac Unknown Gastrointestinal Verified 05/22/22 15:51 Upset Review of Systems Review of Systems: CONSTITUTIONAL: Denies fever, chills, or sweats. EYES: Denies visual changes, redness, or discharge. ENT: Denies rhinorrhea, congestion, sore throat, or otalgia. CARDIOVASCULAR: Denies chest pain, palpitations, or edema. RESPIRATORY: Denies cough or dyspnea. GASTROINTESTINAL: Denies abdominal pain, nausea, vomiting, or diarrhea. GENITOURINARY: Denies dysuria or hematuria. SKIN: Reports redness, swelling painful ulcer to right lower extremity MUSCULOSKELETAL: Denies back pain, joint pain, or myalgia. NEUROLOGIC: Reports left-sided weakness PSYCHIATRIC: Denies anxiety or depression. [facility] Past Medical History Medical History Anxiety Anxiety state, unspecified Asthma CHF (congestive heart failure) Chronic fatigue Chronic pain syndrome Chronic sinusitis Cirrhosis COPD (chronic obstructive pulmonary disease) DDD (degenerative disc disease) Depression Diabetic neuropathy Exogenous obesity Fibromyalgia Fibromyalgia Hyperlipidemia Hypertension Insomnia Manic depression Migraine CELESTINA (obstructive sleep apnea) PTSD (post-traumatic stress disorder) Pure hypercholesterolemia Seasonal allergies Spinal arthritis Type 2 diabetes mellitus Type 2 diabetes mellitus with hyperglycemia UTI (urinary tract infection) Surgical History Surgical History (Reviewed 05/22
[2022-05-22 14:23] LABS: Basophils Percent Auto 0.5 % (0.2-1.2); Eosinophils Absolute Auto 0.1 K/mm3 (0-0.3); Eosinophils Percent Auto 0.9 % (0-4.4); Hematocrit 33.2 % (37.0-47.0); Hemoglobin 10.5 g/dL (12.0-15.0); Immature Granulocyte Absolute 0.01 K/mm3 (0.00-0.031); Immature Granulocyte Percent A 0.2 % (0-0.5); Lymphocytes Absolute Auto 0.78 K/mm3 (0.9-3.2); Lymphocytes Percent Auto 13.3 % (18.3-44.2); Mean Corpuscular HGB Conc 31.6 g/dl (32-36); Mean Corpuscular Hemoglobin 30.8 pg (26-34); Mean Corpuscular Volume 97.4 fl (80-100); Mean Platelet Volume 10.7 fl (7.4-10.4); Monocytes Absolute Auto 0.6 K/mm3 (0.1-0.6); Monocytes Percent Auto 9.7 % (2.6-8.5); Neutrophils Absolute Auto 4.4 K/mm3 (1.3-6.7); Neutrophils Percent Auto 75.4 % (45.5-73.1); Platelet Count Result 161 k/mm3 (150-375); Red Blood Count 3.41 M/mm3 (4.2-5.4); Red Cell Distribution Width 14.1 % (11.5-14.5); White Blood Count 5.9 K/mm3 (4.5-10.0)
[2022-05-22 14:32] LABS: Lactic Acid Reflex 1.8 mmol/L (0.7-2.0)
[2022-05-22 14:33] LABS: INR 1.1; Prothrombin Time 13.7 Seconds (11.1-14.7)
[2022-05-22 14:34] LABS: Partial Thromboplastin Time 30.7 SECONDS (22.3-36.8)
[2022-05-22 14:35] LABS: Alanine Aminotransferase 28 U/L (6-35); Albumin Level 2.8 g/dL (3.5-5.1); Alkaline Phosphatase 341 U/L (38-126); Anion Gap 2 mmol/L (8-16); Aspartate Amino Transferase 45 U/L (14-36); Bilirubin,Total 0.6 mg/dL (0.2-1.3); Blood Urea Nitrogen 22 mg/dL (7-17); Calcium 7.9 mg/dL (8.4-10.2); Carbon Dioxide 35 mmol/L (22-30); Chloride 98 mmol/L (98-107); Estimated CRCL calculation 55 ml/min; Estimated Glomerular Filt Rate > 60; Glucose 223 mg/dL (65-110); Potassium 3.4 mmol/L (3.4-5.0); Sodium 135 mmol/L (137-145)
[2022-05-22 15:23] LABS: Add Urine Microscopic? YES; Appearance Urine Clear (Clear); Bilirubin Urine Negative (Negative); Blood Urine Negative (Negative); Color Urine Yellow (Yellow); Glucose Urine UA Negative (Negative); Ketones Urine Negative (Negative); Leukocyte Esterase Ur Negative LEU/UL (Negative); Nitrate Urine Negative (Negative); Protein Urine 1+ mg/dL (Negative)
[2022-05-22 15:35] LABS: RBC Urine 0-2 /hpf (0-2); WBC Urine 0-3 /hpf
[2022-05-22] MEDS: ASPIRIN 81 MG CHEWABLE TABLET 324 MG PO (15:51)
[2022-05-22] MEDS: SODIUM CHLORIDE 0.9% IV 1,000 ML 125 ML IV CONT (15:52)
--- NOTE | 2022-05-22 16:01 | PC.NURSE ---
Pt states has not taken her meds today. Note Brilinta was cancelled per pharmacy. Attempt to call pharmacy unanswered.
--- NOTE | 2022-05-22 17:36 | PC.NURSE ---
EMERGENCY ROOM PHYSICIAN Shady aware patient takes Brillinta at home. Patient also states she did not take her Brillinta today. Per Shady, okay to give Plavix.
[2022-05-22] MEDS: CLOPIDOGREL BISULFATE 75 MG TABLET PO (17:38)
--- NOTE | 2022-05-22 18:30 | PM.IMHP ---
H&P: HPI History of Present Illness Date/Time: 05/22/22 18:30 Chief Complaint: Right leg cellulitis and left-sided weakness. Narrative: This is a 57-year-old female smoker with multiple medical problems including insulin-dependent diabetes, hyperlipidemia, fibromyalgia, cirrhosis, anxiety, depression, COPD, coronary artery disease, and congestive heart failure who presented to the ED for evaluation of right leg cellulitis and left-sided weakness. She reports redness and swelling of her right lower leg for the last several weeks for which she was seen by her primary care provider at which time she was diagnosed with cellulitis and started on Keflex. Yesterday she went to the ER at the [facility] as she thought she needed to be admitted for IV antibiotics however her workup was reassuring and she was discharged home on clindamycin. She felt okay when she went home however several hours later she felt as though her glucose was dropping so she went to the kitchen to get something to eat. The last thing she remembers is sitting down in the chair. At about 08:30 her father found her lying on her left side in the kitchen on the floor at which time she reportedly was unable to move her arm and leg. She does not remember feeling lightheaded or dizzy and she does not think she passed out, more over she believes that she had a seizure and she thinks that she has had 4 seizures in the last 2 weeks though none have been witnessed and she has no history of seizure disorder. When asked to elaborate, she remembers ?shaking all over and then going out.? This apparently did not happen last night, however. In any event, on arrival to the emergency department her brain CT was normal aside from findings of chronic sinusitis. Given the patient's concerns, I was asked to admit her for further observation and workup. At the time my evaluation she has no acute complaints and denies fever, chills, sweats, headache, auditory and visual changes, facial droop, dysarthria, dysphagia, chest pain, shortness of breath, nausea, vomiting, diarrhea, and dysuria. Review of Systems Review of Systems: Twelve systems were reviewed. She has had some mild lightheadedness/dizziness over the past several weeks. Weight has remained stable. No cold or flu symptoms. No cough. No sick contacts. She has chronic urinary incontinence which is unchanged. No bowel incontinence. She denies tongue bite with the reported seizure activity, however she does not have any teeth. Glucose tends to very with recent episodes of hypoglycemia and hyperglycemia. No blurry vision, polydipsia, or polyuria. She has mild neuropathy, mainly in her toes. Except as documented, all other systems were reviewed and are negative. [facility] Past Medical History Medical History (Updated 05/23/22 @ 00:00 by Pastora Hill PA-C) Anxiety Asthma Chronic anemia Chronic fatigue Chronic obstructive pulmonary disease Chronic pain syndrome Chronic sinusitis Cirrhosis Congestive heart failure Degenerative disc disease Depression Diabetic neuropathy Exogenous obesity Fibromyalgia Hyperlipidemia Hypertension Insomnia Manic depression Migraine Obstructive sleep apnea Posttraumatic stress disorder Pure hypercholesterolemia Seasonal allergies Spinal arthritis Tobacco abuse Type 2 diabetes mellitus Surgical History Surgical History (Updated 05/22/22 @ 23:49 by Pastora Hill PA-C) History of back surgery History of cholecystectomy History of cholecystectomy History of hernia repair History of hysterectomy History of laparoscopy History of left salpingo-oophorectomy History of sinus surgery Stented coronary artery Family History Family History Mother Family history of gout Hypertension Family history of elevated blood lipids Family history of diabetes mellitus in first degree relative Family history of chronic obstructive pulmonary di
--- NOTE | 2022-05-22 19:58 | ADMGEN ---
This patient, Britney Crawford, was admitted to 2 Medical Room 253-01. Patient/family oriented to hospital policies and general routines including ID bracelet, bed and alarms, visiting hours, pain management, procedures, bathroom and other care routines, personal items, smoking policy, room service/diet, and visiting hours. Information on how to activate the Rapid Response Team has been discussed. Patient/Family are encouraged to report perceived risks to care and to ask questions if they do not understand what they are told or what they should do.
--- NOTE | 2022-05-22 20:05 | PC.NURSE ---
PT IS DROWSY FALLING IN AND OUT OF SLEEP MAKING IT DIFFICULT TO DO ADMISSION. UPON ARRIVAL TO THE FLOOR PT WAS TALKATIVE BUT WHEN I STARTED ASKING THE ADMISSION QUESTIONS SHE STARTED TO FALL ASLEEP, MUMBLE, AND ACT LIKE SHE DID NOT HEAR ME ASKING HER QUESTIONS.
--- NOTE | 2022-05-22 22:24 | PC.NURSE ---
WHILE IN THE HALLWAY I OVERHEARD PT HAVING PHONE CONVERSATION WITH FAMILY. SHE WAS ALERT AND ORIENTED WHEREAS PREVIOUSLY WHEN I WAS ASKING THE ADMISSION QUESTIONS SHE WAS ACTING LIKE SHE DID NOT UNDERSTAND ME AND COULD NOT RESPOND.
--- NOTE | 2022-05-22 22:27 | PC.NURSE ---
PT HAS MULTIPLE MEDICATIONS WITH HER HOME MEDS IN MED ROOM IN PT BELONGINGS BAG WITH STICKER ATTACHED
[2022-05-22 23:10] LABS: Glucose Point of Care 197 mg/dl (65-105)
[2022-05-23] VITALS (22 sets, daily range): BP systolic 97–136; BP diastolic 44–100; PULSE 63–99; RESP 17–20; TEMP 36–36.6; O2SAT 91–99; BMI 28.7
--- NOTE | 2022-05-23 00:01 | ECHO_ITS ---
Patient Info Name: Britney Crawford Age: 57 years : 1965 Gender: Female Ht: 62 in Wt: 149 lbs BSA: 1.74 m2 HR: 77 bpm BP: 103 / 54 mmHg Heart Rhythm: Sinus Rhythm Technical Quality: Fair Exam Date: 05/23/2022 11:37 AM [facility]am [facility] Room: 253 Patient Status: Inpatient Admit Date: 05/23/2022 Staff Ordering Physician: Pastora Hill PA-C Coin Collector: Shauna Cooper RDCS Attending Provider: Nathaly Davis MD Referring Physician: Liz ARMENTA; Exam Type: CA echo doppler w bubble study Study Info Indications - TIA Complete two-dimensional, color flow and Doppler transthoracic echocardiogram is performed with agitated saline. Contrast/Agitated Saline Contrast/Ag. Saline: Agitated Saline Amount: 20.00 ml Administered By: Radha Robertson RDCS Existing IV Access: Yes IV Access Condition: patent with no signs of infiltration Summary 1. There is mild concentric increased left ventricular wall thickness. 2. Normal left ventricular systolic function. 3. Previously seen apical wall motion abnormalities have resolved. 4. There is mild aortic valve sclerosis. Left Ventricle Left ventricular chamber dimension is normal. There is mild concentric increased left ventricular wall thickness. The left ventricular diastolic function is grade I diastolic dysfunction. Normal left ventricular systolic function. Previously seen apical wall motion abnormalities have resolved. Right Ventricle Right ventricular chamber dimension is normal. Left Atria Left atrial chamber dimension is mildly enlarged. Right Atria Right atrial chamber dimension is normal. Aortic Valve The aortic valve is trileaflet. There is mild aortic valve sclerosis. Pulmonic Valve The pulmonic valve is not well visualized. Mitral Valve The mitral valve has normal leaflets. Tricuspid Valve The tricuspid valve leaflets are normal. Pericardium/Pleural The pericardium appears normal. Aorta The aortic root size at the sinus of Valsalva is normal. Left Ventricular Outflow Tract Name Value Normal LVOT 2D LVOT Diameter 2.0 cm LVOT Doppler LVOT Peak Gradient 6 mmHg LVOT Mean Gradient 4 mmHg LVOT VTI 24 cm LVOT VTI/AV VTI Ratio 1.0 LVOT Stroke Volume 75 ml LVOT CO 16.9 l/min LVOT CI 9.7 l/min/m2 Pulmonic Valve Name Value Normal PV Doppler PV Peak Gradient 4 mmHg Mitral Valve Name Value Normal
--- NOTE | 2022-05-23 01:10 | PCRCNOTE ---
pt refused use of hospital cpap/bipap unit at this time due to congestion/coughing
[2022-05-23] MEDS: SODIUM CHLORIDE 0.9% IV 1,000 ML 125 ML IV CONT (01:13)
[2022-05-23 05:07] LABS: Basophils Percent Auto 0.7 % (0.2-1.2); Eosinophils Absolute Auto 0.2 K/mm3 (0-0.3); Eosinophils Percent Auto 3.1 % (0-4.4); Hematocrit 34.4 % (37.0-47.0); Hemoglobin 10.9 g/dL (12.0-15.0); Immature Granulocyte Absolute 0.02 K/mm3 (0.00-0.031); Immature Granulocyte Percent A 0.4 % (0-0.5); Lymphocytes Absolute Auto 0.94 K/mm3 (0.9-3.2); Lymphocytes Percent Auto 17.2 % (18.3-44.2); Mean Corpuscular HGB Conc 31.7 g/dl (32-36); Mean Corpuscular Hemoglobin 30.9 pg (26-34); Mean Corpuscular Volume 97.5 fl (80-100); Mean Platelet Volume 10.6 fl (7.4-10.4); Monocytes Absolute Auto 0.5 K/mm3 (0.1-0.6); Monocytes Percent Auto 8.4 % (2.6-8.5); Neutrophils Absolute Auto 3.8 K/mm3 (1.3-6.7); Neutrophils Percent Auto 70.2 % (45.5-73.1); Platelet Count Result 161 k/mm3 (150-375); Red Blood Count 3.53 M/mm3 (4.2-5.4); Red Cell Distribution Width 14.4 % (11.5-14.5); White Blood Count 5.5 K/mm3 (4.5-10.0)
[2022-05-23 05:21] LABS: Alanine Aminotransferase 26 U/L (6-35); Albumin Level 2.9 g/dL (3.5-5.1); Alkaline Phosphatase 298 U/L (38-126); Anion Gap 4 mmol/L (8-16); Aspartate Amino Transferase 45 U/L (14-36); Bilirubin,Total 0.7 mg/dL (0.2-1.3); Blood Urea Nitrogen 17 mg/dL (7-17); Calcium 7.5 mg/dL (8.4-10.2); Carbon Dioxide 29 mmol/L (22-30); Chloride 107 mmol/L (98-107); Estimated CRCL calculation 72 ml/min; Estimated Glomerular Filt Rate > 60; Glucose 68 mg/dL (65-110); Magnesium 1.6 mg/dL (1.6-2.3); Potassium 3.3 mmol/L (3.4-5.0); Sodium 140 mmol/L (137-145)
[2022-05-23 05:51] LABS: Hemoglobin A1C 8.4 % (<5.7)
[2022-05-23 05:52] LABS: Thyroid Stimulating Hormone Reflex 0.805 uIU/mL (0.465-4.68)
[2022-05-23 07:42] LABS: Glucose Point of Care 86 mg/dl (65-105)
[2022-05-23] MEDS: MAGNESIUM SULF 4 GM/WATER100ML 4 GM/100 ML BAG IVPB (07:57)
[2022-05-23] MEDS: FLUTICASONE/UMECLIDIN/VILANTER 100-62.5-25 MCG ELLIPTA 1 PUFF INHALATION (08:11)
--- NOTE | 2022-05-23 08:32 | PCOTNOTE ---
Attempted to see pt. for evaluation. Pt. being taken from room for testing
--- NOTE | 2022-05-23 09:41 | PC.NURSE ---
pt returned from MRI, assisted to bed
[2022-05-23] MEDS: ALPRAZolam (*CRX) 0.5 MG TABLET 1 MG PO ×3 (09:57→20:26)
[2022-05-23] MEDS: traMADol HCL (*CRX) 50 MG TABLET PO ×2 (09:57→20:26)
--- NOTE | 2022-05-23 10:07 | PC.NURSE ---
pt getting EEG at bedside, will administer a.m meds when testing is completed
--- NOTE | 2022-05-23 10:29 | PC.NURSE ---
home meds sent to pharmacy for varification
--- NOTE | 2022-05-23 10:42 | PHAR ---
THE FOLLOWING HOME MEDS HAVE BEEN VERIFIED BY PHARMACY: UBRELVY (UBROGEPANT) 100 MG TABS TRINTELLIX (VORTIOXETINE) 10 MG TABS
--- NOTE | 2022-05-23 10:53 | PCPTNOTE ---
Attempted PT eval, patient would not open eyes or converse with therapist long enought ot safely participate in therapy. Patient also has bedrest orders since 05/22/22. RN aware. Will Follow.
[2022-05-23] MEDS: INSULIN GLARGINE (*BKC) 100 UNITS/ML 40 UNITS SUB-Q ×2 (11:02→20:36)
[2022-05-23] MEDS: PREGABALIN (*CRX) 75 MG CAPSULE PO ×2 (11:09→17:19)
[2022-05-23] MEDS: DULoxetine HCL 30 MG CAPSULE.DR PO (11:09)
[2022-05-23] MEDS: FUROSEMIDE 20 MG TABLET PO (11:09)
[2022-05-23] MEDS: METOPROLOL SUCCINATE EXT REL 25 MG TABCR PO (11:10)
[2022-05-23] MEDS: FLUTICASONE PROPIONATE 0.05% NA SPR 16 GM BTL (*BKC) 1 SPRAY NASAL (11:10)
[2022-05-23] MEDS: TICAGRELOR 90 MG TABLET PO ×2 (11:10→17:20)
[2022-05-23] MEDS: ACIDOPHILUS/BULGARICUS CHEWABLE TABLET 1 TABLET PO (11:10)
[2022-05-23] MEDS: COLCHICINE 0.6 MG TABLET PO ×2 (11:10→17:20)
[2022-05-23] MEDS: NYSTATIN 100,000 UNITS/ML SUSP 5 ML ORAL.SUSP 4 ML PO (11:12)
[2022-05-23] MEDS: VITAMIN E 400 UNIT CAPSULE 800 UNIT PO (11:13)
[2022-05-23] MEDS: POTASSIUM CHLORIDE 10 MEQ TABLET.ER PO (11:17)
--- NOTE | 2022-05-23 11:28 | WPDNEUROLOGY ---
Neurology EEG Report General Information Date of Study: 05/23/22 TEST eeg DIAGNOSIS possible seizure CONDITION OF RECORDING drowsy and sleep EEG NUMBER [id number] CLINICAL HISTORY Patient reports he loss consciousness yesterday and keeps having episodes of confusion. EEG DESCRIPTION Basic resting occipital frequency consists of low to medium voltage 8 to 9 hertz per 2nd alpha posteriorly admixed with low-voltage 15 to 18 hertz per 2nd beta. Bilateral symmetrical sleep activity seen during sleep. Intermittent bihemispheric 5 to 6 hertz per 2nd theta activity seen during wakefulness. Non paroxysmal. Nonfocal. Nonlateralizing. IMPRESSION Abnormal record due to the presence of bihemispheric excessive amount of theta activity during wakefulness suggestive of postictal state or else neuro degenerative process clinical correlation recommended
[2022-05-23 11:56] LABS: Glucose Point of Care 99 mg/dl (65-105)
[2022-05-23] MEDS: LIDOCAINE 5% PATCH 1 PATCH TOPICAL (12:26)
--- NOTE | 2022-05-23 12:54 | WPDNEURCNPN ---
Assessment and Plan Assessment and plan (1) Right upper lobe pulmonary nodule: Code(s): R91.1 - Solitary pulmonary nodule Status: Acute (2) Left-sided weakness: Code(s): R53.1 - Weakness Status: Acute (3) TIA (transient ischemic attack): Code(s): G45.9 - Transient cerebral ischemic attack, unspecified Status: Acute Plan 1 question TIA 2 diabetes mellitus with neuropathy 3 cellulitis of the right lower extremity Consult date: 05/23/22 Time Seen: 10:00 Reason for consult: found unresponsive HPI: Britney Crawford is a 57 year old female admitted to [facility] through the emergency room where she was brought with multiple complaints specifically swelling and redness and open wound to her right lower extremity. Patient was initially seen at an outside facility yesterday and was diagnosed with cellulitis and was sent home with clindamycin and has yet to begin taking it but the pain swelling and erythema were sensed and she woke up in the morning at an unknown time to check her blood sugar and head and syncopal episode is struck her head and at about 830 this morning father found her lying on the floor unable to move her left upper extremity and left lower extremity. Patient has been on duloxetine 60 mg capsule delayed release Brien 30 mg daily in addition to insulin, metoprolol 25 mg daily, alprazolam 1 mg 3 times a day, and ticagrelor 90 mg twice a day. She is allergic to multiple medications as outlined and a past history consistent with back surgery, coronary artery stenting, type 2 diabetes mellitus, cirrhosis of the liver, fibromyalgia with chronic pain depression and also diabetic neuropathy, initial evaluation in the emergency room documented the blood sugar of 223 elevation of alkaline phosphatases negative CT scan of the brain 14mm nodule in the right upper lung suspicious for the bronchogenic carcinoma discovered on head neck CTA but MRI of the brain today revealed only mild pontine disease chronic in nature no evidence of major territorial stroke also EEG done today revealed bihemispheric excessive amount of theta activity raising the possibility of postictal state or neuro degenerative process Review of Systems Review of Systems: All systems reviewed & are unremarkable except as noted in HPI and below PMFSH Past Medical History Medical History (Updated 05/23/22 @ 13:06 by Rodriguez Johnson MD) Anxiety Asthma Chronic anemia Chronic fatigue Chronic obstructive pulmonary disease Chronic pain syndrome Chronic sinusitis Cirrhosis Congestive heart failure Degenerative disc disease Depression Diabetic neuropathy Exogenous obesity Fibromyalgia Hyperlipidemia Hypertension Insomnia Manic depression Migraine Obstructive sleep apnea Posttraumatic stress disorder Pure hypercholesterolemia Seasonal allergies Spinal arthritis Tobacco abuse Type 2 diabetes mellitus Surgical History Surgical History (Updated 05/22/22 @ 23:49 by Pastora Hill PA-C) History of back surgery History of cholecystectomy History of cholecystectomy History of hernia repair History of hysterectomy History of laparoscopy History of left salpingo-oophorectomy History of sinus surgery Stented coronary artery Family History Family History Mother Family history of gout Hypertension Family history of elevated blood lipids Family history of diabetes mellitus in first degree relative Family history of chronic obstructive pulmonary disease Sibling Family history of gout Family history of allergic disorder Father Family history of emphysema Other Family history of cardiovascular disease Social History Social History (Updated 05/22/22 @ 23:50 by Pastora Hill PA-C) Social History: Surrogate decision maker: hyun Liu. Code status: Full code. Smoking packs per day: 0.5 Smoking cigarettes per day:
--- NOTE | 2022-05-23 14:15 | PM.IMPN ---
Progress Note: A&P Assessment and Plan (1) TIA (transient ischemic attack): Code(s): G45.9 - Transient cerebral ischemic attack, unspecified Status: Acute Assessment and Plan: Reports unilateral paralysis Looks to be resolved ABCD2 4 puts her at a moderate risk MRI No acute stroke Head CT shows no acute intracranial findings Neck CTA shows 0% stenosis Echo pending Continue Brilinta and add aspirin due to risk factors Telemetry PT/OT (2) Pneumonia: Code(s): J18.9 - Pneumonia, unspecified organism Status: Acute Assessment and Plan: Found on the chest x-ray Will start her on Augmentin for 5 days Sputum culture ordered Blood cultures pending Nebs and inhalers ordered WBC 5.5 today Get repeat xray prior to DC (3) Cellulitis of right leg: Code(s): L03.115 - Cellulitis of right lower limb Status: Acute Assessment and Plan: Been treated for this twice with clindamycin and cephalexin, without improvement Discontiued Primaxin and Vancomycin, because there are just multiple scabbed areas on the right leg WBC is 5.5 Blood cultures are pending Trend labs Wound consult-stated that this is just healing wornds (4) Type 2 diabetes mellitus: Code(s): E11.9 - Type 2 diabetes mellitus without complications Status: Acute Assessment and Plan: Current Glucose 68 A1c is 8.4 Accu-Cheks AC/HS hypoglycemic protocol Continue home lantus 40 units BID ISS Trend glucose Adjust therapy as indicated (5) Right upper lobe pulmonary nodule: Code(s): R91.1 - Solitary pulmonary nodule Status: Acute Assessment and Plan: Pulmonary nodule noted in the right upper lobe on CTA of the head/neck Chest CT found Indeterminate 14 x 7 mm right upper lobe nodule suspicious for primary bronchogenic carcinoma.? Recommending a ct-guided biopsy Has a history of a thoracentesis in the past (6) Obstructive sleep apnea: Code(s): G47.33 - Obstructive sleep apnea (adult) (pediatric) Status: Acute Assessment and Plan: CPAP will be provided for the patient to use while hospitalized. (7) Chronic obstructive pulmonary disease: Code(s): J44.9 - Chronic obstructive pulmonary disease, unspecified Status: Acute Assessment and Plan: No evidence of exacerbation. No complaints of shortness of breath, increased sputum production, or wheezes Patient claims that she always wheezes Continue home singulair, trelegy ellipta, and albuterol Trend SPO2 Trend Respiratory status (8) Tobacco abuse: Code(s): Z72.0 - Tobacco use Status: Acute Assessment and Plan: Smoking cessation is imperative and was discussed. She declines the need for nicotine patch. Will add PRN Time Spent With Patient Time with patient: Greater than 35 minutes Subjective Date/time seen: 05/23/221414 Interval history: 05/23/221414 Patient was sitting on commode when I went in to talk to her. Patient stated that she is feeling little better and that when she came in her leg was numb however is no longer numb and her left arm to her elbow is numb. She also stated that her left knee hurts could she fell wheelchair while she was waiting in the waiting room. She did get a little upset when I told her that her legs were not cellulitis that they were old wounds trying to heal and she told me but they weep. She does have a little bit of swelling on the right side over the left side. Wound care went in and said they were scabbed over old wounds. Will discontinue antibiotics this time. She denies any chest pain, shortness breast, nausea, vomiting, diarrhea, constipation, weakness or fatigue. Patient did state that she always wheezes will always wheeze and she is on nebulized treatments for that. Patient is convinced that she had a stroke however everything is negative for str
--- NOTE | 2022-05-23 14:15 | P.PNIM_ITS ---
Progress Note: A&P Assessment and Plan (1) TIA (transient ischemic attack): Code(s): G45.9 - Transient cerebral ischemic attack, unspecified Status: Acute Assessment and Plan: * Reports unilateral paralysis * Looks to be resolved * ABCD2 4 puts her at a moderate risk * MRI No acute stroke * Head CT shows no acute intracranial findings * Neck CTA shows 0% stenosis * Echo pending * Continue Brilinta and add aspirin due to risk factors * Telemetry * PT/OT (2) Pneumonia: Code(s): J18.9 - Pneumonia, unspecified organism Status: Acute Assessment and Plan: * Found on the chest x-ray * Will start her on Augmentin for 5 days * Sputum culture ordered * Blood cultures pending * Nebs and inhalers ordered * WBC 5.5 today * Get repeat xray prior to DC (3) Cellulitis of right leg: Code(s): L03.115 - Cellulitis of right lower limb Status: Acute Assessment and Plan: * Been treated for this twice with clindamycin and cephalexin, without improvement * Discontiued Primaxin and Vancomycin, because there are just multiple scabbed areas on the right leg * WBC is 5.5 * Blood cultures are pending * Trend labs * Wound consult-stated that this is just healing wornds (4) Type 2 diabetes mellitus: Code(s): E11.9 - Type 2 diabetes mellitus without complications Status: Acute Assessment and Plan: * Current Glucose 68 * A1c is 8.4 * Accu-Cheks AC/HS * hypoglycemic protocol * Continue home lantus 40 units BID * ISS * Trend glucose * Adjust therapy as indicated (5) Right upper lobe pulmonary nodule: Code(s): R91.1 - Solitary pulmonary nodule Status: Acute Assessment and Plan: * Pulmonary nodule noted in the right upper lobe on CTA of the head/neck * Chest CT found Indeterminate 14 x 7 mm right upper lobe nodule suspicious for primary bronchogenic carcinoma.? * Recommending a ct-guided biopsy * Has a history of a thoracentesis in the past (6) Obstructive sleep apnea: Code(s): G47.33 - Obstructive sleep apnea (adult) (pediatric) Status: Acute Assessment and Plan: * CPAP will be provided for the patient to use while hospitalized. (7) Chronic obstructive pulmonary disease: Code(s): J44.9 - Chronic obstructive pulmonary disease, unspecified Status: Acute Assessment and Plan: * No evidence of exacerbation. * No complaints of shortness of breath, increased sputum production, or wheezes * Patient claims that she always wheezes * Continue home singulair, trelegy ellipta, and albuterol * Trend SPO2 * Trend Respiratory status (8) Tobacco abuse: Code(s): Z72.0 - Tobacco use Status: Acute Assessment and Plan: * Smoking cessation is imperative and was discussed. She declines the need for nicotine patch. * Will add PRN Time Spent With Patient Time with patient: Greater than 35 minutes Subjective Date/time seen: 05/23/221414 Interval history: 05/23/221414 Patient was sitting on commode when I went in to talk to her. Patient stated that she is feeling little better and that when she came in her leg was numb however is no longer numb and her left arm to her elbow is numb. She also stated that her left knee hurts could she fell wheelchair while she was waiting in the waiting room. She did get a little upset when I told her that her legs were not cellulitis cristian
[2022-05-23 16:30] LABS: Glucose Point of Care 256 mg/dl (65-105)
[2022-05-23] MEDS: INSULIN ASPART (*BKC) 100 UNITS/ML SUB-Q (17:03)
[2022-05-23] MEDS: AMOXICILLIN/CLAVULANATE K 875-125 MG TAB 1 TABLET PO (20:28)
[2022-05-23] MEDS: FAMOTIDINE 20 MG TABLET PO (20:29)
[2022-05-23] MEDS: MONTELUKAST SODIUM 10 MG TABLET PO (20:29)
[2022-05-23] MEDS: MELATONIN 5 MG TABLET PO (20:30)
[2022-05-23] MEDS: rOPINIRole HCL 1 MG TABLET 4 MG PO (20:30)
[2022-05-23] MEDS: ALBUTEROL SULFATE NEB 2.5 MG/0.5 ML INH (21:22)
[2022-05-23 21:23] LABS: Glucose Point of Care 292 mg/dl (65-105)
[2022-05-23] MEDS: ALBUTEROL SULFATE NEB 2.5 MG/3 ML INH INHALATION (21:23)
[2022-05-23 23:38] LABS: Glucose Point of Care 234 mg/dl (65-105)
[2022-05-24] VITALS (18 sets, daily range): BP systolic 92–134; BP diastolic 52–84; PULSE 65–88; RESP 16–20; TEMP 35.7–37.1; O2SAT 93–100
[2022-05-24] MEDS: SODIUM CHLORIDE 0.9% IV 250 ML 100 ML IV CONT (00:15)
[2022-05-24 05:49] LABS: Alanine Aminotransferase 27 U/L (6-35); Albumin Level 3.1 g/dL (3.5-5.1); Alkaline Phosphatase 380 U/L (38-126); Anion Gap 1 mmol/L (8-16); Aspartate Amino Transferase 46 U/L (14-36); Bilirubin,Total 0.9 mg/dL (0.2-1.3); Blood Urea Nitrogen 13 mg/dL (7-17); Calcium 8.1 mg/dL (8.4-10.2); Carbon Dioxide 32 mmol/L (22-30); Chloride 101 mmol/L (98-107); Estimated CRCL calculation 58 ml/min; Estimated Glomerular Filt Rate > 60; Glucose 207 mg/dL (65-110); Potassium 3.6 mmol/L (3.4-5.0); Sodium 134 mmol/L (137-145)
[2022-05-24 05:59] LABS: Basophils Absolute Auto 0.1 K/mm3 (0.0-0.1); Basophils Percent Auto 0.9 % (0.2-1.2); Eosinophils Absolute Auto 0.1 K/mm3 (0-0.3); Eosinophils Percent Auto 1.9 % (0-4.4); Hematocrit 35.2 % (37.0-47.0); Hemoglobin 11.7 g/dL (12.0-15.0); Immature Granulocyte Absolute 0.03 K/mm3 (0.00-0.031); Immature Granulocyte Percent A 0.5 % (0-0.5); Lymphocytes Percent Auto 15.4 % (18.3-44.2); Mean Corpuscular HGB Conc 33.2 g/dl (32-36); Mean Corpuscular Hemoglobin 31.2 pg (26-34); Mean Corpuscular Volume 93.9 fl (80-100); Mean Platelet Volume 10.8 fl (7.4-10.4); Monocytes Absolute Auto 0.6 K/mm3 (0.1-0.6); Monocytes Percent Auto 9.4 % (2.6-8.5); Neutrophils Absolute Auto 4.2 K/mm3 (1.3-6.7); Neutrophils Percent Auto 71.9 % (45.5-73.1); Platelet Count Result 149 k/mm3 (150-375); Red Blood Count 3.75 M/mm3 (4.2-5.4); Red Cell Distribution Width 14.3 % (11.5-14.5); White Blood Count 5.9 K/mm3 (4.5-10.0)
[2022-05-24 07:42] LABS: Glucose Point of Care 206 mg/dl (65-105)
[2022-05-24] MEDS: INSULIN ASPART (*BKC) 100 UNITS/ML SUB-Q ×3 (08:09→16:52)
[2022-05-24] MEDS: PREGABALIN (*CRX) 75 MG CAPSULE PO ×2 (08:28→16:57)
[2022-05-24] MEDS: AMOXICILLIN/CLAVULANATE K 875-125 MG TAB 1 TABLET PO ×2 (08:29→20:34)
[2022-05-24] MEDS: DICLOFENAC SODIUM 1% 100 GM GEL (*BKC) 1 APPLIC TOPICAL (08:29)
[2022-05-24] MEDS: ACIDOPHILUS/BULGARICUS CHEWABLE TABLET 1 TABLET PO (08:29)
[2022-05-24] MEDS: DULoxetine HCL 30 MG CAPSULE.DR PO (08:29)
[2022-05-24] MEDS: COLCHICINE 0.6 MG TABLET PO ×2 (08:29→16:56)
[2022-05-24] MEDS: FLUTICASONE PROPIONATE 0.05% NA SPR 16 GM BTL (*BKC) 1 SPRAY NASAL (08:30)
[2022-05-24] MEDS: VITAMIN E 400 UNIT CAPSULE 800 UNIT PO (08:32)
[2022-05-24] MEDS: POTASSIUM CHLORIDE 10 MEQ TABLET.ER PO (08:32)
[2022-05-24] MEDS: TICAGRELOR 90 MG TABLET PO ×2 (08:32→16:57)
[2022-05-24] MEDS: FLUTICASONE/UMECLIDIN/VILANTER 100-62.5-25 MCG ELLIPTA 1 PUFF INHALATION (08:59)
[2022-05-24] MEDS: traMADol HCL (*CRX) 50 MG TABLET PO (11:27)
[2022-05-24 11:39] LABS: Glucose Point of Care 301 mg/dl (65-105)
[2022-05-24] MEDS: NYSTATIN 100,000 UNITS/ML SUSP 5 ML ORAL.SUSP 4 ML PO ×2 (11:59→16:57)
--- NOTE | 2022-05-24 13:15 | WPDNEUROPN ---
Progress Note: A&P Additional Plan 1. TIA 2. Obtain the MRI of cervical spine to rule out the possibility of cervical myelopathy if the MRI of cervical spine is unrewarding then she will benefit from the EMG and nerve conduction study to rule out the possible brachial plexopathy Time Spent With Patient Time with patient: less than 15 minutes Subjective Date/time seen: 05/24/22 13:15 Interval history: TIA with right upper lobe pulmonary nodule and complains of weakness on the left side in addition to the history of diabetes mellitus with neuropathy and cellulitis of the right lower extremity evaluation documented her to be mildly anemic with hemoglobin 11.7 platelet count 149 blood sugar of 301, MRI negative head neck CTA otherwise negative except the partially visualized 14mm nodule in right lung upper lobe Review of Systems Review of Systems: All systems reviewed & are unremarkable except as noted in HPI and below Exam Narrative: continues to have left upper extremity weakness particularly the dorsiflexion of the left hand significant drop when outstretched in front of the chest and sluggish deep tendon reflexes Objective Data Vital Signs Vital Signs: Vital Signs - 24 hr 05/23/22 13:49 05/23/22 13:50 05/23/22 15:13 Temperature 36.6 C 36.6 C Pulse Rate 80 80 Respiratory Rate 18 18 Blood Pressure 112/79 112/79 Pulse Oximetry 99 99 Oxygen Delivery Room Air 05/23/22 15:58 05/23/22 15:59 05/23/22 16:00 Temperature 36.6 C 36.6 C 36.6 C Pulse Rate 63 77 88 Respiratory Rate 18 18 18 Blood Pressure 107/64 129/75 126/60 Pulse Oximetry 96 96 95 Oxygen Delivery 05/23/22 15:58 05/23/22 16:00 05/23/22 19:18 Temperature 36.6 C 36.6 C Pulse Rate 63 80 79 Respiratory Rate 18 17 Blood Pressure 107/64 100/44 L Pulse Oximetry 96 97 Oxygen Delivery 05/23/22 19:55 05/23/22 19:55 05/23/22 19:56 Temperature 36.6 C Pulse Rate 79 Respiratory Rate 17 Blood Pressure 100/44 L 99/68 L 136/100 H Pulse Oximetry 97 Oxygen Delivery 05/23/22 21:18 05/23/22 21:24 05/23/22 21:36 Temperature Pulse Rate 79 82 Respiratory Rate 18 Blood Pressure Pulse Oximetry 93 Oxygen Delivery Room Air 05/23/22 20:00 05/23/22 23:24 05/24/22 00:00 Temperature 36.0 C L Pulse Rate 83 88 88 Respiratory Rate 18 Blood Pressure 98/46 L Pulse Oximetry 93 Oxygen Delivery 05/24/22 01:36 05/24/22 03:58 05/24/22 04:00 Temperature 36.0 C L Pulse Rate 74 79 Respiratory Rate 16 Blood Pressure 94/52 L 92/54 L Pulse Oximetry 100 Oxygen Delivery 05/24/22 08:26 05/24/22 09:00 05/24/22 09:01 Temperature 37.1 C Pulse Rate 65 82 Respiratory Rate 18 18 Blood Pressure 97/79 L Pulse Oximetry 93 94 Oxygen Delivery Room Air 05/24/22 08:00 05/24/22 12:00 Temperature Pulse Rate 70 79 Respiratory Rate Blood Pressure Pulse Oximetry Oxygen Delivery Intake/Output Intake/Output: Intake & Output 05/21/22 05/22/22 05/23/22 05/24/22 23:59 23:59 23:59 23:59 Intake Total 1350 2750 1340 Output Total 2400 200 Balance 9953 910 7205 Meds/Results Medications: Active Medications Generic Name Dose Route Start Last Admin Trade Name Freq PRN Reason Stop Dose Admin Albuterol 2.5 mg 05/23/22 07:30 05/23/22 21:23 Albuterol Sulfate Neb 2.5 Mg/3 Ml Inh INHALATION 2.5 mg Q4-6H PRN Administration SHORTNESS OF BREATH/WHEEZING Alprazolam 1 mg 05/23/22 07:27 05/23/22 20:26 Alprazolam (*Crx) 0.5 Mg Tablet PO 1 mg TID PRN Administration Anxiety Amoxicillin/Clavulanate Potassium 1 tablet 05/23/22 21:00 05/24/22 08:29 Amoxicillin/Clavulanate K 875-125 Mg Tab PO 05/28/22 09:01 1 tablet Q12HR WALTER Administration Bisacodyl 5 mg 05/23/22 07:27 Bisacodyl 5 Mg Tablet Ec PO DAILY PRN Constipation Colchicine 0.6 mg 05/23/22 09:00 05/24/22 08:29 Colchicine 0.6 Mg Tablet PO 0.6 mg BID WALTER Admi
--- NOTE | 2022-05-24 13:41 | PM.IMPN ---
Progress Note: A&P Assessment and Plan (1) TIA (transient ischemic attack): Code(s): G45.9 - Transient cerebral ischemic attack, unspecified <Fior Soriano NADINE Ordoñez-C - Last Filed: 05/24/22 14:14> Status: Acute <Fior Ordoñez PA-C - Last Filed: 05/24/22 14:14> Assessment and Plan: Pt reports unilateral paralysis to the left arm. Her left leg has resolved -MRI with no acute CVA -Will check MRI of the c-spine to ensure no impingement as well as MRI chest (per radiology to assess brachial plexus) -continue PT and OT] -f/u with neurology after discharge. May consider EMG outpt if she continues to have symptoms. See below. <Fior Christie NADINE Ordoñez-C - Last Filed: 05/24/22 14:14> (2) Pneumonia: Code(s): J18.9 - Pneumonia, unspecified organism <Fior CheyenneNADINE Murphy-C - Last Filed: 05/24/22 14:14> Status: Acute <Fior Pearlrenae PA-C - Last Filed: 05/24/22 14:14> Assessment and Plan: Noted on Chest CT -continue with augmentin -WBC WNL and no hx of worsening cough. She does endorse a chronic cough that is unchanged <Fior Ordoñez PA-C - Last Filed: 05/24/22 14:14> (3) Cellulitis of right leg: Code(s): L03.115 - Cellulitis of right lower limb <Fior CheyenneNADINE Murphy-C - Last Filed: 05/24/22 14:14> Status: Acute <Fior Christie Smita PA-C - Last Filed: 05/24/22 14:14> Assessment and Plan: Resolved <Fior CheyenneViry Ordoñez PA-C - Last Filed: 05/24/22 14:14> (4) Type 2 diabetes mellitus: Code(s): E11.9 - Type 2 diabetes mellitus without complications <Fior Ordoñez PA-C - Last Filed: 05/24/22 14:14> Status: Acute <Fior CheyenneViry Ordoñez PA-C - Last Filed: 05/24/22 14:14> Assessment and Plan: Last glucose 301 -A1c is 8.4 -Continue home lantus 40 units BID -Will increase SSI to high dose scale <Fior Soriano NADINE Ordoñez-C - Last Filed: 05/24/22 14:14> (5) Right upper lobe pulmonary nodule: Code(s): R91.1 - Solitary pulmonary nodule <Fior CheyenneViry Ordoñez PA-C - Last Filed: 05/24/22 14:14> Status: Acute <Fiorloy Pearlrenae PA-C - Last Filed: 05/24/22 14:14> Assessment and Plan: Pulmonary nodule noted in the right upper lobe on CTA of the head/neck -Chest CT found Indeterminate 14 x 7 mm right upper lobe nodule suspicious for primary bronchogenic carcinoma.? -Recommending a ct-guided biopsy -Pt states she was referred to Rodrigo Menjivar in pulmonology and I stressed the importance of follow up for the nodule once discharged <Fior CheyenneViry Ordoñez PA-C - Last Filed: 05/24/22 14:14> (6) Obstructive sleep apnea: Code(s): G47.33 - Obstructive sleep apnea (adult) (pediatric) <Fior CheyenneViry Ordoñez PA-C - Last Filed: 05/24/22 14:14> Status: Acute <Fior A. Smita PA-C - Last Filed: 05/24/22 14:14> Assessment and Plan: chronic <Fior CheyenneViry Ordoñez PA-C - Last Filed: 05/24/22 14:14> (7) Chronic obstructive pulmonary disease: Code(s): J44.9 - Chronic obstructive pulmonary disease, unspecified <Fior AViry Ordoñez PA-C - Last Filed: 05/24/22 14:14> Status: Acute <Fior A. Smita PA-C - Last Filed: 05/24/22 14:14> Assessment and Plan: No evidence of exacerbation but she does have coarse breath sounds -No complaints of shortness of breath, increased sputum production, or wheezes -Continue home singulair, trelegy ellipta, and albuterol <Fior CheyenneViry Ordoñez PA-C - Last Filed: 05/24/22 14:14> (8) Tobacco abuse: Code(s): Z72.0 - Tobacco use <Fior Ordoñez PA-C - Last Filed: 05/24/22 14:14> Status: Acute <Fior Ordoñez PA-C - Last Filed: 05/24/22 14:14> Assessment and Plan: Smoking cessation is imperative and was discussed. She declines the need for nicotine patch. <Fior Ordoñez PA-C - Last Filed: 05/24/22 14:14> Assessment and Plan: MRI of the brain notes that she has possible
[2022-05-24 16:45] LABS: Glucose Point of Care 285 mg/dl (65-105)
[2022-05-24] MEDS: INSULIN GLARGINE (*BKC) 100 UNITS/ML 40 UNITS SUB-Q (16:53)
[2022-05-24] MEDS: ALPRAZolam (*CRX) 0.5 MG TABLET 1 MG PO (20:34)
[2022-05-24] MEDS: FAMOTIDINE 20 MG TABLET PO (20:34)
[2022-05-24] MEDS: MELATONIN 5 MG TABLET PO (20:35)
[2022-05-24] MEDS: MONTELUKAST SODIUM 10 MG TABLET PO (20:35)
[2022-05-24] MEDS: rOPINIRole HCL 1 MG TABLET 4 MG PO (20:35)
[2022-05-24 20:55] LABS: Glucose Point of Care 324 mg/dl (65-105)
[2022-05-25] VITALS (11 sets, daily range): BP systolic 108–149; BP diastolic 54–86; PULSE 59–113; RESP 12–20; TEMP 35.8–36.4; O2SAT 96–100
[2022-05-25] MEDS: ALPRAZolam (*CRX) 0.5 MG TABLET 1 MG PO ×3 (05:12→20:35)
[2022-05-25 07:50] LABS: Glucose Point of Care 296 mg/dl (65-105)
[2022-05-25] MEDS: INSULIN ASPART (*BKC) 100 UNITS/ML SUB-Q ×2 (07:59→11:50)
[2022-05-25] MEDS: FLUTICASONE/UMECLIDIN/VILANTER 100-62.5-25 MCG ELLIPTA 1 PUFF INHALATION (08:18)
[2022-05-25] MEDS: FUROSEMIDE 20 MG TABLET PO (08:40)
[2022-05-25] MEDS: TICAGRELOR 90 MG TABLET PO ×2 (08:40→17:02)
[2022-05-25] MEDS: ACIDOPHILUS/BULGARICUS CHEWABLE TABLET 1 TABLET PO (08:40)
[2022-05-25] MEDS: PREGABALIN (*CRX) 75 MG CAPSULE PO ×2 (08:40→17:02)
[2022-05-25] MEDS: METOPROLOL SUCCINATE EXT REL 25 MG TABCR PO (08:40)
[2022-05-25] MEDS: DULoxetine HCL 30 MG CAPSULE.DR PO (08:40)
[2022-05-25] MEDS: COLCHICINE 0.6 MG TABLET PO ×2 (08:40→17:02)
[2022-05-25] MEDS: DICLOFENAC SODIUM 1% 100 GM GEL (*BKC) 1 APPLIC TOPICAL (08:41)
[2022-05-25] MEDS: AMOXICILLIN/CLAVULANATE K 875-125 MG TAB 1 TABLET PO ×2 (08:41→20:36)
[2022-05-25] MEDS: POTASSIUM CHLORIDE 10 MEQ TABLET.ER PO (08:41)
[2022-05-25] MEDS: VITAMIN E 400 UNIT CAPSULE 800 UNIT PO (08:41)
[2022-05-25] MEDS: ERGOCALCIFEROL 50,000 UNIT CAPSULE 50000 UNITS PO (08:42)
[2022-05-25] MEDS: FLUTICASONE PROPIONATE 0.05% NA SPR 16 GM BTL (*BKC) 1 SPRAY NASAL (08:42)
[2022-05-25] MEDS: INSULIN GLARGINE (*BKC) 100 UNITS/ML 44 UNITS SUB-Q ×2 (08:50→20:32)
[2022-05-25] MEDS: traMADol HCL (*CRX) 50 MG TABLET PO (08:51)
[2022-05-25 11:48] LABS: Glucose Point of Care 346 mg/dl (65-105)
[2022-05-25] MEDS: NYSTATIN 100,000 UNITS/ML SUSP 5 ML ORAL.SUSP 4 ML PO ×2 (11:51→17:02)
--- NOTE | 2022-05-25 15:21 | PM.IMPN ---
Progress Note: A&P Assessment and Plan (1) TIA (transient ischemic attack): Code(s): G45.9 - Transient cerebral ischemic attack, unspecified Status: Acute Assessment and Plan: Pt reports unilateral paralysis to the left arm. Her left leg symptoms have resolved. 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 Of note, she did have significant hyponatremia in October 2020 with rapid improvement; the hyponatremia was related to severe hyperglycemia. The MR findings are more chronic and do not feel related to her current symptoms. Feel less likely TIA now as well. MRI of the c-spine ordered to ensure no impingement as well as MRI chest (per radiology) to assess brachial plexus. Continue PT and OT. Appreciate neurology input. Plan for her to f/u with neurology after discharge. May consider EMG outpt if she continues to have symptoms. (2) Pneumonia: Code(s): J18.9 - Pneumonia, unspecified organism Status: Acute Assessment and Plan: Chest CT showing new tree-in-bud opacities in the posterior basilar segment of the right lower lobe consistent with pneumonia. No fevers or worsening cough. Normal WBC. BCx NGTD. Sputum Cx noted. Continue with augmentin (3) Cellulitis of right leg: Code(s): L03.115 - Cellulitis of right lower limb Status: Acute Assessment and Plan: Appears to have resolved clinically. (4) Type 2 diabetes mellitus: Code(s): E11.9 - Type 2 diabetes mellitus without complications Status: Acute Assessment and Plan: A1c 8.4. The patient's blood glucose was reviewed on 05/25 Glucose remains poorly controlled. Continue AccuCheks covering with sliding scale. Hypoglycemia protocol available as needed. Will advance home Lantus (5) Right upper lobe pulmonary nodule: Code(s): R91.1 - Solitary pulmonary nodule Status: Acute Assessment and Plan: Pulmonary nodule noted in the right upper lobe on CTA of the head/neck. Chest CT found indeterminate 14 x 7 mm right upper lobe nodule suspicious for primary bronchogenic carcinoma.?A CT-guided biopsy is recommended. Patient made aware. Pt states she was referred to Rodrigo Menjivar in pulmonology and it was stressed the importance of follow up for the nodule once discharged (6) Obstructive sleep apnea: Code(s): G47.33 - Obstructive sleep apnea (adult) (pediatric) Status: Acute Assessment and Plan: Chronic. Encouraged to remain compliant with treatment. (7) Chronic obstructive pulmonary disease: Code(s): J44.9 - Chronic obstructive pulmonary disease, unspecified Status: Acute Assessment and Plan: No evidence of exacerbation with no complaints of shortness of breath. Continue home Singulair, Trelegy, and albuterol (8) Tobacco abuse: Code(s): Z72.0 - Tobacco use Status: Acute Assessment and Plan: Smoking cessation is imperative and has been discussed. Plan DVT prophylaxis: SCDs Code status: Full Subjective Date/time seen: 05/25/22 15:21 Interval history: 57yo female with DM, COPD, CELESTINA, cirrhosis, and CAD here for left sided weakness. Assuming care. Chart reviewed. She states she woke up feeling like her glucose was low at home. She had some oral intake and sat at the kitchen table but then awoke on the floor. She hit her head and had left sided weakness and she was brought to the ED for evaluation. She did not have these symptoms prior to the fall. She feels better today. Working with therapy. Was able to walk in halls today. 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 She does have headache today. Did not wear her BiPAP last night. Exam Narrative: AF 96.5 115/67 93 12 96% ra Gen - NARD lying semi-recumbent in bed Chest - L>R bibasialr crackles. nml RR CV - RRR S1/S2. Tele showing no significant dysrhythmias. Abd - Soft,
[2022-05-25 16:27] LABS: Glucose Point of Care 185 mg/dl (65-105)
[2022-05-25] MEDS: MELATONIN 5 MG TABLET PO (20:35)
[2022-05-25] MEDS: rOPINIRole HCL 1 MG TABLET 4 MG PO (20:35)
[2022-05-25] MEDS: FAMOTIDINE 20 MG TABLET PO (20:36)
[2022-05-25] MEDS: MONTELUKAST SODIUM 10 MG TABLET PO (20:36)
[2022-05-25 20:53] LABS: Glucose Point of Care 164 mg/dl (65-105)
--- NOTE | 2022-05-25 23:22 | PC.NURSE ---
PT REFUSED NYSTATIN SUSP STATING SHE NO LONGER HAS THRUSH.
[2022-05-26] VITALS (16 sets, daily range): BP systolic 105–126; BP diastolic 66–90; PULSE 66–105; RESP 16–18; TEMP 36–36.8; O2SAT 93–99
[2022-05-26 05:20] LABS: Hematocrit 39.9 % (37.0-47.0); Hemoglobin 13.4 g/dL (12.0-15.0); Mean Corpuscular HGB Conc 33.6 g/dl (32-36); Mean Corpuscular Hemoglobin 31.2 pg (26-34); Mean Corpuscular Volume 92.8 fl (80-100); Mean Platelet Volume 10.5 fl (7.4-10.4); Platelet Count Result 184 k/mm3 (150-375); Red Cell Distribution Width 14.3 % (11.5-14.5); White Blood Count 8.3 K/mm3 (4.5-10.0)
[2022-05-26 05:39] LABS: Anion Gap 8 mmol/L (8-16); Blood Urea Nitrogen 15 mg/dL (7-17); Carbon Dioxide 28 mmol/L (22-30); Chloride 100 mmol/L (98-107); Estimated CRCL calculation 71 ml/min; Estimated Glomerular Filt Rate > 60; Glucose 153 mg/dL (65-110); Potassium 3.7 mmol/L (3.4-5.0); Sodium 136 mmol/L (137-145)
[2022-05-26 07:35] LABS: Glucose Point of Care 178 mg/dl (65-105)
[2022-05-26] MEDS: COLCHICINE 0.6 MG TABLET PO ×2 (08:21→17:28)
[2022-05-26] MEDS: POTASSIUM CHLORIDE 10 MEQ TABLET.ER PO (08:21)
[2022-05-26] MEDS: FLUTICASONE PROPIONATE 0.05% NA SPR 16 GM BTL (*BKC) 1 SPRAY NASAL (08:21)
[2022-05-26] MEDS: FUROSEMIDE 20 MG TABLET PO (08:21)
[2022-05-26] MEDS: VITAMIN E 400 UNIT CAPSULE 800 UNIT PO (08:21)
[2022-05-26] MEDS: ACIDOPHILUS/BULGARICUS CHEWABLE TABLET 1 TABLET PO (08:21)
[2022-05-26] MEDS: DULoxetine HCL 30 MG CAPSULE.DR PO (08:21)
[2022-05-26] MEDS: AMOXICILLIN/CLAVULANATE K 875-125 MG TAB 1 TABLET PO (08:22)
[2022-05-26] MEDS: TICAGRELOR 90 MG TABLET PO ×2 (08:22→17:28)
[2022-05-26] MEDS: DICLOFENAC SODIUM 1% 100 GM GEL (*BKC) 1 APPLIC TOPICAL (08:22)
[2022-05-26] MEDS: METOPROLOL SUCCINATE EXT REL 25 MG TABCR PO (08:22)
[2022-05-26] MEDS: INSULIN GLARGINE (*BKC) 100 UNITS/ML 44 UNITS SUB-Q (08:27)
[2022-05-26] MEDS: PREGABALIN (*CRX) 75 MG CAPSULE PO ×2 (08:29→17:28)
[2022-05-26] MEDS: FLUTICASONE/UMECLIDIN/VILANTER 100-62.5-25 MCG ELLIPTA 1 PUFF INHALATION (08:39)
[2022-05-26 11:59] LABS: Glucose Point of Care 189 mg/dl (65-105)
[2022-05-26] MEDS: ALPRAZolam (*CRX) 0.5 MG TABLET 1 MG PO ×2 (12:36→20:33)
--- NOTE | 2022-05-26 13:07 | ECG_ITS ---
Measurements Intervals Cunningham Rate: 85 P: 60 WY: 152 QRS: -45 QRSD: 106 T: 58 QT: 368 QTc: 440 Interpretive Statements SINUS RHYTHM LEFT ANTERIOR FASCICULAR BLOCK [QRS AXIS <= -45, QR IN I, RS IN II] COMPARED TO ECG 05/22/2022 14:10:08 LEFT ANTERIOR FASCICULAR BLOCK NOW PRESENT Electronically Signed On 05-26-2022 15:54:57 CDT by Jose M Lacey M.D.
[2022-05-26 16:33] LABS: Glucose Point of Care 153 mg/dl (65-105)
--- NOTE | 2022-05-26 17:00 | PM.IMPN ---
Progress Note: A&P Assessment and Plan (1) Left-sided weakness: Code(s): R53.1 - Weakness Status: Acute Assessment and Plan: Pt reports unilateral paralysis to the left arm. Her left leg symptoms have resolved. 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 Of note, she did have significant hyponatremia in October 2020 with rapid improvement; the hyponatremia was related to severe hyperglycemia. The MR brain findings are more chronic and do not feel related to her current symptoms. MRI of the c-spine reviewed and discussed with neurology. MRI chest (per radiology) to assess brachial plexus did not show significant concerns. Neurology felt either CVA or more likely Brachial Plexopathy relatd to her fall. Continue PT and OT. Appreciate neurology input. Plan for her to f/u with neurology after discharge. Neurology want her to have an EMG as an outpatient. (2) Pneumonia: Code(s): J18.9 - Pneumonia, unspecified organism Status: Acute Assessment and Plan: Chest CT showing new tree-in-bud opacities in the posterior basilar segment of the right lower lobe consistent with pneumonia. No fevers or worsening cough. Normal WBC. BCx NGTD. Treated with augmentin. Sputum Cx growing Pseudomonas. Change to Cefepime. Repeat EKG showing improved QTc so may be able to have Levaquin if sensitive. . (3) Cellulitis of right leg: Code(s): L03.115 - Cellulitis of right lower limb Status: Acute Assessment and Plan: Appears to have resolved clinically. Continue to protect skin until healed (4) Type 2 diabetes mellitus: Code(s): E11.9 - Type 2 diabetes mellitus without complications Status: Acute Assessment and Plan: A1c 8.4. The patient's blood glucose was reviewed on 05/26 Glucose better controlled. Continue AccuCheks covering with sliding scale. Hypoglycemia protocol available as needed. Will advance home Lantus (5) Right upper lobe pulmonary nodule: Code(s): R91.1 - Solitary pulmonary nodule Status: Acute Assessment and Plan: Pulmonary nodule noted in the right upper lobe on CTA of the head/neck. Chest CT found indeterminate 14 x 7 mm right upper lobe nodule suspicious for primary bronchogenic carcinoma.?A CT-guided biopsy is recommended. Patient made aware. Pt states she was referred to Rodrigo Menjivar in pulmonology and it was stressed the importance of follow up for the nodule once discharged. (6) Obstructive sleep apnea: Code(s): G47.33 - Obstructive sleep apnea (adult) (pediatric) Status: Acute Assessment and Plan: Chronic. Patient is not wearing her BiPAP here. Encouraged her to remain compliant with treatment. (7) Chronic obstructive pulmonary disease: Code(s): J44.9 - Chronic obstructive pulmonary disease, unspecified Status: Acute Assessment and Plan: No evidence of exacerbation with no complaints of shortness of breath. Continue home Singulair, Trelegy, and albuterol (8) Tobacco abuse: Code(s): Z72.0 - Tobacco use Status: Acute Assessment and Plan: Smoking cessation is imperative and has been discussed. Plan DVT prophylaxis: SCDs Code status: Full Subjective Date/time seen: 05/26/22 17:00 Interval history: 57yo female with DM, COPD, CELESTINA, cirrhosis, and CAD here for left sided weakness. Left UE symptoms are improving. No CP but having GERD symptoms. Was up to the chair. Walking well with therapy. Exam Narrative: AF 97.5 126/81 85 16 96% ra Gen - NARD lying semi-recumbent in bed Chest - L basilar crackles o/w clear. 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 Psych - Nml mood and affect Skin - Warm and dry. multiple dried black eschars right silvestre with minimal surrounding erythema Objective Data Vital Signs Vital S
[2022-05-26] MEDS: NYSTATIN 100,000 UNITS/ML SUSP 5 ML ORAL.SUSP 4 ML PO (17:28)
[2022-05-26] MEDS: traMADol HCL (*CRX) 50 MG TABLET PO (17:30)
[2022-05-26] MEDS: rOPINIRole HCL 1 MG TABLET 4 MG PO (20:32)
[2022-05-26] MEDS: MELATONIN 5 MG TABLET PO (20:33)
[2022-05-26] MEDS: MONTELUKAST SODIUM 10 MG TABLET PO (20:33)
[2022-05-26] MEDS: FAMOTIDINE 20 MG TABLET PO (20:33)
[2022-05-26 21:07] LABS: Glucose Point of Care 101 mg/dl (65-105)
[2022-05-27] VITALS (12 sets, daily range): BP systolic 109–132; BP diastolic 69–92; PULSE 74–111; RESP 18; TEMP 36.5–36.6; O2SAT 95–96
[2022-05-27 07:46] LABS: Glucose Point of Care 78 mg/dl (65-105)
[2022-05-27] MEDS: TICAGRELOR 90 MG TABLET PO (08:40)
[2022-05-27] MEDS: VITAMIN E 400 UNIT CAPSULE 800 UNIT PO (08:40)
[2022-05-27] MEDS: DULoxetine HCL 30 MG CAPSULE.DR PO (08:40)
[2022-05-27] MEDS: FUROSEMIDE 20 MG TABLET PO (08:40)
[2022-05-27] MEDS: COLCHICINE 0.6 MG TABLET PO (08:40)
[2022-05-27] MEDS: ACIDOPHILUS/BULGARICUS CHEWABLE TABLET 1 TABLET PO (08:40)
[2022-05-27] MEDS: POTASSIUM CHLORIDE 10 MEQ TABLET.ER PO (08:40)
[2022-05-27] MEDS: METOPROLOL SUCCINATE EXT REL 25 MG TABCR PO (08:40)
[2022-05-27] MEDS: FLUTICASONE PROPIONATE 0.05% NA SPR 16 GM BTL (*BKC) 1 SPRAY NASAL (08:41)
[2022-05-27] MEDS: PREGABALIN (*CRX) 75 MG CAPSULE PO (08:41)
[2022-05-27] MEDS: DICLOFENAC SODIUM 1% 100 GM GEL (*BKC) 1 APPLIC TOPICAL (08:41)
[2022-05-27] MEDS: INSULIN GLARGINE (*BKC) 100 UNITS/ML 44 UNITS SUB-Q (08:41)
--- NOTE | 2022-05-27 10:47 | PM.DS ---
DS: Admitting Diagnosis Discharge Date 05/27/2022 Admitting Diagnosis fall and left-sided weakness DS: Discharge Diagnosis Discharge Diagnosis (1) Left-sided weakness: Code(s): R53.1 - Weakness Status: Acute Assessment and Plan: Pt reports unilateral paralysis to the left arm. Her left leg symptoms have resolved. 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 Of note, she did have significant hyponatremia in October 2020 with rapid improvement; the hyponatremia was related to severe hyperglycemia. The MR brain findings are more chronic and do not feel related to her current symptoms. MRI of the c-spine reviewed and discussed with neurology. MRI chest (per radiology) to assess brachial plexus did not show significant concerns. Neurology felt either CVA or more likely Brachial Plexopathy relatd to her fall. Continue PT and OT. Appreciate neurology input. Plan for her to f/u with neurology after discharge. Neurology want her to have an EMG as an outpatient. MR chest also reveal left rotator cuff tear. Her symptoms likely related to this. She will continue with PT and OT as home health will be arranged for this. Will also have her follow-up with Orthopedics with regard to this as an outpatient basis (2) Pneumonia: Code(s): J18.9 - Pneumonia, unspecified organism Status: Acute Assessment and Plan: Chest CT showing new tree-in-bud opacities in the posterior basilar segment of the right lower lobe consistent with pneumonia. No fevers or worsening cough. Normal WBC. BCx NGTD. Treated with augmentin. Sputum Cx growing Pseudomonas. Changed to Cefepime. Repeat EKG showing improved QTc. Levaquin sensitive was switched to Levaquin for 7 more days at discharge (3) Cellulitis of right leg: Code(s): L03.115 - Cellulitis of right lower limb Status: Acute Assessment and Plan: Appears to have resolved clinically. Continue to protect skin until healed (4) Type 2 diabetes mellitus: Code(s): E11.9 - Type 2 diabetes mellitus without complications Status: Acute Assessment and Plan: A1c 8.4. The patient's blood glucose was reviewed on 05/26 Glucose better controlled. Continue AccuCheks covering with sliding scale. Hypoglycemia protocol available as needed. Will advance home Lantus (5) Right upper lobe pulmonary nodule: Code(s): R91.1 - Solitary pulmonary nodule Status: Acute Assessment and Plan: Pulmonary nodule noted in the right upper lobe on CTA of the head/neck. Chest CT found indeterminate 14 x 7 mm right upper lobe nodule suspicious for primary bronchogenic carcinoma.?A CT-guided biopsy is recommended. Patient made aware. Pt states she was referred to Rodrigo Menjivar in pulmonology and it was stressed the importance of follow up for the nodule once discharged. Follow-up with [facility] her in Pulmonary for further evaluation on this. She is aware agreeable and understands (6) Obstructive sleep apnea: Code(s): G47.33 - Obstructive sleep apnea (adult) (pediatric) Status: Acute Assessment and Plan: Chronic. Patient is not wearing her BiPAP here. Encouraged her to remain compliant with treatment. (7) Chronic obstructive pulmonary disease: Code(s): J44.9 - Chronic obstructive pulmonary disease, unspecified Status: Acute Assessment and Plan: No evidence of exacerbation with no complaints of shortness of breath. Continue home Singulair, Trelegy, and albuterol (8) Tobacco abuse: Code(s): Z72.0 - Tobacco use Status: Acute Assessment and Plan: Smoking cessation is imperative and has been discussed. Plan DVT prophylaxis: SCDs Code status: Full DS: Summary Hospital Course Hospital Course: see above Time Spent with Patient Time attestation: Total time spent providing and/or coordinating discharge services
[2022-05-27 11:47] LABS: Glucose Point of Care 263 mg/dl (65-105)
[2022-05-27] MEDS: INSULIN ASPART (*BKC) 100 UNITS/ML SUB-Q (11:52)
[2022-05-27] MEDS: ALPRAZolam (*CRX) 0.5 MG TABLET 1 MG PO (11:52)
== END 2022-05-27 13:05 | disposition home or self-care (01) | DRG 194 ==
LOC: ANHED 15:13 → ANH3MEDSUR 17:42 → ANH2MED 19:06
PROVIDERS: Internal Medicine; Nurse Practitioner; Physician Assistant; Admitting Provider Family Medicine; Emergency Provider Nurse Practitioner Family; PCP Nurse Practitioner Family; Visit Provider Internal Medicine
DX: J18.9 Pneumonia, unspecified organism (principal); L03.115 Cellulitis of right lower limb; J44.0 Chronic obstructive pulmonary disease with (acute) lower respiratory infection; F17.210 Nicotine dependence, cigarettes, uncomplicated; R91.1 Solitary pulmonary nodule; G47.33 Obstructive sleep apnea (adult) (pediatric); R53.1 Weakness; M75.102 Unspecified rotator cuff tear or rupture of left shoulder, not specified as traumatic; K74.60 Unspecified cirrhosis of liver; I25.10 Atherosclerotic heart disease of native coronary artery without angina pectoris; I11.0 Hypertensive heart disease with heart failure; I50.9 Heart failure, unspecified; E78.5 Hyperlipidemia, unspecified; E11.40 Type 2 diabetes mellitus with diabetic neuropathy, unspecified; M79.7 Fibromyalgia; F41.9 Anxiety disorder, unspecified; F32.A Depression, unspecified; W19.XXXA Unspecified fall, initial encounter; Z79.4 Long term (current) use of insulin; Z79.899 Other long term (current) drug therapy
CPT/HCPCS: 36415; 51701; 70450; 70496; 70498; 70553; 71046; 71250; 71550; 72141; 80048; 80053; 81001; 82948; 83036; 83605; 83735; 84443; 85025; 85027; 85610; 85730; 87040; 87070; 87077; 87186; 87205; 93005; 93306; 94640; 95816; 96361; 96365; 96367; 96375; 97110; 97116; 97161; 97166; 97530; 97535; 99285; A9270; A9577; G0378; J0692; J0743; J1815; J3370; J3475; J7030; J7050; Q9967

== ENCOUNTER 2022-08-05 12:11 | Outpatient (NON) | payer MEDICARE, MEDICAID, SELFPAY ==
[2022-08-05 12:36] LABS: Uric Acid 2.4 mg/dL (2.6-6.0)
== END 2022-08-05 12:12 | disposition home or self-care (01) ==
LOC: CHSLAB 12:13
PROVIDERS: Visit Provider Family Medicine
DX: M10.9 Gout, unspecified (principal)
CPT/HCPCS: 84550

== ENCOUNTER 2022-08-06 12:32 | Outpatient (CLI) | payer MEDICARE, MEDICAID, SELFPAY ==
[2022-08-06 12:50] LABS: Hematocrit 38.8 % (35.0-49.0); Hemoglobin 13.1 g/dL (12.0-15.0); Mean Corpuscular HGB Conc 33.8 g/dL (32.0-36.0); Mean Corpuscular Hemoglobin 30.1 pg (27.0-31.0); Mean Corpuscular Volume 89.2 fL (78.0-102.0); Mean Platelet Volume 9.8 fl (9.2-11.8); Platelet Count Result 307 K/mm3 (150-420); Red Blood Count 4.35 M/mm3 (4.20-5.40); Red Cell Distribution Width 14.9 % (11.6-14.4); White Blood Count 9.2 K/mm3 (4.8-10.8)
--- NOTE | 2022-08-06 12:58 | PC.NURSE ---
Here for OP fluids, taken to room 2 on arrival
[2022-08-06] MEDS: SODIUM CHLORIDE 0.9% IV 500 ML 250 ML IVPB (13:12)
[2022-08-06 13:18] LABS: Alanine Aminotransferase 24 U/L (14-59); Albumin Level 2.7 g/dL (3.4-5.0); Alkaline Phosphatase 390 U/L (46-116); Anion Gap 8 mmol/L (8-16); Aspartate Amino Transferase 26 U/L (15-37); Bilirubin,Total 0.6 mg/dL (0.00-1.00); Blood Urea Nitrogen 18 mg/dL (7-18); Carbon Dioxide 30 mmol/L (21-32); Chloride 96 mmol/L (98-108); Estimated Glomerular Filt Rate > 60; Glucose 69 mg/dL (70-99); Osmolality Calculated 277 mOsm/kg (285-295); Potassium 3.5 mmol/L (3.5-5.1); Sodium 134 mmol/L (136-145); Total Protein 8.8 g/dL (6.4-8.2)
--- NOTE | 2022-08-06 14:00 | PC.NURSE ---
assisted up to void, tolerated fluids oral, no n/v
--- NOTE | 2022-08-06 15:15 | PC.NURSE ---
Discharged via wheel chair to car, states feeling much better,
== END 2022-08-06 12:33 | disposition home or self-care (01) ==
PROVIDERS: PCP Family Medicine; Visit Provider Family Medicine
DX: E86.0 Dehydration (principal)
CPT/HCPCS: 36415; 80053; 85027; 96360; 96361; J7040

== ENCOUNTER 2022-08-21 14:45 | Outpatient (CLI) | payer MEDICARE, SELFPAY ==
--- NOTE | ~2022-08-21 | US_ITS ---
US arterial ankle brachial ind INDICATION: Peripheral vascular disease TECHNIQUE: Segmental pressures and plethysmographic and Doppler waveforms of the brachial and lower e xtremity arteries were obtained. COMPARISON: None. FINDINGS: Right and left brachial artery pressures of 134 mm Hg and 138 mm Hg, respectively, are concordant (no rmal difference <= 30 mmHg). The right ankle-brachial index (SARTHAK) is 0.97 (normal >= 0.9-1.0). The right great toe-brachial index (TBI) is 0.81 (normal >= 0.60). The left SARTHAK is 0.93. The left TBI is 0.75. IMPRESSION: 1. Normal bilateral ankle and toe brachial indices. Reviewed, dictated and finalized at location A.
== END 2022-08-21 14:46 | disposition home or self-care (01) ==
LOC: CHSIMG 14:47
PROVIDERS: PCP Family Medicine; Visit Provider Family Medicine
DX: I73.9 Peripheral vascular disease, unspecified (principal)
CPT/HCPCS: 93922

== ENCOUNTER 2022-08-28 14:34 | Outpatient (CLI) | payer MEDICARE, SELFPAY ==
[2022-08-28 14:51] LABS: Appearance Urine Clear (Clear); Bilirubin Urine Negative (Negative); Blood Urine Negative (Negative); Glucose Urine UA Negative (Negative); Ketones Urine Negative (Negative); Leukocyte Esterase Ur Trace LEU/UL (Negative); Nitrate Urine Negative (Negative); Protein Urine Trace (Negative); Specific Grav Ur <= 1.005 (1.010-1.020); Urobilinogen Urine 0.2 mg/dL (0.2-1.0)
[2022-08-28 14:59] LABS: Add Urine Microscopic? YES; Color Urine Light Yellow (Yellow); RBC Urine None seen /hpf (0-2); Squamous Epithelial Cell Urine Few /hpf (Few); WBC Urine None seen /hpf (0-3)
[2022-08-28 15:00] LABS: Bacteria Urine Trace /hpf
== END 2022-08-28 14:35 | disposition home or self-care (01) ==
LOC: CHSLAB 14:36
PROVIDERS: PCP Family Medicine; Visit Provider Family Medicine
DX: R30.0 Dysuria (principal)
CPT/HCPCS: 81001

== ENCOUNTER 2022-09-01 12:47 | Observation (INO) | payer MEDICARE, MEDICAID, SELFPAY ==
[2022-09-01] VITALS (10 sets, daily range): BP systolic 101–119; BP diastolic 67–90; PULSE 78–117; RESP 16–20; TEMP 36.3–36.5; O2SAT 92–100; BMI 22.8
--- NOTE | ~2022-09-01 | XR_ITS ---
EXAMINATION: XR chest 2V DATE: 09/01/2022 13:16 INDICATION: Cough. Chest pain. Shortness of breath. TECHNIQUE: Frontal and lateral views of the chest were obtained. COMPARISON: Chest 2 views 05/22/2022, chest CT 05/23/2022 FINDINGS: There is a 1 cm nodule in right upper lobe. There are airspace opacities in the lower lung zones. No pleural effusion or pneumothorax. The heart size is normal. There are surgical clips in the abdomen. IMPRESSION: 1. Persistent 1 cm nodule in right upper lobe, which may be infection or malignancy. Noncontrast ches t CT is recommended. 2. Airspace opacities in the lower lung zones, consistent with chronic lung disease without or with p neumonia. Reviewed, dictated and finalized at location B. IMPRESSION: 1. Persistent 1 cm nodule in right upper lobe, which may be infection or malign zuleyma. Noncontrast chest CT is recommended. 2. Airspace opacities in the lower lung zones, consistent with chronic lung dis ease without or with pneumonia.
--- NOTE | 2022-09-01 13:07 | ED.FEVER ---
HPI - Fever General Chief Complaint: Upper Respiratory Infection Stated Complaint: SENT BY , FEVER, LOW PULSE OX Time Seen by Provider: 09/01/22 13:00 History of Present Illness HPI Narrative: Pt presents with fever, cough since last night. Home health said unable to get oxygen sat to read above 90. Pt in no distress and sat here 96%. Pt denies vomiting or urinary symptoms. Pt just has fever and cough. Related Data Home Medications Medication Instructions Recorded Confirmed albuterol sulfate 90 mcg/actuation 1 puff inhalation PRN PRN 12/03/19 09/01/22 aerosol inhaler (Ventolin HFA) Shortness Of Breath vitamin E 268 mg (400 unit) capsule 2 cap PO DAILY 12/03/19 09/01/22 duloxetine 60 mg capsule,delayed 30 mg PO DAILY 11/09/20 09/01/22 release nitroglycerin 0.4 mg sublingual 0.4 mg sublingual Q15M PRN Chest 11/12/20 09/01/22 tablet Pain alprazolam 1 mg tablet 1 mg PO TID PRN Anxiety 04/10/22 09/01/22 Lactobacillus acidophilus 1 1 tablet PO DAILY 05/22/22 09/01/22 billion cell tablet melatonin 5 mg tablet 5 mg PO HS 05/22/22 09/01/22 nystatin 100,000 unit/mL oral 4 ml PO Q6H PRN OTHER 05/22/22 09/01/22 suspension vortioxetine 10 mg tablet 10 mg PO DAILY 05/22/22 09/01/22 (Trintellix) biotin 1,000 mcg chewable tablet 1,000 mcg PO DAILY 07/09/22 09/01/22 vortioxetine 10 mg tablet 10 mg PO DAILY 07/09/22 09/01/22 (Trintellix) Allergies Allergy/AdvReac Type Severity Reaction Status Date / Time adhesive tape Allergy Unknown Blister Verified 09/01/22 14:04 atorvastatin Allergy Unknown Itching Verified 09/01/22 14:04 budesonide Allergy Unknown Anaphylactic Verified 09/01/22 14:04 Shock formoterol Allergy Unknown Anaphylactic Verified 09/01/22 14:04 Shock mometasone furoate Allergy Unknown Anaphylactic Verified 09/01/22 14:04 Shock morphine Allergy Unknown Itching Verified 09/01/22 14:04 diphenhydramine AdvReac Severe Other Verified 09/01/22 14:04 [From Benadryl] gemfibrozil AdvReac Unknown Gastrointestinal Verified 09/01/22 14:04 Upset Review of Systems Review of Systems: All systems reviewed & are unremarkable except as noted in HPI and below 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 Manic depression Memory loss Migraine Nausea & vomiting Obstructive sleep apnea Posttraumatic stress disorder Pure hypercholesterolemia Restless leg syndrome Seasonal allergies Skin ulcer Sleep apnea SOB (shortness of breath) Spinal arthritis Tobacco abuse Type 2 diabetes mellitus Unintentional weight loss Vertigo Wears glasses Wheezing Surgical History Surgical History History of back surgery History of cholecystectomy History of cholecystectomy History of ear surgery History of hernia repair History of hysterectomy History of laparoscopy History of left salpingo-oophorectomy History of sinus surgery Stented coronary artery Family History Family History Mother Family history of gout Hypertension Family history of elevated blood lipids Family history of diabetes mellitus in first degree relative Family history of chronic obstructive pulmonary disease Sibling Family history of gout Family history of allergic disorder Father Family history of emphysema Other Acute myocardial infarction Arthritis Asthm
[2022-09-01 13:46] LABS: Add Urine Microscopic? YES; Appearance Urine Clear (Clear); Bilirubin Urine Negative (Negative); Blood Urine Negative (Negative); Color Urine Yellow (Yellow); Glucose Urine UA Negative (Negative); Ketones Urine 1+ (Negative); Leukocyte Esterase Ur Negative LEU/UL (Negative); Nitrate Urine Negative (Negative); Protein Urine 2+ (Negative); Urobilinogen Urine 0.2 mg/dL (0.2-1.0); pH Urine 6.5 (5.0-8.0)
[2022-09-01 13:47] LABS: Hemoglobin 14.4 g/dL (12.0-15.0); Mean Corpuscular Hemoglobin 28.6 pg (27.0-31.0); Mean Corpuscular Volume 89.5 fL (78.0-102.0); Mean Platelet Volume 10.7 fl (9.2-11.8); Platelet Count Result 202 K/mm3 (150-420); Red Blood Count 5.03 M/mm3 (4.20-5.40); Red Cell Distribution Width 15.5 % (11.6-14.4)
[2022-09-01 13:53] LABS: White Blood Count 20.1 K/mm3 (4.8-10.8)
[2022-09-01 13:54] LABS: RBC Urine None seen /hpf (0-2); Squamous Epithelial Cell Urine Few /hpf (Few); WBC Urine None seen /hpf (0-3)
[2022-09-01 13:55] LABS: Bacteria Urine Trace /hpf
[2022-09-01 13:57] LABS: Band Neutrophils Percent 2 % (0-6); Basophils Percent Manual 0 % (0-1); Eosinophils Percent Manual 0 % (1-6); Lymphocytes Percent Manual 7 % (18-44); Monocytes Percent Manual 3 % (3-9); Neutrophils Absolute Manual 18.09 K/mm3 (1.7-7.2); Neutrophils Percent Manual 88 % (46-73); Platelet Estimate Adequate (Adequate); Total Cells Counted 100
[2022-09-01] MEDS: ACETAMINOPHEN 500 MG TABLET 1000 MG PO (14:00)
[2022-09-01 14:02] LABS: INR 1.1; Partial Thromboplastin Time 28.8 SEC (23.90-30.70); Prothrombin Time 12.2 Seconds (9.50-12.10)
[2022-09-01 14:09] LABS: Lactic Acid Reflex 2.8 mmol/L (0.4-2.0)
[2022-09-01 14:13] LABS: Alanine Aminotransferase 34 U/L (14-59); Albumin Level 2.9 g/dL (3.4-5.0); Alkaline Phosphatase 365 U/L (46-116); Anion Gap 10 mmol/L (8-16); Aspartate Amino Transferase 34 U/L (15-37); Bilirubin,Total 1.6 mg/dL (0.00-1.00); Blood Urea Nitrogen 16 mg/dL (7-18); Calcium 9.3 mg/dL (8.5-10.1); Carbon Dioxide 28 mmol/L (21-32); Chloride 94 mmol/L (98-108); Estimated Glomerular Filt Rate 58; Glucose 225 mg/dL (70-99); Osmolality Calculated 282 mOsm/kg (285-295); Potassium 4.5 mmol/L (3.5-5.1); Sodium 132 mmol/L (136-145); Total Protein 9.1 g/dL (6.4-8.2)
[2022-09-01 14:22] LABS: SARS-CoV-2 RNA PCR Negative (Negative)
[2022-09-01 14:29] LABS: CRP 21.6 mg/dL (0.0-0.9)
--- NOTE | 2022-09-01 14:39 | PC.NURSE ---
pt has been updated with plan of care, father has gone home. pt has iv medication infusing as ordered without difficulty. nad noted. vss per montior. pt reports headache and body aches. medication has been administered. will continue to monitor.
[2022-09-01] MEDS: SODIUM CHLORIDE 0.9% IV 1,000 ML 999 ML IV CONT (15:42)
[2022-09-01] MEDS: IPRATROPIUM 0.5 MG/ALBUTEROL SULFATE 2.5 MG AMPUL.NEB 3 ML INHALATION (15:43)
--- NOTE | 2022-09-01 16:20 | PC.NURSE ---
PT WAS REPORTING SOB, ERP NOTIFIED AND NEB TX WAS ADMINISTERED. PT REPORTS IMPROVEMENT. PT IS TO BE ADMITTED TO 202, AWAITING ROOM TO BE READY. PT IS AWARE OF PLAN OF CARE. NAD NOTED. BELONGINGS LIST COMPLETED.
[2022-09-01 16:44] LABS: Reflex Lactic Acid Yes or No Add Lactic
[2022-09-01 17:23] LABS: Lactic Acid 1.8 mmol/L (0.4-2.0)
[2022-09-01] MEDS: PREGABALIN (*CRX) 25 MG CAPSULE 75 MG PO (18:13)
[2022-09-01 19:29] LABS: Glucose Point of Care 338 mg/dl (65-105)
[2022-09-01] MEDS: INSULIN GLARGINE (*BKC) 100 UNITS/ML 40 UNITS SUB-Q (20:26)
[2022-09-01] MEDS: ACETAMINOPHEN 325 MG TABLET 650 MG PO (20:29)
[2022-09-01] MEDS: MONTELUKAST SODIUM 10 MG TABLET BY MOUTH (20:29)
[2022-09-01] MEDS: MELATONIN 5 MG TABLET PO (20:29)
[2022-09-01] MEDS: ALPRAZolam (*CRX) 0.5 MG TABLET 1 MG PO (20:30)
[2022-09-01] MEDS: ALBUTEROL SULFATE NEB 2.5 MG/3 ML INH NEBULIZE (23:38)
[2022-09-02] VITALS: BP 99/55; PULSE 105; RESP 20; TEMP 36.5; O2SAT 92
[2022-09-02 05:28] VITALS: PULSE 97; RESP 20; O2SAT 95
[2022-09-02] MEDS: ALBUTEROL SULFATE NEB 2.5 MG/3 ML INH NEBULIZE (05:28)
[2022-09-02 05:35] LABS: Basophils Absolute Auto 0.02 K/mm3 (0.00-0.10); Basophils Percent Auto 0.2 % (0.0-1.0); Eosinophils Absolute Auto 0.01 K/mm3 (0.02-0.50); Eosinophils Percent Auto 0.1 % (1.0-6.0); Hematocrit 34.8 % (35.0-49.0); Immature Granulocyte Absolute 0.06 K/mm3 (0.00-0.00); Immature Granulocyte Percent A 0.5 % (0.0-0.0); Lymphocytes Percent Auto 6.8 % (18.0-42.0); Mean Corpuscular HGB Conc 31.6 g/dL (32.0-36.0); Mean Corpuscular Hemoglobin 28.8 pg (27.0-31.0); Mean Corpuscular Volume 91.1 fL (78.0-102.0); Monocytes Absolute Auto 0.77 K/mm3 (0.10-0.90); Monocytes Percent Auto 6.5 % (2.0-11.0); Neutrophils Absolute Auto 10.1 K/mm3 (1.7-7.2); Neutrophils Percent Auto 85.9 % (50.0-70.0); Platelet Count Result 139 K/mm3 (150-420); Red Blood Count 3.82 M/mm3 (4.20-5.40); Red Cell Distribution Width 15.3 % (11.6-14.4); White Blood Count 11.8 K/mm3 (4.8-10.8)
[2022-09-02 05:38] VITALS: PULSE 90; RESP 20
[2022-09-02 05:55] LABS: Alanine Aminotransferase 23 U/L (14-59); Alkaline Phosphatase 383 U/L (46-116); Anion Gap 9 mmol/L (8-16); Aspartate Amino Transferase 16 U/L (15-37); Bilirubin,Total 0.6 mg/dL (0.00-1.00); Blood Urea Nitrogen 18 mg/dL (7-18); Calcium 8.4 mg/dL (8.5-10.1); Carbon Dioxide 25 mmol/L (21-32); Chloride 101 mmol/L (98-108); Estimated CRCL calculation 46 ml/min; Estimated Glomerular Filt Rate 60; Osmolality Calculated 302 mOsm/kg (285-295); Potassium 4.3 mmol/L (3.5-5.1); Sodium 135 mmol/L (136-145); Total Protein 6.9 g/dL (6.4-8.2)
[2022-09-02 05:58] LABS: Glucose 478 mg/dL (70-99)
--- NOTE | 2022-09-02 05:58 | PC.NURSE ---
Lab called to report a critical high blood glucose of 478.
[2022-09-02 05:59] LABS: CRP > 25.0 mg/dL (0.0-0.9)
--- NOTE | 2022-09-02 06:05 | PC.NURSE ---
Chelsie Mann NP called to report glucose but no answer; Message left on phone.
[2022-09-02] MEDS: ALPRAZolam (*CRX) 0.5 MG TABLET 1 MG PO ×2 (06:11→13:42)
--- NOTE | 2022-09-02 06:40 | PC.NURSE ---
Chelsie Mann NP notified of critical blood glucose; new orders received at this time
[2022-09-02 08:00] VITALS: BP 110/60; PULSE 90; RESP 16; TEMP 36.6; O2SAT 97
[2022-09-02 08:09] LABS: Glucose Point of Care 407 mg/dl (65-105)
[2022-09-02] MEDS: INSULIN GLARGINE (*BKC) 100 UNITS/ML 40 UNITS SUB-Q (08:34)
[2022-09-02] MEDS: FLUTICASONE/UMECLIDIN/VILANTER 100-62.5-25 MCG ELLIPTA 1 PUFF INHALATION (08:38)
[2022-09-02] MEDS: ACIDOPHILUS/BULGARICUS CHEWABLE TABLET 1 TABLET PO (08:39)
[2022-09-02] MEDS: VITAMIN E 400 UNIT CAPSULE 800 UNIT PO (08:39)
[2022-09-02] MEDS: POTASSIUM CHLORIDE 10 MEQ TABLET PO (08:40)
[2022-09-02] MEDS: ENOXAPARIN 40 MG/0.4 ML SYRINGE SUB-Q (08:40)
[2022-09-02] MEDS: DULoxetine HCL 30 MG CAPSULE.DR PO (08:41)
[2022-09-02] MEDS: PREGABALIN (*CRX) 25 MG CAPSULE 75 MG PO (08:41)
--- NOTE | 2022-09-02 10:11 | PM.SD2 ---
Same Day Admit/Disch: HPI History of Present Illness Chief complaint: SENT BY , FEVER, LOW PULSE OX Narrative: Britney Crawford is a 57 year old female presents with fever, cough since last night.? Home health said unable to get oxygen sat to read above 90.? Pt in no distress and sat here 96%.? Pt denies vomiting or urinary symptoms.? Pt just has fever and cough. 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 Manic depression Memory loss Migraine Nausea & vomiting Obstructive sleep apnea Posttraumatic stress disorder Pure hypercholesterolemia Restless leg syndrome Seasonal allergies Skin ulcer Sleep apnea SOB (shortness of breath) Spinal arthritis Tobacco abuse Type 2 diabetes mellitus Unintentional weight loss Vertigo Wears glasses Wheezing Surgical History Surgical History History of back surgery History of cholecystectomy History of cholecystectomy History of ear surgery History of hernia repair History of hysterectomy History of laparoscopy History of left salpingo-oophorectomy History of sinus surgery Stented coronary artery Family History Family History Mother Family history of gout Hypertension Family history of elevated blood lipids Family history of diabetes mellitus in first degree relative Family history of chronic obstructive pulmonary disease Sibling Family history of gout Family history of allergic disorder Father Family history of emphysema Other Acute myocardial infarction Arthritis Asthma Depression Diabetes mellitus Family history of cardiovascular disease Heart disease Kidney disorder Neuropathy Social History Social History Social History: Surrogate decision maker: hyun Liu. Code status: Full code. Smoking packs per day: 0.25 Smoking cigarettes per day: 5.0 Years smoked: 30 Smoking pack-years: 7.50 Smoking status: Current every day smoker Second hand tobacco smoke exposure: Yes Alcohol intake: never Substance use: never Substance use type: painkillers Spiritual care concerns: No Same Day Admit/Disch: Med Pre-admit Medications Home Medications Medication Instructions Recorded Confirmed Type albuterol sulfate 90 mcg/actuation 1 puff inhalation PRN PRN 12/03/19 09/01/22 History aerosol inhaler (Ventolin HFA) Shortness Of Breath vitamin E 268 mg (400 unit) capsule 2 cap PO DAILY 12/03/19 09/01/22 History duloxetine 60 mg capsule,delayed 30 mg PO DAILY 11/09/20 09/01/22 History release nitroglycerin 0.4 mg sublingual 0.4 mg sublingual Q15M PRN Chest 11/12/20 09/01/22 History tablet Pain alprazolam 1 mg tablet 1 mg PO TID PRN Anxiety 04/10/22 09/01/22 History insulin glargine 100 unit/mL 40 unit (0.4 mL) subcut BID #30 mL 05/06/22 09/01/22 Rx subcutaneous solution (Lantus U-100 Insulin) blood sugar diagnostic (OneTouch #100 ea 05/08/22 09/01/22 Rx Verio test strips) blood-glucose meter (Blood Glucose #1 ea 05/08/22 09/01/22 Rx Monitoring kit) blood-glucose meter,continuous #1 ea 05/08/22 09/01/22 Rx (Dexcom G6 Peanut Picker misc) blood-glucose sensor (Dexcom G6 #3 ea 05/08/22 09/01/22 Rx Sensor device) blood-glucose transmitter (Dexcom #1 ea 05/08/22
[2022-09-02] MEDS: traMADol HCL (*CRX) 50 MG TABLET PO (11:21)
[2022-09-02 11:52] LABS: Glucose Point of Care 207 mg/dl (65-105)
--- NOTE | 2022-09-02 14:27 | PC.NURSE ---
Pt discharged to home. VSS. Medication teaching done, follow up appointment made. Pt taken to family car by RN via WC.
--- NOTE | 2022-09-04 09:41 | PC.NURSE ---
Unable to contact for discharge call back.
== END 2022-09-02 14:00 | disposition home health service (06) ==
LOC: CHSED 14:31 → CHS2ND 16:15
PROVIDERS: Nurse Practitioner Family; Admitting Provider Internal Medicine; Emergency Provider Emergency Medicine; PCP Family Medicine; Visit Provider Internal Medicine
DX: J18.9 Pneumonia, unspecified organism (principal); I11.0 Hypertensive heart disease with heart failure; I50.9 Heart failure, unspecified; I48.20 Chronic atrial fibrillation, unspecified; K75.81 Nonalcoholic steatohepatitis (NASH); K74.60 Unspecified cirrhosis of liver; D64.9 Anemia, unspecified; J45.909 Unspecified asthma, uncomplicated; E11.40 Type 2 diabetes mellitus with diabetic neuropathy, unspecified; E66.09 Other obesity due to excess calories; E78.5 Hyperlipidemia, unspecified; E78.00 Pure hypercholesterolemia, unspecified; D84.9 Immunodeficiency, unspecified; N26.1 Atrophy of kidney (terminal); M47.9 Spondylosis, unspecified; M10.9 Gout, unspecified; M19.90 Unspecified osteoarthritis, unspecified site; M79.7 Fibromyalgia; R51.9 Headache, unspecified; R91.8 Other nonspecific abnormal finding of lung field; G47.33 Obstructive sleep apnea (adult) (pediatric); G89.4 Chronic pain syndrome; G25.81 Restless legs syndrome; F33.9 Major depressive disorder, recurrent, unspecified; F40.240 Claustrophobia; F41.9 Anxiety disorder, unspecified; F17.210 Nicotine dependence, cigarettes, uncomplicated; F43.10 Post-traumatic stress disorder, unspecified; Z90.49 Acquired absence of other specified parts of digestive tract; Z95.5 Presence of coronary angioplasty implant and graft; Z79.4 Long term (current) use of insulin; Z20.822 Contact with and (suspected) exposure to COVID-19
CPT/HCPCS: 36415; 71046; 80053; 81001; 82948; 83605; 85025; 85610; 85730; 86140; 87040; 94640; 96365; 96367; 96372; 96376; 99285; A9270; C9803; G0378; J0456; J0696; J1650; J1815; J7030; U0003; U0005

== ENCOUNTER 2022-09-15 09:07 | Outpatient (CLI) | payer MEDICARE, MEDICAID, SELFPAY | END 2022-09-15 09:08 | disposition home or self-care (01) | LOC: CHSLAB 09:09 | PROVIDERS: PCP Family Medicine; Visit Provider Family Medicine | DX: J18.9 Pneumonia, unspecified organism (principal) | CPT/HCPCS: 87070; 87147; 87186; 87205 ==

== ENCOUNTER 2022-09-25 17:00 | Outpatient (NON) | payer MEDICARE, SELFPAY | END 2022-09-25 17:01 | disposition home or self-care (01) | LOC: CHSLAB 17:02 | PROVIDERS: Visit Provider Nurse Practitioner Family | DX: S81.801A Unspecified open wound, right lower leg, initial encounter (principal) | CPT/HCPCS: 87070; 87205 ==

== ENCOUNTER 2022-11-20 12:19 | Outpatient (NON) | payer MEDICARE, SELFPAY | END 2022-11-20 12:20 | disposition home or self-care (01) | LOC: CHSLAB 12:20 | PROVIDERS: Visit Provider Nurse Practitioner Family | DX: S21.209A Unspecified open wound of unspecified back wall of thorax without penetration into thoracic cavity, initial encounter (principal) | CPT/HCPCS: 87070; 87147; 87186; 87205 ==

== ENCOUNTER 2022-12-04 07:59 | Inpatient (IN) | payer MEDICARE, MEDICAID, SELFPAY ==
[2022-12-04] VITALS (14 sets, daily range): BP systolic 115–147; BP diastolic 68–94; PULSE 94–108; RESP 12–25; TEMP 36.7–37; O2SAT 96–100; BMI 25.6
--- NOTE | ~2022-12-04 | CT_ITS ---
CT scan of the Neck Technique: 2.5 mm axial scans were obtained through the neck without IV contrast administration. Arlette nal and sagittal reconstructions of the neck were obtained. Dose reduction technique was used on this scan by utilizing automated exposure control and iterative reconstruction technique. The dose-length product (DLP) was 413.73 mGy-cm. Clinical History: Hoarseness, lung cancer Findings: There is no evidence of any significant cervical lymphadenopathy. Several small, nonenlarged jugulo- digastric and posterior cervical lymph nodes are noted bilaterally. Parapharyngeal spaces appear norm al bilaterally. The parotid and submandibular glands appear normal. The pharyngeal mucosal spaces appear normal. No soft tissue masses are seen in the neck. There is diffuse sinusitis of the ethmoid, sphenoid, and maxillary sinuses. There is poor pneumatizat ion of the frontal sinuses. The thyroid gland appears normal. Images of the lung apices reveal no abn ormalities. Impression: Pansinusitis. No other significant abnormality seen in the neck. Reviewed, dictated and finalized at [facility]. [employer] OFFICER Impression: Pansinusitis. No other significant abnormality seen in the neck.
--- NOTE | ~2022-12-04 | CT_ITS ---
Clinical Indication: Lung cancer, bone metastatic disease CT Scan of the Chest, Abdomen, and Pelvis without Contrast: Technique: Contiguous sections were acquired throughout the chest, abdomen, and pelvis without IV or oral contrast administration. Dose reduction technique was used on this scan by utilizing automated e xposure control and iterative reconstruction technique. The dose-length product (DLP) was 1082.58 mGy -cm. COMPARISON: 05/23/2022 Findings: Shotty mediastinal lymph nodes are stable from prior exam. The mediastinal soft tissues otherwise romero ear normal. No aortic aneurysm. There is no evidence of pleural or pericardial effusion. Stable small spiculated lesion in the right upper lobe (axial image 42). There is also stable consoli dative change and bronchiectasis involving the right lung base, with additional mild bronchiolectasis and scarring at the lingula, also stable. There are mild tree-in-bud opacities of the lung bases as well. There is a new 1.4 x 0.7 cm irregular pulmonary nodular opacity in the left upper lobe (axial image 3 9). There is a new semisolid/partially groundglass nodule or consolidation focally in the right upper lobe more superiorly measuring 1.8 cm in extent (axial image 38). There is increased patchy airspace consolidation at the left lung base, some devices are somewhat nodular morphology. Diffusely nodular morphology of the liver is consistent with cirrhosis. No definite focal mass or brianna iary dilatation identified. Gallbladder not seen. Left kidney is atrophic. Splenomegaly noted. The pa ncreas, adrenals, and right kidney are within normal limits. No evidence of aortic aneurysm. No lym phadenopathy. No bowel obstruction or bowel wall thickening. There is no evidence to suggest acute appendicitis. Ev idence of prior presumed herniorrhaphy at the anterior abdominal wall. Small ventral fat-containing h ernia present (axial image 168). Urinary bladder is unremarkable. No pelvic mass identified. No definite osseous lesion identified. Impression: New 1.8 cm semisolid/partially groundglass nodule or consolidation the right upper lobe, with additio nal 1.4 x 0.7 cm new irregular left upper lobe pulmonary nodule and increased patchy, somewhat nodula r consolidation at the left lung base. Findings are suspected to reflect infectious process, however given history, metastatic disease is also a consideration. Recommend short-term CT scan follow-up aft er interval therapy to assess for resolution. Stable small spiculated lesion in the right upper lobe. Stable consolidative and bronchiectatic changes with scarring and tree-in-bud opacities at the lung b ases otherwise. These findings are consistent with acute on chronic small airways infectious process. Cirrhotic liver with associated splenomegaly. Small ventral fat-containing hernia. No distant osseous metastasis identified. Reviewed, dictated and finalized at location . [employer] Impression: New 1.8 cm semisolid/partially groundglass nodule or consolidation the right up per lobe, with additional 1.4 x 0.7 cm new irregular left upper lobe pulmonary nodule and increased patchy, somewhat nodular consolidation at the left lung ba se. Findings are suspected to reflect infectious process, however given history , metastatic disease is also a consideration. Recommend short-term CT scan foll ow-up after interval therapy to assess for resolution. Stable small spiculated lesion in the right upper lobe. Stable consolidative and bronchiectatic changes with scarring and tree-in-bud o pacities at the lung bases otherwise. These findings are consistent with acute on chronic small airways infectious process. Cirrhotic li
[2022-12-04] MEDS: SODIUM CHLORIDE 0.9% IV 1,000 ML 999 ML IV CONT ×2 (08:04→11:12)
--- NOTE | 2022-12-04 08:07 | ED.GENADULT ---
HPI - General Adult General Chief complaint: Recheck/Abnormal Lab/Rx Stated complaint: cp/gonzalez/high blood sugar Time Seen by Provider: 12/04/22 08:07 Source: patient Related Data Home Medications Medication Instructions Recorded Confirmed vitamin E 268 mg (400 unit) capsule 2 cap PO DAILY 12/03/19 11/25/22 nitroglycerin 0.4 mg sublingual 0.4 mg sublingual Q15M PRN Chest 11/12/20 11/25/22 tablet Pain Lactobacillus acidophilus 1 1 tablet PO DAILY 05/22/22 11/25/22 billion cell tablet melatonin 5 mg tablet 5 mg PO HS 05/22/22 11/25/22 nystatin 100,000 unit/mL oral 4 ml PO Q6H PRN OTHER 05/22/22 11/25/22 suspension vortioxetine 10 mg tablet 10 mg PO DAILY 05/22/22 11/25/22 (Trintellix) biotin 1,000 mcg chewable tablet 1,000 mcg PO DAILY 07/09/22 11/25/22 vortioxetine 10 mg tablet 10 mg PO DAILY 07/09/22 11/25/22 (Trintellix) alprazolam 1 mg tablet 0.5 mg PO TID PRN Anxiety 09/25/22 11/25/22 mirtazapine 15 mg tablet 15 mg PO QHS 11/20/22 11/25/22 Allergies Allergy/AdvReac Type Severity Reaction Status Date / Time adhesive tape Allergy Unknown Blister Verified 11/25/22 15:28 atorvastatin Allergy Unknown Itching Verified 11/25/22 15:28 budesonide Allergy Unknown Anaphylactic Verified 11/25/22 15:28 Shock formoterol Allergy Unknown Anaphylactic Verified 11/25/22 15:28 Shock mometasone furoate Allergy Unknown Anaphylactic Verified 11/25/22 15:28 Shock morphine Allergy Unknown Itching Verified 11/25/22 15:28 diphenhydramine AdvReac Severe Other Verified 11/25/22 15:28 [From Benadryl] gemfibrozil AdvReac Unknown Gastrointestinal Verified 11/25/22 15:28 Upset 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 Manic depression Memory loss Migraine Nausea & vomiting Obstructive sleep apnea Posttraumatic stress disorder Pure hypercholesterolemia Restless leg syndrome Seasonal allergies Skin ulcer Sleep apnea SOB (shortness of breath) Spinal arthritis Tobacco abuse Type 2 diabetes mellitus Unintentional weight loss Vertigo Wears glasses Wheezing Surgical History Surgical History History of back surgery History of cholecystectomy History of cholecystectomy History of ear surgery History of hernia repair History of hysterectomy History of laparoscopy History of left salpingo-oophorectomy History of sinus surgery Stented coronary artery Family History Family History Mother Family history of gout Hypertension Family history of elevated blood lipids Family history of diabetes mellitus in first degree relative Family history of chronic obstructive pulmonary disease Sibling Family history of gout Family history of allergic disorder Father Family history of emphysema Other Acute myocardial infarction Arthritis Asthma Depression Diabetes mellitus Family history of cardiovascular disease Heart disease Kidney disorder Neuropathy Social History Social History Social History: Surrogate decision maker: hyun Liu. Code status: Full code. Smoking packs per day: 0.25 Smoking cigarettes per day: 5.0 Years smoked: 30 Smoking pack-years: 7.50 Smoking status: Current every day smoker Second hand tobacco smoke exposure: Yes Alcohol i
[2022-12-04 08:14] LABS: Glucose Point of Care > 500 mg/dl (65-105)
[2022-12-04 08:21] LABS: Basophils Absolute Auto 0.1 K/mm3 (0.0-0.1); Basophils Percent Auto 0.5 % (0.2-1.2); Eosinophils Percent Auto 0.2 % (0-4.4); Hemoglobin 12.8 g/dL (12.0-15.0); Immature Granulocyte Absolute 0.06 K/mm3 (0.00-0.031); Immature Granulocyte Percent A 0.5 % (0-0.5); Lymphocytes Absolute Auto 0.89 K/mm3 (0.9-3.2); Lymphocytes Percent Auto 7.4 % (18.3-44.2); Mean Corpuscular HGB Conc 33.7 g/dl (32-36); Mean Corpuscular Hemoglobin 28.8 pg (26-34); Mean Corpuscular Volume 85.6 fl (80-100); Mean Platelet Volume 11.6 fl (7.4-10.4); Monocytes Absolute Auto 0.5 K/mm3 (0.1-0.6); Monocytes Percent Auto 4.5 % (2.6-8.5); Neutrophils Absolute Auto 10.5 K/mm3 (1.3-6.7); Neutrophils Percent Auto 86.9 % (45.5-73.1); Platelet Count Result 189 k/mm3 (150-375); Red Blood Count 4.44 M/mm3 (4.2-5.4)
[2022-12-04 08:34] LABS: Alanine Aminotransferase 63 U/L (6-35); Albumin Level 3.3 g/dL (3.5-5.1); Alkaline Phosphatase 1147 U/L (38-126); Anion Gap 9 mmol/L (8-16); Aspartate Amino Transferase 78 U/L (14-36); Bilirubin,Total 1.6 mg/dL (0.2-1.3); Blood Urea Nitrogen 18 mg/dL (7-17); Calcium 8.4 mg/dL (8.4-10.2); Carbon Dioxide 30 mmol/L (22-30); Chloride 82 mmol/L (98-107); Estimated CRCL calculation 49 ml/min; Estimated Glomerular Filt Rate > 60; Magnesium 1.5 mg/dL (1.6-2.3); Potassium 4.3 mmol/L (3.4-5.0); Sodium 121 mmol/L (137-145)
[2022-12-04 08:40] LABS: Beta-Hydroxybutyrate/Acetoacetate 2.34 mmol/L (0.02-0.27)
[2022-12-04 08:44] LABS: Alveolar/Arterial O2 Gradient 51.5 mmHg; Base Excess ABG 3.8 mEq/l (+/-2.0); Carboxyhemoglobin 1.4 % THb (0-2.0); Fractional Inspired Oxygen 21 %; HCO3 ABG 25.3 mEq/l (22.0-26.0); Oxygen Content ABG 16.1 %vol (16.0-22.0); Oxyhemoglobin 91.5 % THb (90.0-100.0); PO2 ABG 63.5 mmHg (80.0-100.0); PO2 FiO2 Ratio Arterial Blood 3.02 %; Reduced Hemoglobin 7.1 %THb (0-5.0); Total Hemoglobin 12.5 g/dL (12.0-18.0)
[2022-12-04 08:47] LABS: Device ROOM AIR; Site Drawn LEFT BRACHIAL; pH ABG 7.559 (7.350-7.450)
[2022-12-04 08:55] LABS: Glucose 701 mg/dL (65-110)
[2022-12-04 10:06] LABS: Influenza A QL RT-PCR Negative (Negative); Influenza B QL RT-PCR Negative (Negative); RSV RNA, RT-PCR Negative (Negative); SARS-CoV-2 RNA PCR Negative
[2022-12-04 10:31] LABS: Add Urine Microscopic? YES; Appearance Urine Slightly Cloudy (Clear); Bilirubin Urine Negative (Negative); Blood Urine 3+ (Negative); Color Urine Yellow (Yellow); Glucose Urine UA 3+ mg/dL (Negative); Ketones Urine 2+ mg/dL (Negative); Leukocyte Esterase Ur Negative LEU/UL (Negative); Nitrate Urine Negative (Negative); Protein Urine 2+ mg/dL (Negative); Specific Grav Ur <= 1.005 (1.001-1.035); Urobilinogen Urine 0.2 mg/dL (<2.0); pH Urine 6.5 (5.0-9.0)
[2022-12-04 10:41] LABS: Glucose Point of Care > 500 mg/dl (65-105)
[2022-12-04 10:44] LABS: Budding Yeast Urine Present /hpf; RBC Urine >75 /hpf (0-2); Squamous Epithelial Cell Urine Rare /hpf (Few)
[2022-12-04] MEDS: INSULIN HUMAN REGULAR (*BKC) 100 UNITS/ML 6 UNITS IV PUSH (11:36)
[2022-12-04] MEDS: INSULIN HUMAN REGULAR (*BKC) 100 UNITS in SODIUM CHLORIDE 0.9% IV 99 ML 12.8 UNITS IV CONT (11:36)
[2022-12-04 11:44] LABS: Glucose Point of Care > 500 mg/dl (65-105)
[2022-12-04 13:48] LABS: Glucose Point of Care 318 mg/dl (65-105)
[2022-12-04 13:48] LABS: Glucose Point of Care 432 mg/dl (65-105)
[2022-12-04] MEDS: SODIUM CHLORIDE 0.9% IV 1,000 ML 200 ML IV CONT (13:55)
--- NOTE | 2022-12-04 14:30 | PM.IMHP ---
H&P: HPI History of Present Illness Date/Time: 12/04/22 14:30 Chief Complaint: Nausea and vomiting. Narrative: This is a 57-year-old female smoker with multiple medical problems including insulin-dependent diabetes, hyperlipidemia, fibromyalgia, cirrhosis, anxiety, depression, COPD, coronary artery disease, and congestive heart failure who presented to the ED for evaluation of nausea and vomiting. She admits that she has been depressed for the last year so since the of her mother and she has lost about 50 pounds since that time. She also admits that she has not been taking care of herself and her diabetes has not been well controlled. In fact she has had several PET-CT scans scheduled to evaluate a suspicious right upper lobe pulmonary nodule noted on CT in April 2022 however those were canceled due to the fact that her glucoses were over 200. Last night she developed nausea and vomiting and this morning she felt very dehydrated and reports polyuria and polydipsia. Her glucose read high and she came in for evaluation. With further questioning she has not been feeling well for couple of weeks with sore throat, occasional hoarseness and pain when swallowing, and she also reports numerous sores that have opened over her body which she assumes are due to MRSA given history of the same. She denies fever, chills, sweats, chest pain, pleuritic pain, palpitations, cough, abdominal pain, and dysuria. In the ED her glucose was over 700 and her beta hydroxybutyrate was elevated though her anion gap was normal. She has since been started on insulin drip and IV fluids and is being admitted to ICU for further management. Review of Systems Review of Systems: Twelve systems were reviewed and are negative except for as per HPI. 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 Manic depression Memory loss Migraine Nausea & vomiting Obstructive sleep apnea Posttraumatic stress disorder Pure hypercholesterolemia Restless leg syndrome Seasonal allergies Skin ulcer Sleep apnea SOB (shortness of breath) Spinal arthritis Tobacco abuse Type 2 diabetes mellitus Unintentional weight loss Vertigo Wears glasses Wheezing Surgical History Surgical History History of back surgery History of cholecystectomy History of cholecystectomy History of ear surgery History of hernia repair History of hysterectomy History of laparoscopy History of left salpingo-oophorectomy History of sinus surgery Stented coronary artery Family History Family History Mother Family history of gout Hypertension Family history of elevated blood lipids Family history of diabetes mellitus in first degree relative Family history of chronic obstructive pulmonary disease Sibling Family history of gout Family history of allergic disorder Father Family history of emphysema Other Acute myocardial infarction Arthritis Asthma Depression Diabetes mellitus Family history of cardiovascular disease Heart disease Kidney disorder Neuropathy Social History Social History Social History: Surrogate decision maker: hyun Liu. Code status: Full code. Smoking packs per day: 0.25 Smoking cigarettes per day: 5.0 Years smoked: 30 Smoking pack
[2022-12-04 14:34] LABS: Glucose Point of Care 231 mg/dl (65-105)
--- NOTE | 2022-12-04 14:44 | WPDCNINT ---
Assessment and Plan Assessment and plan (1) Diabetic ketoacidosis: Qualifiers: Diabetes mellitus type: type 2 Diabetes mellitus complication detail: without coma Qualified Code(s): E11.10 - Type 2 diabetes mellitus with ketoacidosis without coma Code(s): E11.10 - Type 2 diabetes mellitus with ketoacidosis without coma Status: Acute Assessment and Plan: Although patient's anion gap is negative her beta hydroxybutyrate is positive along with elevated blood sugars Patient was given IVF bolus and started on infusion Patient has been started on Insulin infusion and Q1H glucose monitoring will be performed Serial labs are ordered Replace electrolytes as needed Will transition to SC insulin once AG is closed Although patient presented with complaint of nausea vomiting she feels she could try p.o. and would like to eat something. I will order clear liquid diet and see if patient tolerates (2) Alkaline phosphatase elevation: Code(s): R74.8 - Abnormal levels of other serum enzymes Status: Acute Assessment and Plan: Patient had elevated alkaline phosphatase which could be bone metastatic. Patient also has hepatomegaly on exam CT abdomen pelvis ordered (3) Skin infection: Code(s): L08.9 - Local infection of the skin and subcutaneous tissue, unspecified Status: Acute Assessment and Plan: Patient had multiple scabbed wounds and a large wound on the back, several wounds has surrounding eryhema She grew out MRSA from one her wound cultures from back She does not appear toxic I will start her on vancomycin Obtain blood cultures (4) Wound of back: Code(s): S21.209A - Unspecified open wound of unspecified back wall of thorax without penetration into thoracic cavity, initial encounter Status: Acute Assessment and Plan: See above (5) COPD (chronic obstructive pulmonary disease): Code(s): J44.9 - Chronic obstructive pulmonary disease, unspecified Status: Acute Assessment and Plan: Not in exacerbation Bronchodilators (6) Nataly infection: Code(s): B37.9 - Candidiasis, unspecified Status: Acute Assessment and Plan: Patient has widespread Nataly infection. She has oral thrush, skin infection and yeast in her urine Ordered fluconazole IV today which will be switched to p.o. from tomorrow Cultures ordered (7) Thrush, oral: Code(s): B37.0 - Candidal stomatitis Status: Acute Assessment and Plan: See above (8) Hoarseness of voice: Code(s): R49.0 - Dysphonia Status: Acute Assessment and Plan: Patient has lung nodule suspected of bronchogenic carcinoma Will check CT soft tissue neck (9) Chronic cough: Code(s): R05.3 - Chronic cough Status: Acute Assessment and Plan: Tessalon ordered CT soft tissue neck and chest ordered (10) Lung nodule: Code(s): R91.1 - Solitary pulmonary nodule Status: Acute Assessment and Plan: Patient was supposed to get PET-CT as an outpatient but she she she states she was never able to get that done due to multiple medical issues and family issues Repeat CT chest ordered (11) Electrolyte abnormality: Code(s): E87.8 - Other disorders of electrolyte and fluid balance, not elsewhere classified Status: Acute Assessment and Plan: Replace low magnesium Plan DVT prophylaxis -Lovenox Stress ulcer prophylaxis -Pepcid Nutrition -clear liquid diet Code Status - Full Code Total Critical Care Time - 50 minutes Due to a high probability of clinically significant, life threatening deterioration, the patient required my highest level of preparedness to intervene emergently and I personally spent this critical care time directly and personally managing the patient. This critical care time included obtaining a history; examining the patient; pulse oximetry; ordering and review of studies; arranging urgent treatm
[2022-12-04] MEDS: SULFAMETHOXAZOLE/TRIMETHOPRIM 800/160 MG DS TABLET 1 TAB PO (14:45)
--- NOTE | 2022-12-04 15:14 | ADMGEN ---
This patient, Britney Crawford, was admitted to Intensive Care Unit-7. Patient/family oriented to hospital policies and general routines including ID bracelet, bed and alarms, visiting hours, pain management, procedures, bathroom and other care routines, personal items, smoking policy, room service/diet, and visiting hours. Information on how to activate the Rapid Response Team has been discussed. Patient/Family are encouraged to report perceived risks to care and to ask questions if they do not understand what they are told or what they should do.
[2022-12-04 15:20] LABS: Glucose Point of Care 164 mg/dl (65-105)
[2022-12-04] MEDS: MAGNESIUM SULF 2 GM/WATER 50ML 2 GM/50 ML BAG IVPB (15:30)
[2022-12-04] MEDS: KCL 20 MEQ/D5/0.45% SOD CHL 1,000 ML 150 ML IV CONT (15:30)
[2022-12-04] MEDS: FLUCONAZOLE 400 MG/NACL 200 ML 400 MG/200 ML BAG 100 MG IVPB (15:30)
[2022-12-04] MEDS: INSULIN GLARGINE (*BKC) 100 UNITS/ML 50 UNITS SUB-Q (16:20)
[2022-12-04] MEDS: BENZONATATE 100 MG CAPSULE PO (16:20)
[2022-12-04 16:22] LABS: Anion Gap 9 mmol/L (8-16); Blood Urea Nitrogen 15 mg/dL (7-17); Calcium 8.4 mg/dL (8.4-10.2); Carbon Dioxide 27 mmol/L (22-30); Chloride 92 mmol/L (98-107); Estimated CRCL calculation 49 ml/min; Estimated Glomerular Filt Rate > 60; Glucose 189 mg/dL (65-110); Potassium 3.2 mmol/L (3.4-5.0); Sodium 128 mmol/L (137-145)
[2022-12-04 17:15] LABS: Glucose Point of Care 154 mg/dl (65-105)
[2022-12-04 17:16] LABS: Glucose Point of Care 165 mg/dl (65-105)
[2022-12-04 18:40] LABS: Beta-Hydroxybutyrate/Acetoacetate 0.14 mmol/L (0.02-0.27)
[2022-12-04 18:47] LABS: Glucose Point of Care 183 mg/dl (65-105)
[2022-12-04 18:50] LABS: Anion Gap 8 mmol/L (8-16); Blood Urea Nitrogen 15 mg/dL (7-17); Calcium 7.9 mg/dL (8.4-10.2); Carbon Dioxide 28 mmol/L (22-30); Chloride 91 mmol/L (98-107); Estimated CRCL calculation 55 ml/min; Estimated Glomerular Filt Rate > 60; Glucose 192 mg/dL (65-110); Potassium 3.3 mmol/L (3.4-5.0); Sodium 127 mmol/L (137-145)
[2022-12-04 19:47] LABS: Glucose Point of Care 205 mg/dl (65-105)
[2022-12-04] MEDS: PREGABALIN (*CRX) 75 MG CAPSULE PO (20:27)
[2022-12-04] MEDS: POTASSIUM CHLORIDE 20 MEQ TABLET 40 MEQ PO (20:27)
[2022-12-04] MEDS: ACETAMINOPHEN 325 MG TABLET 650 MG PO (20:27)
[2022-12-04] MEDS: FAMOTIDINE 20 MG TABLET PO (20:28)
[2022-12-04 20:32] LABS: Glucose Point of Care 155 mg/dl (65-105)
[2022-12-04] MEDS: KCL 20MEQ/0.9% SOD CHL 1,000 ML 100 ML IV CONT (21:19)
[2022-12-05] VITALS (11 sets, daily range): BP systolic 109–141; BP diastolic 73–85; PULSE 88–104; RESP 16–21; TEMP 36.2–36.9; O2SAT 93–99; BMI 27.0
[2022-12-05 00:17] LABS: Glucose Point of Care 191 mg/dl (65-105)
[2022-12-05 04:22] LABS: Basophils Percent Auto 0.4 % (0.2-1.2); Eosinophils Absolute Auto 0.1 K/mm3 (0-0.3); Eosinophils Percent Auto 1.3 % (0-4.4); Hematocrit 32.5 % (37.0-47.0); Hemoglobin 10.9 g/dL (12.0-15.0); Immature Granulocyte Absolute 0.04 K/mm3 (0.00-0.031); Immature Granulocyte Percent A 0.4 % (0-0.5); Lymphocytes Absolute Auto 1.68 K/mm3 (0.9-3.2); Lymphocytes Percent Auto 18.7 % (18.3-44.2); Mean Corpuscular HGB Conc 33.5 g/dl (32-36); Mean Corpuscular Hemoglobin 28.2 pg (26-34); Mean Platelet Volume 10.9 fl (7.4-10.4); Monocytes Absolute Auto 0.7 K/mm3 (0.1-0.6); Monocytes Percent Auto 7.3 % (2.6-8.5); Neutrophils Absolute Auto 6.5 K/mm3 (1.3-6.7); Neutrophils Percent Auto 71.9 % (45.5-73.1); Platelet Count Result 147 k/mm3 (150-375); Red Blood Count 3.87 M/mm3 (4.2-5.4); Red Cell Distribution Width 14.1 % (11.5-14.5)
[2022-12-05 04:35] LABS: Alanine Aminotransferase 61 U/L (6-35); Albumin Level 2.6 g/dL (3.5-5.1); Alkaline Phosphatase 608 U/L (38-126); Anion Gap 2 mmol/L (8-16); Aspartate Amino Transferase 98 U/L (14-36); Bilirubin,Total 1.1 mg/dL (0.2-1.3); Blood Urea Nitrogen 14 mg/dL (7-17); Calcium 7.5 mg/dL (8.4-10.2); Carbon Dioxide 27 mmol/L (22-30); Chloride 104 mmol/L (98-107); Estimated CRCL calculation 44 ml/min; Estimated Glomerular Filt Rate 58; Glucose 149 mg/dL (65-110); Magnesium 2.2 mg/dL (1.6-2.3); Potassium 4.4 mmol/L (3.4-5.0); Sodium 133 mmol/L (137-145)
[2022-12-05 04:46] LABS: Glucose Point of Care 154 mg/dl (65-105)
[2022-12-05 07:48] LABS: Glucose Point of Care 255 mg/dl (65-105)
[2022-12-05] MEDS: INSULIN ASPART (*BKC) 100 UNITS/ML SUB-Q ×3 (08:49→17:42)
[2022-12-05] MEDS: INSULIN ASPART (*BKC) 100 UNITS/ML 7 UNITS SUB-Q ×3 (08:50→17:43)
[2022-12-05] MEDS: rOPINIRole HCL 1 MG TABLET 2 MG PO ×2 (08:52→16:22)
[2022-12-05] MEDS: VITAMIN E 400 UNIT CAPSULE 800 UNIT PO (08:52)
[2022-12-05] MEDS: PREGABALIN (*CRX) 75 MG CAPSULE PO ×2 (08:53→16:24)
[2022-12-05] MEDS: NYSTATIN 100,000 UNITS/ML SUSP 5 ML ORAL.SUSP PO ×3 (08:53→20:55)
[2022-12-05] MEDS: FLUTICASONE PROPIONATE 0.05% NA SPR 16 GM BTL (*BKC) 1 SPRAY NASAL (08:54)
[2022-12-05] MEDS: LORATADINE 10 MG TABLET PO (08:54)
[2022-12-05] MEDS: MONTELUKAST SODIUM 10 MG TABLET PO (08:54)
[2022-12-05] MEDS: ACIDOPHILUS/BULGARICUS CHEWABLE TABLET 1 TABLET BY MOUTH (08:55)
[2022-12-05] MEDS: FLUCONAZOLE 100 MG TABLET 200 MG PO (08:55)
[2022-12-05] MEDS: FAMOTIDINE 20 MG TABLET PO ×2 (08:55→20:56)
[2022-12-05] MEDS: BENZONATATE 100 MG CAPSULE PO ×3 (08:55→16:22)
[2022-12-05] MEDS: ENOXAPARIN 40 MG/0.4 ML SYRINGE SUB-Q (08:55)
[2022-12-05] MEDS: DULoxetine HCL 60 MG CAPSULE.DR PO (08:55)
[2022-12-05] MEDS: traMADol HCL (*CRX) 50 MG TABLET PO ×2 (08:56→16:24)
--- NOTE | 2022-12-05 09:19 | PHAR ---
HOME MEDICATION VERIFIED BY PHARMACY TRINTELLIX (VORTIOXETINE) 20 MG TABLET TAKE 1 TABLET PO DAILY AT THE SAME TIME EACH DAY RX#[id number]
--- NOTE | 2022-12-05 10:02 | WPDINTPN ---
Progress Note: A&P Assessment and Plan (1) Diabetic ketoacidosis: Qualifiers: Diabetes mellitus type: type 2 Diabetes mellitus complication detail: without coma Qualified Code(s): E11.10 - Type 2 diabetes mellitus with ketoacidosis without coma Code(s): E11.10 - Type 2 diabetes mellitus with ketoacidosis without coma Status: Acute Assessment and Plan: Although patient's anion gap was normal on presentation her beta hydroxybutyrate is positive along with elevated blood sugars Patient was given IVF bolus and started on infusion Patient has been started on Insulin infusion and Q1H glucose monitoring will be performed Serial labs were ordered Her anion gap has cleared and beta hydroxybutyrate has normalized Patient has been transition to Lantus and subcutaneous insulin Add with meal insulin. Continue sliding scale Consult tobacco educator and dietitian Advance diet (2) Alkaline phosphatase elevation: Code(s): R74.8 - Abnormal levels of other serum enzymes Status: Acute Assessment and Plan: Patient had elevated alkaline phosphatase which could be bone metastatic. Patient also has hepatomegaly on exam CT abdomen pelvis suggest cirrhosis of liver (3) Skin infection: Code(s): L08.9 - Local infection of the skin and subcutaneous tissue, unspecified Status: Acute Assessment and Plan: Patient had multiple scabbed wounds and a large wound on the back, several wounds has surrounding eryhema She grew out MRSA from one her wound cultures from back She does not appear toxic I will start her on vancomycin blood cultures have been obtained and are pending (4) Wound of back: Code(s): S21.209A - Unspecified open wound of unspecified back wall of thorax without penetration into thoracic cavity, initial encounter Status: Acute Assessment and Plan: See above Patient was seen by wound care (5) COPD (chronic obstructive pulmonary disease): Code(s): J44.9 - Chronic obstructive pulmonary disease, unspecified Status: Acute Assessment and Plan: Not in exacerbation Bronchodilators (6) Nataly infection: Code(s): B37.9 - Candidiasis, unspecified Status: Acute Assessment and Plan: Patient has widespread Nataly infection. She has oral thrush, skin infection and yeast in her urine Continue fluconazole Cultures ordered (7) Thrush, oral: Code(s): B37.0 - Candidal stomatitis Status: Acute Assessment and Plan: See above (8) Hoarseness of voice: Code(s): R49.0 - Dysphonia Status: Acute Assessment and Plan: Patient has lung nodule suspected of bronchogenic carcinoma CT of soft tissue neck was unremarkable (9) Chronic cough: Code(s): R05.3 - Chronic cough Status: Acute Assessment and Plan: Tessalon ordered Secondary to COPD and suspected lung cancer (10) Lung nodule: Code(s): R91.1 - Solitary pulmonary nodule Status: Acute Assessment and Plan: Patient was supposed to get PET-CT as an outpatient but she she she states she was never able to get that done due to multiple medical issues and family issues Repeat CT chest New 1.8 cm semisolid/partially groundglass nodule or consolidation the right upper lobe, with additional 1.4 x 0.7 cm new irregular left upper lobe pulmonary nodule and increased patchy, somewhat nodular consolidation at the left lung base. Findings are suspected to reflect infectious process, however given history, metastatic disease is also a consideration. Recommend short-term CT scan follow-up after interval therapy to assess for resolution. Stable small spiculated lesion in the right upper lobe. Consult pulmonary and oncology (11) Electrolyte abnormality: Code(s): E87.8 - Other disorders of electrolyte and fluid balance, not elsewhere classified Status: Acute Assessment and Plan: Replace low magnesium (12) Pneumonia:
--- NOTE | 2022-12-05 10:44 | PC.NURSE ---
This patient, Britney Crawford, was transferred to [ ] on 12/05/22 at 1144. Personal belongings sent with patient. Report given to [ ]. Appropriate documentation sent with patient.
--- NOTE | 2022-12-05 11:06 | PC.NURSE ---
This patient, Britney Crawford, was received from ICU-7 on 12/05/22 at 1055. Patient/family oriented to unit policies and routines.
[2022-12-05 12:06] LABS: Glucose Point of Care 265 mg/dl (65-105)
--- NOTE | 2022-12-05 15:55 | PM.CNPUL ---
Assessment and Plan Assessment and plan (1) Lung nodule: Code(s): R91.1 - Solitary pulmonary nodule Status: Acute Assessment and Plan: Patient with stable right upper lobe nodule and now with new ground-glass nodular infiltrates in the right upper lobe, left upper lobe and left lower lobe. Agree with treatment for pneumonia and would continue vancomycin and cefepime while in the hospital. On discharge I would finish a 10 day course of antibiotics with Levaquin 750 mg p.o. q.day. Patient should have outpatient CT PET scan which has been ordered through the Pulmonary [facility]. The patient tells me her daughter will call on discharge to complete this test. I have informed the patient that she should make a new pulmonary clinic appointment in 3 -4 weeks and she should have her daughter call the clinic so that the CT PET can be completed. I gave her our business card. Will sign off. Call with questions. (2) Chronic obstructive pulmonary disease: Code(s): J44.9 - Chronic obstructive pulmonary disease, unspecified Status: Acute Assessment and Plan: Patient has a history of tobacco use (55 PY, quit 3 weeks ago). Patient has a history of COPD (no pFTs availalbe), no emphasema on CT scan of chest 12/04/2022, and is maintained on trelegy 100 at home and I will reinitiate this now. Current saturations on room air are 96% on and she is on no home O2. Patient has no wheezing or evidence of an active COPD exacerbation. I will restart her home trelegy 100. (3) Obstructive sleep apnea: Code(s): G47.33 - Obstructive sleep apnea (adult) (pediatric) Status: Acute Assessment and Plan: Patient tells me that her last sleep study was approximately 10 years ago and she has had her current machine for 6-7 years but she is unable to tolerate the machine for more than a few hours once week. She feels the pressure is are in adequate and she can't sleep with the machine. Her [employer] company is [place]. I have told her to follow up in the Pulmonary Clinic so that a download can be obtained and reviewed. The patient repeat may require a new sleep study. History of Present Illness History of Present Illness Consult date: 12/05/22 Chief complaint: Diabetic Hyperglycemia/Elevated Alkaline Phosphate Narrative: 12/05/2022: This is a new pulmonary consult for lung nodule. Patient is followed in the Pulmonary Clinic for COPD, CELESTINA on BIPAP, lung nodule and last seen on 07/09/2022. Regarding her COPD she was on trilogy 100 and this was helping her. Her limiting factor for her dyspnea on exertion was pain and neuropathy in the legs. Her CAT score was 40/40 she was using her rescue albuterol 3-4 times per week. trilogy was continued. She was smoking half pack a cigarettes. Regarding her sleep-related breathing disorders. She was supposed to be on BiPAP and tis was supposed to be re-initiated through [facility]. Regarding her lung nodule. Patient has CT scan on 05/23/2022 with a new 14 x 7 mm nodule the right upper lobe there were also new tree-in-bud opacities in the posterior right lower lobe consistent with pneumonia. She had been treated in the hospital for pneumonia with Augmentin and the sputum grew out Pseudomonas and she was switched to Levaquin. CT PET was ordered multiple times but was not performed. Nodify cdt indeterminant. patient smoked cigarettes from age 20 to 3 weeks ago at 1 and half packs per day for total of 55 pack years. Patient denies vaping, illicit drug use, sandblasting, welding, asbestos were, professional painting, steel miller apprentice. She was exposed to secondhand smoke from both parents but none currently. At baseline patient states she has no limitations in her activities of daily living from a respiratory perspective but is limited to 5 blocks because of pain and neuropathy in her legs. She uses rescue albuterol nebulizers 1 time in 6 months and occasionally uses re
[2022-12-05] MEDS: TOLNAFTATE 1% POWDER 45 GM BTL 1 APPLIC TOPICAL ×2 (16:20→20:56)
[2022-12-05] MEDS: BETAMETHASONE/CLOTRIMAZOLE CR 15 GM TUBE 1 APPLIC TOPICAL ×2 (16:20→20:57)
[2022-12-05] MEDS: MUPIROCIN 2% OINT 22 GM TUBE 1 APPLIC TOPICAL ×2 (16:20→20:57)
[2022-12-05 16:46] LABS: Glucose Point of Care 320 mg/dl (65-105)
--- NOTE | 2022-12-05 16:49 | PM.IMPN ---
Progress Note: A&P Assessment and Plan (1) Diabetic ketoacidosis: Qualifiers: Diabetes mellitus type: type 2 Diabetes mellitus complication detail: without coma Qualified Code(s): E11.10 - Type 2 diabetes mellitus with ketoacidosis without coma Code(s): E11.10 - Type 2 diabetes mellitus with ketoacidosis without coma Status: Acute Assessment and Plan: Patient meets criteria for DKA with hyperglycemia and positive beta hydroxybutyrate though she has a normal anion gap. She has been admitted to the ICU on insulin drip O2 will be titrated per DKA protocol. Transition to long-acting insulin once resolved. 12/05/2022 interval history: patient with DKA was started on IV insulin and now blood sugars have trended down and transferred out of ICU on long-acting insulin and sliding scale, patient states feeling better compared to when she arrived, patient also found to have wound on her back positive for MRSA being treated with cefepime and vancomycin blood cultures are drawn and pending, patient also has solitary nodule on lung scan and concerning for malignancy, will have underground distribution engineer evaluate the patient and further recommendation to follow, continue to monitor patient blood sugar, will have wound team for evaluate the patient and further recommendation to. (2) Right upper lobe pulmonary nodule: Code(s): R91.1 - Solitary pulmonary nodule Status: Acute Assessment and Plan: Noted on CT in April 2022. She has not had a PET-CT scan as her glucose has apparently been uncontrolled. Alkaline phosphatase today is markedly elevated which is concerning for metastatic disease to the bones (denies bone pain) and/or liver. She also complains of mild dysphagia and hoarseness which could be related to thrush though because of these findings a CT of the neck, chest, abdomen, and pelvis have been ordered. (3) Skin infection: Code(s): L08.9 - Local infection of the skin and subcutaneous tissue, unspecified Status: Acute Assessment and Plan: She has multiple wounds and a history of MRSA skin and soft tissue infections. She has been started on vancomycin. Wound nurse consulted. (4) Nataly infection: Code(s): B37.9 - Candidiasis, unspecified Status: Acute Assessment and Plan: IV fluconazole x1 today. Nystatin swish and swallow. (5) Electrolyte abnormality: Code(s): E87.8 - Other disorders of electrolyte and fluid balance, not elsewhere classified Status: Acute Assessment and Plan: Hyponatremia (pseudohyponatremia due to hyperglycemia) and hypomagnesemia. Replace and monitor Subjective Date/time seen: 12/05/22 16:49 Nausea and vomiting. HPI-Narrative: This is a 57-year-old female smoker with multiple medical problems including insulin-dependent diabetes, hyperlipidemia, fibromyalgia, cirrhosis, anxiety, depression, COPD, coronary artery disease, and congestive heart failure who presented to the ED for evaluation of nausea and vomiting. She admits that she has been depressed for the last year so since the of her mother and she has lost about 50 pounds since that time.? She also admits that she has not been taking care of herself and her diabetes has not been well controlled. In fact she has had several PET-CT scans scheduled to evaluate a suspicious right upper lobe pulmonary nodule noted on CT in April 2022 however those were canceled due to the fact that her glucoses were over 200. Last night she developed nausea and vomiting and this morning she felt very dehydrated and reports polyuria and polydipsia. Her glucose read high and she came in for evaluation.? With further questioning she has not been feeling well for couple of weeks with sore throat, occasional hoarseness and pain when swallowing, and she also reports numerous sores that have opened over her body which she assumes are due to MRSA given history of the same. She denies fever, chills, sweat
--- NOTE | 2022-12-05 17:44 | PCRCNOTE ---
pt. does not want to wear cpap.
--- NOTE | 2022-12-05 18:55 | PDONCCN ---
HPI - Date of Consult Date/Time: 12/05/22 18:55 Requesting Physician: Nathaly Davis MD Primary Care Provider: Guerrero Guillory DO - Consult Narrative Reason for consult: Lung mass Narrative: Britney Crawford is a 57 year old female with history of smoking 1 pack per day for more than 30 years duration along with history of diabetes, hyperlipidemia liver cirrhosis diagnosed 19 years ago, COPD coronary artery disease and congestive heart failure came into the hospital with nausea and vomiting. She was found to have mass in the lung in April of 2022 involving the right upper lobe. PET scan was ordered but not done. Repeat CT scan done on December 14 showed 1.8 cm nodule in the right upper lobe with additional 1.4 x 0.7 cm left upper lobe nodule with increased patchy consolidation suspected for infection versus metastatic disease. The was liver cirrhosis associated with splenomegaly. She has lost almost 40 lb weight in last 1 year duration. Denies any hemoptysis. Denies any other new complaint. Review of Systems - Review of Systems All systems reviewed & are unremarkable except as noted in HPI and bel - Neurologic Reports system reviewed and no additional complaints, except as documented PMFSH Medical History: Medical History (Last Reviewed 12/04/22 @ 14:51 by Derrick Harper MD) Afib Anxiety Arthritis Asthma Atrophy of left kidney Chest tightness Chronic anemia Chronic fatigue Chronic headache Chronic obstructive pulmonary disease Chronic pain syndrome Chronic sinusitis Cirrhosis Claustrophobia Congestive heart failure Coughing Degenerative disc disease Depression Diabetic neuropathy Dizziness Exogenous obesity Fibromyalgia Gout Hair loss History of MRSA infection Hyperlipidemia Hypertension Immunosuppression Insomnia Light headedness 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 Manic depression Memory loss Migraine Nausea & vomiting Obstructive sleep apnea Posttraumatic stress disorder Pure hypercholesterolemia Restless leg syndrome Seasonal allergies Skin ulcer Sleep apnea SOB (shortness of breath) Spinal arthritis Tobacco abuse Type 2 diabetes mellitus Unintentional weight loss Vertigo Wears glasses Wheezing Surgical History: Surgical History (Last Reviewed 12/04/22 @ 14:51 by Derrick Harper MD) History of back surgery History of cholecystectomy History of cholecystectomy History of ear surgery History of hernia repair History of hysterectomy History of laparoscopy History of left salpingo-oophorectomy History of sinus surgery Stented coronary artery Family History: Family History (Last Reviewed 12/04/22 @ 14:51 by Derrick Harper MD) Mother Family history of gout Hypertension Family history of elevated blood lipids Family history of diabetes mellitus in first degree relative Family history of chronic obstructive pulmonary disease Sibling Family history of gout Family history of allergic disorder Father Family history of emphysema Other Acute myocardial infarction Arthritis Asthma Depression Diabetes mellitus Family history of cardiovascular disease Heart disease Kidney disorder Neuropathy - Social History Social History: Social History (Last Reviewed 12/04/22 @ 14:51 by Derrick Harper MD) Gender Identity: Gender identity (if verbalized by the patient): Female Alcohol Use: Alcohol intake: never Substance Use: Substance use: never Substance use type: painkillers Others: Spiritual care concerns: No Smoking Status: Smoking status: Former smoker Tobacco type: cigarettes Second hand tobacco smoke exposure: No Smoking end date: 09/30/22 Smoking Pack-years: Smoking packs per day: 0.25 Smoking cigarettes per day: 2 Years smoked: 30 Smoking pack-years: 7.50 Social Determinants of Health: Has the Lack of Transportation Kept You From Medical Appointments or From Getting Medica
[2022-12-05] MEDS: INSULIN GLARGINE (*BKC) 100 UNITS/ML 50 UNITS SUB-Q (20:54)
[2022-12-05] MEDS: MIRTAZAPINE 15 MG TABLET PO (20:56)
[2022-12-05 22:03] LABS: Glucose Point of Care 347 mg/dl (65-105)
[2022-12-06] VITALS (8 sets, daily range): BP systolic 117–142; BP diastolic 60–93; PULSE 90–106; RESP 18–19; TEMP 36.2–37.1; O2SAT 92–100
[2022-12-06 03:27] LABS: Glucose Point of Care 237 mg/dl (65-105)
[2022-12-06 07:33] LABS: Basophils Percent Auto 0.4 % (0.2-1.2); Eosinophils Absolute Auto 0.1 K/mm3 (0-0.3); Eosinophils Percent Auto 1.9 % (0-4.4); Hematocrit 33.1 % (37.0-47.0); Immature Granulocyte Absolute 0.04 K/mm3 (0.00-0.031); Immature Granulocyte Percent A 0.5 % (0-0.5); Lymphocytes Absolute Auto 1.37 K/mm3 (0.9-3.2); Lymphocytes Percent Auto 18.1 % (18.3-44.2); Mean Corpuscular HGB Conc 33.2 g/dl (32-36); Mean Corpuscular Hemoglobin 28.4 pg (26-34); Mean Corpuscular Volume 85.3 fl (80-100); Mean Platelet Volume 10.9 fl (7.4-10.4); Monocytes Absolute Auto 0.5 K/mm3 (0.1-0.6); Monocytes Percent Auto 6.5 % (2.6-8.5); Neutrophils Absolute Auto 5.5 K/mm3 (1.3-6.7); Neutrophils Percent Auto 72.6 % (45.5-73.1); Platelet Count Result 135 k/mm3 (150-375); Red Blood Count 3.88 M/mm3 (4.2-5.4); Red Cell Distribution Width 14.6 % (11.5-14.5); White Blood Count 7.6 K/mm3 (4.5-10.0)
[2022-12-06 07:59] LABS: Alanine Aminotransferase 87 U/L (6-35); Albumin Level 2.8 g/dL (3.5-5.1); Alkaline Phosphatase 825 U/L (38-126); Anion Gap 6 mmol/L (8-16); Aspartate Amino Transferase 123 U/L (14-36); Bilirubin,Total 0.9 mg/dL (0.2-1.3); Blood Urea Nitrogen 18 mg/dL (7-17); Calcium 7.6 mg/dL (8.4-10.2); Carbon Dioxide 25 mmol/L (22-30); Chloride 100 mmol/L (98-107); Estimated CRCL calculation 39 ml/min; Estimated Glomerular Filt Rate 43; Glucose 227 mg/dL (65-110); Magnesium 1.9 mg/dL (1.6-2.3); Potassium 4.1 mmol/L (3.4-5.0); Sodium 131 mmol/L (137-145)
[2022-12-06 08:12] LABS: Glucose Point of Care 238 mg/dl (65-105)
[2022-12-06] MEDS: INSULIN ASPART (*BKC) 100 UNITS/ML 7 UNITS SUB-Q ×3 (08:25→16:45)
[2022-12-06] MEDS: INSULIN ASPART (*BKC) 100 UNITS/ML SUB-Q ×3 (08:26→16:45)
[2022-12-06] MEDS: ACETAMINOPHEN 325 MG TABLET 650 MG PO ×2 (08:27→18:39)
[2022-12-06] MEDS: BENZONATATE 100 MG CAPSULE PO ×3 (08:28→16:32)
[2022-12-06] MEDS: VITAMIN E 400 UNIT CAPSULE 800 UNIT PO (08:28)
[2022-12-06] MEDS: rOPINIRole HCL 1 MG TABLET 2 MG PO ×3 (08:29→16:19)
[2022-12-06] MEDS: NYSTATIN 100,000 UNITS/ML SUSP 5 ML ORAL.SUSP PO ×4 (08:29→20:45)
[2022-12-06] MEDS: LORATADINE 10 MG TABLET PO (08:29)
[2022-12-06] MEDS: DULoxetine HCL 60 MG CAPSULE.DR PO (08:29)
[2022-12-06] MEDS: FAMOTIDINE 20 MG TABLET PO ×2 (08:29→20:45)
[2022-12-06] MEDS: ACIDOPHILUS/BULGARICUS CHEWABLE TABLET 1 TABLET BY MOUTH (08:30)
[2022-12-06] MEDS: MONTELUKAST SODIUM 10 MG TABLET PO (08:30)
[2022-12-06] MEDS: FLUCONAZOLE 100 MG TABLET 200 MG PO (08:31)
[2022-12-06] MEDS: ENOXAPARIN 40 MG/0.4 ML SYRINGE SUB-Q (08:31)
[2022-12-06] MEDS: FLUTICASONE PROPIONATE 0.05% NA SPR 16 GM BTL (*BKC) 1 SPRAY NASAL (08:32)
[2022-12-06] MEDS: PREGABALIN (*CRX) 75 MG CAPSULE PO ×2 (08:44→16:32)
[2022-12-06] MEDS: ONDANSETRON INJ 4 MG/2 ML VIAL IV PUSH ×2 (09:05→16:13)
[2022-12-06] MEDS: FLUTICASONE/UMECLIDIN/VILANTER 100-62.5-25 MCG ELLIPTA 1 PUFF INHALATION (10:59)
--- NOTE | 2022-12-06 10:59 | PM.IMPN ---
Progress Note: A&P Assessment and Plan (1) Diabetic ketoacidosis: Qualifiers: Diabetes mellitus type: type 2 Diabetes mellitus complication detail: without coma Qualified Code(s): E11.10 - Type 2 diabetes mellitus with ketoacidosis without coma Code(s): E11.10 - Type 2 diabetes mellitus with ketoacidosis without coma Status: Acute Assessment and Plan: Patient meets criteria for DKA with hyperglycemia and positive beta hydroxybutyrate though she has a normal anion gap. She has been admitted to the ICU on insulin drip O2 will be titrated per DKA protocol. Transition to long-acting insulin once resolved. 12/06/2022 interval history: patient with DKA was started on IV insulin and now blood sugars have trended down and transferred out of ICU on long-acting insulin and sliding scale, patient states feeling better compared to when she arrived, patient also found to have wound on her back positive for MRSA being treated with cefepime and vancomycin blood cultures are drawn and no growth so far, patient also has solitary nodule on lung scan and concerning for malignancy, will have steam cleaning machine operator evaluate the patient and further recommendation to follow, continue to monitor patient blood sugar, will have wound team for evaluate the patient and further recommendation to. (2) Right upper lobe pulmonary nodule: Code(s): R91.1 - Solitary pulmonary nodule Status: Acute Assessment and Plan: Noted on CT in April 2022. She has not had a PET-CT scan as her glucose has apparently been uncontrolled. Alkaline phosphatase today is markedly elevated which is concerning for metastatic disease to the bones (denies bone pain) and/or liver. She also complains of mild dysphagia and hoarseness which could be related to thrush though because of these findings a CT of the neck, chest, abdomen, and pelvis have been ordered. (3) Skin infection: Code(s): L08.9 - Local infection of the skin and subcutaneous tissue, unspecified Status: Acute Assessment and Plan: She has multiple wounds and a history of MRSA skin and soft tissue infections. She has been started on vancomycin. Wound nurse consulted. (4) Nataly infection: Code(s): B37.9 - Candidiasis, unspecified Status: Acute Assessment and Plan: IV fluconazole x1 today. Nystatin swish and swallow. (5) Electrolyte abnormality: Code(s): E87.8 - Other disorders of electrolyte and fluid balance, not elsewhere classified Status: Acute Assessment and Plan: Hyponatremia (pseudohyponatremia due to hyperglycemia) and hypomagnesemia. Replace and monitor Subjective Date/time seen: 12/06/22 10:59 Patient meets criteria for DKA with hyperglycemia and positive beta hydroxybutyrate though she has a normal anion gap. She has been admitted to the ICU on insulin drip O2 will be titrated per DKA protocol. Transition to long-acting insulin once resolved. 12/06/2022 interval history: patient with DKA was started on IV insulin and now blood sugars have trended down and transferred out of ICU on long-acting insulin and sliding scale, patient states feeling better compared to when she arrived, patient also found to have wound on her back positive for MRSA being treated with cefepime and vancomycin blood cultures are drawn and no growth so far, patient also has solitary nodule on lung scan and concerning for malignancy, will have steam cleaning machine operator evaluate the patient and further recommendation to follow, continue to monitor patient blood sugar, will have wound team for evaluate the patient and further recommendation to. Review of Systems Review of Systems: All systems reviewed & are unremarkable except as noted in HPI and below (HPI) Exam Narrative: Patient is comfortable, NAD HEENT: eyes are clear and none icteric LUNGS: normal respiratory effort ABD: not distended Lower extremities: no edema SKIN: nonjaundiced N
[2022-12-06 11:32] LABS: Glucose Point of Care 219 mg/dl (65-105)
[2022-12-06] MEDS: MUPIROCIN 2% OINT 22 GM TUBE 1 APPLIC TOPICAL ×2 (11:41→20:46)
[2022-12-06] MEDS: TOLNAFTATE 1% POWDER 45 GM BTL 1 APPLIC TOPICAL ×2 (11:41→20:45)
[2022-12-06] MEDS: BETAMETHASONE/CLOTRIMAZOLE CR 15 GM TUBE 1 APPLIC TOPICAL ×2 (11:41→20:43)
[2022-12-06] MEDS: traMADol HCL (*CRX) 50 MG TABLET PO (13:27)
[2022-12-06 17:03] LABS: Glucose Point of Care 238 mg/dl (65-105)
[2022-12-06 17:33] LABS: Add Urine Microscopic? YES; Appearance Urine Slightly Cloudy (Clear); Bilirubin Urine 1+ (Negative); Blood Urine 3+ (Negative); Color Urine Brown (Yellow); Glucose Urine UA 1+ mg/dL (Negative); Ketones Urine Negative (Negative); Leukocyte Esterase Ur Trace LEU/UL (Negative); Nitrate Urine Negative (Negative); Protein Urine 2+ mg/dL (Negative); pH Urine 6.5 (5.0-9.0)
[2022-12-06 17:40] LABS: Bacteria Urine Trace /hpf; RBC Urine >75 /hpf (0-2); Squamous Epithelial Cell Urine Few /hpf (Few); WBC Urine 0-3 /hpf
[2022-12-06] MEDS: MIRTAZAPINE 15 MG TABLET PO (20:46)
[2022-12-06] MEDS: INSULIN GLARGINE (*BKC) 100 UNITS/ML 50 UNITS SUB-Q (20:55)
[2022-12-06 22:48] LABS: Glucose Point of Care 150 mg/dl (65-105)
[2022-12-07] MEDS: traMADol HCL (*CRX) 50 MG TABLET PO ×3 (01:28→21:39)
[2022-12-07 06:00] VITALS: BP 125/62; PULSE 98; RESP 19; TEMP 36.5; O2SAT 99
[2022-12-07 06:36] LABS: Basophils Percent Auto 0.7 % (0.2-1.2); Eosinophils Absolute Auto 0.1 K/mm3 (0-0.3); Eosinophils Percent Auto 2.4 % (0-4.4); Hemoglobin 9.7 g/dL (12.0-15.0); Immature Granulocyte Absolute 0.06 K/mm3 (0.00-0.031); Immature Granulocyte Percent A 1.3 % (0-0.5); Lymphocytes Absolute Auto 1.05 K/mm3 (0.9-3.2); Lymphocytes Percent Auto 22.9 % (18.3-44.2); Mean Corpuscular HGB Conc 32.3 g/dl (32-36); Mean Corpuscular Hemoglobin 28.4 pg (26-34); Mean Platelet Volume 10.7 fl (7.4-10.4); Monocytes Absolute Auto 0.4 K/mm3 (0.1-0.6); Monocytes Percent Auto 8.5 % (2.6-8.5); Neutrophils Percent Auto 64.2 % (45.5-73.1); Platelet Count Result 110 k/mm3 (150-375); Red Blood Count 3.41 M/mm3 (4.2-5.4); Red Cell Distribution Width 14.6 % (11.5-14.5); White Blood Count 4.6 K/mm3 (4.5-10.0)
[2022-12-07 07:00] LABS: Alanine Aminotransferase 69 U/L (6-35); Albumin Level 2.6 g/dL (3.5-5.1); Alkaline Phosphatase 670 U/L (38-126); Anion Gap 5 mmol/L (8-16); Aspartate Amino Transferase 79 U/L (14-36); Bilirubin,Total 0.9 mg/dL (0.2-1.3); Blood Urea Nitrogen 19 mg/dL (7-17); Calcium 7.6 mg/dL (8.4-10.2); Carbon Dioxide 27 mmol/L (22-30); Chloride 101 mmol/L (98-107); Estimated CRCL calculation 37 ml/min; Estimated Glomerular Filt Rate 39; Glucose 199 mg/dL (65-110); Magnesium 1.8 mg/dL (1.6-2.3); Potassium 3.8 mmol/L (3.4-5.0); Sodium 133 mmol/L (137-145)
[2022-12-07 08:19] LABS: Glucose Point of Care 179 mg/dl (65-105)
[2022-12-07] MEDS: VITAMIN E 400 UNIT CAPSULE 800 UNIT PO (08:22)
[2022-12-07] MEDS: rOPINIRole HCL 1 MG TABLET 2 MG PO ×3 (08:22→17:27)
[2022-12-07] MEDS: NYSTATIN 100,000 UNITS/ML SUSP 5 ML ORAL.SUSP PO ×4 (08:22→20:53)
[2022-12-07] MEDS: DULoxetine HCL 60 MG CAPSULE.DR PO (08:23)
[2022-12-07] MEDS: FLUCONAZOLE 100 MG TABLET 200 MG PO (08:23)
[2022-12-07] MEDS: MONTELUKAST SODIUM 10 MG TABLET PO (08:23)
[2022-12-07] MEDS: FAMOTIDINE 20 MG TABLET PO ×2 (08:23→20:52)
[2022-12-07] MEDS: ENOXAPARIN 40 MG/0.4 ML SYRINGE SUB-Q (08:24)
[2022-12-07] MEDS: FLUTICASONE PROPIONATE 0.05% NA SPR 16 GM BTL (*BKC) 1 SPRAY NASAL (08:24)
[2022-12-07] MEDS: ACIDOPHILUS/BULGARICUS CHEWABLE TABLET 1 TABLET BY MOUTH (08:24)
[2022-12-07] MEDS: MUPIROCIN 2% OINT 22 GM TUBE 1 APPLIC TOPICAL ×2 (08:25→20:52)
[2022-12-07] MEDS: TOLNAFTATE 1% POWDER 45 GM BTL 1 APPLIC TOPICAL ×2 (08:26→20:52)
[2022-12-07] MEDS: BETAMETHASONE/CLOTRIMAZOLE CR 15 GM TUBE 1 APPLIC TOPICAL ×2 (08:27→20:52)
[2022-12-07] MEDS: PREGABALIN (*CRX) 75 MG CAPSULE PO ×2 (08:33→17:27)
[2022-12-07] MEDS: INSULIN ASPART (*BKC) 100 UNITS/ML 7 UNITS SUB-Q ×3 (08:34→17:26)
[2022-12-07] MEDS: BENZONATATE 100 MG CAPSULE PO ×3 (08:34→17:26)
[2022-12-07] MEDS: LORATADINE 10 MG TABLET PO (08:34)
[2022-12-07] MEDS: CYCLOBENZAPRINE HCL 5 MG TABLET PO ×2 (11:24→17:29)
[2022-12-07 12:08] LABS: Glucose Point of Care 226 mg/dl (65-105)
--- NOTE | 2022-12-07 12:22 | PM.IMPN ---
Progress Note: A&P Assessment and Plan (1) Diabetic ketoacidosis: Qualifiers: Diabetes mellitus complication detail: without coma Diabetes mellitus type: type 2 Qualified Code(s): E11.10 - Type 2 diabetes mellitus with ketoacidosis without coma Code(s): E11.10 - Type 2 diabetes mellitus with ketoacidosis without coma Status: Acute Assessment and Plan: Patient meets criteria for DKA with hyperglycemia and positive beta hydroxybutyrate though she has a normal anion gap. She has been admitted to the ICU on insulin drip O2 will be titrated per DKA protocol. Transition to long-acting insulin once resolved. 12/07/2022 interval history: patient with DKA was started on IV insulin and now blood sugars have trended down and transferred out of ICU on long-acting insulin and sliding scale, patient states feeling better compared to when she arrived, patient also found to have wound on her back positive for MRSA being treated with cefepime and vancomycin blood cultures are drawn and no growth so far, will repeat would culture, patient also has solitary nodule on lung scan and concerning for malignancy, patient was seen by Dr. Preciado oncologist, patient will have PET-scan as an outpatient, will have filler and trimmer evaluate the patient and further recommendation to follow, continue to monitor patient blood sugar, will have wound team for evaluate the patient and further recommendation to. (2) Right upper lobe pulmonary nodule: Code(s): R91.1 - Solitary pulmonary nodule Status: Acute Assessment and Plan: Noted on CT in April 2022. She has not had a PET-CT scan as her glucose has apparently been uncontrolled. Alkaline phosphatase today is markedly elevated which is concerning for metastatic disease to the bones (denies bone pain) and/or liver. She also complains of mild dysphagia and hoarseness which could be related to thrush though because of these findings a CT of the neck, chest, abdomen, and pelvis have been ordered. (3) Skin infection: Code(s): L08.9 - Local infection of the skin and subcutaneous tissue, unspecified Status: Acute Assessment and Plan: She has multiple wounds and a history of MRSA skin and soft tissue infections. She has been started on vancomycin. Wound nurse consulted. (4) Nataly infection: Code(s): B37.9 - Candidiasis, unspecified Status: Acute Assessment and Plan: IV fluconazole x1 today. Nystatin swish and swallow. (5) Electrolyte abnormality: Code(s): E87.8 - Other disorders of electrolyte and fluid balance, not elsewhere classified Status: Acute Assessment and Plan: Hyponatremia (pseudohyponatremia due to hyperglycemia) and hypomagnesemia. Replace and monitor Subjective Date/time seen: 12/07/22 12:22 Patient meets criteria for DKA with hyperglycemia and positive beta hydroxybutyrate though she has a normal anion gap. She has been admitted to the ICU on insulin drip O2 will be titrated per DKA protocol. Transition to long-acting insulin once resolved. 12/07/2022 interval history: patient with DKA was started on IV insulin and now blood sugars have trended down and transferred out of ICU on long-acting insulin and sliding scale, patient states feeling better compared to when she arrived, patient also found to have wound on her back positive for MRSA being treated with cefepime and vancomycin blood cultures are drawn and no growth so far, will repeat would culture, patient also has solitary nodule on lung scan and concerning for malignancy, patient was seen by Dr. Preciado oncologist, patient will have PET-scan as an outpatient, will have filler and trimmer evaluate the patient and further recommendation to follow, continue to monitor patient blood sugar, will have wound team for evaluate the patient and further recommendation to. Review of Systems Review of Systems: All systems reviewed & are unremarkable exce
[2022-12-07] MEDS: INSULIN ASPART (*BKC) 100 UNITS/ML SUB-Q (12:29)
[2022-12-07 14:20] VITALS: BP 132/112; PULSE 105; RESP 14; TEMP 36.7; O2SAT 97
[2022-12-07 17:02] LABS: Vancomycin Trough 11.7 ug/mL (10.0-20.0)
[2022-12-07 17:22] LABS: Glucose Point of Care 174 mg/dl (65-105)
[2022-12-07 20:00] VITALS: PULSE 105; RESP 14; O2SAT 97
[2022-12-07] MEDS: MIRTAZAPINE 15 MG TABLET PO (20:52)
[2022-12-07] MEDS: INSULIN GLARGINE (*BKC) 100 UNITS/ML 50 UNITS SUB-Q (20:53)
[2022-12-07] MEDS: ALPRAZolam (*CRX) 0.5 MG TABLET PO (21:39)
[2022-12-07 21:55] LABS: Glucose Point of Care 183 mg/dl (65-105)
[2022-12-07 22:00] VITALS: BP 113/86; PULSE 104; RESP 18; TEMP 36.2; O2SAT 100
[2022-12-08] MEDS: ACETAMINOPHEN 325 MG TABLET 650 MG PO (02:47)
[2022-12-08 06:00] VITALS: BP 122/49; PULSE 96; RESP 18; TEMP 35.8; O2SAT 99
[2022-12-08 06:21] LABS: Basophils Percent Auto 0.6 % (0.2-1.2); Eosinophils Absolute Auto 0.1 K/mm3 (0-0.3); Hemoglobin 10.6 g/dL (12.0-15.0); Immature Granulocyte Absolute 0.03 K/mm3 (0.00-0.031); Immature Granulocyte Percent A 0.6 % (0-0.5); Lymphocytes Percent Auto 23.7 % (18.3-44.2); Mean Corpuscular HGB Conc 32.1 g/dl (32-36); Mean Corpuscular Hemoglobin 29.3 pg (26-34); Mean Corpuscular Volume 91.2 fl (80-100); Monocytes Absolute Auto 0.5 K/mm3 (0.1-0.6); Monocytes Percent Auto 9.1 % (2.6-8.5); Neutrophils Absolute Auto 3.2 K/mm3 (1.3-6.7); Platelet Count Result 140 k/mm3 (150-375); Red Blood Count 3.62 M/mm3 (4.2-5.4); Red Cell Distribution Width 15.2 % (11.5-14.5); White Blood Count 5.1 K/mm3 (4.5-10.0)
[2022-12-08 06:27] LABS: Alanine Aminotransferase 69 U/L (6-35); Albumin Level 3.1 g/dL (3.5-5.1); Alkaline Phosphatase 749 U/L (38-126); Anion Gap 5 mmol/L (8-16); Aspartate Amino Transferase 76 U/L (14-36); Bilirubin,Total 0.9 mg/dL (0.2-1.3); Blood Urea Nitrogen 17 mg/dL (7-17); Carbon Dioxide 28 mmol/L (22-30); Chloride 99 mmol/L (98-107); Estimated CRCL calculation 39 ml/min; Estimated Glomerular Filt Rate 43; Glucose 182 mg/dL (65-110); Magnesium 1.7 mg/dL (1.6-2.3); Potassium 3.8 mmol/L (3.4-5.0); Sodium 132 mmol/L (137-145)
[2022-12-08 08:06] LABS: Glucose Point of Care 145 mg/dl (65-105)
[2022-12-08] MEDS: PREGABALIN (*CRX) 75 MG CAPSULE PO ×2 (08:26→17:28)
[2022-12-08] MEDS: FAMOTIDINE 20 MG TABLET PO (08:27)
[2022-12-08] MEDS: MONTELUKAST SODIUM 10 MG TABLET PO (08:27)
[2022-12-08] MEDS: VITAMIN E 400 UNIT CAPSULE 800 UNIT PO (08:27)
[2022-12-08] MEDS: ACIDOPHILUS/BULGARICUS CHEWABLE TABLET 1 TABLET BY MOUTH (08:27)
[2022-12-08] MEDS: DULoxetine HCL 60 MG CAPSULE.DR PO (08:27)
[2022-12-08] MEDS: FLUCONAZOLE 100 MG TABLET 200 MG PO (08:27)
[2022-12-08] MEDS: ENOXAPARIN 40 MG/0.4 ML SYRINGE SUB-Q (08:28)
[2022-12-08] MEDS: rOPINIRole HCL 1 MG TABLET 2 MG PO ×3 (08:28→17:27)
[2022-12-08] MEDS: TOLNAFTATE 1% POWDER 45 GM BTL 1 APPLIC TOPICAL (08:29)
[2022-12-08] MEDS: NYSTATIN 100,000 UNITS/ML SUSP 5 ML ORAL.SUSP PO ×3 (08:29→17:27)
[2022-12-08] MEDS: MUPIROCIN 2% OINT 22 GM TUBE 1 APPLIC TOPICAL (08:29)
[2022-12-08] MEDS: FLUTICASONE/UMECLIDIN/VILANTER 100-62.5-25 MCG ELLIPTA 1 PUFF INHALATION (09:15)
[2022-12-08 09:19] VITALS: PULSE 88; RESP 18; O2SAT 95
[2022-12-08] MEDS: INSULIN ASPART (*BKC) 100 UNITS/ML 7 UNITS SUB-Q ×3 (09:22→17:29)
[2022-12-08] MEDS: BETAMETHASONE/CLOTRIMAZOLE CR 15 GM TUBE 1 APPLIC TOPICAL (09:23)
[2022-12-08] MEDS: LORATADINE 10 MG TABLET PO (09:23)
[2022-12-08] MEDS: BENZONATATE 100 MG CAPSULE PO ×3 (09:23→17:28)
[2022-12-08 11:44] LABS: Glucose Point of Care 142 mg/dl (65-105)
--- NOTE | 2022-12-08 12:54 | PM.DS ---
DS: Admitting Diagnosis Discharge Date 12/08/2022 Admitting Diagnosis Nausea and vomiting. DS: Discharge Diagnosis Discharge Diagnosis (1) Diabetic ketoacidosis: Qualifiers: Diabetes mellitus type: type 2 Diabetes mellitus complication detail: without coma Qualified Code(s): E11.10 - Type 2 diabetes mellitus with ketoacidosis without coma Code(s): E11.10 - Type 2 diabetes mellitus with ketoacidosis without coma Status: Acute Assessment and Plan: Patient meets criteria for DKA with hyperglycemia and positive beta hydroxybutyrate though she has a normal anion gap. She has been admitted to the ICU on insulin drip O2 will be titrated per DKA protocol. Transition to long-acting insulin once resolved. 12/07/2022 interval history: patient with DKA was started on IV insulin and now blood sugars have trended down and transferred out of ICU on long-acting insulin and sliding scale, patient states feeling better compared to when she arrived, patient also found to have wound on her back positive for MRSA being treated with cefepime and vancomycin blood cultures are drawn and no growth so far, will repeat would culture, patient also has solitary nodule on lung scan and concerning for malignancy, patient was seen by Dr. Preciado oncologist, patient will have PET-scan as an outpatient, will have legal records manager evaluate the patient and further recommendation to follow, continue to monitor patient blood sugar, will have wound team for evaluate the patient and further recommendation to. (2) Right upper lobe pulmonary nodule: Code(s): R91.1 - Solitary pulmonary nodule Status: Acute Assessment and Plan: Noted on CT in April 2022. She has not had a PET-CT scan as her glucose has apparently been uncontrolled. Alkaline phosphatase today is markedly elevated which is concerning for metastatic disease to the bones (denies bone pain) and/or liver. She also complains of mild dysphagia and hoarseness which could be related to thrush though because of these findings a CT of the neck, chest, abdomen, and pelvis have been ordered. (3) Skin infection: Code(s): L08.9 - Local infection of the skin and subcutaneous tissue, unspecified Status: Acute Assessment and Plan: She has multiple wounds and a history of MRSA skin and soft tissue infections. She has been started on vancomycin. Wound nurse consulted. (4) Nataly infection: Code(s): B37.9 - Candidiasis, unspecified Status: Acute Assessment and Plan: IV fluconazole x1 today. Nystatin swish and swallow. (5) Electrolyte abnormality: Code(s): E87.8 - Other disorders of electrolyte and fluid balance, not elsewhere classified Status: Acute Assessment and Plan: Hyponatremia (pseudohyponatremia due to hyperglycemia) and hypomagnesemia. Replace and monitor DS: Summary Hospital Course Reason for hospitalization: Nausea and vomiting. Narrative: This is a 57-year-old female smoker with multiple medical problems including insulin-dependent diabetes, hyperlipidemia, fibromyalgia, cirrhosis, anxiety, depression, COPD, coronary artery disease, and congestive heart failure who presented to the ED for evaluation of nausea and vomiting. She admits that she has been depressed for the last year so since the of her mother and she has lost about 50 pounds since that time.? She also admits that she has not been taking care of herself and her diabetes has not been well controlled. In fact she has had several PET-CT scans scheduled to evaluate a suspicious right upper lobe pulmonary nodule noted on CT in April 2022 however those were canceled due to the fact that her glucoses were over 200. Last night she developed nausea and vomiting and this morning she felt very dehydrated and reports polyuria and polydipsia. Her glucose read high and she came in for evaluation.? With further questioning she has not been feeling well fo
[2022-12-08] MEDS: traMADol HCL (*CRX) 50 MG TABLET PO (13:53)
[2022-12-08] MEDS: ALPRAZolam (*CRX) 0.5 MG TABLET PO (13:55)
[2022-12-08 14:00] VITALS: BP 133/73; PULSE 101; RESP 18; TEMP 36.5; O2SAT 98
[2022-12-08 16:40] LABS: Glucose Point of Care 116 mg/dl (65-105)
[2022-12-08] MEDS: ONDANSETRON INJ 4 MG/2 ML VIAL IV PUSH (17:28)
== END 2022-12-08 18:20 | disposition home health service (06) | DRG 637 ==
LOC: ANHED 08:22 → ANHICU 15:03 → ANH3MEDSUR 12-05 10:56
PROVIDERS: Internal Medicine; Admitting Provider Family Medicine; Emergency Provider Emergency Medicine; PCP Family Medicine; Visit Provider Family Medicine
DX: E11.10 Type 2 diabetes mellitus with ketoacidosis without coma (principal); J18.9 Pneumonia, unspecified organism; J44.0 Chronic obstructive pulmonary disease with (acute) lower respiratory infection; E78.5 Hyperlipidemia, unspecified; Z79.4 Long term (current) use of insulin; M79.7 Fibromyalgia; F41.9 Anxiety disorder, unspecified; F32.A Depression, unspecified; I25.10 Atherosclerotic heart disease of native coronary artery without angina pectoris; I50.9 Heart failure, unspecified; M10.9 Gout, unspecified; G25.81 Restless legs syndrome; R91.1 Solitary pulmonary nodule; B37.9 Candidiasis, unspecified; G47.33 Obstructive sleep apnea (adult) (pediatric); L08.9 Local infection of the skin and subcutaneous tissue, unspecified; I11.0 Hypertensive heart disease with heart failure; K74.60 Unspecified cirrhosis of liver; Z20.822 Contact with and (suspected) exposure to COVID-19; B95.62 Methicillin resistant Staphylococcus aureus infection as the cause of diseases classified elsewhere; R49.0 Dysphonia; R05.3 Chronic cough; Z87.891 Personal history of nicotine dependence; Z79.51 Long term (current) use of inhaled steroids; Z79.899 Other long term (current) drug therapy; Z83.3 Family history of diabetes mellitus; Z82.49 Family history of ischemic heart disease and other diseases of the circulatory system
CPT/HCPCS: 36415; 36600; 70490; 71250; 74176; 80048; 80053; 80202; 81001; 82010; 82375; 82805; 82948; 83050; 83735; 84100; 85025; 87040; 87070; 87205; 87637; 94640; 96361; 96365; 96366; 97161; 97165; 99285; A9270; J0692; J1450; J1650; J1815; J2405; J3370; J3475; J3480; J7030

== ENCOUNTER 2022-12-11 15:03 | Outpatient (CLI) | payer MEDICARE, SELFPAY ==
--- NOTE | ~2022-12-11 | XR_ITS ---
XR knee RT 2V DATE: 12/11/2022 15:35 INDICATION: Snapping sound, pain TECHNIQUE: AP and lateral views COMPARISON: None FINDINGS: There is prominent distention of the suprapatellar bursa consistent with large knee joint e ffusion. No fracture or dislocation, periosteal reaction or bone destruction. No radiopaque interarticular loo se posterior or chondrocalcinosis. Joint spaces are well preserved. There is mild periarticular spurr ing of the patella consistent with mild osteoarthritis. Osteopenia. IMPRESSION: Prominent knee joint effusion Osteopenia Mild patellofemoral osteoarthritis Reviewed, dictated and finalized at location A. [employer]
== END 2022-12-11 15:04 | disposition home or self-care (01) ==
PROVIDERS: PCP Family Medicine; Visit Provider Family Medicine
DX: S89.91XA Unspecified injury of right lower leg, initial encounter (principal); M25.461 Effusion, right knee; M85.861 Other specified disorders of bone density and structure, right lower leg; M17.11 Unilateral primary osteoarthritis, right knee
CPT/HCPCS: 73560

== ENCOUNTER 2022-12-16 15:13 | Outpatient (CLI) | payer MEDICARE, MEDICAID, SELFPAY ==
--- NOTE | ~2022-12-16 | XR_ITS ---
EXAMINATION: XR foot LT min 3V DATE: 12/16/2022 15:34 INDICATION: Left second toe ulcer. TECHNIQUE: 4 views of left foot were obtained. COMPARISON: Left great toe radiographs 07/14/2021 FINDINGS: Bone alignment is normal. There is a healing oblique fracture of diaphysis of third proxima l phalanx with periosteal new bone formation. The distal fracture fragment demonstrates 3 mm shorteni ng. There is mild osteoarthritis of first metatarsophalangeal joint. There are enthesophytes at the p osterior and plantar aspects of calcaneal tuberosity. IMPRESSION: 1. No evidence osteoarthritis. 2. Healing oblique fracture of diaphysis of third proximal phalanx. Reviewed, dictated and finalized at location A. N RESOURCES SERVICES SPECIALIST
== END 2022-12-16 15:14 | disposition home or self-care (01) ==
LOC: CHSIMG 15:15
PROVIDERS: PCP Family Medicine; Visit Provider Family Medicine
DX: L97.529 Non-pressure chronic ulcer of other part of left foot with unspecified severity (principal); L97.519 Non-pressure chronic ulcer of other part of right foot with unspecified severity; S92.812D Other fracture of left foot, subsequent encounter for fracture with routine healing
CPT/HCPCS: 73630

== ENCOUNTER 2022-12-20 09:18 | Outpatient (CLI) | payer MEDICARE, MEDICAID, SELFPAY | END 2022-12-20 09:19 | disposition home or self-care (01) | LOC: CHSIMG 09:20 | PROVIDERS: PCP Family Medicine; Visit Provider Nurse Practitioner Family | DX: M25.469 Effusion, unspecified knee (principal) | CPT/HCPCS: 99199 ==

== ENCOUNTER 2023-01-01 14:00 | Outpatient (CLI) | payer MEDICARE, MEDICAID, SELFPAY ==
--- NOTE | ~2023-01-01 | XR_ITS ---
XR chest 2V 01/01/2023 14:32 Indication: Cough. COPD. Procedure: 2 view chest Comparison: Comparison to multiple prior studies sequentially, with oldest reviewed study dated 07/14. Findings: There is patchy bilateral airspace disease, compatible with pneumonia. No significant effus ion or pneumothorax. No acute osseous abnormality. Impression: 1: Patchy bilateral airspace consolidation, consistent with pneumonia. Reviewed, dictated and finalized at location A. RIGGER Impression: 1: Patchy bilateral airspace consolidation, consistent with pneumonia.
[2023-01-01 14:19] LABS: Hematocrit 27.3 % (35.0-49.0); Hemoglobin 8.7 g/dL (12.0-15.0); Mean Corpuscular HGB Conc 31.9 g/dL (32.0-36.0); Mean Corpuscular Hemoglobin 29.6 pg (27.0-31.0); Mean Corpuscular Volume 92.9 fL (78.0-102.0); Mean Platelet Volume 9.9 fl (9.2-11.8); Platelet Count Result 243 K/mm3 (150-420); Red Blood Count 2.94 M/mm3 (4.20-5.40); White Blood Count 9.2 K/mm3 (4.8-10.8)
[2023-01-01 15:36] LABS: Alanine Aminotransferase 29 U/L (14-59); Albumin Level 2.1 g/dL (3.4-5.0); Alkaline Phosphatase 571 U/L (46-116); Anion Gap 7 mmol/L (8-16); Aspartate Amino Transferase 29 U/L (15-37); Bilirubin,Total 0.5 mg/dL (0.00-1.00); Blood Urea Nitrogen 28 mg/dL (7-18); Calcium 7.8 mg/dL (8.5-10.1); Carbon Dioxide 25 mmol/L (21-32); Chloride 104 mmol/L (98-108); Estimated Glomerular Filt Rate 34; Glucose 334 mg/dL (70-99); NT Pro B Type Natriuretic Pept 710 pg/mL (0-125); Osmolality Calculated 300 mOsm/kg (285-295); Potassium 5.2 mmol/L (3.5-5.1); Sodium 136 mmol/L (136-145); Total Protein 7.8 g/dL (6.4-8.2); Troponin I 8.2 ng/L (0.00-60.4)
== END 2023-01-01 14:01 | disposition home or self-care (01) ==
LOC: CHSLAB 14:02
PROVIDERS: PCP Family Medicine; Visit Provider Family Medicine
DX: J44.9 Chronic obstructive pulmonary disease, unspecified (principal); I50.30 Unspecified diastolic (congestive) heart failure; R06.02 Shortness of breath; R06.2 Wheezing; R91.8 Other nonspecific abnormal finding of lung field
CPT/HCPCS: 36415; 71046; 80053; 83880; 84484; 85027

== ENCOUNTER 2023-01-17 07:43 | Outpatient (CLI) | payer MEDICARE, MEDICAID, SELFPAY ==
--- NOTE | ~2023-01-17 | MR_ITS ---
EXAMINATION: MR knee LT wo con DATE: 01/17/2023 08:46 INDICATION: Pain and swelling, difficulty weightbearing and walking, sensation of a snap upon standin g in November 2021 TECHNIQUE: Magnetic resonance imaging (MRI) of the left knee was performed without intravenous contra st. Sequences included axial PD-weighted FS FSE, coronal PD-weighted FSE and PD-weighted FS FSE, sagi ttal PD-weighted FSE, and sagittal T2-weighted FS FSE. COMPARISON: X-ray left knee 01/05/2020 FINDINGS: Medial compartment: Apical tear of the meniscal body. Moderate diffuse cartilage thinning. Mild osteophytosis. Lateral compartment: Meniscus intact. Moderate diffuse cartilage thinning. Mild osteophytosis. Patellofemoral compartment: Severe full-thickness cartilage loss along the lateral facet. Multiple subchondral cysts in the walker la. Retinacula are intact. Ligaments and tendons: ACL, PCL, MCL, and LCL are intact. The remaining flexor and extensor tendons are intact. Fluid: Small volume joint fluid. Osseous/other: No suspicious focal or diffuse marrow signal. Multiple loose joint bodies are present in posterior sera int recesses. IMPRESSION: 1. Apical tear of the body, medial meniscus. 2. Tricompartmental left knee osteoarthritis, severe in the patellofemoral compartment. 3. Small left knee joint effusion, with multiple posterior loose bodies. Reviewed, dictated and finalized at location K. WORKER IMPRESSION: 1. Apical tear of the body, medial meniscus. 2. Tricompartmental left knee osteoarthritis, severe in the patellofemoral comp artment. 3. Small left knee joint effusion, with multiple posterior loose bodies.
== END 2023-01-17 07:44 | disposition home or self-care (01) ==
LOC: CHSIMG 07:45
PROVIDERS: PCP Family Medicine; Visit Provider Nurse Practitioner Family
DX: M25.562 Pain in left knee (principal); S83.242A Other tear of medial meniscus, current injury, left knee, initial encounter; M17.12 Unilateral primary osteoarthritis, left knee; M25.462 Effusion, left knee; M23.42 Loose body in knee, left knee
CPT/HCPCS: 73721

== ENCOUNTER 2023-01-20 08:01 | Outpatient (CLI) | payer MEDICARE, MEDICAID, SELFPAY ==
--- NOTE | ~2023-01-20 | US_ITS ---
EXAMINATION:US venous doppler LE BI INDICATION:Localized edema. TECHNIQUE: Multiple grayscale, color flow and Doppler images of the right and left lower extremity de ep venous systems were obtained and reviewed. COMPARISON:No prior studies for comparison. FINDINGS: The common femoral, superficial femoral and popliteal veins demonstrate normal respiratory variation, augmentation and compressibility. Color flow is also seen within the posterior tibial, pe roneal, greater saphenous and profunda veins. IMPRESSION: 1: No lower extremity deep venous thrombosis. Reviewed, dictated and finalized at location L. CTOR [place]
--- NOTE | ~2023-01-20 | PE_ITS ---
EXAMINATION: PET skull to mid thigh DATE: 01/20/2023 10:18 INDICATION: Solitary pulmonary nodule TECHNIQUE: Blood glucose level was 78 mg/dL. These reportedly took 5 glucose tablets prior to study d ue to hypoglycemia. 8.641 mCi of 18-fluorodeoxyglucose (18-FDG) was administered i.v. Low dose comput ed tomography (CT) images were acquired from the base of the brain to the proximal thighs for attenua tion correction and anatomic localization. Positron emission tomography (PET) images were acquired in the same distribution beginning 56 minutes after injection. Images including fused PET/CT images wer e reconstructed in axial, coronal, and sagittal planes. Automated exposure control technique was empl oyed. The dose-length product was 648.02mGy-cm. COMPARISON: CT dated 12/04/2022 FINDINGS: Head/neck: There is symmetric increased activity in the oral cavity, palatine tonsils, parotid and submandibular glands without CT correlate, likely physiologic. There is extensive likely physiologic increased [place] throughout the musculature in the head and neck. No pathologically enlarged cervical lymphadenopa thy or suspicious foci of increased FDG uptake in the visualized head or neck. Chest: There is a new 1.8 x 1.0 cm elongated spiculated nodule in the left apex with minimal FDG uptake with maximal SUV of 3.0. Given the rapid development in <3 months this is most likely infectious/inflamma tory in etiology. The previously noted nodule located more caudally in the left upper lobe has resolv ed also consistent with an infectious/inflammatory etiology. Similar findings in the right upper lobe there is been resolution of the previously noted nodule and interval development of multiple new sma ll nodules with spiculated and/or groundglass margins. Similar evolution of lung disease in the bilat eral lower lobes with improvement of prior more dense regions of consolidation and new groundglass an d small nodular opacities. Chronic bronchiectatic changes in the collapsed right middle lobe and part ially collapsed anterobasilar segment of the right lower lobe. No other suspicious foci of increased pulmonary activity. No pleural effusion. Heart size is normal. Atherosclerotic coronary artery calcif ications. No pericardial effusion. No pathologically enlarged or abnormally FDG avid thoracic lymphad enopathy. Symmetric diffuse mild increased FDG uptake throughout the musculature of the chest wall an d bilateral upper extremities. Abdomen/pelvis/proximal thighs: Physiologic renal accumulation and excretion of FDG activity in the kidneys, bladder and along portio ns of ureters. Normal degree and heterogenous pattern of increased uptake throughout the liver withou t radiologic correlate or dominant FDG avid lesion. There is a nodular liver surface consistent with cirrhosis. Cholecystectomy clips at the gallbladder fossa. Splenomegaly measuring 15.5 cm craniocauda l length consistent with secondary portal venous hypertension. Pancreas and bilateral adrenal glands are normal. Mild uptake scattered throughout the bowels without radiologic correlate, also likely phy siologic. The uterus is not identified and has likely been surgically resected. No free intraperitone al gas or fluid additional symmetric diffuse mild increased uptake throughout the musculature of the abdominal wall, pelvis and proximal thighs. No other abnormal foci of increased FDG uptake or patholo gically enlarged lymphadenopathy in the abdomen, pelvis or proximal thighs. Small fat-containing supr aumbilical ventral hernia with underlying mesh repair. Musculoskeletal: Mild uptake associated with a healing fracture of the anterior right fourth rib. No other suspicious lytic, blastic or FDG avid bone lesions. IMPRESSION: 1. Evolving pattern of bilateral patchy/nodular lung disease with resolution of the previously seen n odules and multiple new nodular opacities with
[2023-01-20 08:37] LABS: Glucose Point of Care 74 mg/dl (65-105)
== END 2023-01-20 08:02 | disposition home or self-care (01) ==
PROVIDERS: PCP Family Medicine; Visit Provider Physician Assistant
DX: R60.0 Localized edema (principal); R91.1 Solitary pulmonary nodule; R91.8 Other nonspecific abnormal finding of lung field; K74.60 Unspecified cirrhosis of liver; R16.1 Splenomegaly, not elsewhere classified
CPT/HCPCS: 78815; 93970; A9552

== ENCOUNTER 2023-01-21 11:04 | Outpatient (NON) | payer MEDICARE, MEDICAID, SELFPAY ==
[2023-01-21 11:52] LABS: Hematocrit 28.6 % (37.0-47.0); Hemoglobin 9.3 g/dL (12.0-15.0); Mean Corpuscular HGB Conc 32.5 g/dl (32-36); Mean Corpuscular Hemoglobin 30.4 pg (26-34); Mean Corpuscular Volume 93.5 fl (80-100); Mean Platelet Volume 11.1 fl (7.4-10.4); Platelet Count Result 179 k/mm3 (150-375); Red Blood Count 3.06 M/mm3 (4.2-5.4); Red Cell Distribution Width 16.3 % (11.5-14.5); White Blood Count 6.6 K/mm3 (4.5-10.0)
[2023-01-21 12:02] LABS: Alanine Aminotransferase 31 U/L (6-35); Albumin Level 3.8 g/dL (3.5-5.1); Alkaline Phosphatase 443 U/L (38-126); Anion Gap 10 mmol/L (8-16); Aspartate Amino Transferase 47 U/L (14-36); Bilirubin,Total 0.8 mg/dL (0.2-1.3); Blood Urea Nitrogen 44 mg/dL (7-17); Calcium 8.7 mg/dL (8.4-10.2); Carbon Dioxide 19 mmol/L (22-30); Chloride 110 mmol/L (98-107); Estimated Glomerular Filt Rate 33; Glucose 271 mg/dL (65-110); Potassium 4.8 mmol/L (3.4-5.0); Sodium 139 mmol/L (137-145)
[2023-01-21 13:08] LABS: Folic Acid 14.7 ng/mL (2.76->20)
== END 2023-01-21 11:05 | disposition home or self-care (01) ==
PROVIDERS: PCP Family Medicine; Visit Provider Family Medicine
DX: E11.9 Type 2 diabetes mellitus without complications (principal); J44.9 Chronic obstructive pulmonary disease, unspecified; E53.8 Deficiency of other specified B group vitamins
CPT/HCPCS: 80053; 82607; 82746; 84443; 85027

== ENCOUNTER 2023-01-23 14:34 | Outpatient (CLI) | payer MEDICARE, MEDICAID, SELFPAY ==
--- NOTE | ~2023-01-23 | XR_ITS ---
XR chest 2V 01/23/2023 14:56 Indication: Dyspnea. History of pneumonia. Procedure: 2 view chest Comparison: 01/01/2023 Findings: Persistent patchy bilateral airspace disease, compatible with pneumonia. Heart size normal. No significant effusion. No pneumothorax. No acute osseous abnormality. Impression: 1: Persistent patchy bilateral airspace disease, compatible with pneumonia. Reviewed, dictated and finalized at location B. CLERK Impression: 1: Persistent patchy bilateral airspace disease, compatible with pneumonia.
== END 2023-01-23 14:35 | disposition home or self-care (01) ==
LOC: CHSIMG 14:38
PROVIDERS: PCP Family Medicine; Visit Provider Family Medicine
DX: J18.9 Pneumonia, unspecified organism (principal); R06.00 Dyspnea, unspecified; R91.8 Other nonspecific abnormal finding of lung field
CPT/HCPCS: 71046

== ENCOUNTER 2023-03-09 22:20 | Observation (INO) | payer MEDICARE, MEDICAID, SELFPAY ==
--- NOTE | ~2023-03-09 | NM_ITS ---
EXAMINATION: NM pulmonary perfusion DATE: 03/10/2023 15:26 INDICATION: Chest pain. TECHNIQUE: 4.7 mCi Tc-99m MAA was administered intravenously for perfusion images. Scintigraphic angela ges of the chest were obtained. COMPARISON: Chest single view 03/09/2023 FINDINGS: Perfusion images show matched moderate sized defects in left lower lobe and matched moderate sized an d large defects in right lower lobe. IMPRESSION: 1. Nondiagnostic (intermediate probability for pulmonary embolism). Reviewed, dictated and finalized at location A.
--- NOTE | ~2023-03-09 | XR_ITS ---
Portable chest x-ray Comparison: 01/23/2023 Clinical History: Chest pain Findings: There is mild chronic haziness at the right midlung and left lung base. No pleural effusio n or pneumothorax. Cardiomediastinal silhouette is stable. Bones and soft tissues are unremarkable. Impression: Mild chronic haziness at the bilateral lung bases, as noted above. This could reflect chronic infecti ous/inflammatory process or other chronic pulmonary disease. Consider follow-up CT to compare to prio r CT from 12/04/2022. Reviewed, dictated and finalized at location . Impression: Mild chronic haziness at the bilateral lung bases, as noted above. This could r eflect chronic infectious/inflammatory process or other chronic pulmonary disea se. Consider follow-up CT to compare to prior CT from 12/04/2022.
[2023-03-09 22:29] VITALS: BP 98/62; PULSE 100; RESP 18; TEMP 37; O2SAT 99
--- NOTE | 2023-03-09 22:37 | ED.GENADULT ---
HPI - General Adult General Chief complaint: Unspecified Stated complaint: Dizziness/Fall Time Seen by Provider: 03/09/23 22:37 History of Present Illness HPI narrative: the patient is a 58-year-old woman with multiple comorbidities including diabetes, diabetic foot infections and pressure ulcers, prior stroke with no residual symptoms, Maria cirrhosis, coronary artery disease status post stenting, peripheral vascular disease, atrial fibrillation, anxiety, fibromyalgia, obstructive sleep apnea, hyperlipidemia, seizure disorder, hypertension. She has had episodes of dizziness and vertigo in the past. She is an ex-smoker, off cigarettes for approximately 5 weeks. For the last 1 month, the patient has had left-sided chest pain that radiates to the left lateral aspect of her chest and radiates to the left upper back, constant in nature, waxing waning intensity, increasing in intensity over the last [address] here, she had dizzy spell and then fell backwards landing on her buttocks. Complains of mild right shoulder pain but has full movement of the upper and lower extremities. Does have chronic cough which exacerbates her chest pain. She had a coughing spell approximately 3 days ago and that is when she felt something pop in her left side of her chest and the pain has gotten worse since that time. She has not taken anything stronger than Aleve and tramadol at home. Denies dyspnea. The cough is nonproductive. No rhinorrhea nasal congestion or fevers or chills or diaphoresis. She is quite anxious. she believe she has pleurisy. No abdominal pain. No nausea vomiting. No vertigo at present. Related Data Home Medications Medication Instructions Recorded Confirmed vitamin E 268 mg (400 unit) capsule 2 cap PO DAILY 12/03/19 02/24/23 alprazolam 1 mg tablet 0.5 mg PO TID PRN Anxiety 09/25/22 03/10/23 mirtazapine 15 mg tablet 15 mg PO QHS 11/20/22 02/24/23 cetirizine 10 mg capsule (All Day 10 mg PO DAILY 12/04/22 02/24/23 Allergy (cetirizine)) montelukast 10 mg tablet 10 mg PO DAILY 12/04/22 03/10/23 potassium chloride 10 mEq 10 meq PO DAILY 12/04/22 03/10/23 tablet,extended release alprazolam 1 mg tablet mg 03/10/23 insulin glargine-yfgn 100 unit/mL 40 unit subcut BID 03/10/23 03/10/23 (3 mL) subcutaneous pen (Semglee (insulin glargine-yfgn) Pen) insulin lispro 100 unit/mL 03/10/23 subcutaneous solution mirtazapine 7.5 mg tablet 7.5 mg PO DAILY 03/10/23 03/10/23 vortioxetine 20 mg tablet 20 mg PO DAILY 03/10/23 03/10/23 (Trintellix) Allergies Allergy/AdvReac Type Severity Reaction Status Date / Time adhesive tape Allergy Unknown Blister Verified 02/24/23 10:11 atorvastatin Allergy Unknown Itching Verified 02/24/23 10:11 budesonide Allergy Unknown Anaphylactic Verified 02/24/23 10:11 Shock formoterol Allergy Unknown Anaphylactic Verified 02/24/23 10:11 Shock mometasone furoate Allergy Unknown Anaphylactic Verified 02/24/23 10:11 Shock morphine Allergy Unknown Itching Verified 02/24/23 10:11 diphenhydramine AdvReac Severe Other Verified 02/24/23 10:11 [From Benadryl] gemfibrozil AdvReac Unknown Gastrointestinal Verified 02/24/23 10:11 Upset flonase Allergy Severe Swelling Uncoded 02/24/23 10:11 of the Eye Review of Systems Review of Systems: All systems reviewed & are unremarkable except as noted in HPI and below Constitutional: Constitutional: Reports as per HPI, Reports no additional constitutional complaints, Denies chills, Denies excessive sweating, Denies fatigue, Denies fever(s), Denies headache(s) and Denies weakness Eyes: Eyes: Reports as per HPI, Reports no additional eye complaints, Denies change in vision and Denies photophobia ENT: Reports system reviewed and no additional complaints, except as documented, Reports as per HPI, Denies dysphagia, Denies vertigo, Reports dizziness, Denies headache(s), Denies lip swelling, Denies nasal congestion, Denies sore throat, Denies
--- NOTE | 2023-03-09 22:55 | ECG_ITS ---
Measurements Intervals [place] Rate: 95 P: 50 MI: 178 QRS: -30 QRSD: 110 T: 64 QT: 345 QTc: 435 Interpretive Statements SINUS RHYTHM BASELINE ARTIFACT POOR R-WAVE PROGRESSION BORDERLINE ECG COMPARED TO ECG 05/26/2022 13:24:39 NO SIGNIFICANT CHANGES Electronically Signed On 03-10-2023 14:59:08 CDT by Genaro Chilel M.D.
[2023-03-09 23:15] VITALS: BP 104/59; PULSE 97
[2023-03-09 23:16] LABS: Basophils Absolute Auto 0.02 K/mm3 (0.00-0.10); Basophils Percent Auto 0.4 % (0.0-1.0); Eosinophils Absolute Auto 0.08 K/mm3 (0.02-0.50); Eosinophils Percent Auto 1.6 % (1.0-6.0); Hematocrit 24.9 % (35.0-49.0); Hemoglobin 8.4 g/dL (12.0-15.0); Immature Granulocyte Absolute 0.03 K/mm3 (0.00-0.00); Immature Granulocyte Percent A 0.6 % (0.0-0.0); Lymphocytes Absolute Auto 0.55 K/mm3 (1.10-4.50); Lymphocytes Percent Auto 10.7 % (18.0-42.0); Mean Corpuscular HGB Conc 33.7 g/dL (32.0-36.0); Mean Corpuscular Hemoglobin 30.2 pg (27.0-31.0); Mean Corpuscular Volume 89.6 fL (78.0-102.0); Mean Platelet Volume 10.2 fl (9.2-11.8); Monocytes Absolute Auto 0.76 K/mm3 (0.10-0.90); Monocytes Percent Auto 14.8 % (2.0-11.0); Neutrophils Absolute Auto 3.7 K/mm3 (1.7-7.2); Neutrophils Percent Auto 71.9 % (50.0-70.0); Platelet Count Result 144 K/mm3 (150-420); Red Blood Count 2.78 M/mm3 (4.20-5.40); Red Cell Distribution Width 13.6 % (11.6-14.4); White Blood Count 5.2 K/mm3 (4.8-10.8)
[2023-03-09 23:17] VITALS: BP 95/66; PULSE 105
[2023-03-09] MEDS: SODIUM CHLORIDE 0.9% IV 1,000 ML 999 ML IV CONT (23:32)
[2023-03-09] MEDS: ORPHENADRINE CITRATE 30 MG/ML 2 ML VIAL 60 MG IV PUSH (23:32)
[2023-03-09] MEDS: LORazepam INJ (*CRX) 2 MG/ML VIAL 0.5 MG IV PUSH (23:34)
[2023-03-09] MEDS: HYDROmorphone HCL INJ (*CRX) 2 MG/ML VIAL 0.5 MG IV PUSH (23:34)
[2023-03-09] MEDS: INSULIN HUMAN REGULAR (*BKC) 1,000 UNITS/10 ML VIAL 7 UNITS IV PUSH (23:38)
[2023-03-09 23:53] VITALS: BP 105/56; PULSE 96; RESP 18; O2SAT 94
[2023-03-09 23:53] LABS: Chloride 88 mmol/L (98-108); Potassium 4.7 mmol/L (3.5-5.1); Sodium 121 mmol/L (136-145)
[2023-03-09 23:55] LABS: Appearance Urine Clear (Clear); Bilirubin Urine Negative (Negative); Blood Urine 3+ (Negative); Color Urine Light Yellow (Yellow); Glucose Urine UA 3+ (Negative); Ketones Urine Negative (Negative); Leukocyte Esterase Ur Negative LEU/UL (Negative); Nitrate Urine Negative (Negative); Protein Urine Negative (Negative); Specific Grav Ur <= 1.005 (1.010-1.020); Urobilinogen Urine 0.2 mg/dL (0.2-1.0)
[2023-03-10] VITALS (12 sets, daily range): BP systolic 95–116; BP diastolic 58–74; PULSE 74–96; RESP 16–20; TEMP 36.1–36.8; O2SAT 95–99; BMI 29.3
[2023-03-10 00:01] LABS: Add Urine Microscopic? YES; RBC Urine >75 /hpf (0-2); Squamous Epithelial Cell Urine None seen /hpf (Few); WBC Urine 0-3 /hpf (0-3)
[2023-03-10 00:02] LABS: Amphetamine Screen Urine Negative (Negative); Bacteria Urine None seen /hpf; Barbiturate Screen Urine Negative (Negative); Benzodiazepines Screen Urine Negative (Negative); Cannabinoid Screen Urine Positive (Negative); Cocaine Screen Urine Negative (Negative); Methadone Screen Urine Negative (Negative); Opiate Screen Urine Negative (Negative); Phencyclidine Screen Urine Negative (Negative)
[2023-03-10 00:06] LABS: Lactic Acid Reflex 2.6 mmol/L (0.4-2.0)
[2023-03-10] MEDS: SODIUM CHLORIDE 0.9% IV 1,000 ML 999 ML IV CONT ×2 (00:11→01:43)
[2023-03-10 00:12] LABS: Acetone Negative (Negative)
[2023-03-10 00:13] LABS: Alanine Aminotransferase 33 U/L (14-59); Alkaline Phosphatase 711 U/L (46-116); Anion Gap 8 mmol/L (8-16); Aspartate Amino Transferase 22 U/L (15-37); Bilirubin,Total 0.9 mg/dL (0.00-1.00); Blood Urea Nitrogen 34 mg/dL (7-18); Calcium 7.5 mg/dL (8.5-10.1); Carbon Dioxide 25 mmol/L (21-32); Estimated CRCL calculation 24 ml/min; Estimated Glomerular Filt Rate 24; Total Protein 6.8 g/dL (6.4-8.2); Troponin I 4.4 ng/L (0.00-60.4)
[2023-03-10 00:27] LABS: CRP 15.9 mg/dL (0.0-0.9); Glucose > 800 mg/dL (70-99); Osmolality Calculated 299 mOsm/kg (285-295)
[2023-03-10 00:28] LABS: D Dimer 1.39 mg/L (0.19-0.50)
[2023-03-10 00:57] LABS: Strep Group A RT-PCR NOT DETECTED (Negative)
[2023-03-10 00:59] LABS: Influenza A QL RT-PCR Negative (Negative); Influenza B QL RT-PCR Negative (Negative); SARS-CoV-2 RNA PCR Negative (Negative)
[2023-03-10 01:01] LABS: RSV RNA, RT-PCR Negative (Negative)
[2023-03-10 01:04] LABS: Glucose Point of Care > 450 mg/dl (65-105)
[2023-03-10] MEDS: HYDROmorphone HCL INJ (*CRX) 2 MG/ML VIAL 0.5 MG IV PUSH ×2 (01:41→05:33)
[2023-03-10] MEDS: INSULIN HUMAN REGULAR (*BKC) 1,000 UNITS/10 ML VIAL 4 UNITS IV PUSH (01:45)
[2023-03-10 02:01] LABS: Alanine Aminotransferase 30 U/L (14-59); Albumin Level 1.8 g/dL (3.4-5.0); Alkaline Phosphatase 628 U/L (46-116); Anion Gap 7 mmol/L (8-16); Aspartate Amino Transferase 19 U/L (15-37); Bilirubin,Total 0.7 mg/dL (0.00-1.00); Blood Urea Nitrogen 32 mg/dL (7-18); Calcium 7.2 mg/dL (8.5-10.1); Carbon Dioxide 24 mmol/L (21-32); Chloride 98 mmol/L (98-108); Estimated CRCL calculation 28 ml/min; Estimated Glomerular Filt Rate 28; Glucose 399 mg/dL (70-99); Osmolality Calculated 291 mOsm/kg (285-295); Potassium 4.4 mmol/L (3.5-5.1); Sodium 129 mmol/L (136-145); Total Protein 6.2 g/dL (6.4-8.2); Troponin I 5.3 ng/L (0.00-60.4)
[2023-03-10 02:09] LABS: Lactic Acid Reflex 2.2 mmol/L (0.4-2.0)
--- NOTE | 2023-03-10 02:20 | ADMGEN ---
This patient, Britney Crawford, was admitted to 2nd Floor Room 205-2. Patient was oriented to hospital policies and general routines including ID bracelet, bed and alarms, pain management, procedures, bathroom and other care routines, personal items, smoking policy, room service/diet, and visiting hours. Information on how to activate the Rapid Response Team has been discussed. Patient was encouraged to report perceived risks to care and to ask questions if they do not understand what they are told or what they should do.
[2023-03-10] MEDS: SODIUM CHLORIDE 0.9% IV 1,000 ML 125 ML IV CONT (02:30)
[2023-03-10 02:41] LABS: Glucose Point of Care 300 mg/dl (65-105)
[2023-03-10 04:29] LABS: Glucose Point of Care 267 mg/dl (65-105)
[2023-03-10 04:44] LABS: Reflex Lactic Acid Yes or No Add Lactic
[2023-03-10] MEDS: IPRATROPIUM 0.5 MG/ALBUTEROL SULFATE 2.5 MG AMPUL.NEB 3 ML INHALATION ×4 (05:03→23:29)
[2023-03-10] MEDS: CALCIUM GLUC 2,000 MG/NS 100ML 2,000 MG/100 ML BAG 100 MG IVPB (05:39)
[2023-03-10 06:24] LABS: Glucose Point of Care 241 mg/dl (65-105)
[2023-03-10 08:10] LABS: Basophils Absolute Auto 0.03 K/mm3 (0.00-0.10); Basophils Percent Auto 0.6 % (0.0-1.0); Eosinophils Absolute Auto 0.16 K/mm3 (0.02-0.50); Hematocrit 24.8 % (35.0-49.0); Hemoglobin 8.5 g/dL (12.0-15.0); Immature Granulocyte Absolute 0.01 K/mm3 (0.00-0.00); Immature Granulocyte Percent A 0.2 % (0.0-0.0); Lymphocytes Absolute Auto 1.04 K/mm3 (1.10-4.50); Lymphocytes Percent Auto 19.5 % (18.0-42.0); Mean Corpuscular HGB Conc 34.3 g/dL (32.0-36.0); Mean Corpuscular Hemoglobin 30.8 pg (27.0-31.0); Mean Corpuscular Volume 89.9 fL (78.0-102.0); Mean Platelet Volume 9.8 fl (9.2-11.8); Monocytes Absolute Auto 0.63 K/mm3 (0.10-0.90); Monocytes Percent Auto 11.8 % (2.0-11.0); Neutrophils Absolute Auto 3.5 K/mm3 (1.7-7.2); Neutrophils Percent Auto 64.9 % (50.0-70.0); Platelet Count Result 154 K/mm3 (150-420); Red Blood Count 2.76 M/mm3 (4.20-5.40); White Blood Count 5.3 K/mm3 (4.8-10.8)
[2023-03-10] MEDS: INSULIN HUMAN LISPRO (*BKC) 1,000 UNITS/10 ML VIAL SUB-Q ×3 (08:12→16:49)
[2023-03-10 08:31] LABS: Lactic Acid Reflex 1.2 mmol/L (0.4-2.0)
[2023-03-10 08:32] LABS: Alanine Aminotransferase 31 U/L (14-59); Alkaline Phosphatase 661 U/L (46-116); Anion Gap 6 mmol/L (8-16); Aspartate Amino Transferase 24 U/L (15-37); Bilirubin,Total 0.6 mg/dL (0.00-1.00); Blood Urea Nitrogen 29 mg/dL (7-18); Calcium 8.3 mg/dL (8.5-10.1); Carbon Dioxide 26 mmol/L (21-32); Chloride 101 mmol/L (98-108); Estimated CRCL calculation 33 ml/min; Estimated Glomerular Filt Rate 33; Glucose 223 mg/dL (70-99); Osmolality Calculated 288 mOsm/kg (285-295); Potassium 4.4 mmol/L (3.5-5.1); Sodium 133 mmol/L (136-145); Troponin I 6.2 ng/L (0.00-60.4)
[2023-03-10] MEDS: FLUTICASONE/UMECLIDIN/VILANTER 100-62.5-25 MCG ELLIPTA 1 PUFF INHALATION (10:08)
[2023-03-10] MEDS: rOPINIRole HCL 1 MG TABLET 2 MG PO ×3 (10:11→16:47)
[2023-03-10] MEDS: PREGABALIN (*CRX) 25 MG CAPSULE 75 MG PO ×2 (10:11→16:47)
[2023-03-10] MEDS: DULoxetine HCL 30 MG CAPSULE.DR 60 MG PO (10:11)
[2023-03-10] MEDS: CYCLOBENZAPRINE HCL 5 MG TABLET PO (10:12)
[2023-03-10] MEDS: LORATADINE 10 MG TABLET PO (10:13)
[2023-03-10] MEDS: POTASSIUM CHLORIDE 10 MEQ TABLET PO (10:13)
[2023-03-10] MEDS: lisinopriL 10 MG TABLET PO (10:13)
[2023-03-10] MEDS: FAMOTIDINE 20 MG TABLET PO ×2 (10:14→21:20)
[2023-03-10] MEDS: MONTELUKAST SODIUM 10 MG TABLET PO (10:14)
[2023-03-10] MEDS: TOLNAFTATE 1% POWDER 45 GM BTL 1 APPLIC TOPICAL ×2 (10:35→21:21)
--- NOTE | 2023-03-10 10:49 | PM.IMHP ---
H&P: HPI History of Present Illness Date/Time: 03/10/23 10:49 Chief Complaint: hyperglycemia,chest discomfort s/p fall Narrative: ?the patient is a 58-year-old woman with multiple comorbidities including diabetes, diabetic foot infections and pressure ulcers, prior stroke with no residual symptoms, Bruner cirrhosis, coronary artery disease status post stenting, peripheral vascular disease, atrial fibrillation, anxiety, fibromyalgia, obstructive sleep apnea, hyperlipidemia, seizure disorder, hypertension.? For the last 1 month, the patient has had left-sided chest pain that radiates to the left lateral aspect of her chest and radiates to the left upper back, constant in nature, waxing waning intensity, increasing in intensity over the last 2 days.? On the way here, she had dizzy spell and then fell backwards landing on her buttocks.? Does have chronic cough which exacerbates her chest pain.? She had a coughing spell approximately 3 days ago and that is when she felt something pop in her left side of her chest and the pain has gotten worse since that time.? She has not taken anything stronger than Aleve and tramadol at home.Denies dyspnea.? The cough is nonproductive. The patient denies SOB, CP, palpitation, extremity numbness, lightheadedness, dizziness, constipation, diarrhea, chills, or fever. Review of Systems Review of Systems: All systems reviewed & are unremarkable except as noted in HPI and below 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 Manic depression Memory loss Migraine Nausea & vomiting Obstructive sleep apnea Posttraumatic stress disorder Pure hypercholesterolemia Restless leg syndrome Seasonal allergies Skin ulcer Sleep apnea SOB (shortness of breath) Spinal arthritis Tobacco abuse Type 2 diabetes mellitus Unintentional weight loss Vertigo Wears glasses Wheezing Surgical History Surgical History History of back surgery History of cholecystectomy History of cholecystectomy History of ear surgery History of hernia repair History of hysterectomy History of laparoscopy History of left salpingo-oophorectomy History of sinus surgery Stented coronary artery Family History Family History Mother Family history of gout Hypertension Family history of elevated blood lipids Family history of diabetes mellitus in first degree relative Family history of chronic obstructive pulmonary disease Sibling Family history of gout Family history of allergic disorder Father Family history of emphysema Other Acute myocardial infarction Arthritis Asthma Depression Diabetes mellitus Family history of cardiovascular disease Heart disease Kidney disorder Neuropathy Social History Social History Social History: Surrogate decision maker: hyun Liu. Code status: Full code. Smoking packs per day: 2 Smoking cigarettes per day: 40.0 Years smoked: 35 Smoking pack-years: 70.00 Smoking status: Former smoker Tobacco type: cigarettes Second hand tobacco smoke exposure: No Smoking end date: 12/30/22 Alcohol intake: never Substance use: current Substance use type: painkillers Other substance usage details: Uses for pain relief - smokes it. Lack of Transportat
[2023-03-10] MEDS: MUPIROCIN 2% OINT 22 GM TUBE 1 APPLIC TOPICAL ×2 (11:01→21:20)
[2023-03-10] MEDS: ENOXAPARIN 100 MG/ML SYRINGE 72 MG SUB-Q ×2 (11:01→21:45)
[2023-03-10 11:34] LABS: Glucose Point of Care 225 mg/dl (65-105)
[2023-03-10 13:43] LABS: Glucose Point of Care 226 mg/dl (65-105)
[2023-03-10 13:43] LABS: Glucose Point of Care 226 mg/dl (65-105)
--- NOTE | 2023-03-10 13:44 | PC.NURSE ---
c/o chills. temp normal 98. bs 226. warm blanket applied. fan turned off. falls asleep as she is being talked to.
[2023-03-10] MEDS: traMADol HCL (*CRX) 50 MG TABLET PO ×2 (15:53→20:14)
--- NOTE | 2023-03-10 16:03 | PM.EVENT ---
Event Note Event Note Event Note: v/q scan positive patient will need to discharge on anticoag.
--- NOTE | 2023-03-10 16:07 | PC.NURSE ---
has been encouraged to get her dexiscan checked out after dc. ours reads 225 and her's 330. seems to run higher around 100 over ours. client delivery manager aware and also social service.
[2023-03-10 16:48] LABS: Glucose Point of Care 245 mg/dl (65-105)
[2023-03-10] MEDS: BENZONATATE 100 MG CAPSULE PO (18:17)
[2023-03-10] MEDS: ALPRAZolam (*CRX) 0.5 MG TABLET PO (20:14)
[2023-03-10] MEDS: MIRTAZAPINE 7.5 MG TABLET PO (21:20)
[2023-03-10] MEDS: NYSTATIN 100,000 UNITS/ML SUSP 5 ML ORAL.SUSP PO (21:21)
[2023-03-10] MEDS: guaiFENesin 12 HR 600 MG TABCR 1200 MG PO (21:21)
[2023-03-10] MEDS: INSULIN GLARGINE (*BKC) 1,000 UNITS/10 ML VIAL 20 UNITS SUB-Q (21:44)
[2023-03-10 21:53] LABS: Glucose Point of Care 314 mg/dl (65-105)
--- NOTE | 2023-03-10 22:35 | PC.NURSE ---
Patient complained of continuing pain despite tramadol given at 2212. Patient stated that it sometimes helped to walk. Patient walked to the end of the bush and back to her room, accompanied by the nurse. When she returned to the room, stated that she was feeling better, and was ready to go to sleep.
--- NOTE | 2023-03-10 23:35 | PCRCNOTE ---
Patient did not finish updraft stated she was to tired to finish at this time
[2023-03-11] VITALS: BP 128/80; PULSE 95; RESP 16; TEMP 36.6; O2SAT 98
[2023-03-11] MEDS: ACETAMINOPHEN 325 MG TABLET PO ×2 (00:28→09:41)
[2023-03-11] MEDS: traMADol HCL (*CRX) 50 MG TABLET PO ×2 (04:55→11:15)
[2023-03-11] MEDS: IPRATROPIUM 0.5 MG/ALBUTEROL SULFATE 2.5 MG AMPUL.NEB 3 ML INHALATION (05:03)
[2023-03-11 05:04] VITALS: PULSE 88; RESP 20; O2SAT 95
[2023-03-11 05:12] VITALS: PULSE 86; RESP 20
--- NOTE | 2023-03-11 05:15 | PC.NURSE ---
Patient complaining of increasing pain, just given tramadol. Patient stated that walking seems to help. Patient walked down the bush, then back to her room. Stated that she felt better, and would try to sleep. Patient returned to bed.
[2023-03-11 05:21] LABS: Estimated CRCL calculation 36 ml/min; Estimated Glomerular Filt Rate 37
[2023-03-11] MEDS: ALPRAZolam (*CRX) 0.5 MG TABLET PO ×2 (06:03→09:33)
--- NOTE | 2023-03-11 06:07 | PC.NURSE ---
Addendum entered by Galina Todd RN 03/11/23 06:27: Patient was reassessed. Patient stated that her pain was lessening, although it was still there. Pain is not a stabbing, fierey pain at this point, but back to the original pain. The Xanax helped her relax, and allowed the tramadol to begin working. Patient stated that she would return to the slow pursed lip breathing if she began having difficulty again. Original Note: Patient called senior science consultant light, stating that she was having trouble breathing. She had finished a duoneb treatment just a few minutes before. Patient was in bed, breathing rapidly, stating she was in a great deal of pain. Patient was told to use pursed lip breathing - did not seem to know what that was, so was instructed. Vital signs were taken at 0554. Temp 97.4; HR 98; RR 18; O2 sat 97%; BP 136/83. Patient was advised that her vitals were WNL. Patient stated her pain was a 15 - she had taken tramadol at 0455. Patient was given 0.5 mg of Xanax, PO at 0600. Her prior dose was at 2013 the previous night. Patient was moved to the chair, and will be checked on in 30 minutes.
[2023-03-11 07:39] LABS: Glucose Point of Care 86 mg/dl (65-105)
[2023-03-11 08:00] VITALS: BP 142/87; PULSE 102; RESP 16; TEMP 36.4; O2SAT 100
[2023-03-11] MEDS: FLUTICASONE/UMECLIDIN/VILANTER 100-62.5-25 MCG ELLIPTA 1 PUFF INHALATION (09:32)
[2023-03-11] MEDS: FUROSEMIDE 40 MG TABLET PO (09:32)
[2023-03-11] MEDS: MONTELUKAST SODIUM 10 MG TABLET PO (09:33)
[2023-03-11] MEDS: LORATADINE 10 MG TABLET PO (09:34)
[2023-03-11] MEDS: FAMOTIDINE 20 MG TABLET PO (09:34)
[2023-03-11] MEDS: lisinopriL 10 MG TABLET PO (09:34)
[2023-03-11] MEDS: guaiFENesin 12 HR 600 MG TABCR 1200 MG PO (09:34)
[2023-03-11] MEDS: rOPINIRole HCL 1 MG TABLET 2 MG PO ×2 (09:35→12:01)
[2023-03-11] MEDS: DULoxetine HCL 30 MG CAPSULE.DR 60 MG PO (09:35)
[2023-03-11] MEDS: POTASSIUM CHLORIDE 10 MEQ TABLET PO (09:36)
[2023-03-11] MEDS: NYSTATIN 100,000 UNITS/ML SUSP 5 ML ORAL.SUSP PO ×2 (09:37→12:01)
[2023-03-11] MEDS: PREGABALIN (*CRX) 25 MG CAPSULE 75 MG PO (09:38)
[2023-03-11] MEDS: ENOXAPARIN 100 MG/ML SYRINGE 72 MG SUB-Q (09:39)
[2023-03-11] MEDS: TOLNAFTATE 1% POWDER 45 GM BTL 1 APPLIC TOPICAL (09:42)
[2023-03-11] MEDS: MUPIROCIN 2% OINT 22 GM TUBE 1 APPLIC TOPICAL (09:43)
[2023-03-11] MEDS: BENZONATATE 100 MG CAPSULE PO ×2 (09:58→12:01)
[2023-03-11 10:57] LABS: Glucose Point of Care 210 mg/dl (65-105)
--- NOTE | 2023-03-11 11:29 | PM.DS ---
DS: Admitting Diagnosis Discharge Date 03/11/2023 Admitting Diagnosis hyponatremia, OSCAR, DKA DS: Discharge Diagnosis Discharge Diagnosis (1) Anxiety: Code(s): F41.9 - Anxiety disorder, unspecified Status: Acute (2) Diabetes mellitus with hyperglycemia, with long-term current use of insulin: Code(s): E11.65 - Type 2 diabetes mellitus with hyperglycemia; Z79.4 - watermelon harvesting supervisor (current) use of insulin Status: Acute (3) Acute kidney injury superimposed on chronic kidney disease: Code(s): N17.9 - Acute kidney failure, unspecified; N18.9 - Chronic kidney disease, unspecified Status: Acute (4) Skin infection: Code(s): L08.9 - Local infection of the skin and subcutaneous tissue, unspecified Status: Acute DS: Summary Hospital Course Reason for hospitalization: Weakness Diabetes, wounds, atpical chest pain Hospital Course: the patient is a 58-year-old woman with multiple comorbidities including diabetes, diabetic foot infections and pressure ulcers, prior stroke with no residual symptoms, Maria cirrhosis, coronary artery disease status post stenting, peripheral vascular disease, atrial fibrillation, anxiety, fibromyalgia, obstructive sleep apnea, hyperlipidemia, seizure disorder, hypertension.?Patient is in her room ready to discharge and stating she is ready to go home she feels a lot better. Patient VQ scan showed intermediate possibility of a blood clot so she was started on Eliquis and given a coupon for the first month free. Patient is able to ambulate blood sugar is still in the 200s she is denying any chest pain and she is not having shortness of breath. Patient was placed on IV antibiotic and currently will discharge with oral antibiotics and she has a inhaler at home. Mrs. Crawford states that she has home health that will change her dressing . At this time patient will go home she still has some pending cultures in which I have informed her that if anything grows we will call her with the results and we will call in any antibiotics if it is indicated if what we have given her does not take care of it .. after discharge culture came back MRSA and I ordered Bactrim DS and patient was called and informed to tow picker medication at pharmacy . Time Spent with Patient Time attestation: Total time spent providing and/or coordinating discharge services: Exam Narrative: GENERAL: This is a well-nourished, well-developed patient, in no apparent distress. HEAD: normocephalic, atraumatic. EYES: PERRL. Sclera clear/white. Vision is grossly intact. EARS: External ears normal, auditory canals clear and without drainage, TMs normal without perforation. Hearing grossly intact. NOSE: External nose normal with no obvious nasal discharge, nares without redness, no rhinorrhea. THROAT: Mucous membranes moist, posterior pharynx clear. CARDIOVASCULAR: Regular rate and rhythm RESPIRATORY: Clear to auscultation. Breath sounds equal bilaterally. No wheezes, rales, or rhonchi.? GASTROINTESTINAL: Abdomen soft, non-tender, nondistended. Bowel sounds are active. SKIN:? Multiple scab over lesions to upper lower extremities.? Multiple new open areas to upper and lower back. NEURO: awake, alert, and oriented to person, place and time. There were no obvious focal neurologic abnormalities.? EXTREMITIES: Normal range of motion.? No edema. No calf tenderness. Const: General: cooperative, no acute distress, well developed, alert, awake, Physically active and anxious DS: Data Data Completed and Pending Labs on day of discharge: Labs from last 24 hours 03/11/23 03/11/23 03/11/23 10:52 07:33 05:07 Creatinine 1.45 H Estim Creat Clear Calc 36 Estimated GFR 37 L POC Capillary Glucose 210 H 86 03/10/23 03/10/23 03/10/23 21:47 16:46 13:40 Creatinine Estim Creat Clear Calc Estimated GFR POC Capillary Glucose 314 H 245 H 226 H 03/10/23 03/10/23 11:33 07:59 Creatinine Estim Creat Clear Ca
[2023-03-11 12:00] LABS: Glucose Point of Care 218 mg/dl (65-105)
[2023-03-11] MEDS: INSULIN HUMAN LISPRO (*BKC) 1,000 UNITS/10 ML VIAL SUB-Q (12:03)
--- NOTE | 2023-03-13 09:01 | PC.NURSE ---
Culture report to Chris Mann NP. Medication change to bactrim ds and discontinue zithromax, patient called regarding chagne and med to [facility]
--- NOTE | 2023-03-16 10:27 | PC.NURSE ---
Unable to contact for discharge call back.
== END 2023-03-11 13:10 | disposition home health service (06) ==
LOC: CHSED 03-10 01:40 → CHS2ND 03-10 02:11
PROVIDERS: Nurse Practitioner; Admitting Provider Internal Medicine; Emergency Provider Emergency Medicine; PCP Family Medicine; Visit Provider Internal Medicine
DX: R07.89 Other chest pain (principal); I48.20 Chronic atrial fibrillation, unspecified; I25.10 Atherosclerotic heart disease of native coronary artery without angina pectoris; I11.0 Hypertensive heart disease with heart failure; I50.9 Heart failure, unspecified; N17.9 Acute kidney failure, unspecified; L08.9 Local infection of the skin and subcutaneous tissue, unspecified; K75.81 Nonalcoholic steatohepatitis (NASH); E87.1 Hypo-osmolality and hyponatremia; E78.00 Pure hypercholesterolemia, unspecified; E11.51 Type 2 diabetes mellitus with diabetic peripheral angiopathy without gangrene; E11.65 Type 2 diabetes mellitus with hyperglycemia; E11.40 Type 2 diabetes mellitus with diabetic neuropathy, unspecified; E66.09 Other obesity due to excess calories; E78.5 Hyperlipidemia, unspecified; K74.60 Unspecified cirrhosis of liver; B95.62 Methicillin resistant Staphylococcus aureus infection as the cause of diseases classified elsewhere; Z20.822 Contact with and (suspected) exposure to COVID-19; J32.9 Chronic sinusitis, unspecified; J44.9 Chronic obstructive pulmonary disease, unspecified; D64.9 Anemia, unspecified; M10.9 Gout, unspecified; M79.7 Fibromyalgia; R53.82 Chronic fatigue, unspecified; R05.3 Chronic cough; G25.81 Restless legs syndrome; G89.4 Chronic pain syndrome; G40.909 Epilepsy, unspecified, not intractable, without status epilepticus; G47.33 Obstructive sleep apnea (adult) (pediatric); F41.9 Anxiety disorder, unspecified; F43.10 Post-traumatic stress disorder, unspecified; F40.240 Claustrophobia; F32.A Depression, unspecified; Z87.891 Personal history of nicotine dependence; Z79.4 Long term (current) use of insulin; Z86.73 Personal history of transient ischemic attack (TIA), and cerebral infarction without residual deficits; Z95.5 Presence of coronary angioplasty implant and graft
CPT/HCPCS: 36415; 71045; 78580; 80053; 80307; 81001; 82010; 82565; 82948; 83605; 83735; 84484; 85025; 85380; 86140; 87040; 87070; 87081; 87147; 87186; 87205; 87637; 87651; 93005; 94640; 96361; 96365; 96367; 96372; 96374; 96375; 96376; 99285; A9270; A9540; G0378; J0613; J1170; J1650; J1815; J2060; J2360; J3370; J7030

== ENCOUNTER 2023-04-03 14:19 | Outpatient (CLI) | payer MEDICARE, MEDICAID, SELFPAY ==
--- NOTE | ~2023-04-03 | XR_ITS ---
EXAMINATION: [id number] Exam Date/Time: 04/03/2023 14:45 CDT HISTORY: R07.81 - Pleurodynia Comparison: None available. RESULT: Lines, tubes, and devices: Cholecystectomy clips. Lungs and pleura: Mild diffuse reticular opacities. Peripheral subsegmental opacity in the right low er lung. Linear bibasilar opacities likely representing scar. Stable mild right lateral costophrenic angle blunting. . Cardiomediastinal silhouette: Other: No acute upper abdominal finding. Moderately displaced (one bone width) right posterior later al fourth rib fracture. Nondisplaced right lateral eighth rib fracture. IMPRESSION: No acute cardiopulmonary process. Moderately displaced right posterior lateral fourth rib fracture. N ondisplaced right lateral eighth rib fracture. Small peripheral right lower lung opacity may represen t contusion. Mild interstitial edema. Small right pleural effusion versus chronic pleural parenchymal scarring. Reviewed, dictated and finalized at location K. IMPRESSION: No acute cardiopulmonary process. Moderately displaced right posterior lateral fourth rib fracture. Nondisplaced right lateral eighth rib fracture. Small richi pheral right lower lung opacity may represent contusion. Mild interstitial abdelrahman a. Small right pleural effusion versus chronic pleural parenchymal scarring.
[2023-04-03 14:42] LABS: Hemoglobin A1C 13.3 % (<5.7)
[2023-04-03 14:52] LABS: Creatinine Urine 18.21 mg/dL (40-278); MALB Creatinine Ratio 366.2 mg/g (0-30); Microalbumin Urine Random 66.7 mg/L
[2023-04-03 15:11] LABS: Alanine Aminotransferase 33 U/L (14-59); Albumin Level 2.1 g/dL (3.4-5.0); Alkaline Phosphatase 412 U/L (46-116); Anion Gap 9 mmol/L (8-16); Aspartate Amino Transferase 38 U/L (15-37); Bilirubin,Total 0.5 mg/dL (0.00-1.00); Blood Urea Nitrogen 20 mg/dL (7-18); Calcium 7.7 mg/dL (8.5-10.1); Carbon Dioxide 26 mmol/L (21-32); Chloride 101 mmol/L (98-108); Cholesterol 123 mg/dL (0-200); Estimated Glomerular Filt Rate 29; Glucose 275 mg/dL (70-99); HDL Direct 23 mg/dL (40-60); LDL Cholesterol Calculated 58 mg/dL (<130); Osmolality Calculated 294 mOsm/kg (285-295); Potassium 4.2 mmol/L (3.5-5.1); Sodium 136 mmol/L (136-145); Total Protein 7.1 g/dL (6.4-8.2); Triglycerides 210 mg/dL (0-150)
== END 2023-04-03 14:20 | disposition home or self-care (01) ==
LOC: CHSLAB 14:21
PROVIDERS: PCP Family Medicine; Visit Provider Family Medicine
DX: E11.9 Type 2 diabetes mellitus without complications (principal); R07.81 Pleurodynia; R91.8 Other nonspecific abnormal finding of lung field
CPT/HCPCS: 36415; 71111; 80053; 80061; 82043; 83036

== ENCOUNTER 2023-04-04 16:19 | Emergency (ER) | payer MEDICARE, MEDICAID, SELFPAY ==
--- NOTE | ~2023-04-04 | XR_ITS ---
EXAMINATION: XR humerus LT DATE: 04/04/2023 16:45 INDICATION: Left upper arm pain. Fall. TECHNIQUE: 2 views of left humerus were obtained. COMPARISON: Left shoulder radiographs 06/06/2022 FINDINGS: There is an oblique fracture of proximal diaphysis of left humerus. The distal fracture fra gment demonstrates 2 cortical widths anterior displacement, 7 degrees posterior angulation, and varia ble rotation. There is normal alignment at glenohumeral joint and the elbow joint. IMPRESSION: 1. Oblique fracture of proximal humeral diaphysis. Reviewed, dictated and finalized at location E.
[2023-04-04 16:22] VITALS: BP 125/70; PULSE 82; RESP 19; TEMP 36.5; O2SAT 95
[2023-04-04] MEDS: HYDROcodone/acetaminophen (*CRX) 5-325 MG TABLET 1 TAB PO (17:13)
--- NOTE | 2023-04-04 17:16 | ED.GENADULT ---
HPI - General Adult General Chief complaint: Fall Stated complaint: fall- LUE injury Time Seen by Provider: 04/04/23 16:34 History of Present Illness HPI narrative: 58-year-old female presented the emergency department for evaluation of left arm pain. Patient had a fall down concrete steps hitting her left arm. Patient denies striking head denies loss of consciousness. Patient is on Eliquis for history of PEs. Patient denies any other pain or injury. Related Data Home Medications Medication Instructions Recorded Confirmed cetirizine 10 mg capsule (All Day 10 mg PO DAILY 12/04/22 03/10/23 Allergy (cetirizine)) potassium chloride 10 mEq 10 meq PO DAILY 12/04/22 03/10/23 tablet,extended release insulin glargine-yfgn 100 unit/mL 40 unit subcut BID 03/10/23 03/10/23 (3 mL) subcutaneous pen (Semglee (insulin glargine-yfgn) Pen) mirtazapine 7.5 mg tablet 7.5 mg PO HS 03/10/23 03/10/23 vortioxetine 20 mg tablet 20 mg PO DAILY 03/10/23 03/10/23 (Trintellix) Allergies Allergy/AdvReac Type Severity Reaction Status Date / Time adhesive tape Allergy Unknown Blister Verified 04/03/23 13:48 atorvastatin Allergy Unknown Itching Verified 04/03/23 13:48 budesonide Allergy Unknown Anaphylactic Verified 04/03/23 13:48 Shock formoterol Allergy Unknown Anaphylactic Verified 04/03/23 13:48 Shock mometasone furoate Allergy Unknown Anaphylactic Verified 04/03/23 13:48 Shock morphine Allergy Unknown Itching Verified 04/03/23 13:48 diphenhydramine AdvReac Severe Other Verified 04/03/23 13:48 [From Benadryl] gemfibrozil AdvReac Unknown Gastrointestinal Verified 04/03/23 13:48 Upset flonase Allergy Severe Swelling Uncoded 04/03/23 13:48 of the Eye Review of Systems Review of Systems: All systems reviewed & are unremarkable except as noted in HPI and below PMFSH Past Medical History Medical History Afib Anxiety Anxiety Arthritis Asthma Atrophy of left kidney Chest tightness Chronic anemia Chronic fatigue Chronic headache Chronic obstructive pulmonary disease Chronic pain syndrome Chronic sinusitis Cirrhosis Claustrophobia Congestive heart failure Coughing Degenerative disc disease Depression Diabetic neuropathy Dizziness Exogenous obesity Fibromyalgia Gout Hair loss History of MRSA infection Hyperlipidemia Hypertension Immunosuppression Insomnia Light headedness 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 Manic depression Memory loss Migraine Nausea & vomiting Obstructive sleep apnea Posttraumatic stress disorder Pure hypercholesterolemia Restless leg syndrome Seasonal allergies Skin ulcer Sleep apnea SOB (shortness of breath) Spinal arthritis Tobacco abuse Type 2 diabetes mellitus Unintentional weight loss Vertigo Wears glasses Wheezing Surgical History Surgical History History of back surgery History of cholecystectomy History of cholecystectomy History of ear surgery History of hernia repair History of hysterectomy History of laparoscopy History of left salpingo-oophorectomy History of sinus surgery Stented coronary artery Family History Family History Mother Family history of gout Hypertension Family history of elevated blood lipids Family history of diabetes mellitus in first degree relative Family history of chronic obstructive pulmonary disease Sibling Family history of gout Family history of allergic disorder Father Family history of emphysema Other Acute myocardial infarction Arthritis Asthma Depression Diabetes mellitus Family history of cardiovascular disease Heart disease Kidney disorder Neuropathy Social History Social History Social History: Surrogate decision maker: hyun Liu. Code status: Full code.
--- NOTE | 2023-04-04 18:43 | PC.NURSE ---
Pt splint applied to Left arm. Pt radial pulse plus two paplpable color pink and pt able to feel touch.
== END 2023-04-04 18:47 | disposition home or self-care (01) ==
PROVIDERS: Emergency Provider Emergency Medicine; PCP Family Medicine
DX: S49.092A Other physeal fracture of upper end of humerus, left arm, initial encounter for closed fracture (principal); I48.91 Unspecified atrial fibrillation; J44.9 Chronic obstructive pulmonary disease, unspecified; I50.9 Heart failure, unspecified; I11.0 Hypertensive heart disease with heart failure; E11.40 Type 2 diabetes mellitus with diabetic neuropathy, unspecified; E78.5 Hyperlipidemia, unspecified; N26.1 Atrophy of kidney (terminal); K75.81 Nonalcoholic steatohepatitis (NASH); K74.60 Unspecified cirrhosis of liver; G89.4 Chronic pain syndrome; G47.33 Obstructive sleep apnea (adult) (pediatric); M79.7 Fibromyalgia; M10.9 Gout, unspecified; F41.9 Anxiety disorder, unspecified; F31.9 Bipolar disorder, unspecified; Z90.49 Acquired absence of other specified parts of digestive tract; Z90.710 Acquired absence of both cervix and uterus; Z95.5 Presence of coronary angioplasty implant and graft; Z86.711 Personal history of pulmonary embolism; Z87.891 Personal history of nicotine dependence; Z86.14 Personal history of Methicillin resistant Staphylococcus aureus infection; Z90.721 Acquired absence of ovaries, unilateral; Z90.79 Acquired absence of other genital organ(s); Z79.01 Long term (current) use of anticoagulants; Z79.4 Long term (current) use of insulin; W10.9XXA Fall (on) (from) unspecified stairs and steps, initial encounter
CPT/HCPCS: 73060; 99284; A9270

== ENCOUNTER 2023-04-08 15:27 | Observation (INO) | payer MEDICARE, MEDICAID, SELFPAY ==
[2023-04-08] VITALS (23 sets, daily range): BP systolic 72–125; BP diastolic 55–74; PULSE 81–94; RESP 8–31; TEMP 35.6–36.6; O2SAT 94–100; BMI 29.4
--- NOTE | ~2023-04-08 | XR_ITS ---
XR facial bones min 3V 04/10/2023 13:35 Indication: Facial pain after fall Procedure: 5 views of the facial bones Comparison: No prior studies for comparison. Findings: Orbits are symmetric. There is bilateral symmetric opacification of the maxillary sinuses. Mandible appears to be intact. Temporomandibular joints are symmetric. The patient is edentulous. The upper cervical spine is unremarkable. Impression: 1: No acute facial fracture. If there is continued concern for subtle nondisplaced fracture, correlat ion with CT recommended. Reviewed, dictated and finalized at location B. Impression: 1: No acute facial fracture. If there is continued concern for subtle nondispla andres fracture, correlation with CT recommended.
--- NOTE | ~2023-04-08 | XR_ITS ---
Left Humerus Technique: AP and lateral views were obtained. Clinical History: Fracture, pain COMPARISON: 04/04/2023 Findings: Cast is in place overlying the left upper chest area. Oblique fracture of the proximal thir d of the humeral shaft is again present. Alignment is deteriorated as compared to prior exam, with in creased angulation at the fracture site. Suspected small fracture at greater tuberosity is noted, age -indeterminate, similar to prior exam. Soft tissues are unremarkable. Impression: Increased angulation at involving oblique fracture of the proximal third of the humeral shaft as comp ared to prior exam. Cast in place. Probable small greater tuberosity fracture fragment, unchanged. Reviewed, dictated and finalized at location M. Impression: Increased angulation at involving oblique fracture of the proximal third of the humeral shaft as compared to prior exam. Cast in place. Probable small greater tuberosity fracture fragment, unchanged.
--- NOTE | ~2023-04-08 | CT_ITS ---
EXAMINATION: CT facial bones wo con DATE: 04/10/2023 19:05 INDICATION: Facial pain. Fall. TECHNIQUE: Computed tomography (CT) of the facial bones and maxillofacial region was performed withou t intravenous contrast. Automated exposure control and iterative reconstruction technique were employ ed. The dose-length product was 459.04 mGy-cm. COMPARISON: Neck CT 12/04/2022 FINDINGS: Bone alignment is normal. No fracture. There are likely changes of left ocular lens replace ment surgery. The patient is edentulous. There is severe cervical spondylosis. There are bilateral ot omastoid effusions, right worse than left. There is near complete opacification of the paranasal sinu ses. There is sclerosis of the sinus chung, consistent with chronic sinusitis. IMPRESSION: 1. No fracture. 2. Chronic sinusitis. 3. Bilateral otomastoid effusions. Reviewed, dictated and finalized at location E.
--- NOTE | ~2023-04-08 | CT_ITS ---
EXAMINATION: CT chest abdomen pelvis wo con DATE: 04/08/2023 17:43 INDICATION: Fall 5 days ago, humeral fracture. Concern for compartment syndrome at primary care offic e today, referred to ED On blood thinners. Hemoglobin drop detected in routine labs today. TECHNIQUE: Computed tomography (CT) of the chest, abdomen, and pelvis was performed with 100 mL Omnip aque-350 intravenous contrast. Automated exposure control and iterative reconstruction technique were employed. The dose-length product was 1160.38 mGy-cm. COMPARISON: X-ray chest and ribs 04/03/2023; x-ray left humerus 04/03/2023; CT CAP 12/04/2022 FINDINGS: CHEST: No thoracic aortic injury. No mediastinal hematoma. Mediastinal lymphadenopathy. No pericardial effusion. No acute lung injury. Improving bilateral upper lobe opacities, worsening bilateral lower lung opacit ies, scarring, and atelectasis. Chronic bilateral lower lobe bronchiectasis. These findings likely re present infectious airways disease, possibly with a component of chronic aspiration No pleural effusion or pneumothorax. ABDOMEN/PELVIS: No solid organ injury. Cholecystectomy. Cirrhosis. Portal hypertension. Left kidney atrophy. No evidence of bowel or mesenteric injury. No free fluid or free air. No retroperitoneal hematoma. Pelvic contents are atraumatic. MUSCULOSKELETAL: No new acute fracture. Stable subacute right rib fractures. Displaced and angulated proximal left hum eral fracture. Soft tissue swelling in the forearm. Anterior abdominal hernia mesh. Stable severe compression deformity at T5. Stable mild compression deformity at T7. No new fracture o r traumatic malalignment of the thoracic or lumbar spine. IMPRESSION: Upper extremity soft tissue swelling, otherwise no acute process detected in the chest, abdomen, or p janny. Specifically, there is no evidence of significant hemorrhage. Subacute traumatic findings and chronic changes detailed above. Reviewed, dictated and finalized at location K. IMPRESSION: Upper extremity soft tissue swelling, otherwise no acute process detected in th e chest, abdomen, or pelvis. Specifically, there is no evidence of significant hemorrhage. Subacute traumatic findings and chronic changes detailed above.
--- NOTE | ~2023-04-08 | US_ITS ---
Duplex Sonography of the bilateral lower extremities: Indication: Swelling Sagittal and transverse B-mode images as well as color-flow imaging were performed on the right and l eft femoral and popliteal veins. B-mode examination was done without and with compression in the tra nsverse plane. There is good visualization of the bilateral common femoral, proximal profunda femora l, superficial femoral, greater saphenous, and popliteal veins. Normal flow was seen on color-flow im aging. Normal compressibility was demonstrated. Visualized calf veins are also patent. Impression: No evidence of deep vein thrombosis involving either lower extremity. Reviewed, dictated and finalized at location M. Impression: No evidence of deep vein thrombosis involving either lower extremit y.
--- NOTE | ~2023-04-08 | XR_ITS ---
XR chest 2V 04/10/2023 13:34 Indication: Dyspnea Procedure: AP view of the chest Comparison: Comparison to multiple prior studies sequentially, with oldest reviewed study dated 01/2022. Findings: Bibasilar airspace disease. No pleural effusion or pneumothorax. No acute osseous abnormali ty. Impression: 1: Chronic bibasilar infiltrates may represent atelectasis/scarring or atypical pneumonia. Reviewed, dictated and finalized at location B. Impression: 1: Chronic bibasilar infiltrates may represent atelectasis/scarring or atypical pneumonia.
[2023-04-08] MEDS: SODIUM CHLORIDE 0.9% IV 1,000 ML 999 ML IV CONT ×2 (15:57→16:58)
[2023-04-08] MEDS: fentaNYL CITRATE INJ (*CRX) 100 MCG/2 ML VIAL 50 MCG IV PUSH (15:58)
--- NOTE | 2023-04-08 16:04 | ED.UPPEXIN ---
HPI - Extremity Injury (Upper) General Chief Complaint: Extremity Injury, Upper Stated Complaint: blisters on arm Time Seen by Provider: 04/08/23 15:31 History of Present Illness HPI narrative: 58-year-old female presents to the emergency room from her PCPs office for further evaluation of left arm pain. Patient was seen here in the emergency room 4 days ago for a humeral fracture, and was at her PCPs office for follow-up evaluation. Patient was noted to have increased pain in her left arm and swelling with large blisters in her left hand. PCP stated that that she was concerned that the patient might be developing a compartment syndrome and to come to the emergency room for further evaluation. Patient states that she is got no sensory or motor loss in her left arm since the splinting. Patient is on Eliquis for history of PEs. Related Data Home Medications Medication Instructions Recorded Confirmed cetirizine 10 mg capsule (All Day 10 mg PO DAILY 12/04/22 04/08/23 Allergy (cetirizine)) potassium chloride 10 mEq 10 meq PO DAILY 12/04/22 04/08/23 tablet,extended release insulin glargine-yfgn 100 unit/mL 40 unit subcut BID 03/10/23 04/08/23 (3 mL) subcutaneous pen (Semglee (insulin glargine-yfgn) Pen) mirtazapine 7.5 mg tablet 7.5 mg PO HS 03/10/23 04/08/23 vortioxetine 20 mg tablet 20 mg PO DAILY 03/10/23 04/08/23 (Trintellix) Allergies Allergy/AdvReac Type Severity Reaction Status Date / Time adhesive tape Allergy Unknown Blister Verified 04/08/23 15:48 atorvastatin Allergy Unknown Itching Verified 04/08/23 15:48 budesonide Allergy Unknown Anaphylactic Verified 04/08/23 15:48 Shock formoterol Allergy Unknown Anaphylactic Verified 04/08/23 15:48 Shock mometasone furoate Allergy Unknown Anaphylactic Verified 04/08/23 14:56 Shock morphine Allergy Unknown Itching Verified 04/08/23 15:48 diphenhydramine AdvReac Severe Other Verified 04/08/23 15:48 [From Benadryl] gemfibrozil AdvReac Unknown Gastrointestinal Verified 04/08/23 15:48 Upset flonase Allergy Severe Swelling Uncoded 04/08/23 15:48 of the Eye Review of Systems Review of Systems: CONSTITUTIONAL: Denies fever, chills, or sweats. EYES: Denies visual changes, redness, or discharge. ENT: Denies rhinorrhea, congestion, sore throat, or otalgia. CARDIOVASCULAR: Denies chest pain, palpitations, or edema. RESPIRATORY: Denies cough or dyspnea. GASTROINTESTINAL: Denies abdominal pain, nausea, vomiting, or diarrhea. GENITOURINARY: Denies dysuria or hematuria. SKIN: Denies rash or itching. MUSCULOSKELETAL: Left arm pain per HPI NEUROLOGIC: Denies headache, numbness, dizziness, or weakness. PSYCHIATRIC: Denies anxiety or depression. 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
[2023-04-08 16:14] LABS: Alanine Aminotransferase 29 U/L (6-35); Albumin Level 2.7 g/dL (3.5-5.1); Alkaline Phosphatase 524 U/L (38-126); Aspartate Amino Transferase 35 U/L (14-36); Blood Urea Nitrogen 34 mg/dL (7-17); Calcium 7.3 mg/dL (8.4-10.2); Carbon Dioxide 23 mmol/L (22-30); Chloride 89 mmol/L (98-107); Creatine Kinase 155 U/L (30-135); Estimated CRCL calculation 25 ml/min; Estimated Glomerular Filt Rate 23
[2023-04-08 16:15] LABS: Anion Gap 10 mmol/L (8-16); Bilirubin,Total 0.8 mg/dL (0.2-1.3); Potassium 4.8 mmol/L (3.4-5.0); Sodium 122 mmol/L (137-145)
[2023-04-08 16:16] LABS: Basophils Percent Auto 0.4 % (0.2-1.2); Eosinophils Percent Auto 0.6 % (0-4.4); Immature Granulocyte Absolute 0.03 K/mm3 (0.00-0.031); Immature Granulocyte Percent A 0.6 % (0-0.5); Lymphocytes Absolute Auto 0.92 K/mm3 (0.9-3.2); Lymphocytes Percent Auto 17.9 % (18.3-44.2); Mean Corpuscular HGB Conc 32.4 g/dl (32-36); Mean Corpuscular Hemoglobin 29.6 pg (26-34); Mean Corpuscular Volume 91.4 fl (80-100); Mean Platelet Volume 10.7 fl (7.4-10.4); Monocytes Absolute Auto 0.6 K/mm3 (0.1-0.6); Monocytes Percent Auto 10.7 % (2.6-8.5); Neutrophils Absolute Auto 3.6 K/mm3 (1.3-6.7); Neutrophils Percent Auto 69.8 % (45.5-73.1); Platelet Count Result 114 k/mm3 (150-375); Red Blood Count 1.86 M/mm3 (4.2-5.4); Red Cell Distribution Width 14.8 % (11.5-14.5); White Blood Count 5.1 K/mm3 (4.5-10.0)
[2023-04-08 16:20] LABS: Glucose 778 mg/dL (65-110)
[2023-04-08 16:42] LABS: Beta-Hydroxybutyrate/Acetoacetate 0.07 mmol/L (0.02-0.27)
[2023-04-08 16:53] LABS: Hemoglobin 5.5 g/dL (12.0-15.0)
[2023-04-08 16:55] LABS: Platelet Estimate Decreased (Adequate); Schistocytes None Seen (NORMAL)
[2023-04-08 16:56] LABS: Hypochromasia 1+ (NORMAL)
[2023-04-08 17:44] LABS: Appearance Urine Clear (Clear); Bacteria Urine None Seen /hpf; Bilirubin Urine Negative (Negative); Blood Urine 3+ (Negative); Color Urine Yellow (Yellow); Glucose Urine UA 3+ mg/dL (Negative); Ketones Urine Negative (Negative); Leukocyte Esterase Ur Negative LEU/UL (Negative); Nitrate Urine Negative (Negative); Non Pathogenic Casts 0-2; Protein Urine Negative (Negative); Specific Grav Ur 1.019 (1.001-1.035); Squamous Epithelial Cell Urine None seen /hpf (Few); Urobilinogen Urine 0.2 mg/dL (<2.0); WBC Urine 0-5 /hpf
[2023-04-08] MEDS: HYDROmorphone HCL INJ (*CRX) 1 MG/ML SYR 0.5 MG IV PUSH ×2 (17:48→22:09)
[2023-04-08 17:51] LABS: Add Urine Microscopic? YES
[2023-04-08 18:16] LABS: INR 1.7; Partial Thromboplastin Time 44.6 SECONDS (22.3-36.8)
[2023-04-08 18:33] LABS: Glucose Point of Care > 500 mg/dl (65-105)
[2023-04-08 19:29] LABS: Immature Reticulocyte Fraction 26.9 % (3.0-15.9); Reticulocyte Percent 4.91 % (0.7-4.3); Reticulocytes Absolute 0.09 M/mm3 (0.02-0.1)
[2023-04-08 19:38] LABS: Anion Gap 9 mmol/L (8-16); Blood Urea Nitrogen 33 mg/dL (7-17); Calcium 6.8 mg/dL (8.4-10.2); Carbon Dioxide 21 mmol/L (22-30); Chloride 96 mmol/L (98-107); Estimated CRCL calculation 29 ml/min; Estimated Glomerular Filt Rate 27; Glucose 625 mg/dL (65-110); Potassium 4.3 mmol/L (3.4-5.0); Sodium 126 mmol/L (137-145)
[2023-04-08 19:59] LABS: Iron 48 ug/dL (37-170)
[2023-04-08] MEDS: SODIUM CHLORIDE 0.9% IV 1,000 ML 125 ML IV CONT (20:05)
[2023-04-08 20:09] LABS: Percent Iron Saturation 19 % (20-50)
--- NOTE | 2023-04-08 20:13 | PC.NURSE ---
This RN called blood bank to know status of blood. Blood bank stated that it would be another 30 minutes to an hour due to instruments being down.
--- NOTE | 2023-04-08 20:20 | PC.NURSE ---
Orthoglass in place on left upper arm with shoulder immobilizer in place. Moderate swelling to the left hand along with blistering. Bruising and superficial abrasions in different stages of healing noted to bilateral lower extremities. Pt reports multiple falls recently.
[2023-04-08 21:07] LABS: Folic Acid 8.8 ng/mL (2.76->20)
[2023-04-08 21:09] LABS: Glucose Point of Care > 500 mg/dl (65-105)
--- NOTE | 2023-04-08 21:51 | PM.IMHP ---
H&P: HPI History of Present Illness Date/Time: 04/08/23 20:30 Chief Complaint: Blisters on left arm. Narrative: This is a pleasant 58-year-old female with multiple medical problems including chronic kidney disease, insulin-dependent diabetes, hypertension, diastolic dysfunction, cirrhosis, chronic anemia, and a V/Q scan in February 2023 showing intermediate probability for PE on Eliquis who presented to the emergency department via private vehicle from her doctor's office for evaluation of blisters on her left arm. She was at her doctor's office today for an ED follow-up visit. On 04/04/2023 she was at a concert and while leaving the venue she tripped on the last 2 stairs and fell onto her left side. She was seen in the ED later that evening and was found to have a proximal humeral fracture. Since that time she she has been feeling ?awful? with increasing weakness to the point where she has had several falls at home without reports of injury, head trauma, and loss of consciousness. She has been feeling lightheaded and dizzy. Her appetite has not been great but she denies nausea, vomiting, and diarrhea. Her glucose has reportedly been fine but it started to spike today. In the office today she was noted to have severe swelling of the left arm with blistering of the hand and she was sent to the ER for further evaluation. She has had some tingling in the left hand but no overt numbness. She is not having any more pain in that arm and she has since the fall. In the ED: She was afebrile on arrival. Blood pressure has been as low as 72/56. Labs were significant for a WBC count of 5.1, hemoglobin 5.5, hematocrit 17.0%, platelets 114, PT 21, INR 1.7, PTT 44.6, sodium 122, potassium 4.8, BUN 34, creatinine 2.20, glucose 778, alkaline phosphatase 524, total CK 155, total protein 6.0, albumin 2.7. CT of the chest, abdomen and pelvis done for evaluation of 3 g drop in hemoglobin in the setting of recent fall showed upper extremity soft tissue swelling but otherwise no acute process. Ortho glass splint was removed in the ED and the ED provider reports that her arm was soft but tender to touch with intact distal pulses and no evidence to suggest compartment syndrome. She was re-splinted. She is being admitted in this setting for blood transfusion, orthopedic consultation, IV fluid rehydration, and glucose control. Review of Systems Review of Systems: Twelve systems were reviewed. She has been lightheaded but denies syncope and near syncope. No fever, chills, or sweats. No recent cold or flu symptoms. She does endorse blurry vision, polyuria, and polydipsia with her severe hyperglycemia. Appetite has not been great. No vomiting or diarrhea. No dysuria. She has sleep apnea but is intolerant to CPAP. Except as documented, all other systems were reviewed and are negative [facility] Past Medical History Medical History (Updated 04/08/23 @ 22:22 by Pastora Hill PA-C) Anxiety Arthritis Asthma Atrophy of left kidney Chronic anemia Chronic fatigue Chronic headache Chronic obstructive pulmonary disease Chronic pain syndrome Chronic sinusitis Cirrhosis Claustrophobia Congestive heart failure Diastolic dysfunction. 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 Posttraumatic stress disorder Restless leg syndrome Seasonal allergies Spinal arthritis Tobacco abuse Type 2 diabetes mellitus Surgical History Surgical History History of back surgery History of cholecystectomy History of cholecystectomy History of ear surgery History of hernia repair History of hysterectomy History of laparoscopy History of left salpingo-oophorectomy History of sinus
[2023-04-08] MEDS: SODIUM CHLORIDE 0.9% IV 250 ML 30 ML IV CONT (22:08)
[2023-04-08] MEDS: TUBING, BLOOD PLUM PUMP TUBING 1 EACH XX (22:08)
[2023-04-08] MEDS: INSULIN ASPART (*BKC) 100 UNITS/ML 15 UNITS SUB-Q (23:08)
[2023-04-09] VITALS (20 sets, daily range): BP systolic 88–151; BP diastolic 50–80; PULSE 75–101; RESP 16–20; TEMP 35.6–36.5; O2SAT 96–99; BMI 29.4
[2023-04-09 00:14] LABS: Glucose Point of Care 453 mg/dl (65-105)
[2023-04-09] MEDS: INSULIN ASPART (*BKC) 100 UNITS/ML SUB-Q ×4 (01:00→21:59)
[2023-04-09] MEDS: INSULIN GLARGINE (*BKC) 100 UNITS/ML 50 UNITS SUB-Q ×3 (01:00→18:04)
[2023-04-09] MEDS: MELATONIN 5 MG TABLET 10 MG PO (01:35)
[2023-04-09] MEDS: rOPINIRole HCL 1 MG TABLET 2 MG PO ×4 (01:35→21:54)
[2023-04-09] MEDS: PREGABALIN (*CRX) 75 MG CAPSULE PO ×3 (01:35→21:56)
[2023-04-09 02:55] LABS: Glucose Point of Care 214 mg/dl (65-105)
[2023-04-09 04:12] LABS: Basophils Percent Auto 0.3 % (0.2-1.2); Eosinophils Absolute Auto 0.2 K/mm3 (0-0.3); Eosinophils Percent Auto 2.5 % (0-4.4); Hematocrit 23.4 % (37.0-47.0); Hemoglobin 7.6 g/dL (12.0-15.0); Immature Granulocyte Absolute 0.02 K/mm3 (0.00-0.031); Immature Granulocyte Percent A 0.3 % (0-0.5); Lymphocytes Absolute Auto 1.33 K/mm3 (0.9-3.2); Lymphocytes Percent Auto 20.6 % (18.3-44.2); Mean Corpuscular HGB Conc 32.5 g/dl (32-36); Mean Corpuscular Hemoglobin 29.6 pg (26-34); Mean Corpuscular Volume 91.1 fl (80-100); Mean Platelet Volume 10.7 fl (7.4-10.4); Monocytes Absolute Auto 0.5 K/mm3 (0.1-0.6); Monocytes Percent Auto 8.2 % (2.6-8.5); Neutrophils Absolute Auto 4.4 K/mm3 (1.3-6.7); Neutrophils Percent Auto 68.1 % (45.5-73.1); Platelet Count Result 127 k/mm3 (150-375); Red Blood Count 2.57 M/mm3 (4.2-5.4); Red Cell Distribution Width 14.3 % (11.5-14.5); White Blood Count 6.5 K/mm3 (4.5-10.0)
[2023-04-09 04:22] LABS: Alanine Aminotransferase 29 U/L (6-35); Alkaline Phosphatase 422 U/L (38-126); Anion Gap 7 mmol/L (8-16); Aspartate Amino Transferase 34 U/L (14-36); Bilirubin,Total 1.3 mg/dL (0.2-1.3); Blood Urea Nitrogen 30 mg/dL (7-17); Calcium 7.8 mg/dL (8.4-10.2); Carbon Dioxide 27 mmol/L (22-30); Chloride 100 mmol/L (98-107); Estimated CRCL calculation 30 ml/min; Estimated Glomerular Filt Rate 29; Glucose 177 mg/dL (65-110); Potassium 3.8 mmol/L (3.4-5.0); Sodium 134 mmol/L (137-145)
[2023-04-09 04:23] LABS: INR 1.4; Prothrombin Time 17.4 Seconds (11.1-14.7)
[2023-04-09 04:24] LABS: Partial Thromboplastin Time 41.5 SECONDS (22.3-36.8)
[2023-04-09 04:31] LABS: Creatine Kinase 95 U/L (30-135); Magnesium 1.4 mg/dL (1.6-2.3)
[2023-04-09] MEDS: HYDROcodone/acetaminophen (*CRX) 5-325 MG TABLET 1 TAB PO ×2 (06:29→14:26)
[2023-04-09 07:58] LABS: Glucose Point of Care 115 mg/dl (65-105)
[2023-04-09] MEDS: TOLNAFTATE 1% POWDER 45 GM BTL 1 APPLIC TOPICAL ×2 (09:02→21:53)
[2023-04-09] MEDS: MUPIROCIN 2% OINT 22 GM TUBE 1 APPLIC TOPICAL ×2 (09:02→21:53)
[2023-04-09] MEDS: POTASSIUM CHLORIDE 10 MEQ TABLET.ER PO (09:03)
[2023-04-09] MEDS: MONTELUKAST SODIUM 10 MG TABLET PO (09:03)
[2023-04-09] MEDS: LORATADINE 10 MG TABLET PO (09:03)
[2023-04-09] MEDS: FAMOTIDINE 20 MG TABLET PO ×2 (09:03→21:53)
[2023-04-09] MEDS: DULoxetine HCL 60 MG CAPSULE.DR PO (09:03)
[2023-04-09] MEDS: FUROSEMIDE 40 MG TABLET PO (09:03)
[2023-04-09] MEDS: lamoTRIgine 25 MG TABLET PO ×2 (09:03→18:05)
[2023-04-09] MEDS: FLUTICASONE/UMECLIDIN/VILANTER 100-62.5-25 MCG ELLIPTA 1 PUFF INHALATION (09:06)
[2023-04-09] MEDS: CYCLOBENZAPRINE HCL 5 MG TABLET PO ×3 (09:18→18:04)
[2023-04-09] MEDS: BENZONATATE 100 MG CAPSULE 200 MG PO (09:18)
--- NOTE | 2023-04-09 09:33 | PM.CNOR ---
Assessment and Plan Assessment and plan (1) Fracture of proximal end of left humerus: Qualifiers: Encounter type: initial encounter Fracture type: closed Fracture morphology: other fracture Fracture alignment: displaced Qualified Code(s): S42.292A - Other displaced fracture of upper end of left humerus, initial encounter for closed fracture Code(s): S42.202A - Unspecified fracture of upper end of left humerus, initial encounter for closed fracture Status: Acute Assessment and Plan: History, exam and radiographs reviewed with the patient. Radiographs of the left arm from 04/04 reveal an oblique fracture of proximal humeral diaphysis. new coaptation splint in place from emergency room yesterday. Patient does have sensation to the left hand. Some improvement in swelling. Blistering noted at the left hand as well. No immediate concerns for compartment syndrome. Discussed case with Dr. Aggarwal. He may transition patient out of shoulder immobilizer into a different brace, will await his direction for orders. Patient to be nonweightbearing of the left upper extremity. Pain control. No current surgical intervention planned. We will continue to monitor and determine further plan of care pending evaluation by Dr. Aggarwal. (2) Left upper extremity swelling: Code(s): M79.89 - Other specified soft tissue disorders Status: Acute (3) Anticoagulated by anticoagulation treatment: Code(s): Z79.01 - assisted (current) use of anticoagulants Status: Acute (4) Acute on chronic anemia: Code(s): D64.9 - Anemia, unspecified Status: Acute (5) Type 2 diabetes mellitus with hyperglycemia: Code(s): E11.65 - Type 2 diabetes mellitus with hyperglycemia Status: Acute Plan History, exam, emergency room radiographs, durable medical equipment, skin complications and low hemoglobin reviewed with attending physician, Dr. Aggarwal. Dr. Aggarwal agrees with current plan as indicated above. He will determine further plan of care pending evaluation. History of Present Illness HPI Consult date: 04/09/23 Chief complaint: Failure to thrive,Left Humeral Fracture Narrative: 58-year-old female initially evaluated in the emergency room on 04/04 and found to have a oblique fracture of the proximal humeral diaphysis. Fracture occurred after a fall down concrete steps. At that time she was discharged home with a coaptation splint as well as a shoulder immobilizer. Per the patient medical record, she has been feeling generally unwell since that time. She is on Eliquis for a PE which was seen on V/Q scan in February of 2023. She was scheduled to be seen in the outpatient orthopedic clinic on April 10. She was evaluated by her primary care physician on 04/08 due to concerns of swelling in the hand, general fatigue and numbness and tingling in the hand as well. She was sent to the emergency room for further evaluation due to significant swelling of the left arm. In the emergency room, the splint was removed and no significant concerns for compartment syndrome were noted at that time. She was re-splinted in the ED and admitted to the hospital for further evaluation of a hemoglobin of 5.5, orthopedic consultation, IV fluid rehydration and glucose control. Review of Systems Review of Systems: All systems reviewed & are unremarkable except as noted in HPI and below PMFSH Past Medical History Medical History Anxiety Arthritis Asthma Atrophy of left kidney Chronic anemia Chronic fatigue Chronic headache Chronic obstructive pulmonary disease Chronic pain syndrome Chronic sinusitis Cirrhosis Claustrophobia Congestive heart failure Diastolic dysfunction. Coronary artery disease Degenerative disc disease Depression Diabetic neuropathy Fibromyalgia Gout History of MRSA infection Hyperlipidemia Hypertension Immunosuppression Insomnia Liver cirrho
[2023-04-09 11:23] LABS: Glucose Point of Care 197 mg/dl (65-105)
[2023-04-09] MEDS: MAGNESIUM SULF 2 GM/WATER 50ML 2 GM/50 ML BAG IVPB (14:00)
[2023-04-09 15:08] LABS: Glucose Point of Care 316 mg/dl (65-105)
[2023-04-09 17:09] LABS: Glucose Point of Care 344 mg/dl (65-105)
--- NOTE | 2023-04-09 18:02 | WPDPN ---
Progress Note: A&P Assessment and Plan (1) Acute on chronic anemia: Code(s): D64.9 - Anemia, unspecified Status: Acute Assessment and Plan: Hemoglobin has dropped 3 g in a month. Stool was Hemoccult negative in the ED. CT of the chest, abdomen, and pelvis did not show any findings of blood loss. Possible blood loss from the left upper extremity. Unable to get CT angiography of the arm at this time due to her kidney function. She is being transfused to a stable hemoglobin. Apixaban is on hold. 04/08/2023 inerval history: 58 y/o female s/p fall and fracture of left humerus and has developed blister on her arm and hand most likely 2/2 rug burn when she fell, all the visible blister are intact and plan to monitor, do not burst them as these blisters will be absorbed by the body, patient is seen by orthopedica surgeon no surgical intervention is needed and will monitor conservatively with sling and further recommendation to follow. (2) Acute kidney injury superimposed on chronic kidney disease: Code(s): N17.9 - Acute kidney failure, unspecified; N18.9 - Chronic kidney disease, unspecified Status: Acute Assessment and Plan: Likely due to hypoperfusion from hypotension and hypovolemia from acute on chronic anemia. Avoid nephrotoxic agents. I suspect her renal function will improve with transfusion. If not, a further workup can be pursued. (3) Hypotension: Code(s): I95.9 - Hypotension, unspecified Status: Acute Assessment and Plan: Likely due to hypovolemia from blood loss. Blood pressures have improved with IV fluids. She is being transfused 2 units packed red blood cells. Antihypertensives on hold for now. (4) Fracture of proximal end of left humerus: Qualifiers: Encounter type: initial encounter Fracture alignment: displaced Fracture morphology: other fracture Fracture type: closed Qualified Code(s): S42.292A - Other displaced fracture of upper end of left humerus, initial encounter for closed fracture Code(s): S42.202A - Unspecified fracture of upper end of left humerus, initial encounter for closed fracture Status: Acute Assessment and Plan: The patient sustained a fracture of the proximal humeral diaphysis in a mechanical fall on 04/04/2023. Splint was placed and she was sent to the emergency department given marked edema of the forearm and hand with bullae formation. She has some mild tingling of the left hand but that is improved since the area was resplinted. Initial splint was removed in the ED and per the ED provider the arm was soft and there was no evidence to suggest compartment syndrome. Continue analgesics as needed. (5) Left upper extremity swelling: Code(s): M79.89 - Other specified soft tissue disorders Status: Acute Assessment and Plan: Left upper extremity is markedly edematous and she has significant bruising around the left shoulder and upper arm. Her hemoglobin has dropped 3 g in the last 1 month and an arterial injury with the fracture is certainly a consideration. DVT seems unlikely as she has been on Eliquis. CT angiogram of the upper extremity is unable to be performed at this time given her kidney disease. I will ask Dr. Aggarwal to see her in consultation for recommendations. (6) Anticoagulated by anticoagulation treatment: Code(s): Z79.01 - long term care phlebotomist (current) use of anticoagulants Status: Acute Assessment and Plan: She was started on Eliquis last month following a V/Q scan which was read as intermediate probability for PE. This is on hold given her significant swelling, bruising and drop in hemoglobin. Lower extremity venous Doppler ultrasounds ordered to evaluate for possible DVT as she may need an IVC filter. (7) Type 2 diabetes mellitus with hyperglycemia: Code(s): E11.65 - Type 2 diabetes mellitus with hyperglycemia Status: Acute Assessment and Plan: Random gluc
[2023-04-09] MEDS: traMADol HCL (*CRX) 50 MG TABLET PO ×2 (18:04→22:27)
[2023-04-09 20:03] LABS: Glucose Point of Care 426 mg/dl (65-105)
[2023-04-09] MEDS: MIRTAZAPINE 7.5 MG TABLET PO (21:54)
[2023-04-09 22:20] LABS: Glucose Point of Care 396 mg/dl (65-105)
[2023-04-09] MEDS: ALPRAZolam (*CRX) 0.5 MG TABLET 1 MG PO (23:42)
[2023-04-10] VITALS (14 sets, daily range): BP systolic 117–158; BP diastolic 68–86; PULSE 85–107; RESP 18–20; TEMP 36.2–36.5; O2SAT 93–100
[2023-04-10 00:23] LABS: Glucose Point of Care 380 mg/dl (65-105)
[2023-04-10 04:24] LABS: Hematocrit 24.3 % (37.0-47.0); Hemoglobin 7.8 g/dL (12.0-15.0); Mean Corpuscular HGB Conc 32.1 g/dl (32-36); Mean Corpuscular Hemoglobin 29.3 pg (26-34); Mean Corpuscular Volume 91.4 fl (80-100); Mean Platelet Volume 10.6 fl (7.4-10.4); Platelet Count Result 114 k/mm3 (150-375); Red Blood Count 2.66 M/mm3 (4.2-5.4); Red Cell Distribution Width 14.5 % (11.5-14.5); White Blood Count 6.4 K/mm3 (4.5-10.0)
[2023-04-10 04:32] LABS: Anion Gap 7 mmol/L (8-16); Blood Urea Nitrogen 31 mg/dL (7-17); Calcium 7.8 mg/dL (8.4-10.2); Carbon Dioxide 28 mmol/L (22-30); Chloride 97 mmol/L (98-107); Estimated CRCL calculation 31 ml/min; Estimated Glomerular Filt Rate 31; Glucose 316 mg/dL (65-110); Magnesium 1.8 mg/dL (1.6-2.3); Potassium 3.7 mmol/L (3.4-5.0); Sodium 132 mmol/L (137-145)
[2023-04-10] MEDS: traMADol HCL (*CRX) 50 MG TABLET PO (05:33)
[2023-04-10] MEDS: rOPINIRole HCL 1 MG TABLET 2 MG PO ×3 (05:33→22:32)
[2023-04-10] MEDS: BENZONATATE 100 MG CAPSULE 200 MG PO ×2 (05:37→17:28)
[2023-04-10 05:49] LABS: Glucose Point of Care 280 mg/dl (65-105)
[2023-04-10] MEDS: ALBUTEROL SULFATE (*SP) AEROSOL 1 PUFF 2 PUFF INHALATION (05:50)
[2023-04-10] MEDS: FLUTICASONE/UMECLIDIN/VILANTER 100-62.5-25 MCG ELLIPTA 1 PUFF INHALATION (07:52)
[2023-04-10 08:16] LABS: Glucose Point of Care 254 mg/dl (65-105)
[2023-04-10] MEDS: CYCLOBENZAPRINE HCL 5 MG TABLET PO ×3 (09:39→17:29)
[2023-04-10] MEDS: HYDROcodone/acetaminophen (*CRX) 5-325 MG TABLET 1 TAB PO ×2 (09:39→17:29)
[2023-04-10] MEDS: MONTELUKAST SODIUM 10 MG TABLET PO (09:40)
[2023-04-10] MEDS: lamoTRIgine 25 MG TABLET PO ×2 (09:40→17:28)
[2023-04-10] MEDS: MUPIROCIN 2% OINT 22 GM TUBE 1 APPLIC TOPICAL ×2 (09:40→22:32)
[2023-04-10] MEDS: MAGNESIUM OXIDE 400 MG TABLET PO (09:40)
[2023-04-10] MEDS: POTASSIUM CHLORIDE 10 MEQ TABLET.ER PO (09:40)
[2023-04-10] MEDS: PREGABALIN (*CRX) 75 MG CAPSULE PO ×2 (09:40→22:35)
[2023-04-10] MEDS: INSULIN GLARGINE (*BKC) 100 UNITS/ML 50 UNITS SUB-Q ×2 (09:41→17:27)
[2023-04-10] MEDS: FUROSEMIDE 40 MG TABLET PO (09:41)
[2023-04-10] MEDS: LORATADINE 10 MG TABLET PO (09:41)
[2023-04-10] MEDS: TOLNAFTATE 1% POWDER 45 GM BTL 1 APPLIC TOPICAL ×2 (09:41→22:32)
[2023-04-10] MEDS: DULoxetine HCL 60 MG CAPSULE.DR PO (09:41)
[2023-04-10] MEDS: FAMOTIDINE 20 MG TABLET PO ×2 (09:41→22:32)
[2023-04-10 11:01] LABS: Glucose Point of Care 387 mg/dl (65-105)
[2023-04-10 11:49] LABS: Glucose Point of Care 433 mg/dl (65-105)
[2023-04-10] MEDS: INSULIN ASPART (*BKC) 100 UNITS/ML 10 UNITS SUB-Q (12:56)
[2023-04-10] MEDS: INSULIN ASPART (*BKC) 100 UNITS/ML SUB-Q ×3 (12:56→22:30)
--- NOTE | 2023-04-10 13:04 | PM.PNORT ---
Progress Note: A&P Assessment and Plan (1) Fracture of proximal end of left humerus: Qualifiers: Encounter type: initial encounter Fracture type: closed Fracture morphology: other fracture Fracture alignment: displaced Qualified Code(s): S42.292A - Other displaced fracture of upper end of left humerus, initial encounter for closed fracture Code(s): S42.202A - Unspecified fracture of upper end of left humerus, initial encounter for closed fracture Status: Acute Assessment and Plan: History, exam and radiographs reviewed with the patient. Radiographs of the left arm from 04/04 reveal an oblique fracture of proximal humeral diaphysis. New radiographs today reveal increased angulation at involving oblique fracture of the proximal third of the humeral shaft as compared to prior exam. Coaptation splint in place from emergency room. Patient does have sensation to the left hand. Some improvement in swelling of the hand but still with blistering noted at the left hand, some with opening/weeping today. No immediate concerns for compartment syndrome. Discussed case with Dr. Aggarwal and new radiographs. Dr. Aggarwal feels patient needs to be referred to orthopedic trauma due to the change in fracture. I have contacted [facility] and made an appt for the patient on Thursday, April 13 at 10:[address] Gardner to discuss surgical intervention. Radiology has been contacted to transfer orthopedic radiographs for their review. At this time, there is concern about safe discharge plans for the patient due to multiple falls at home most recently. SNF has been recommended and care coordination has begun discharge planning. If patient is not discharged from a medical clearance standpoint/care coordination arrangements prior to the appt on Thursday, it will need to be moved back. Patient is aware of appointment arrangements. In the interim, patient to continue NWB of the LUE. PT/OT. Pain control. Shoulder immobilizer/coaptation splint. Keep splint c/d/i. Dr. Aggarwal to see/evaluate patient for further recommendations. (2) Left upper extremity swelling: Code(s): M79.89 - Other specified soft tissue disorders Status: Acute (3) Anticoagulated by anticoagulation treatment: Code(s): Z79.01 - alf (current) use of anticoagulants Status: Acute (4) Acute on chronic anemia: Code(s): D64.9 - Anemia, unspecified Status: Acute (5) Type 2 diabetes mellitus with hyperglycemia: Code(s): E11.65 - Type 2 diabetes mellitus with hyperglycemia Status: Acute Plan History, exam, emergency room radiographs, durable medical equipment, skin complications and low hemoglobin reviewed with attending physician, Dr. Aggarwal. Dr. Aggarwal agrees with current plan as indicated above. He will determine further plan of care pending evaluation. Time Spent With Patient Time with patient: 15 - 25 minutes (care coordination ) Subjective Subjective Date/Time Seen: 04/10/23 13:04 Interval history: 1 week s/p fall onto concrete stairs resulting in a left humeral shaft fracture. Patient with continue LUE pain and hand pain which she feels is worse today. Blistering on the left hand with some opening/weeping. She has shoulder immobilizer and coaptation splint in place. Denies numbness/tingling to the left hand. Able to flex/extend the left wrist. Review of Systems Review of Systems: All systems reviewed & are unremarkable except as noted in HPI and below Exam Const: General: cooperative and average body habitus Nutritional Appearance: average body habitus Orientation/consciousness: patient oriented x3 Limitations: no limitations HENMT: Head: normal to inspection Ears: hearing grossly normal bilaterally Face/Nose/Sinus: Normal external nose present and normal facial exam Face and sinus: normal facial exam Mouth: Yes moist mucous membranes Teeth and gingiva: dentition normal Eyes: General: romero
[2023-04-10 16:28] LABS: Glucose Point of Care 402 mg/dl (65-105)
--- NOTE | 2023-04-10 16:51 | WPDPN ---
Progress Note: A&P Assessment and Plan (1) Acute on chronic anemia: Code(s): D64.9 - Anemia, unspecified Status: Acute Assessment and Plan: Hemoglobin has dropped 3 g in a month. Stool was Hemoccult negative in the ED. CT of the chest, abdomen, and pelvis did not show any findings of blood loss. Possible blood loss from the left upper extremity. Unable to get CT angiography of the arm at this time due to her kidney function. She is being transfused to a stable hemoglobin. Apixaban is on hold. 04/10/2023 inerval history:?58 y/o female s/p fall and fracture of left humerus and has developed blister on her arm and hand most likely 2/2 rug burn when she fell, all the visible blister are intact and plan to monitor, do not burst them as these blisters will be absorbed by the body, today patient complains cough and congestion to further evaluate will do the chest x-ray, also patient complained of facial pain will do the facial bone x-ray and monitor, patient is seen by orthopedica surgeon no surgical intervention is needed and will monitor conservatively with sling and further recommendation to follow. (2) Acute kidney injury superimposed on chronic kidney disease: Code(s): N17.9 - Acute kidney failure, unspecified; N18.9 - Chronic kidney disease, unspecified Status: Acute Assessment and Plan: Likely due to hypoperfusion from hypotension and hypovolemia from acute on chronic anemia. Avoid nephrotoxic agents. I suspect her renal function will improve with transfusion. If not, a further workup can be pursued. (3) Hypotension: Code(s): I95.9 - Hypotension, unspecified Status: Acute Assessment and Plan: Likely due to hypovolemia from blood loss. Blood pressures have improved with IV fluids. She is being transfused 2 units packed red blood cells. Antihypertensives on hold for now. (4) Fracture of proximal end of left humerus: Qualifiers: Encounter type: initial encounter Fracture type: closed Fracture morphology: other fracture Fracture alignment: displaced Qualified Code(s): S42.292A - Other displaced fracture of upper end of left humerus, initial encounter for closed fracture Code(s): S42.202A - Unspecified fracture of upper end of left humerus, initial encounter for closed fracture Status: Acute Assessment and Plan: The patient sustained a fracture of the proximal humeral diaphysis in a mechanical fall on 04/04/2023. Splint was placed and she was sent to the emergency department given marked edema of the forearm and hand with bullae formation. She has some mild tingling of the left hand but that is improved since the area was resplinted. Initial splint was removed in the ED and per the ED provider the arm was soft and there was no evidence to suggest compartment syndrome. Continue analgesics as needed. (5) Left upper extremity swelling: Code(s): M79.89 - Other specified soft tissue disorders Status: Acute Assessment and Plan: Left upper extremity is markedly edematous and she has significant bruising around the left shoulder and upper arm. Her hemoglobin has dropped 3 g in the last 1 month and an arterial injury with the fracture is certainly a consideration. DVT seems unlikely as she has been on Eliquis. CT angiogram of the upper extremity is unable to be performed at this time given her kidney disease. I will ask Dr. Aggarwal to see her in consultation for recommendations. (6) Anticoagulated by anticoagulation treatment: Code(s): Z79.01 - custodial (current) use of anticoagulants Status: Acute Assessment and Plan: She was started on Eliquis last month following a V/Q scan which was read as intermediate probability for PE. This is on hold given her significant swelling, bruising and drop in hemoglobin. Lower extremity venous Doppler ultrasounds ordered to evaluate for possible DVT as she may need an IVC filter. (7) Type 2
[2023-04-10] MEDS: DOXYCYCLINE 100 MG/NS 100 ML 100 MG/100 ML BAG IVPB (17:26)
[2023-04-10] MEDS: INSULIN ASPART (*BKC) 100 UNITS/ML 20 UNITS SUB-Q (17:27)
--- NOTE | 2023-04-10 19:28 | PC.NURSE ---
This patient, Britney Crwaford, was received from IMU on 04/10/23 at 1858. Patient/family oriented to unit policies and routines
[2023-04-10 20:08] LABS: Glucose Point of Care 209 mg/dl (65-105)
[2023-04-10] MEDS: MIRTAZAPINE 7.5 MG TABLET PO (22:31)
[2023-04-10] MEDS: ALPRAZolam (*CRX) 0.5 MG TABLET 1 MG PO (22:42)
[2023-04-11] MEDS: HYDROcodone/acetaminophen (*CRX) 5-325 MG TABLET 1 TAB PO ×3 (05:24→21:03)
[2023-04-11 05:44] VITALS: BP 124/83; PULSE 65; RESP 16; TEMP 36.1; O2SAT 99
[2023-04-11] MEDS: DOXYCYCLINE 100 MG/NS 100 ML 100 MG/100 ML BAG IVPB ×2 (07:00→17:13)
[2023-04-11] MEDS: rOPINIRole HCL 1 MG TABLET 2 MG PO ×3 (07:18→21:03)
[2023-04-11 07:20] VITALS: PULSE 83; RESP 18; O2SAT 99
[2023-04-11] MEDS: FLUTICASONE/UMECLIDIN/VILANTER 100-62.5-25 MCG ELLIPTA 1 PUFF INHALATION (07:20)
[2023-04-11 07:27] LABS: Hematocrit 25.5 % (37.0-47.0); Hemoglobin 8.2 g/dL (12.0-15.0); Mean Corpuscular HGB Conc 32.2 g/dl (32-36); Mean Corpuscular Hemoglobin 29.7 pg (26-34); Mean Corpuscular Volume 92.4 fl (80-100); Mean Platelet Volume 10.5 fl (7.4-10.4); Platelet Count Result 129 k/mm3 (150-375); Red Blood Count 2.76 M/mm3 (4.2-5.4); Red Cell Distribution Width 14.6 % (11.5-14.5); White Blood Count 6.1 K/mm3 (4.5-10.0)
[2023-04-11 07:29] LABS: Anion Gap 4 mmol/L (8-16); Blood Urea Nitrogen 29 mg/dL (7-17); Calcium 8.3 mg/dL (8.4-10.2); Carbon Dioxide 34 mmol/L (22-30); Chloride 97 mmol/L (98-107); Estimated CRCL calculation 31 ml/min; Estimated Glomerular Filt Rate 31; Glucose 68 mg/dL (65-110); Magnesium 1.6 mg/dL (1.6-2.3); Potassium 3.3 mmol/L (3.4-5.0); Sodium 135 mmol/L (137-145)
[2023-04-11 07:59] LABS: Glucose Point of Care 61 mg/dl (65-105)
[2023-04-11 07:59] LABS: Glucose Point of Care 68 mg/dl (65-105)
[2023-04-11] MEDS: lamoTRIgine 25 MG TABLET PO ×2 (08:08→17:13)
[2023-04-11] MEDS: FUROSEMIDE 40 MG TABLET PO (08:08)
[2023-04-11] MEDS: FAMOTIDINE 20 MG TABLET PO ×2 (08:08→21:03)
[2023-04-11] MEDS: DULoxetine HCL 60 MG CAPSULE.DR PO (08:08)
[2023-04-11] MEDS: PREGABALIN (*CRX) 75 MG CAPSULE PO ×2 (08:09→21:03)
[2023-04-11] MEDS: LORATADINE 10 MG TABLET PO (08:09)
[2023-04-11] MEDS: POTASSIUM CHLORIDE 10 MEQ TABLET.ER PO (08:09)
[2023-04-11] MEDS: MAGNESIUM OXIDE 400 MG TABLET PO (08:09)
[2023-04-11] MEDS: MUPIROCIN 2% OINT 22 GM TUBE 1 APPLIC TOPICAL ×2 (08:09→21:09)
[2023-04-11] MEDS: MONTELUKAST SODIUM 10 MG TABLET PO (08:09)
[2023-04-11] MEDS: POTASSIUM CHLORIDE 20 MEQ TABLET 40 MEQ PO (08:09)
[2023-04-11] MEDS: TOLNAFTATE 1% POWDER 45 GM BTL 1 APPLIC TOPICAL ×2 (08:10→21:09)
[2023-04-11] MEDS: CYCLOBENZAPRINE HCL 5 MG TABLET PO ×2 (08:14→15:14)
[2023-04-11] MEDS: traMADol HCL (*CRX) 50 MG TABLET PO ×2 (10:18→15:14)
--- NOTE | 2023-04-11 11:36 | WPDPN ---
Progress Note: A&P Assessment and Plan (1) Acute on chronic anemia: Code(s): D64.9 - Anemia, unspecified Status: Acute Assessment and Plan: Hemoglobin has dropped 3 g in a month. Stool was Hemoccult negative in the ED. CT of the chest, abdomen, and pelvis did not show any findings of blood loss. Possible blood loss from the left upper extremity. Unable to get CT angiography of the arm at this time due to her kidney function. She is being transfused to a stable hemoglobin. Apixaban is on hold. 04/11/2023 inerval history:?58 y/o female s/p fall and fracture of left humerus and has developed blister on her arm and hand most likely 2/2 rug burn when she fell, all the visible blister are intact and plan to monitor, do not burst them as these blisters will be absorbed by the body, on 04/10 patient complained of cough and congestion to further evaluate did the chest x-ray, no pneumonia, possibly atypical pneumonia started patient on doxycycline, also patient complained of facial pain, CT scan of facial did not show any fracture, patient is seen by orthopedica surgeon no surgical intervention is needed and will monitor conservatively with sling and further recommendation to follow. however after review patient left arm x-ray the orthopedic recommended to consult an orthopedic at [facility] patient remains clinically stable will monitor (2) Acute kidney injury superimposed on chronic kidney disease: Code(s): N17.9 - Acute kidney failure, unspecified; N18.9 - Chronic kidney disease, unspecified Status: Acute Assessment and Plan: Likely due to hypoperfusion from hypotension and hypovolemia from acute on chronic anemia. Avoid nephrotoxic agents. I suspect her renal function will improve with transfusion. If not, a further workup can be pursued. (3) Hypotension: Code(s): I95.9 - Hypotension, unspecified Status: Acute Assessment and Plan: Likely due to hypovolemia from blood loss. Blood pressures have improved with IV fluids. She is being transfused 2 units packed red blood cells. Antihypertensives on hold for now. (4) Fracture of proximal end of left humerus: Qualifiers: Encounter type: initial encounter Fracture type: closed Fracture morphology: other fracture Fracture alignment: displaced Qualified Code(s): S42.292A - Other displaced fracture of upper end of left humerus, initial encounter for closed fracture Code(s): S42.A - Unspecified fracture of upper end of left humerus, initial encounter for closed fracture Status: Acute Assessment and Plan: The patient sustained a fracture of the proximal humeral diaphysis in a mechanical fall on 04/04/2023. Splint was placed and she was sent to the emergency department given marked edema of the forearm and hand with bullae formation. She has some mild tingling of the left hand but that is improved since the area was resplinted. Initial splint was removed in the ED and per the ED provider the arm was soft and there was no evidence to suggest compartment syndrome. Continue analgesics as needed. (5) Left upper extremity swelling: Code(s): M79.89 - Other specified soft tissue disorders Status: Acute Assessment and Plan: Left upper extremity is markedly edematous and she has significant bruising around the left shoulder and upper arm. Her hemoglobin has dropped 3 g in the last 1 month and an arterial injury with the fracture is certainly a consideration. DVT seems unlikely as she has been on Eliquis. CT angiogram of the upper extremity is unable to be performed at this time given her kidney disease. I will ask Dr. Aggarwal to see her in consultation for recommendations. (6) Anticoagulated by anticoagulation treatment: Code(s): Z79.01 - long-term (current) use of anticoagulants Status: Acute Assessment and Plan: She was started on Eliquis last month following a V/Q scan which was read as
[2023-04-11 12:11] LABS: Glucose Point of Care 200 mg/dl (65-105)
--- NOTE | 2023-04-11 12:26 | PM.PNORT ---
Progress Note: A&P Assessment and Plan (1) Fracture of proximal end of left humerus: Qualifiers: Encounter type: initial encounter Fracture type: closed Fracture morphology: other fracture Fracture alignment: displaced Qualified Code(s): S42.292A - Other displaced fracture of upper end of left humerus, initial encounter for closed fracture Code(s): S42.202A - Unspecified fracture of upper end of left humerus, initial encounter for closed fracture Status: Acute Assessment and Plan: Swelling and skin left hand slightly improved. Still with pain at the arm. Continue sling and splint. Awaiting evaluation from [facility] upper extremity specialist. (2) Left upper extremity swelling: Code(s): M79.89 - Other specified soft tissue disorders Status: Acute Subjective Subjective Date/Time Seen: 04/11/23 12:26 Interval history: 1 week s/p fall onto concrete stairs resulting in a left humeral shaft fracture. Patient with continue LUE pain and hand pain which she feels is slightly better. Blistering on the left hand with some opening/weeping. She has shoulder immobilizer and coaptation splint in place. Denies numbness/tingling to the left hand. Able to flex/extend the left wrist. Exam Const: General: cooperative and average body habitus Orientation/consciousness: patient oriented x3 Neck: Neck: normal visual inspection Resp: Effort & Inspection: normal respiratory effort and able to speak in complete sentences Neuro: General: patient oriented x3 Cranial nerves: Yes Equal, round and reactive pupils present Extrem: Left upper extremity: normal capillary refill, shoulder/upper arm ( unable to fully assess, coaptation splint place.) other ( Several open sores on the left shoulder and posterior back. See below), elbow/forearm ( Unable to assess, coaptation splint in place), wrist normal to inspection and normal ROM; no tenderness and no swelling and hand ( Blistering, range of motion intact but limited due to swelling.) normal capillary refill, vascular exam radial pulse present Details: 2+ and swelling; abnormal to inspection, ROM limited and no cyanosis Other: Patient has several sores on the left shoulder and back as well as the forearm. She has a history of MRSA. She has seen a final cigar and box examiner for this in the past. She states that these open wounds are chronic and have had inability the heel for several months to years. She does have swelling of the left hand which she reports is improved. She has blistering in the fingers. These blisters are currently not open or draining. No signs of active infection. Patient has new coaptation splint in place. She is neurovascularly intact. Palpable radial pulse. She is able to move her fingers. She denies numbness or tingling. Unable to evaluate left elbow given splint in place. Range of motion testing deferred as patient is currently in a shoulder immobilizer as well as the coaptation splint. Objective Data Vital Signs Vital Signs: Vital Signs - 24 hr 04/10/23 14:00 04/10/23 16:45 04/10/23 21:30 Temperature 97.7 F 97.2 F L Pulse Rate 97 97 107 H Respiratory Rate 20 18 Blood Pressure 128/74 132/82 Pulse Oximetry 97 99 Oxygen Delivery Fraction of Inspired Oxygen 04/10/23 20:00 04/11/23 05:44 04/11/23 07:20 Temperature 97 F L Pulse Rate 65 83 Respiratory Rate 16 18 Blood Pressure 124/83 Pulse Oximetry 99 99 Oxygen Delivery Room Air Room Air Fraction of Inspired Oxygen 04/11/23 07:20 04/11/23 08:00 Temperature Pulse Rate 83 Respiratory Rate 18 Blood Pressure Pulse Oximetry Oxygen Delivery Room Air Fraction of Inspired Oxygen 21 Intake/Output Intake/Output: Intake & Output 04/08/23 04/09/23 04/10/23 04/11/23 23:59 23:59 23:59 23:59 Intake Total 1999 1308 0809 480 Output Total 0 2000 Balance 1999 - 80 480 Meds/Results Medications: Active Medications Ge
[2023-04-11] MEDS: ALPRAZolam (*CRX) 0.5 MG TABLET 1 MG PO ×2 (13:05→21:03)
[2023-04-11 14:00] VITALS: BP 102/63; PULSE 96; RESP 18; TEMP 35.9; O2SAT 100
[2023-04-11 17:05] LABS: Glucose Point of Care 372 mg/dl (65-105)
[2023-04-11] MEDS: INSULIN GLARGINE (*BKC) 100 UNITS/ML 50 UNITS SUB-Q (17:13)
[2023-04-11] MEDS: INSULIN ASPART (*BKC) 100 UNITS/ML 8 UNITS SUB-Q (17:13)
[2023-04-11] MEDS: INSULIN ASPART (*BKC) 100 UNITS/ML SUB-Q (17:24)
[2023-04-11 21:00] VITALS: PULSE 96; RESP 18; O2SAT 100
[2023-04-11] MEDS: MIRTAZAPINE 7.5 MG TABLET PO (21:03)
[2023-04-11] MEDS: MELATONIN 5 MG TABLET 10 MG PO (21:09)
[2023-04-11 21:15] LABS: Glucose Point of Care 361 mg/dl (65-105)
[2023-04-11 21:32] VITALS: BP 126/100; PULSE 100; RESP 20; TEMP 36.4; O2SAT 100
[2023-04-12 00:59] LABS: Glucose Point of Care 276 mg/dl (65-105)
[2023-04-12] MEDS: CYCLOBENZAPRINE HCL 5 MG TABLET PO ×3 (03:10→17:45)
[2023-04-12] MEDS: HYDROcodone/acetaminophen (*CRX) 5-325 MG TABLET 1 TAB PO ×2 (05:06→13:50)
[2023-04-12] MEDS: rOPINIRole HCL 1 MG TABLET 2 MG PO ×3 (05:07→21:39)
[2023-04-12] MEDS: ALPRAZolam (*CRX) 0.5 MG TABLET 1 MG PO ×2 (05:07→21:39)
[2023-04-12] MEDS: DOXYCYCLINE 100 MG/NS 100 ML 100 MG/100 ML BAG IVPB ×2 (05:11→17:42)
[2023-04-12 06:00] VITALS: BP 106/81; PULSE 99; RESP 20; TEMP 36.4; O2SAT 100
[2023-04-12 06:44] LABS: Hematocrit 26.1 % (37.0-47.0); Hemoglobin 8.1 g/dL (12.0-15.0); Mean Corpuscular Volume 93.5 fl (80-100); Mean Platelet Volume 10.5 fl (7.4-10.4); Platelet Count Result 125 k/mm3 (150-375); Red Blood Count 2.79 M/mm3 (4.2-5.4); Red Cell Distribution Width 14.8 % (11.5-14.5); White Blood Count 6.6 K/mm3 (4.5-10.0)
[2023-04-12 06:59] LABS: Anion Gap 5 mmol/L (8-16); Blood Urea Nitrogen 35 mg/dL (7-17); Calcium 8.1 mg/dL (8.4-10.2); Carbon Dioxide 33 mmol/L (22-30); Chloride 94 mmol/L (98-107); Estimated CRCL calculation 31 ml/min; Estimated Glomerular Filt Rate 31; Glucose 308 mg/dL (65-110); Magnesium 1.5 mg/dL (1.6-2.3); Potassium 4.2 mmol/L (3.4-5.0); Sodium 132 mmol/L (137-145)
[2023-04-12 07:43] LABS: Glucose Point of Care 264 mg/dl (65-105)
--- NOTE | 2023-04-12 08:04 | PM.PNORT ---
Progress Note: A&P Assessment and Plan (1) Fracture of proximal end of left humerus: Qualifiers: Encounter type: initial encounter Fracture type: closed Fracture morphology: other fracture Fracture alignment: displaced Qualified Code(s): S42.292A - Other displaced fracture of upper end of left humerus, initial encounter for closed fracture Code(s): S42.202A - Unspecified fracture of upper end of left humerus, initial encounter for closed fracture Status: Acute Assessment and Plan: Swelling and skin left hand slightly improved. Still with pain at the arm. Continue sling and splint. [facility]. (2) Left upper extremity swelling: Code(s): M79.89 - Other specified soft tissue disorders Status: Acute Subjective Subjective Date/Time Seen: 04/12/23 08:04 Interval history: 10 days s/p fall onto concrete stairs resulting in a left humeral shaft fracture. Patient with continue LUE pain and hand pain which she feels is slightly better. Blistering on the left hand with some opening/weeping. She has shoulder immobilizer and coaptation splint in place. Denies numbness/tingling to the left hand. Able to flex/extend the left wrist. Exam Const: General: cooperative and average body habitus Nutritional Appearance: average body habitus Orientation/consciousness: patient oriented x3 Limitations: no limitations Neck: Neck: normal visual inspection Resp: Effort & Inspection: normal respiratory effort and able to speak in complete sentences Extrem: Left upper extremity: normal capillary refill, shoulder/upper arm ( unable to fully assess, coaptation splint place.) other ( Several open sores on the left shoulder and posterior back. See below), elbow/forearm ( Unable to assess, coaptation splint in place), wrist normal to inspection and normal ROM; no tenderness and no swelling and hand ( Blistering, range of motion intact but limited due to swelling.) normal capillary refill, vascular exam radial pulse present Details: 2+ and swelling; abnormal to inspection, ROM limited and no cyanosis Other: Patient has several sores on the left shoulder and back as well as the forearm. She has a history of MRSA. She has seen a manager specialty for this in the past. She states that these open wounds are chronic and have had inability the heel for several months to years. She does have swelling of the left hand which she reports is improved. She has blistering in the fingers. These blisters are currently not open or draining. No signs of active infection. Patient has new coaptation splint in place. She is neurovascularly intact. Palpable radial pulse. She is able to move her fingers. She denies numbness or tingling. Unable to evaluate left elbow given splint in place. Range of motion testing deferred as patient is currently in a shoulder immobilizer as well as the coaptation splint. Objective Data Vital Signs Vital Signs: Vital Signs - 24 hr 04/11/23 14:00 04/11/23 21:00 04/11/23 21:32 Temperature 96.6 F L 97.6 F Pulse Rate 96 96 100 Respiratory Rate 18 18 20 Blood Pressure 102/63 126/100 H Pulse Oximetry 100 100 100 Oxygen Delivery Room Air Fraction of Inspired Oxygen 04/12/23 06:00 Temperature 97.6 F Pulse Rate 99 Respiratory Rate 20 Blood Pressure 106/81 Pulse Oximetry 100 Oxygen Delivery Fraction of Inspired Oxygen Intake/Output Intake/Output: Intake & Output 04/09/23 04/10/23 04/11/23 04/12/23 23:59 23:59 23:59 23:59 Intake Total 2798 2070 2070 300 Output Total 3502 2000 Balance -190 63 8721 300 Meds/Results Medications: Active Medications Generic Name Dose Route Start Last Admin Trade Name Freq PRN Reason Stop Dose Admin Acetaminophen 650 mg 04/08/23 22:20 Acetaminophen 325 Mg Tablet PO Q6H PRN Mild Pain (1-3) or Fever Hydrocodone Bitart/Acetaminophen 1 tab 04/09/23 00
[2023-04-12] MEDS: FLUTICASONE/UMECLIDIN/VILANTER 100-62.5-25 MCG ELLIPTA 1 PUFF INHALATION (08:09)
[2023-04-12] MEDS: INSULIN ASPART (*BKC) 100 UNITS/ML 8 UNITS SUB-Q ×3 (08:14→16:49)
[2023-04-12] MEDS: INSULIN GLARGINE (*BKC) 100 UNITS/ML 50 UNITS SUB-Q ×2 (08:14→21:36)
[2023-04-12] MEDS: INSULIN ASPART (*BKC) 100 UNITS/ML SUB-Q ×3 (08:15→16:49)
[2023-04-12 08:16] VITALS: O2SAT 98
[2023-04-12] MEDS: DULoxetine HCL 60 MG CAPSULE.DR PO (08:24)
[2023-04-12] MEDS: MAGNESIUM OXIDE 400 MG TABLET 800 MG PO (08:24)
[2023-04-12] MEDS: lamoTRIgine 25 MG TABLET PO ×2 (08:25→16:50)
[2023-04-12] MEDS: FAMOTIDINE 20 MG TABLET PO ×2 (08:25→21:38)
[2023-04-12] MEDS: POTASSIUM CHLORIDE 10 MEQ TABLET.ER PO (08:25)
[2023-04-12] MEDS: MONTELUKAST SODIUM 10 MG TABLET PO (08:25)
[2023-04-12] MEDS: FUROSEMIDE 40 MG TABLET PO (08:25)
[2023-04-12] MEDS: LORATADINE 10 MG TABLET PO (08:25)
[2023-04-12] MEDS: MUPIROCIN 2% OINT 22 GM TUBE 1 APPLIC TOPICAL ×2 (08:25→21:43)
[2023-04-12] MEDS: TOLNAFTATE 1% POWDER 45 GM BTL 1 APPLIC TOPICAL ×2 (08:26→21:46)
[2023-04-12] MEDS: PREGABALIN (*CRX) 75 MG CAPSULE PO ×2 (08:29→21:39)
[2023-04-12] MEDS: MAGNESIUM SULF 2 GM/WATER 50ML 2 GM/50 ML BAG IVPB (08:29)
[2023-04-12 11:22] LABS: Glucose Point of Care 356 mg/dl (65-105)
[2023-04-12] MEDS: traMADol HCL (*CRX) 50 MG TABLET PO ×3 (11:56→21:39)
--- NOTE | 2023-04-12 12:44 | WPDPN ---
Progress Note: A&P Assessment and Plan (1) Acute on chronic anemia: Code(s): D64.9 - Anemia, unspecified Status: Acute Assessment and Plan: Hemoglobin has dropped 3 g in a month. Stool was Hemoccult negative in the ED. CT of the chest, abdomen, and pelvis did not show any findings of blood loss. Possible blood loss from the left upper extremity. Unable to get CT angiography of the arm at this time due to her kidney function. She is being transfused to a stable hemoglobin. Apixaban is on hold. 04/12/2023 inerval history:?58 y/o female s/p fall and fracture of left humerus and has developed blister on her arm and hand most likely 2/2 rug burn when she fell, all the visible blister are intact and plan to monitor, do not burst them as these blisters will be absorbed by the body, on 04/10? patient complained of cough and congestion to further evaluate did the chest x-ray, no pneumonia, possibly atypical pneumonia started patient on doxycycline,? also patient complained of facial pain, CT scan of facial did not show any fracture, patient is seen by orthopedica surgeon no surgical intervention is needed and will monitor conservatively with sling and further recommendation to follow. however after review patient left arm x-ray the orthopedic recommended to consult an orthopedic at [facility] patient remains clinically stable will monitor, will discharge the patient tomorrow morning so patient can make her appointment with upper extremity social insurance specialist (2) Acute kidney injury superimposed on chronic kidney disease: Code(s): N17.9 - Acute kidney failure, unspecified; N18.9 - Chronic kidney disease, unspecified Status: Acute Assessment and Plan: Likely due to hypoperfusion from hypotension and hypovolemia from acute on chronic anemia. Avoid nephrotoxic agents. I suspect her renal function will improve with transfusion. If not, a further workup can be pursued. (3) Hypotension: Code(s): I95.9 - Hypotension, unspecified Status: Acute Assessment and Plan: Likely due to hypovolemia from blood loss. Blood pressures have improved with IV fluids. She is being transfused 2 units packed red blood cells. Antihypertensives on hold for now. (4) Fracture of proximal end of left humerus: Qualifiers: Encounter type: initial encounter Fracture type: closed Fracture morphology: other fracture Fracture alignment: displaced Qualified Code(s): S42.292A - Other displaced fracture of upper end of left humerus, initial encounter for closed fracture Code(s): S42.202A - Unspecified fracture of upper end of left humerus, initial encounter for closed fracture Status: Acute Assessment and Plan: The patient sustained a fracture of the proximal humeral diaphysis in a mechanical fall on 04/04/2023. Splint was placed and she was sent to the emergency department given marked edema of the forearm and hand with bullae formation. She has some mild tingling of the left hand but that is improved since the area was resplinted. Initial splint was removed in the ED and per the ED provider the arm was soft and there was no evidence to suggest compartment syndrome. Continue analgesics as needed. (5) Left upper extremity swelling: Code(s): M79.89 - Other specified soft tissue disorders Status: Acute Assessment and Plan: Left upper extremity is markedly edematous and she has significant bruising around the left shoulder and upper arm. Her hemoglobin has dropped 3 g in the last 1 month and an arterial injury with the fracture is certainly a consideration. DVT seems unlikely as she has been on Eliquis. CT angiogram of the upper extremity is unable to be performed at this time given her kidney disease. I will ask Dr. Aggarwal to see her in consultation for recommendations. (6) Anticoagulated by anticoagulation treatment: Code(s): Z79.01 - buttermaker (current) use of anticoagulants
[2023-04-12 14:00] VITALS: BP 146/81; PULSE 103; RESP 20; TEMP 36; O2SAT 100
[2023-04-12 16:30] LABS: Glucose Point of Care 349 mg/dl (65-105)
[2023-04-12] MEDS: BENZONATATE 100 MG CAPSULE 200 MG PO (18:42)
[2023-04-12] MEDS: MELATONIN 5 MG TABLET 10 MG PO (21:39)
[2023-04-12] MEDS: MIRTAZAPINE 7.5 MG TABLET PO (21:40)
[2023-04-12] MEDS: DICLOFENAC SODIUM 1% 100 GM GEL (*BKC) 1 APPLIC TOPICAL (21:40)
[2023-04-12 22:00] VITALS: BP 153/87; PULSE 109; RESP 16; TEMP 36.1; O2SAT 98
[2023-04-12 22:24] LABS: Glucose Point of Care 389 mg/dl (65-105)
[2023-04-13] MEDS: HYDROcodone/acetaminophen (*CRX) 5-325 MG TABLET 1 TAB PO (03:13)
[2023-04-13] MEDS: rOPINIRole HCL 1 MG TABLET 2 MG PO (05:56)
[2023-04-13] MEDS: traMADol HCL (*CRX) 50 MG TABLET PO (05:56)
[2023-04-13 06:00] VITALS: BP 139/79; PULSE 105; RESP 16; TEMP 36.1; O2SAT 99
[2023-04-13] MEDS: DOXYCYCLINE 100 MG/NS 100 ML 100 MG/100 ML BAG IVPB (06:13)
[2023-04-13] MEDS: ALPRAZolam (*CRX) 0.5 MG TABLET 1 MG PO (06:45)
[2023-04-13 07:11] LABS: Hematocrit 24.8 % (37.0-47.0); Hemoglobin 7.9 g/dL (12.0-15.0); Mean Corpuscular HGB Conc 31.9 g/dl (32-36); Mean Corpuscular Hemoglobin 29.5 pg (26-34); Mean Corpuscular Volume 92.5 fl (80-100); Mean Platelet Volume 10.4 fl (7.4-10.4); Platelet Count Result 157 k/mm3 (150-375); Red Blood Count 2.68 M/mm3 (4.2-5.4); Red Cell Distribution Width 14.9 % (11.5-14.5); White Blood Count 9.3 K/mm3 (4.5-10.0)
[2023-04-13 07:22] LABS: Anion Gap 5 mmol/L (8-16); Blood Urea Nitrogen 37 mg/dL (7-17); Calcium 8.2 mg/dL (8.4-10.2); Carbon Dioxide 30 mmol/L (22-30); Chloride 95 mmol/L (98-107); Estimated CRCL calculation 33 ml/min; Estimated Glomerular Filt Rate 33; Glucose 299 mg/dL (65-110); Magnesium 1.6 mg/dL (1.6-2.3); Potassium 3.9 mmol/L (3.4-5.0); Sodium 130 mmol/L (137-145)
[2023-04-13 07:50] LABS: Glucose Point of Care 275 mg/dl (65-105)
[2023-04-13 08:00] VITALS: O2SAT 98
[2023-04-13] MEDS: INSULIN ASPART (*BKC) 100 UNITS/ML SUB-Q (08:00)
[2023-04-13] MEDS: INSULIN ASPART (*BKC) 100 UNITS/ML 8 UNITS SUB-Q (08:00)
[2023-04-13] MEDS: PREGABALIN (*CRX) 75 MG CAPSULE PO (08:04)
[2023-04-13] MEDS: MAGNESIUM OXIDE 400 MG TABLET 800 MG PO (08:04)
[2023-04-13] MEDS: lamoTRIgine 25 MG TABLET PO (08:05)
[2023-04-13] MEDS: FAMOTIDINE 20 MG TABLET PO (08:05)
[2023-04-13] MEDS: DULoxetine HCL 60 MG CAPSULE.DR PO (08:05)
[2023-04-13] MEDS: MONTELUKAST SODIUM 10 MG TABLET PO (08:05)
[2023-04-13] MEDS: POTASSIUM CHLORIDE 10 MEQ TABLET.ER PO (08:05)
[2023-04-13] MEDS: TOLNAFTATE 1% POWDER 45 GM BTL 1 APPLIC TOPICAL (08:06)
[2023-04-13] MEDS: LORATADINE 10 MG TABLET PO (08:06)
[2023-04-13] MEDS: FUROSEMIDE 40 MG TABLET PO (08:06)
[2023-04-13] MEDS: MUPIROCIN 2% OINT 22 GM TUBE 1 APPLIC TOPICAL (08:07)
[2023-04-13] MEDS: INSULIN GLARGINE (*BKC) 100 UNITS/ML 50 UNITS SUB-Q (08:07)
--- NOTE | 2023-04-13 08:19 | PM.DS ---
DS: Admitting Diagnosis Discharge Date 04/13/2023 Admitting Diagnosis Blisters on left arm. DS: Discharge Diagnosis Discharge Diagnosis (1) Acute on chronic anemia: Code(s): D64.9 - Anemia, unspecified Status: Acute Assessment and Plan: Hemoglobin has dropped 3 g in a month. Stool was Hemoccult negative in the ED. CT of the chest, abdomen, and pelvis did not show any findings of blood loss. Possible blood loss from the left upper extremity. Unable to get CT angiography of the arm at this time due to her kidney function. She is being transfused to a stable hemoglobin. Apixaban is on hold. 04/12/2023 inerval history:?58 y/o female s/p fall and fracture of left humerus and has developed blister on her arm and hand most likely 2/2 rug burn when she fell, all the visible blister are intact and plan to monitor, do not burst them as these blisters will be absorbed by the body, on 04/10? patient complained of cough and congestion to further evaluate did the chest x-ray, no pneumonia, possibly atypical pneumonia started patient on doxycycline,? also patient complained of facial pain, CT scan of facial did not show any fracture, patient is seen by orthopedica surgeon no surgical intervention is needed and will monitor conservatively with sling and further recommendation to follow. however after review patient left arm x-ray the orthopedic recommended to consult an orthopedic at [facility] patient remains clinically stable will monitor, will discharge the patient tomorrow morning so patient can make her appointment with upper extremity news content specialist (2) Acute kidney injury superimposed on chronic kidney disease: Code(s): N17.9 - Acute kidney failure, unspecified; N18.9 - Chronic kidney disease, unspecified Status: Acute Assessment and Plan: Likely due to hypoperfusion from hypotension and hypovolemia from acute on chronic anemia. Avoid nephrotoxic agents. I suspect her renal function will improve with transfusion. If not, a further workup can be pursued. (3) Hypotension: Code(s): I95.9 - Hypotension, unspecified Status: Acute Assessment and Plan: Likely due to hypovolemia from blood loss. Blood pressures have improved with IV fluids. She is being transfused 2 units packed red blood cells. Antihypertensives on hold for now. (4) Fracture of proximal end of left humerus: Qualifiers: Encounter type: initial encounter Fracture type: closed Fracture morphology: other fracture Fracture alignment: displaced Qualified Code(s): S42.292A - Other displaced fracture of upper end of left humerus, initial encounter for closed fracture Code(s): S42.202A - Unspecified fracture of upper end of left humerus, initial encounter for closed fracture Status: Acute Assessment and Plan: The patient sustained a fracture of the proximal humeral diaphysis in a mechanical fall on 04/04/2023. Splint was placed and she was sent to the emergency department given marked edema of the forearm and hand with bullae formation. She has some mild tingling of the left hand but that is improved since the area was resplinted. Initial splint was removed in the ED and per the ED provider the arm was soft and there was no evidence to suggest compartment syndrome. Continue analgesics as needed. (5) Left upper extremity swelling: Code(s): M79.89 - Other specified soft tissue disorders Status: Acute Assessment and Plan: Left upper extremity is markedly edematous and she has significant bruising around the left shoulder and upper arm. Her hemoglobin has dropped 3 g in the last 1 month and an arterial injury with the fracture is certainly a consideration. DVT seems unlikely as she has been on Eliquis. CT angiogram of the upper extremity is unable to be performed at this time given her kidney disease. I will ask Dr. Aggarwal to see her in consultation for recommendations. (6) Anticoagulated b
[2023-04-13 09:34] LABS: EDCOVIDSCREEN Negative (Negative)
--- NOTE | 2023-04-13 11:37 | PC.NURSE ---
I have reviewed Sara Campbell's charting and agree with her assessments.
== END 2023-04-13 09:45 | disposition home or self-care (01) ==
LOC: ANHED 17:18 → ANHIMU 04-09 00:54 → ANH3MEDSUR 04-13 08:27 → ANHIMU 04-14 12:39
PROVIDERS: Physician Assistant; Admitting Provider Hospitalist; Emergency Provider Nurse Practitioner Family; PCP Family Medicine; Visit Provider Family Medicine
DX: D64.9 Anemia, unspecified (principal); N17.9 Acute kidney failure, unspecified; I95.9 Hypotension, unspecified; S42.292A Other displaced fracture of upper end of left humerus, initial encounter for closed fracture; M79.89 Other specified soft tissue disorders; E11.65 Type 2 diabetes mellitus with hyperglycemia; E87.1 Hypo-osmolality and hyponatremia; I48.91 Unspecified atrial fibrillation; F41.9 Anxiety disorder, unspecified; M19.90 Unspecified osteoarthritis, unspecified site; J45.909 Unspecified asthma, uncomplicated; J44.9 Chronic obstructive pulmonary disease, unspecified; Z20.822 Contact with and (suspected) exposure to COVID-19; G89.4 Chronic pain syndrome; J32.9 Chronic sinusitis, unspecified; K74.60 Unspecified cirrhosis of liver; K75.81 Nonalcoholic steatohepatitis (NASH); F40.240 Claustrophobia; I11.0 Hypertensive heart disease with heart failure; I50.9 Heart failure, unspecified; E11.40 Type 2 diabetes mellitus with diabetic neuropathy, unspecified; R06.00 Dyspnea, unspecified; E66.09 Other obesity due to excess calories; Z68.29 Body mass index [BMI] 29.0-29.9, adult; M79.7 Fibromyalgia; R51.9 Headache, unspecified; M10.9 Gout, unspecified; E78.00 Pure hypercholesterolemia, unspecified; F33.9 Major depressive disorder, recurrent, unspecified; G25.81 Restless legs syndrome; G47.30 Sleep apnea, unspecified; Z86.14 Personal history of Methicillin resistant Staphylococcus aureus infection; Z79.01 Long term (current) use of anticoagulants; Z79.4 Long term (current) use of insulin; Z79.51 Long term (current) use of inhaled steroids; Z79.891 Long term (current) use of opiate analgesic; Z79.899 Other long term (current) drug therapy; Z82.49 Family history of ischemic heart disease and other diseases of the circulatory system; Z83.3 Family history of diabetes mellitus; Z84.89 Family history of other specified conditions; Z83.438 Family history of other disorder of lipoprotein metabolism and other lipidemia; Z82.5 Family history of asthma and other chronic lower respiratory diseases; Z83.6 Family history of other diseases of the respiratory system; Z81.8 Family history of other mental and behavioral disorders
CPT/HCPCS: 23605; 36415; 36430; 70150; 70486; 71046; 71250; 73060; 74176; 80048; 80053; 81001; 82010; 82550; 82607; 82728; 82746; 82948; 83036; 83540; 83550; 83735; 84443; 85025; 85027; 85046; 85610; 85730; 86850; 86900; 86901; 86923; 87426; 93970; 94640; 96361; 96365; 96366; 96367; 96374; 96375; 96376; 97163; 97165; 99285; A9270; C9803; G0378; J1170; J1815; J3010; J3475; J7030; J7050; P9016

== ENCOUNTER 2023-05-08 10:52 | Observation (INO) | payer MEDICARE, MEDICAID, SELFPAY ==
[2023-05-08] VITALS (34 sets, daily range): BP systolic 129–166; BP diastolic 77–97; PULSE 85–115; RESP 12–20; TEMP 36.1–37.1; O2SAT 94–99; BMI 26.2
--- NOTE | ~2023-05-08 | XR_ITS ---
XR chest 1V portable DATE: 05/08/2023 11:41 INDICATION: Cough, midsternal chest pain, shortness of breath, weakness for 2 days TECHNIQUE: Portable AP chest on 05/08/2023 1139 hours COMPARISON: 04/10/2023 2 views chest 04/08/2023 CT chest abdomen pelvis FINDINGS: Patchy bilateral pulmonary infiltrates and/or atelectasis are noted including right mid to upper and both lower lung zones. Heart size normal. No pulmonary vascular congestion or pleural effusion or pneumothorax is detected. Plate and screws along proximal left humerus. IMPRESSION: Persistent bilateral pulmonary infiltrates and/atelectasis, with little interval change s marti 04/10/2023 Reviewed, dictated and finalized at location [] IMPRESSION: Persistent bilateral pulmonary infiltrates and/atelectasis, with li ttle interval change since 04/10/2023
--- NOTE | 2023-05-08 11:02 | ECG_ITS ---
Measurements Intervals [place] Rate: 100 P: 38 OH: 152 QRS: -17 QRSD: 102 T: 5 QT: 347 QTc: 448 Interpretive Statements SINUS TACHYCARDIA VOLTAGE CRITERIA FOR LVH [MEETS CRITERIA IN ONE OF: R(aVL), S(V1), R(V5), R(V5/V6)+S(V1)] POSSIBLE SEPTAL MYOCARDIAL INFARCTION , PROBABLY OLD [30 ms Q WAVE IN V1/V2] COMPARED TO ECG 03/09/2023 23:06:19 HEART RATE INCREASED LEFT VENTRICULAR HYPERTROPHY NOW PRESENT Electronically Signed On 05-08-2023 12:58:14 CDT by Jose M Lacey M.D.
[2023-05-08] MEDS: SODIUM CHLORIDE 0.9% IV 1,000 ML 999 ML IV CONT (11:50)
[2023-05-08] MEDS: ORPHENADRINE CITRATE 30 MG/ML 2 ML VIAL IV PUSH (11:52)
[2023-05-08] MEDS: fentaNYL CITRATE INJ (*CRX) 100 MCG/2 ML VIAL 50 MCG IV PUSH ×2 (11:53→13:21)
[2023-05-08 11:55] LABS: Basophils Absolute Auto 0.04 K/mm3 (0.00-0.10); Basophils Percent Auto 0.5 % (0.0-1.0); Eosinophils Absolute Auto 0.13 K/mm3 (0.02-0.50); Eosinophils Percent Auto 1.5 % (1.0-6.0); Hematocrit 28.8 % (35.0-49.0); Hemoglobin 9.6 g/dL (12.0-15.0); Immature Granulocyte Absolute 0.04 K/mm3 (0.00-0.00); Immature Granulocyte Percent A 0.5 % (0.0-0.0); Lymphocytes Absolute Auto 0.81 K/mm3 (1.10-4.50); Lymphocytes Percent Auto 9.2 % (18.0-42.0); Mean Corpuscular HGB Conc 33.3 g/dL (32.0-36.0); Mean Corpuscular Hemoglobin 29.3 pg (27.0-31.0); Mean Corpuscular Volume 87.8 fL (78.0-102.0); Mean Platelet Volume 10.1 fl (9.2-11.8); Monocytes Absolute Auto 0.48 K/mm3 (0.10-0.90); Monocytes Percent Auto 5.5 % (2.0-11.0); Neutrophils Absolute Auto 7.3 K/mm3 (1.7-7.2); Neutrophils Percent Auto 82.8 % (50.0-70.0); Platelet Count Result 204 K/mm3 (150-420); Red Blood Count 3.28 M/mm3 (4.20-5.40); Red Cell Distribution Width 14.5 % (11.6-14.4); White Blood Count 8.8 K/mm3 (4.8-10.8)
[2023-05-08] MEDS: guaiFENesin/DEXTROMETHORPHAN 5 ML UDC 10 ML PO (11:55)
--- NOTE | 2023-05-08 11:56 | ED.GENADULT ---
HPI - General Adult General Chief complaint: Chest Pain Stated complaint: Weakness Time Seen by Provider: 05/08/23 11:13 History of Present Illness HPI narrative: The patient is a 58-year-old woman with multiple comorbidities, see below. These include diabetes insulin dependent, coronary artery disease status post stenting, pulmonary embolism and atrial fibrillation on Eliquis therapy, back surgery, anxiety, frequent falls, and chronic kidney disease (last BUN Cr was 37 and 1.6 3 weeks ago). She is an ex-smoker, who has discontinued cigarettes 3 months ago. She was admitted to [facility] on 04/08 until 04/13/2023 for anemia, acute kidney injury, left humerus fracture which underwent surgical repair mid March. She was placed on hydrocodone as needed afterwards. Last use of hydrocodone was 3 days ago. The patient has had a 2 day history of worsening chest pain, right of midline, radiating to the back to which she feels is due to coughing spells that have been ongoing for 2 days. She has cough occasionally productive of sputum. She feels weak and tired. She fell last week and again fell today, resulting in abrasions on her knees. Tetanus up to date. No fevers or chills but does have diaphoresis. No rhinorrhea nasal congestion or shortness of breath or abdominal pain or nausea vomiting or urinary symptoms. She was transported by EMS. Accucheck by EMS was 572. Related Data Home Medications Medication Instructions Recorded Confirmed cetirizine 10 mg capsule (All Day 10 mg PO DAILY 12/04/22 05/08/23 Allergy (cetirizine)) potassium chloride 10 mEq 10 meq PO DAILY 12/04/22 05/08/23 tablet,extended release mirtazapine 7.5 mg tablet 7.5 mg PO HS 03/10/23 05/08/23 vortioxetine 20 mg tablet 20 mg PO DAILY 03/10/23 05/08/23 (Trintellix) duloxetine 60 mg capsule,delayed 60 mg PO DAILY 04/08/23 05/08/23 release furosemide 40 mg tablet 40 mg PO DAILY 04/08/23 05/08/23 lamotrigine 25 mg tablet 25 mg PO BID 04/08/23 05/08/23 melatonin 10 mg tablet 10 mg PO HS PRN Insomnia 04/08/23 05/08/23 montelukast 10 mg tablet 10 mg PO DAILY 04/08/23 05/08/23 ondansetron 4 mg disintegrating 4 mg PO Q8H PRN Nausea 04/08/23 05/08/23 tablet pregabalin 75 mg capsule 75 mg PO Q12H 04/08/23 05/08/23 ropinirole 2 mg tablet 2 mg PO Q8H 04/08/23 05/08/23 aspirin 81 mg tablet,delayed 81 mg PO DAILY 04/22/23 05/08/23 release (Adult Aspirin Regimen) dulaglutide 0.75 mg/0.5 mL 0.75 mg subcut WEEKLY 04/22/23 05/08/23 subcutaneous pen injector (Trulicity) hydrocodone 5 mg-acetaminophen 325 1 tablet PO Q4H PRN Pain (Scale 04/22/23 05/08/23 mg tablet Score 4-6) sennosides 8.6 mg-docusate sodium 2 tab-cap PO BID 04/22/23 05/08/23 50 mg tablet (Senna with Docusate Sodium) alprazolam 1 mg tablet 1 mg PO Q8H Anxiety 05/08/23 05/08/23 cyclobenzaprine 5 mg tablet 5 mg PO TID Muscle Spasm 05/08/23 05/08/23 Allergies Allergy/AdvReac Type Severity Reaction Status Date / Time adhesive tape Allergy Unknown Blister Verified 05/08/23 07:44 atorvastatin Allergy Unknown muscle Verified 05/08/23 07:44 cramping budesonide Allergy Unknown Anaphylactic Verified 05/08/23 07:44 Shock formoterol Allergy Unknown Anaphylactic Verified 05/08/23 07:44 Shock mometasone furoate Allergy Unknown Anaphylactic Verified 05/08/23 07:44 Shock morphine Allergy Unknown Itching Verified 05/08/23 07:44 diphenhydramine AdvReac Severe Other Verified 05/08/23 07:44 [From Benadryl] gemfibrozil AdvReac Unknown Gastrointestinal Verified 05/08/23 07:44 Upset flonase Allergy Severe Swelling Uncoded 05/08/23 07:44 of the Eye Review of Systems Review of Systems: All systems reviewed & are unremarkable except as noted in HPI and below Constitutional: Constitutional: Denies chills, Reports excessive sweating, Reports fatigue, Denies fever(s), Denies headache(s) and Reports weakness Eyes: Eyes: Denies change in vision and Denies photophobia
[2023-05-08] MEDS: BENZONATATE 100 MG CAPSULE PO (11:57)
[2023-05-08] MEDS: ACETAMINOPHEN 325 MG TABLET 975 MG PO (11:57)
[2023-05-08 12:04] LABS: Glucose Point of Care > 450 mg/dl (65-105)
[2023-05-08] MEDS: INSULIN HUMAN REGULAR (*BKC) 1,000 UNITS/10 ML VIAL 5 UNITS IV PUSH ×2 (12:04→13:20)
[2023-05-08 12:14] LABS: Lactic Acid Reflex 1.6 mmol/L (0.4-2.0)
[2023-05-08 12:19] LABS: Acetone Negative (Negative)
[2023-05-08 12:23] LABS: Alanine Aminotransferase 38 U/L (14-59); Albumin Level 2.6 g/dL (3.4-5.0); Alkaline Phosphatase 750 U/L (46-116); Amylase 37 U/L (25-115); Anion Gap 11 mmol/L (8-16); Aspartate Amino Transferase 37 U/L (15-37); Bilirubin,Total 0.4 mg/dL (0.00-1.00); Blood Urea Nitrogen 26 mg/dL (7-18); CRP 5.4 mg/dL (0.0-0.9); Calcium 8.9 mg/dL (8.5-10.1); Carbon Dioxide 23 mmol/L (21-32); Chloride 94 mmol/L (98-108); Creatine Kinase 29 U/L (26-192); Estimated CRCL calculation 27 ml/min; Estimated Glomerular Filt Rate 28; Lipase 78 U/L (16-77); NT Pro B Type Natriuretic Pept 556 pg/mL (0-125); Potassium 3.8 mmol/L (3.5-5.1); Sodium 128 mmol/L (136-145); Total Protein 8.7 g/dL (6.4-8.2); Troponin I 8.9 ng/L (0.00-60.4)
[2023-05-08 12:26] LABS: Glucose 640 mg/dL (70-99); Osmolality Calculated 300 mOsm/kg (285-295)
[2023-05-08 12:54] LABS: Erythrocyte Sedimentation Rate 59 mm/hr (0-20)
[2023-05-08 13:07] LABS: Glucose Point of Care > 450 mg/dl (65-105)
[2023-05-08] MEDS: AZITHROMYCIN 250 MG TABLET 500 MG PO (13:23)
[2023-05-08] MEDS: INSULIN HUMAN REGULAR (*BKC) 1,000 UNITS/10 ML VIAL 7 UNITS IV PUSH (14:34)
[2023-05-08] MEDS: SODIUM CHLORIDE 0.9% IV 250 ML BAG 500 ML IVPB (14:49)
[2023-05-08] MEDS: cefTRIAXone 2 GM/NS 100 ML 2 GM/100 ML BAG IVPB (14:52)
[2023-05-08] MEDS: SODIUM CHLORIDE 0.9% IV 1,000 ML 100 ML IV CONT (14:52)
--- NOTE | 2023-05-08 15:03 | PC.NURSE ---
food tray provided. declined any need for pain medication at this time
[2023-05-08 15:09] LABS: Glucose Point of Care 441 mg/dl (65-105)
[2023-05-08 15:09] LABS: Glucose Point of Care 435 mg/dl (65-105)
[2023-05-08 15:38] LABS: Influenza A QL RT-PCR Negative (Negative); Influenza B QL RT-PCR Negative (Negative); SARS-CoV-2 RNA PCR Negative (Negative)
[2023-05-08 15:48] LABS: RSV RNA, RT-PCR Negative (Negative)
--- NOTE | 2023-05-08 16:00 | ADMGEN ---
This patient, Britney Crawford, was admitted to 2nd Floor Room 207 for hyperglycemia and weakness. Patient/family oriented to hospital policies and general routines including ID bracelet, bed and alarms, visiting hours, pain management, procedures, bathroom and other care routines, personal items, smoking policy, room service/diet, and visiting hours. Information on how to activate the Rapid Response Team has been discussed. Patient/Family are encouraged to report perceived risks to care and to ask questions if they do not understand what they are told or what they should do.
[2023-05-08 16:08] LABS: Glucose Point of Care 414 mg/dl (65-105)
[2023-05-08] MEDS: lamoTRIgine 25 MG TABLET PO (17:26)
[2023-05-08] MEDS: HYDROcodone/acetaminophen (*CRX) 5-325 MG TABLET 1 TAB PO ×2 (17:26→23:34)
[2023-05-08] MEDS: SENNA/DOCUSATE SODIUM TABLET 2 TAB PO (17:26)
[2023-05-08] MEDS: INSULIN HUMAN LISPRO (*BKC) 1,000 UNITS/10 ML VIAL SUB-Q (17:27)
[2023-05-08 18:14] LABS: Glucose Point of Care > 450 mg/dl (65-105)
--- NOTE | 2023-05-08 18:25 | PC.NURSE ---
Chelsie Mann NP notified of patient's blood glucose being >500. Lab notied and new order received.
[2023-05-08] MEDS: INSULIN HUMAN LISPRO (*BKC) 1,000 UNITS/10 ML VIAL 10 UNITS SUB-Q (18:30)
[2023-05-08 18:57] LABS: Glucose 503 mg/dL (70-99)
[2023-05-08] MEDS: PREGABALIN (*CRX) 25 MG CAPSULE 75 MG PO (20:12)
[2023-05-08] MEDS: MELATONIN 5 MG TABLET 10 MG PO (20:12)
[2023-05-08] MEDS: MIRTAZAPINE 7.5 MG TABLET PO (20:13)
[2023-05-08 20:16] LABS: Glucose Point of Care 383 mg/dl (65-105)
--- NOTE | 2023-05-08 20:30 | PC.NURSE ---
Chelsie Mann NP, notified of patient's current blood sugar result being 383. New order received. RADIAL SAW OPERATOR also notified of patient being lowered to the floor during transfer with abrasions to the knees.
[2023-05-08] MEDS: INSULIN HUMAN LISPRO (*BKC) 1,000 UNITS/10 ML VIAL 8 UNITS SUB-Q (20:37)
[2023-05-08] MEDS: guaiFENesin/DEXTROMETHORPHAN 5 ML UDC PO (20:45)
[2023-05-08] MEDS: rOPINIRole HCL 1 MG TABLET 2 MG PO (21:16)
[2023-05-08 22:26] LABS: Glucose Point of Care 202 mg/dl (65-105)
[2023-05-08] MEDS: INSULIN HUMAN LISPRO (*BKC) 1,000 UNITS/10 ML VIAL 4 UNITS SUB-Q (22:51)
[2023-05-09] VITALS: BP 142/89; PULSE 78; RESP 20; TEMP 35.9; O2SAT 99
--- NOTE | 2023-05-09 02:02 | PC.NURSE ---
Blood sugar 119 at this time.
[2023-05-09 02:03] LABS: Glucose Point of Care 119 mg/dl (65-105)
[2023-05-09 05:17] LABS: Basophils Absolute Auto 0.03 K/mm3 (0.00-0.10); Basophils Percent Auto 0.5 % (0.0-1.0); Eosinophils Absolute Auto 0.22 K/mm3 (0.02-0.50); Eosinophils Percent Auto 3.6 % (1.0-6.0); Hematocrit 27.2 % (35.0-49.0); Hemoglobin 8.6 g/dL (12.0-15.0); Immature Granulocyte Absolute 0.03 K/mm3 (0.00-0.00); Immature Granulocyte Percent A 0.5 % (0.0-0.0); Lymphocytes Absolute Auto 1.04 K/mm3 (1.10-4.50); Lymphocytes Percent Auto 17.2 % (18.0-42.0); Mean Corpuscular HGB Conc 31.6 g/dL (32.0-36.0); Mean Corpuscular Hemoglobin 28.4 pg (27.0-31.0); Mean Corpuscular Volume 89.8 fL (78.0-102.0); Mean Platelet Volume 10.2 fl (9.2-11.8); Monocytes Percent Auto 6.6 % (2.0-11.0); Neutrophils Absolute Auto 4.3 K/mm3 (1.7-7.2); Neutrophils Percent Auto 71.6 % (50.0-70.0); Platelet Count Result 170 K/mm3 (150-420); Red Blood Count 3.03 M/mm3 (4.20-5.40); White Blood Count 6.1 K/mm3 (4.8-10.8)
[2023-05-09 05:27] LABS: Anion Gap 10 mmol/L (8-16); Blood Urea Nitrogen 23 mg/dL (7-18); Calcium 8.2 mg/dL (8.5-10.1); Carbon Dioxide 23 mmol/L (21-32); Chloride 103 mmol/L (98-108); Estimated CRCL calculation 31 ml/min; Estimated Glomerular Filt Rate 37; Glucose 223 mg/dL (70-99); Osmolality Calculated 292 mOsm/kg (285-295); Potassium 3.5 mmol/L (3.5-5.1); Sodium 136 mmol/L (136-145)
[2023-05-09] MEDS: HYDROcodone/acetaminophen (*CRX) 5-325 MG TABLET 1 TAB PO ×3 (05:37→20:55)
[2023-05-09] MEDS: rOPINIRole HCL 1 MG TABLET 2 MG PO ×3 (05:37→20:54)
[2023-05-09] MEDS: guaiFENesin/DEXTROMETHORPHAN 5 ML UDC PO ×3 (05:38→20:56)
[2023-05-09 05:39] LABS: Glucose Point of Care 241 mg/dl (65-105)
--- NOTE | 2023-05-09 06:25 | PC.NURSE ---
On 05/09/23, the B2B SALES MANAGER, [Georgia Varela ], provided care and completed [employer] documentation on this patient. I have reviewed the B2B SALES MANAGER's documentation and agree with the findings.
--- NOTE | 2023-05-09 07:31 | PC.NURSE ---
Up to bedside commode with assist of 1, gait belt and cane.
[2023-05-09 08:00] VITALS: BP 178/96; PULSE 100; RESP 18; TEMP 36.4; O2SAT 100
[2023-05-09] MEDS: PREGABALIN (*CRX) 25 MG CAPSULE 75 MG PO ×2 (08:12→20:55)
[2023-05-09] MEDS: DULoxetine HCL 30 MG CAPSULE.DR 60 MG PO (08:13)
[2023-05-09] MEDS: SENNA/DOCUSATE SODIUM TABLET 2 TAB PO ×2 (08:13→16:53)
[2023-05-09] MEDS: MONTELUKAST SODIUM 10 MG TABLET PO (08:14)
[2023-05-09] MEDS: FUROSEMIDE 40 MG TABLET PO (08:14)
[2023-05-09] MEDS: ASPIRIN 81 MG ENTERIC TABLET PO (08:14)
[2023-05-09] MEDS: POTASSIUM CHLORIDE 10 MEQ ER TABLET PO (08:14)
[2023-05-09] MEDS: lamoTRIgine 25 MG TABLET PO ×2 (08:14→16:54)
[2023-05-09] MEDS: LORATADINE 10 MG TABLET PO (08:14)
[2023-05-09] MEDS: ENOXAPARIN 40 MG/0.4 ML SYRINGE SUB-Q (08:15)
[2023-05-09] MEDS: INSULIN HUMAN LISPRO (*BKC) 1,000 UNITS/10 ML VIAL SUB-Q ×3 (08:15→17:00)
[2023-05-09] MEDS: ACETAMINOPHEN 325 MG TABLET 650 MG PO ×2 (09:09→18:53)
[2023-05-09] MEDS: ALPRAZolam (*CRX) 0.5 MG TABLET 1 MG PO (09:10)
--- NOTE | 2023-05-09 10:00 | PM.IMHP ---
H&P: HPI History of Present Illness Date/Time: 05/09/23 10:00 Chief Complaint: Weakness, Pain in chest area ruled out cardiac, Hyperglyceima Narrative: This is a 58 year old female with extensive medical problems including chronic kidney disease, insulin-dependent diabetes, hypertension, diastolic dysfunction, cirrhosis, chronic anemia, and a V/Q scan in February 2023 showing intermediate probability for PE white blood cell count is normal at 8.8.? Hemoglobin is improved compared to previous values, now 9.6 from 7.9, hematocrit 28.8 from 20/4 0.8 back on 04/13/2023.? There is a left shift of 83% neutrophils.? Absolute neutrophil count is also slightly elevated at 7.3.? Accu-Chek more than 450, received 5 units of IV insulin, repeat Accu-Chek pending.? Lactic acid is normal at 1.6.? EKG is unremarkable for any acute findings.? Chest x-ray is similar to the previous chest x-ray from 1 month ago, with bilateral chronic bronchiectatic changes, with no new infiltrates.? She had a CT scan of the chest at that time that revealed chronic findings.? Patient was treated azithromycin Sodium was 128 currently is 136 BuN was 26 currently 23 Creatin 188 currently 1.45 Patient has been seen by physical therapy who feels like patient is able to go home and have home physical therapy patient was wanting to be used swing patient although she does not qualify. Discussion was had with case management pt will go home we will send home health. We will avoid steroids as patient blood sugars remain high we are switching her from q.4h currently she will be a.c. and HS blood sugars she has had 2 sessions of physical therapy the plan will be for patient to discharge in the morning. Patient was unable to obtain a ride arrived will pick her up on Thursday we will continue to treat her blood sugars until then and she will have home health as an outpatient which is already be in the process Review of Systems Review of Systems: weakness, high blood sugars, pain All systems reviewed & are unremarkable except as noted in HPI and below PMFSH Past Medical History Medical History Anxiety Arthritis Asthma Atrophy of left kidney Chronic anemia Chronic fatigue Chronic headache Chronic obstructive pulmonary disease Chronic pain syndrome Chronic sinusitis Cirrhosis Claustrophobia Congestive heart failure Diastolic dysfunction. 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 Posttraumatic stress disorder Restless leg syndrome Seasonal allergies Spinal arthritis Tobacco abuse Type 2 diabetes mellitus Surgical History Surgical History History of back surgery History of cholecystectomy History of cholecystectomy History of ear surgery History of hernia repair History of hysterectomy History of laparoscopy History of left salpingo-oophorectomy History of open reduction and internal fixation (ORIF) procedure Left Humerus History of sinus surgery Stented coronary artery Family History Family History Mother Family history of gout Family history of elevated blood lipids Family history of chronic obstructive pulmonary disease Hypertension Depression Diabetes mellitus CKD (chronic kidney disease) Sibling Family history of gout Family history of allergic disorder Asthma Father No problems noted. Other Acute myocardial infarction paternal uncle Family history of cardiovascular disease maternal uncle Grandparent Family history of emphysema Family history of cardiovascular disease Grandparent Depression
[2023-05-09 11:56] LABS: Glucose Point of Care > 450 mg/dl (65-105)
[2023-05-09] MEDS: INSULIN HUMAN LISPRO (*BKC) 1,000 UNITS/10 ML VIAL 10 UNITS SUB-Q ×2 (12:16→21:24)
[2023-05-09 16:00] VITALS: BP 159/64; PULSE 89; RESP 16; TEMP 36.4; O2SAT 98
[2023-05-09 16:58] LABS: Glucose Point of Care 359 mg/dl (65-105)
[2023-05-09 20:00] VITALS: PULSE 89; RESP 16; O2SAT 98
[2023-05-09] MEDS: MIRTAZAPINE 7.5 MG TABLET PO (20:54)
[2023-05-09] MEDS: MELATONIN 5 MG TABLET 10 MG PO (20:54)
[2023-05-09 20:59] LABS: Glucose Point of Care 432 mg/dl (65-105)
[2023-05-09 22:32] LABS: Glucose Point of Care > 450 mg/dl (65-105)
[2023-05-10] VITALS: BP 139/90; PULSE 91; RESP 18; TEMP 36.6; O2SAT 98
[2023-05-10] MEDS: ALPRAZolam (*CRX) 0.5 MG TABLET 1 MG PO ×2 (00:25→12:00)
[2023-05-10] MEDS: ALBUTEROL SULFATE (*SP) INHALER 2 PUFF INHALATION (00:26)
--- NOTE | 2023-05-10 00:37 | PC.NURSE ---
Pt C/O right sided chest pain, states it feels different from her usual pain, VS WNL, SPO2 98% on room air, PRN inhaler and Xanax given per request.
[2023-05-10 03:35] LABS: Glucose Point of Care 404 mg/dl (65-105)
[2023-05-10] MEDS: rOPINIRole HCL 1 MG TABLET 2 MG PO ×2 (05:08→13:22)
[2023-05-10] MEDS: ACETAMINOPHEN 325 MG TABLET 650 MG PO ×2 (05:09→12:04)
[2023-05-10] MEDS: guaiFENesin/DEXTROMETHORPHAN 5 ML UDC PO (05:10)
[2023-05-10 07:37] LABS: Glucose Point of Care 366 mg/dl (65-105)
[2023-05-10 08:00] VITALS: BP 156/95; PULSE 89; RESP 14; TEMP 36.4; O2SAT 100
[2023-05-10] MEDS: INSULIN HUMAN LISPRO (*BKC) 1,000 UNITS/10 ML VIAL SUB-Q ×2 (08:05→12:01)
[2023-05-10] MEDS: PREGABALIN (*CRX) 25 MG CAPSULE 75 MG PO (08:56)
[2023-05-10] MEDS: DULoxetine HCL 30 MG CAPSULE.DR 60 MG PO (08:57)
[2023-05-10] MEDS: POTASSIUM CHLORIDE 10 MEQ ER TABLET PO (08:57)
[2023-05-10] MEDS: lamoTRIgine 25 MG TABLET PO (08:57)
[2023-05-10] MEDS: MONTELUKAST SODIUM 10 MG TABLET PO (08:57)
[2023-05-10] MEDS: FUROSEMIDE 40 MG TABLET PO (08:58)
[2023-05-10] MEDS: ENOXAPARIN 40 MG/0.4 ML SYRINGE SUB-Q (08:58)
[2023-05-10] MEDS: ASPIRIN 81 MG ENTERIC TABLET PO (08:58)
[2023-05-10] MEDS: SENNA/DOCUSATE SODIUM TABLET 2 TAB PO (08:58)
[2023-05-10] MEDS: HYDROcodone/acetaminophen (*CRX) 5-325 MG TABLET 1 TAB PO (08:59)
[2023-05-10] MEDS: INSULIN GLARGINE (*BKC) 1,000 UNITS/10 ML VIAL 25 UNITS SUB-Q (09:01)
--- NOTE | 2023-05-10 10:10 | PM.DS ---
DS: Admitting Diagnosis Discharge Date 05/10/2023 Admitting Diagnosis Weakness, Acute Bronchitis DS: Discharge Diagnosis Discharge Diagnosis (1) Acute bronchitis: Code(s): J20.9 - Acute bronchitis, unspecified Status: Acute Assessment and Plan: breathing treatments to continue at home. Azithromycin prophylactically to continue at home Steroids were not administered secondary to patient's hyperglycemia on admission. However, her home Lantus was not ordered. (2) Right-sided chest wall pain: Code(s): R07.89 - Other chest pain Status: Chronic Assessment and Plan: Chronic in nature, high sensitivity troponin negative at 8.9, Cardiac causation ruled out. (3) Diabetes mellitus with hyperglycemia, with long-term current use of insulin: Code(s): E11.65 - Type 2 diabetes mellitus with hyperglycemia; Z79.4 - care home (current) use of insulin Status: Chronic Assessment and Plan: Poorly controlled. Etiology of this may be compliance vs. low dosing. Pt's Lantus of 25 units bid was not continued when she was admitted by the admitting provider, therefore her glucose is still running high. Discharge to home with continued home doses of short acting and long acting insulin. Diabetic diet at home. Educated for compliance. (4) Chronic kidney disease (CKD): Code(s): N18.9 - Chronic kidney disease, unspecified Status: Chronic Assessment and Plan: Interval improvement during hospitalization. She is below her baseline renal function. (5) Generalized weakness: Code(s): R53.1 - Weakness Status: Acute Assessment and Plan: physical therapy assess Physical therapy states patient could go home and have outpatient or home health physical therapy Patient made aware will discharge on Thursday Case management has been made aware on Thursday home health will be set up for physical therapy DS: Summary Hospital Course Reason for hospitalization: Weakness and Bronchitis Hospital Course: This 68-year-old female patient with an extensive medical history including chronic kidney disease, type 2 insulin-dependent diabetes mellitus, hypertension, heart failure with diastolic dysfunction, cirrhosis of the liver, chronic anemia and most recently a sustained fall and fracture of her left humerus requiring open reduction and internal fixation at [facility] with remaining sutures in left upper extremity, pulmonary emboli in atrial fibrillation on chronic Eliquis therapy, anxiety and recently an ex-smoker as of 3 months ago presented to the emergency room on May 08, 2023 with complaints of having a 2 day history worsening chest pain that radiated to the back, was right of midline and coughing spells that have been persisting for 2 days. Workup was performed in the emergency room and patient had negative high sensitivity troponin to rule out cardiac causation, and imaging demonstrating patchy bilateral pulmonary infiltrates and/or atelectasis in the right mid to upper and both lower lung zones. There was no identified pulmonary vascular congestion or pleural effusion or pneumothorax. These infiltrates were identified April 10, 2023 also and it is noted that there was little improvement in their appearance. Patient also had an initial glucose of 640 on CMP in the emergency room. She was treated with multiple doses of IV insulin and glucose decreased. She was admitted to the hospital for treatment of bronchitis as well as hyperglycemia and weakness. She has participated with physical therapy, is deemed not to be a candidate for swing bed and is set up with home health PT to start this week. Her glucose remains elevated, however her dose of Lantus 25 mg b.i.d. was not ordered by the accepting provider. Patient's respiratory status is stable on room air. She is ready for discharge today without any new complaints. She will be discharged home with nebulizers and continued ther
[2023-05-10 12:01] LABS: Glucose Point of Care > 450 mg/dl (65-105)
[2023-05-10 13:14] LABS: Glucose Point of Care > 450 mg/dl (65-105)
[2023-05-10] MEDS: INSULIN HUMAN LISPRO (*BKC) 1,000 UNITS/10 ML VIAL 10 UNITS SUB-Q (13:24)
[2023-05-10 14:16] LABS: Glucose Point of Care > 450 mg/dl (65-105)
[2023-05-10 14:52] LABS: Glucose Point of Care > 450 mg/dl (65-105)
--- NOTE | 2023-05-10 15:17 | PC.NURSE ---
patient's friend arrived to take her home. BG below 500-[employer] okayed release. Patient herself on the floor when transfering to to wheelchair to leave. Able to stand to transfer self to private vehicle. reviewed discharge paperwork with patient and her friend.
--- NOTE | 2023-05-11 08:31 | PCCCNOTE ---
Pt admitted and discharged over weekend. Order to set up home PT for pt rec'd. Due to patients insurance [facility] and companies coming to [place] that accept [facility] [facility], [facility] was fax [facility] request for nursing and PT. When accepted CC will call pt and let her know who to expect call from.
--- NOTE | 2023-05-12 08:14 | PCCCNOTE ---
Home Health referrals made yesterday to [facility] who can't see her for 1 week, [facility] whom does not have contracts with [facility] and [facility] who did not respond to fax. CC did get a call from [facility] ED stating the pt was in their ED and states she feels she needs rehab placement now. Will stop referrals for home health at this time.
--- NOTE | 2023-05-12 10:17 | PC.NURSE ---
Pt states she received and understood her discharge instructions. Pt has no other comments.
== END 2023-05-10 15:15 | disposition home health service (06) ==
LOC: CHSED 15:01 → CHS2ND 15:47
PROVIDERS: Nurse Practitioner Family; Admitting Provider Internal Medicine; Emergency Provider Emergency Medicine; PCP Family Medicine; Visit Provider Internal Medicine
DX: J20.9 Acute bronchitis, unspecified (principal)
CPT/HCPCS: 36415; 71045; 80048; 80053; 82010; 82150; 82550; 82947; 82948; 83605; 83690; 83880; 84484; 85025; 85652; 86140; 87637; 93005; 96361; 96365; 96372; 96375; 96376; 97110; 97161; 99285; A9270; G0378; J0696; J1650; J1815; J2360; J3010; J7030; J7050